=== PATIENT | female | born 1965 | race Caucasian/White ===

== ENCOUNTER 2017-07-26 15:08 | Emergency (ER) | payer MEDICARE, MEDICAID ==
[~2017-07-26] VITALS: Ht 1604.7 cm; Wt 72.7 kg
[~2017-07-26 15:08] MED LIST: BENZ0.5T43 PO; HALO5AMP2 PO; LITH150C8 PO; LITH300C PO; LORA-512 PO; METF500T6 PO; PALI234D IM; PROP10TA10 PO; QUET-1 PO; ZES2.5T PO
[2017-07-26 15:47] LABS: BASOPHILS % (AUTO) 0.3 % (0-1); EOSINOPHILS # (AUTO) 0.3 X10'3 (0-0.9); EOSINOPHILS % (AUTO) 2.3 % (0-6); HEMATOCRIT 39.4 % (35.0-45.0); HEMOGLOBIN 13.5 g/dl (12.0-16.0); LYMPHOCYTES # (AUTO) 2.1 X10'3 (1.1-4.8); MEAN CORPUSCULAR HEMOGLOBIN 29.8 PG (27.0-31.0); MEAN CORPUSCULAR HGB CONC 34.2 % (33.0-36.5); MEAN CORPUSCULAR VOLUME 87.1 FL (78-98); MEAN PLATELET VOLUME 6.7 FL (7.4-10.4); MONOCYTES # (AUTO) 0.5 X10'3 (0-0.9); MONOCYTES % (AUTO) 4.4 % (2-12); NEUTROPHILS # (AUTO) 9.2 X10'3 (1.8-7.7); PLATELET COUNT 394 X10'3 (140-440); RED BLOOD COUNT 4.53 X10'6 (4.20-5.60); RED CELL DISTRIBUTION WIDTH 14.6 % (11.5-14.5); WHITE BLOOD COUNT 12.1 X10'3 (4.5-11.0)
[2017-07-26 15:49] LABS: CLARITY,URINE CLOUDY (Clear); COLOR,URINE YELLOW (Yellow); GLUCOSE, URINE NEGATIVE (Neg); KETONES,URINE NEGATIVE (Neg); LEUKOCYTE ESTERASE ,URINE NEGATIVE (Neg); NITRITES, URINE NEGATIVE (Neg); OCCULT BLOOD,URINE NEGATIVE (Neg); PROTEIN,URINE 100 mg/dl (Neg); UROBILINOGEN,URINE 0.2 E.U/dL (0.2-1.0)
[2017-07-26 15:50] LABS: URINE HCG NEGATIVE (NEG)
[2017-07-26 15:57] LABS: UA COLLECTION TYPE CLN CATCH MIDSTREAM
[2017-07-26 15:58] LABS: MUCUS STRANDS FEW /LPF (Neg); SQUAMOUS EPITHELIAL CELL,UR MANY /LPF (FEW)
[2017-07-26 15:59] LABS: BACTERIA,URINE 2+ /HPF (Neg); RBC,URINE 0-2 /HPF (0-2)
[2017-07-26 16:02] LABS: ALANINE AMINOTRANSFERASE 61 U/L (12-78); ALBUMIN 3.9 G/DL (3.4-5.0); ALKALINE PHOSPHATASE 71 IU/L (46-116); ANION GAP 14 (8-16); ASPARTATE AMINO TRANSFERASE 34 U/L (10-37); BILIRUBIN,TOTAL 0.7 MG/DL (0.1-1.0); BLOOD UREA NITROGEN 24 MG/DL (7-18); BUN/CREATININE RATIO 24.7 (6.6-38.0); CHLORIDE 104 MMOL/L (99-107); CREATININE 0.97 MG/DL (0.40-0.90); GLUCOSE 186 MG/DL (70-104); POTASSIUM 4.3 MMOL/L (3.5-5.1); SODIUM 142 MMOL/L (135-145); TOTAL CARBON DIOXIDE 23.6 MMOL/L (24-32); eGFR 61 ML/MIN
[2017-07-26 16:02] LABS: URINE AMPHETAMINE SCREEN NEGATIVE (Neg); URINE BARBITUATE SCREEN NEGATIVE (Neg); URINE BENZODIAZEPINES SCREEN NEGATIVE (Neg); URINE CANNABINOID SCREEN NEGATIVE (Neg); URINE COCAINE SCREEN NEGATIVE (Neg); URINE METHADONE SCREEN NEGATIVE (Neg); URINE OPIATE SCREEN NEGATIVE (Neg); URINE PHENCYCLIDINE SCREEN NEGATIVE (Neg)
[2017-07-26 16:10] LABS: ETHANOL < 0.010 GM/DL (0.0-0.010)
[2017-07-26] MEDS ORDERED: normal saline 1000ML IV soln IVB ONE (16:10)
[2017-07-26] MEDS ORDERED: OLAN5TAB26 PO (16:50)
[2017-07-26] MEDS ORDERED: LOSA25TA96 PO (16:50)
[2017-07-26] MEDS ORDERED: OLAN10TA19 PO (16:50)
[2017-07-26] MEDS ORDERED: ATOR20TA PO (16:50)
[2017-07-26] MEDS ORDERED: LIT300C PO (16:50)
[2017-07-26] MEDS ORDERED: ADV50250 IH (16:50)
[2017-07-26] MEDS: albuterol 2.5 MG/3 ML nebule NEB SCH (20:38)
[2017-07-26] MEDS: BUDESONIDE 0.25 MG/2 ML AMPUL.NEB IH SCH (20:38)
[2017-07-26] MEDS: atorvastatin 20mg tablet PO SCH (20:48)
[2017-07-26] MEDS: olanzapine 10mg tablet PO SCH (20:49)
[2017-07-26] MEDS: sulfamethoxazole/trimethoprim DS (800/160mg) tablet PO SCH (20:49)
[2017-07-26] MEDS: OLANZapine 2.5MG tablet PO SCH (20:49)
[2017-07-26] MEDS: lithium carbonate 300mg SR tablet (LithoBID) PO SCH (20:50)
[2017-07-26] MEDS: benztropine 1mg tablet PO SCH (20:50)
[2017-07-27] MEDS: albuterol 2.5 MG/3 ML nebule NEB SCH ×4 (07:30→20:40)
[2017-07-27] MEDS: BUDESONIDE 0.25 MG/2 ML AMPUL.NEB IH SCH ×2 (07:30→20:40)
[2017-07-27] MEDS: sulfamethoxazole/trimethoprim DS (800/160mg) tablet PO SCH ×2 (08:07→21:40)
[2017-07-27] MEDS: olanzapine 10mg tablet PO SCH ×2 (08:07→21:42)
[2017-07-27] MEDS: benztropine 1mg tablet PO SCH ×2 (08:07→21:42)
[2017-07-27] MEDS: lithium carbonate 300mg SR tablet (LithoBID) PO SCH ×2 (08:07→21:41)
[2017-07-27] MEDS: losartan 25mg tablet PO SCH (08:07)
[2017-07-27] MEDS: metFORMIN 500mg tablet PO SCH (08:11)
[2017-07-27] MEDS: atorvastatin 20mg tablet PO SCH (21:40)
[2017-07-27] MEDS: lactobacillus rhamnosus 10,000 MMU CELLS/CAPSULE PO SCH (21:41)
[2017-07-27] MEDS: OLANZapine 2.5MG tablet PO SCH (21:42)
[2017-07-28] MEDS: albuterol 2.5 MG/3 ML nebule NEB SCH ×4 (07:54→20:25)
[2017-07-28] MEDS: BUDESONIDE 0.25 MG/2 ML AMPUL.NEB IH SCH ×2 (07:54→20:25)
[2017-07-28] MEDS: benztropine 1mg tablet PO SCH ×2 (07:55→20:18)
[2017-07-28] MEDS: lactobacillus rhamnosus 10,000 MMU CELLS/CAPSULE PO SCH ×2 (07:56→20:22)
[2017-07-28] MEDS: metFORMIN 500mg tablet PO SCH (07:56)
[2017-07-28] MEDS: sulfamethoxazole/trimethoprim DS (800/160mg) tablet PO SCH ×2 (07:56→20:22)
[2017-07-28] MEDS: lithium carbonate 300mg SR tablet (LithoBID) PO SCH ×2 (07:56→20:22)
[2017-07-28] MEDS: olanzapine 10mg tablet PO SCH ×2 (07:56→20:47)
[2017-07-28] MEDS: losartan 25mg tablet PO SCH (08:12)
[2017-07-28] MEDS: atorvastatin 20mg tablet PO SCH (20:46)
[2017-07-28] MEDS: OLANZapine 2.5MG tablet PO SCH (20:47)
[2017-07-29] MEDS: BUDESONIDE 0.25 MG/2 ML AMPUL.NEB IH SCH ×2 (07:01→19:00)
[2017-07-29] MEDS: albuterol 2.5 MG/3 ML nebule NEB SCH ×4 (07:01→18:59)
[2017-07-29] MEDS: benztropine 1mg tablet PO SCH (09:03)
[2017-07-29] MEDS: lactobacillus rhamnosus 10,000 MMU CELLS/CAPSULE PO SCH (09:03)
[2017-07-29] MEDS: sulfamethoxazole/trimethoprim DS (800/160mg) tablet PO SCH (09:04)
[2017-07-29] MEDS: lithium carbonate 300mg SR tablet (LithoBID) PO SCH (09:04)
[2017-07-29] MEDS: losartan 25mg tablet PO SCH (09:05)
[2017-07-29] MEDS: olanzapine 10mg tablet PO SCH (09:06)
[2017-07-29] MEDS: metFORMIN 500mg tablet PO SCH (09:06)
[2017-07-29 17:37] VITALS: BP 103/59
== END 2017-07-29 20:13 ==
LOC: ER 15:08
DX: F31.9 Bipolar disorder, unspecified (principal); N39.0 Urinary tract infection, site not specified; F20.9 Schizophrenia, unspecified; Z91.14 Patient's other noncompliance with medication regimen; Z88.0 Allergy status to penicillin; Z88.8 Allergy status to other drugs, medicaments and biological substances; Z79.899 Other long term (current) drug therapy
CPT/HCPCS: 36415; 80053; 80178; 80305; 80320; 81001; 81025; 82948; 84443; 85025; 94640; 94760; 99285; J3490; J7030

== ENCOUNTER 2018-01-24 09:47 | Emergency (ER) | payer MEDICARE, MEDICAID ==
[~2018-01-24] VITALS: Ht 162.6 cm; Wt 90.0 kg
[~2018-01-24 09:47] MED LIST changes: +ADV50250 IH; +ATOR20TA PO; -HALO5AMP2 PO; +LIT300C PO; -LITH150C8 PO; -LITH300C PO; -LORA-512 PO; +LOSA25TA96 PO; +METF-950 PO; -METF500T6 PO; +OLAN10TA19 PO; +OLAN5TAB26 PO; -PALI234D IM; -PROP10TA10 PO; -QUET-1 PO; -ZES2.5T PO
[2018-01-24 10:33] LABS: BASOPHILS # (AUTO) 0.1 X10'3 (0-0.2); BASOPHILS % (AUTO) 0.6 % (0-1); EOSINOPHILS # (AUTO) 0.2 X10'3 (0-0.9); HEMATOCRIT 39.8 % (35.0-45.0); HEMOGLOBIN 13.3 g/dl (12.0-16.0); LYMPHOCYTES # (AUTO) 1.8 X10'3 (1.1-4.8); LYMPHOCYTES % (AUTO) 19.6 % (21-51); MEAN CORPUSCULAR HEMOGLOBIN 29.9 PG (27.0-31.0); MEAN CORPUSCULAR HGB CONC 33.4 % (33.0-36.5); MEAN CORPUSCULAR VOLUME 89.3 FL (78-98); MEAN PLATELET VOLUME 6.8 FL (7.4-10.4); MONOCYTES # (AUTO) 0.6 X10'3 (0-0.9); MONOCYTES % (AUTO) 6.2 % (2-12); NEUTROPHILS # (AUTO) 6.4 X10'3 (1.8-7.7); NEUTROPHILS % (AUTO) 71.6 % (42-75); PLATELET COUNT 418 X10'3 (140-440); RED BLOOD COUNT 4.46 X10'6 (4.20-5.60); RED CELL DISTRIBUTION WIDTH 15.1 % (11.5-14.5)
[2018-01-24 10:43] LABS: ALANINE AMINOTRANSFERASE 26 U/L (12-78); ALBUMIN 4.1 G/DL (3.4-5.0); ALBUMIN/GLOBULIN RATIO 1.1 (1.1-1.5); ALKALINE PHOSPHATASE 74 IU/L (46-116); ANION GAP 18 (8-16); ASPARTATE AMINO TRANSFERASE 19 U/L (10-37); BILIRUBIN,TOTAL 0.4 MG/DL (0.1-1.0); BLOOD UREA NITROGEN 15 MG/DL (7-18); CALCIUM 9.5 MG/DL (8.5-10.1); CHLORIDE 101 MMOL/L (99-107); CREATININE 0.94 MG/DL (0.40-0.90); ETHANOL < 0.010 GM/DL (0.0-0.010); GLUCOSE 177 MG/DL (70-104); POTASSIUM 3.1 MMOL/L (3.5-5.1); SODIUM 139 MMOL/L (135-145); TOTAL CARBON DIOXIDE 20.4 MMOL/L (24-32); TOTAL PROTEIN 7.8 G/DL (6.4-8.2); eGFR 63 ML/MIN
[2018-01-24] MEDS ORDERED: LORazepam 2 mg/ml vial IM ONE (12:50)
[2018-01-24 13:21] LABS: CLARITY,URINE CLOUDY (Clear); COLOR,URINE YELLOW (Yellow); GLUCOSE, URINE NEGATIVE (Neg); KETONES,URINE TRACE mg/dl (Neg); LEUKOCYTE ESTERASE ,URINE TRACE (Neg); NITRITES, URINE NEGATIVE (Neg); OCCULT BLOOD,URINE NEGATIVE (Neg); PROTEIN,URINE 100 mg/dl (Neg)
[2018-01-24 13:22] LABS: UA COLLECTION TYPE STRAIGHT CATH; URINE HCG NEGATIVE (NEG)
[2018-01-24 13:27] LABS: MUCUS STRANDS MANY /LPF (Neg); SQUAMOUS EPITHELIAL CELL,UR MANY /LPF (FEW)
[2018-01-24 13:29] LABS: BACTERIA,URINE 1+ /HPF (Neg); CAL OXALATE CRYSTALS 2+ /HPF (NEGATIVE); RBC,URINE 0-2 /HPF (0-2)
[2018-01-24 13:31] LABS: URINE AMPHETAMINE SCREEN NEGATIVE (Neg); URINE BARBITUATE SCREEN NEGATIVE (Neg); URINE BENZODIAZEPINES SCREEN NEGATIVE (Neg); URINE CANNABINOID SCREEN NEGATIVE (Neg); URINE COCAINE SCREEN NEGATIVE (Neg); URINE METHADONE SCREEN NEGATIVE (Neg); URINE OPIATE SCREEN NEGATIVE (Neg); URINE PHENCYCLIDINE SCREEN NEGATIVE (Neg)
[2018-01-24] MEDS: benztropine 1mg tablet PO SCH (20:00)
[2018-01-24] MEDS: lithium carbonate 150mg capsule PO SCH (20:00)
[2018-01-24] MEDS ORDERED: OLANZapine 5mg rapidly disint. tablet PO SCH (21:00)
[2018-01-24] MEDS ORDERED: BUDESONIDE 0.25 MG/2 ML AMPUL.NEB IH SCH (21:00)
[2018-01-24] MEDS ORDERED: atorvastatin 20mg tablet PO SCH (21:00)
[2018-01-25] MEDS ORDERED: albuterol 2.5 MG/3 ML nebule NEB SCH (07:00)
[2018-01-25] MEDS ORDERED: losartan 25mg tablet PO SCH (08:00)
[2018-01-25] MEDS ORDERED: metFORMIN 500mg tablet PO SCH (08:00)
[2018-01-25] MEDS: benztropine 1mg tablet PO SCH (08:00)
[2018-01-25] MEDS: lithium carbonate 150mg capsule PO SCH (08:00)
[2018-01-25] MEDS ORDERED: olanzapine 10mg tablet PO SCH (08:00)
[2018-01-25 09:23] VITALS: BP 141/71
== END 2018-01-25 09:24 ==
LOC: ER 09:48
DX: F29 Unspecified psychosis not due to a substance or known physiological condition (principal); F20.9 Schizophrenia, unspecified; F17.210 Nicotine dependence, cigarettes, uncomplicated; Z88.0 Allergy status to penicillin; Z88.6 Allergy status to analgesic agent; Z88.5 Allergy status to narcotic agent; Z88.8 Allergy status to other drugs, medicaments and biological substances; Z79.84 Long term (current) use of oral hypoglycemic drugs; Z79.899 Other long term (current) drug therapy
CPT/HCPCS: 36415; 80053; 80305; 80320; 81001; 81025; 84443; 85025; 96372; 99285; J2060; P9612

== ENCOUNTER 2018-02-15 02:12 | Inpatient (IN) | payer MEDICARE, MEDICAID ==
[~2018-02-15] VITALS: Ht 162.6 cm; Wt 58.4 kg
[2018-02-15 02:59] LABS: ALANINE AMINOTRANSFERASE 33 U/L (12-78); ALBUMIN 2.3 G/DL (3.4-5.0); ALBUMIN/GLOBULIN RATIO 0.7 (1.1-1.5); ALKALINE PHOSPHATASE 94 IU/L (46-116); ANION GAP 14 (8-16); ASPARTATE AMINO TRANSFERASE 38 U/L (10-37); BILIRUBIN,TOTAL 0.6 MG/DL (0.1-1.0); BLOOD UREA NITROGEN 32 MG/DL (7-18); BUN/CREATININE RATIO 9.1 (6.6-38.0); CHLORIDE 90 MMOL/L (99-107); CREATININE 3.51 MG/DL (0.40-0.90); GLUCOSE 170 MG/DL (70-104); MAGNESIUM 1.3 MG/DL (1.5-2.4); POTASSIUM 5.6 MMOL/L (3.5-5.1); SODIUM 124 MMOL/L (135-145); TOTAL CARBON DIOXIDE 20.4 MMOL/L (24-32); TOTAL PROTEIN 5.6 G/DL (6.4-8.2); eGFR 14 ML/MIN
[2018-02-15 03:08] LABS: BASOPHILS % (AUTO) 0 % (0-1); EOSINOPHILS # (AUTO) 0.2 X10'3 (0-0.9); EOSINOPHILS % (AUTO) 2.5 % (0-6); HEMATOCRIT 33.6 % (35.0-45.0); HEMOGLOBIN 11.5 g/dl (12.0-16.0); LYMPHOCYTES # (AUTO) 0.3 X10'3 (1.1-4.8); LYMPHOCYTES % (AUTO) 4.5 % (21-51); MEAN CORPUSCULAR HEMOGLOBIN 30.4 PG (27.0-31.0); MEAN CORPUSCULAR HGB CONC 34.2 % (33.0-36.5); MEAN CORPUSCULAR VOLUME 88.9 FL (78-98); MEAN PLATELET VOLUME 7.1 FL (7.4-10.4); MONOCYTES # (AUTO) 0.4 X10'3 (0-0.9); MONOCYTES % (AUTO) 5.7 % (2-12); NEUTROPHILS # (AUTO) 6.3 X10'3 (1.8-7.7); NEUTROPHILS % (AUTO) 87.3 % (42-75); PLATELET COUNT 188 X10'3 (140-440); RED BLOOD COUNT 3.78 X10'6 (4.20-5.60); RED CELL DISTRIBUTION WIDTH 12.9 % (11.5-14.5); WHITE BLOOD COUNT 7.2 X10'3 (4.5-11.0)
[2018-02-15] MEDS ORDERED: normal saline 1000ml 1,000 ML IV ONE (03:20)
[2018-02-15] MEDS ORDERED: PALI6TAB PO (03:28)
[2018-02-15] MEDS ORDERED: HYDR-3686 PO (03:28)
[2018-02-15] MEDS ORDERED: TEMA15CA5 PO (03:28)
[2018-02-15] MEDS ORDERED: HALO10TA13 PO ×2 (03:28→03:30)
[2018-02-15] MEDS ORDERED: LORA1TAB PO (03:28)
[2018-02-15] MEDS ORDERED: MAG355OR18 PO (03:28)
[2018-02-15] MEDS ORDERED: METF500T PO (03:28)
[2018-02-15] MEDS ORDERED: ONDA4TAB12 PO (03:28)
[2018-02-15] MEDS ORDERED: SENN-162 PO (03:28)
[2018-02-15] MEDS ORDERED: PALI234D IM (03:28)
[2018-02-15] MEDS ORDERED: LORA-269 PO (03:28)
[2018-02-15] MEDS ORDERED: CHOL10002 PO (03:28)
[2018-02-15] MEDS ORDERED: HALO5TAB PO (03:28)
[2018-02-15] MEDS ORDERED: OXYB5TAB11 PO (03:28)
[2018-02-15] MEDS ORDERED: NAPR-56 PO (03:28)
[2018-02-15 03:52] LABS: CLARITY,URINE CLOUDY (Clear); COLOR,URINE YELLOW (Yellow); GLUCOSE, URINE NEGATIVE (Neg); KETONES,URINE NEGATIVE (Neg); LEUKOCYTE ESTERASE ,URINE MODERATE (Neg); NITRITES, URINE NEGATIVE (Neg); OCCULT BLOOD,URINE LARGE (Neg); PROTEIN,URINE >=300 mg/dl (Neg); UROBILINOGEN,URINE 0.2 E.U/dL (0.2-1.0)
[2018-02-15 03:58] LABS: TOTAL CELLS COUNTED 100
[2018-02-15 03:59] LABS: PLATELET ESTIMATE NORMAL; TOXIC GRANULATION 1+
[2018-02-15] MEDS ORDERED: diphenhydrAMINE 25mg capsule PO PRN (04:25)
[2018-02-15] MEDS ORDERED: bisacodyl 10mg suppository rectal RC PRN (04:25)
[2018-02-15] MEDS ORDERED: diphenhydrAMINE 50 mg/ml inj IV PRN (04:25)
[2018-02-15] MEDS ORDERED: magnesium hydroxide 30ml (MOM) UD suspension PO PRN (04:25)
[2018-02-15] MEDS ORDERED: metoclopramide 5 mg/ml inj IV PRN (04:25)
[2018-02-15] MEDS ORDERED: mag hydrox/Alum hydrox/simeth 30ml oral suspension PO PRN ×2 (04:25→13:50)
[2018-02-15] MEDS ORDERED: morphine 4 MG/ML inj SYRINge IV PRN (04:25)
[2018-02-15] MEDS ORDERED: levoFLOXACIN-Levaquin 750MG/D5 150 ML IV STA (04:28)
[2018-02-15 04:35] LABS: UA COLLECTION TYPE STRAIGHT CATH
[2018-02-15 04:36] LABS: WBC,URINE TNTC /HPF (0-4)
[2018-02-15 04:37] LABS: BACTERIA,URINE 4+ /HPF (Neg); RBC,URINE TNTC /HPF (0-2); SQUAMOUS EPITHELIAL CELL,UR MODERATE /LPF (FEW); WBC CLUMPS,URINE FEW /HPF (NEGATIVE)
[2018-02-15] MEDS ORDERED: glucagon, human recombinant 1mg kit SUBCUT PRN (04:45)
[2018-02-15] MEDS ORDERED: dextrose 50%-water 50ml dispensing syringe IV PRN ×2 (04:45)
[2018-02-15] MEDS ORDERED: magnesium 4gm in 100ml NS 100 ML IV PRN (04:45)
[2018-02-15] MEDS ORDERED: MESSAGE TO PHARMACY PO ONE (04:45)
[2018-02-15] MEDS ORDERED: dextrose ORAL solution 15 GM/59 ML bottle PO PRN (04:45)
[2018-02-15] MEDS ORDERED: magnesium Cl slow-release 64mg tablet PO PRN (04:45)
[2018-02-15] MEDS: normal saline 1000ml 1,000 ML IV SCH ×3 (04:55→22:19)
[2018-02-15] MEDS ORDERED: CefTRIAXone 2gm/D5W 50ml 50 ML IV ONE (05:10)
[2018-02-15] MEDS ORDERED: albuterol 2.5 MG/3 ML nebule ONE (05:38)
[2018-02-15] MEDS ORDERED: albuterol 2.5 MG/3 ML nebule NEB ONE ×2 (05:40→13:45)
[2018-02-15 05:45] LABS: HEMOGLOBIN A1C 6.1 % (4.5-6.2)
[2018-02-15 05:50] LABS: PHOSPHORUS 2.9 MG/DL (2.3-4.5)
[2018-02-15] MEDS ORDERED: dextrose 50%-water 50ml dispensing syringe IV ONE ×2 (06:00→13:45)
[2018-02-15] MEDS ORDERED: sodium bicarbonate (8.4%) 1 mEq/ml syringe ONE (06:00)
[2018-02-15] MEDS ORDERED: calcium chloride 100 MG/1 ML inj IV ONE (06:00)
[2018-02-15 07:49] LABS: CARBAMAZEPINE (TEGRETOL) 10.3 UG/ML (4.0-12.0)
[2018-02-15] MEDS ORDERED: heparin, porcine 5000 units/ml vial SQ SCH (08:00)
[2018-02-15] MEDS: docusate sod 100mg capsule PO SCH ×2 (08:00→21:55)
[2018-02-15] MEDS: LORazepam 0.5 MG tablet PO PRN (09:05)
--- NOTE | 2018-02-15 10:11 | NUR ---
PHOTOGRAPHIC PLATEMAKER AT BEDSIDE.
[2018-02-15 11:20] VITALS: BP 132/69
--- NOTE | 2018-02-15 11:35 | NUR ---
I let Dr. Conroy know patient HR 130, he said he will be up to see patient soon and he ordered to redraw potassium.
[2018-02-15 12:38] LABS: ALBUMIN 2.3 G/DL (3.4-5.0); ANION GAP 16 (8-16); BLOOD UREA NITROGEN 38 MG/DL (7-18); BUN/CREATININE RATIO 9.8 (6.6-38.0); CALCIUM 8.2 MG/DL (8.5-10.1); CHLORIDE 88 MMOL/L (99-107); CREATININE 3.86 MG/DL (0.40-0.90); GLUCOSE 159 MG/DL (70-104); POTASSIUM 5.6 MMOL/L (3.5-5.1); SODIUM 122 MMOL/L (135-145); TOTAL CARBON DIOXIDE 17.8 MMOL/L (24-32); eGFR 12 ML/MIN
--- NOTE | 2018-02-15 12:51 | NUR ---
I bladder scanned patient retaining 275ml, then we put her on bedpan
[2018-02-15] MEDS ORDERED: insulin regular, human 10 units/0.1 ml syringe IV ONE (13:45)
[2018-02-15] MEDS ORDERED: sodium polystyrene sulfonate 15gm/60ml oral suspension PO ONE (13:45)
[2018-02-15] MEDS ORDERED: sodium bicarbonate inj. 44.6 MEQ in sodium chloride 0.45% 1,000.4444 ML IV SCH (13:45)
[2018-02-15] MEDS ORDERED: LORazepam 1 MG tablet PO PRN (13:50)
[2018-02-15] MEDS ORDERED: haloperidol 5mg tablet PO PRN (14:00)
[2018-02-15] MEDS ORDERED: sodium bicarbonate (8.4%) inj. 50 MEQ in sodium chloride 0.45% 1,000 ML IV SCH (14:02)
[2018-02-15] MEDS: CefTRIAXone/D5W-Rocephin 1gm 50 ML IV SCH (14:58)
--- NOTE | 2018-02-15 16:30 | NUR ---
Dr. Conroy notified of patient desating to 88on 4L NC, put up to 7L. Dr conroy ordered albuterol and atrovent q4hr scheduled.
[2018-02-15] MEDS ORDERED: heparin 10,000 units/1 ML INJ IV PRN (17:25)
[2018-02-15] MEDS ORDERED: heparin 10,000 units/1 ML INJ IV ONE (17:25)
[2018-02-15 17:41] LABS: ALBUMIN 2.3 G/DL (3.4-5.0); ANION GAP 15 (8-16); BLOOD UREA NITROGEN 40 MG/DL (7-18); CALCIUM 8.2 MG/DL (8.5-10.1); CHLORIDE 85 MMOL/L (99-107); GLUCOSE 254 MG/DL (70-104); TOTAL CARBON DIOXIDE 16.9 MMOL/L (24-32); eGFR 12 ML/MIN
[2018-02-15] MEDS: oxybutynin 5mg tablet PO SCH ×2 (17:44→21:55)
[2018-02-15 17:46] LABS: POTASSIUM 6.4 MMOL/L (3.5-5.1); SODIUM 117 MMOL/L (135-145)
--- NOTE | 2018-02-15 17:50 | NUR ---
PAGER ID: [phone] MESSAGE: Dr. Conroy, patient Eduarda Costa has critical lab of 117 sodium, and potassium 6.4. Leyda [id number]
--- NOTE | 2018-02-15 18:00 | NUR ---
Patient continued to desaturate and was put on 10L high flow 02, we called a rapid response patients 02 sat was 85 to 88% at this time. Heparin drip started. Yumiko FREIRE ICU and Dr. Conroy came to bedside as well as respiratory and lab. Dr. Herron came as well. Addendum: 02/15/18 at 1929 by Darlene Hartman RN Late entry, the rapid response called at approximately 1800. Yumiko and I took patient down to ICU and I gave report to RN there.
[2018-02-15] MEDS: heparin 25,000 UNIT/250ml bag 250 ML IV SCH (18:12)
[2018-02-15] MEDS ORDERED: albuterol 2.5 MG/3 ML nebule NEB PRN ×2 (18:15→18:20)
[2018-02-15 18:16] LABS: ABG BASE EXCESS -11.7 mmol/L (-2.0-3.0); ABG HCO3 14.4 mmol/L (22.0-26.0); ABG OXYGEN SATURATION 96.2 % (95-98); ABG PCO2 (T) 33.6 mmHg (32.0-45.0); ABG PH (T) 7.251 (7.350-7.450); FCOHb 0.5 % (0.5-1.5); FLOW 16 L/min; FMetHb 0.2 % (0.3-1.12); FO2Hb 95.5 % (94-100); PATIENT TEMPERATURE 37.2; TOTAL HEMOGLOBIN 12.1 G/dl (12.0-16.0)
[2018-02-15 18:16] LABS: PARTIAL THROMBOPLASTIN TIME 41 SECONDS (22-32)
[2018-02-15 18:48] LABS: CLARITY,URINE CLOUDY (Clear); COLOR,URINE YELLOW (Yellow); GLUCOSE, URINE NEGATIVE (Neg); KETONES,URINE NEGATIVE (Neg); LEUKOCYTE ESTERASE ,URINE MODERATE (Neg); NITRITES, URINE POSITIVE (Neg); OCCULT BLOOD,URINE LARGE (Neg); PH,URINE 6.5 (4.8-8.0); PROTEIN,URINE >=300 mg/dl (Neg); UROBILINOGEN,URINE 0.2 E.U/dL (0.2-1.0)
[2018-02-15 18:50] LABS: UA COLLECTION TYPE FOLEY CATH
[2018-02-15 19:00] VITALS: BP 150/61
--- NOTE | 2018-02-15 19:02 | NUR ---
Patient report given to Susi FREIRE ICU
[2018-02-15 19:14] LABS: RBC,URINE 20-50 /HPF (0-2); WBC,URINE 50-100 /HPF (0-4)
[2018-02-15 19:15] LABS: BACTERIA,URINE 2+ /HPF (Neg); MUCUS STRANDS NONE SEEN /LPF (Neg); SQUAMOUS EPITHELIAL CELL,UR NONE SEEN /LPF (FEW); TRANSITIONAL EPI CELLS,URINE FEW /HPF
--- NOTE | 2018-02-15 19:30 | NUR ---
1845- Pt to room 2016, appearing SOB on Non-Rebreather mask. Leyda RN at bedside for report after Rapid response. Critical lab values treated previous to arrival. Pt follows commands but speaks in whispers/mumbles difficult to understand. She is restless and pulling at mask and wires. She has and is aware of her hallucinations. Reorientation and reassurance is continuous. Pt given call light and is watching tv, but yells out and tries to crawl out of bed as soon as she is left alone in the room. Bed alarm is on.
--- NOTE | 2018-02-15 19:32 | NUR ---
Late note ,patient on non rebreather mask at 1800 during rapid response.
[2018-02-15 20:00] VITALS: BP 119/46
[2018-02-15 21:00] VITALS: BP 117/51
[2018-02-15 21:40] LABS: ALBUMIN 2.3 G/DL (3.4-5.0); ANION GAP 21 (8-16); BLOOD UREA NITROGEN 40 MG/DL (7-18); BUN/CREATININE RATIO 9.8 (6.6-38.0); CALCIUM 8.9 MG/DL (8.5-10.1); CHLORIDE 83 MMOL/L (99-107); CREATININE 4.07 MG/DL (0.40-0.90); GLUCOSE 266 MG/DL (70-104); TOTAL CARBON DIOXIDE 15.4 MMOL/L (24-32); eGFR 12 ML/MIN
[2018-02-15 21:42] LABS: POTASSIUM 5.3 MMOL/L (3.5-5.1)
[2018-02-15 21:44] LABS: SODIUM 119 MMOL/L (135-145)
[2018-02-15] MEDS: sennosides 8.6mg tablet PO SCH (21:54)
[2018-02-15] MEDS: LORazepam 1 MG tablet PO PRN (21:55)
[2018-02-15] MEDS: temazepam 15mg capsule PO SCH (21:55)
[2018-02-15 22:00] VITALS: BP 109/53
[2018-02-15] MEDS ORDERED: sodium chloride 3% IV.soln 500 ML IV ONE (22:00)
[2018-02-15] MEDS: ondansetron/PF 4mg/2ml inj IV PRN (22:16)
[2018-02-15] MEDS: PALIPERIDONE 3 MG TAB.ER.24 PO SCH (22:36)
[2018-02-15] MEDS: insulin Lispro (HumaLOG) vial - multi-dose SQ SCH (22:53)
[2018-02-15] MEDS: insulin glargine (Lantus) pen - multi-dose SQ SCH (22:54)
[2018-02-15 23:00] VITALS: BP 115/54
[2018-02-15 23:23] LABS: UA EOSINOPHILS NO EOS /HPF
[2018-02-16] VITALS (23 sets, daily range): BP systolic 103–141; BP diastolic 53–67
[2018-02-16 03:19] LABS: ALANINE AMINOTRANSFERASE 43 U/L (12-78); ALBUMIN 2.2 G/DL (3.4-5.0); ALBUMIN/GLOBULIN RATIO 0.6 (1.1-1.5); ALKALINE PHOSPHATASE 182 IU/L (46-116); ANION GAP 16 (8-16); ASPARTATE AMINO TRANSFERASE 38 U/L (10-37); BILIRUBIN,TOTAL 1.7 MG/DL (0.1-1.0); BLOOD UREA NITROGEN 42 MG/DL (7-18); BUN/CREATININE RATIO 10.2 (6.6-38.0); CALCIUM 8.7 MG/DL (8.5-10.1); CHLORIDE 86 MMOL/L (99-107); CREATININE 4.11 MG/DL (0.40-0.90); GLUCOSE 203 MG/DL (70-104); MAGNESIUM 2.2 MG/DL (1.5-2.4); POTASSIUM 5.5 MMOL/L (3.5-5.1); TOTAL CARBON DIOXIDE 18.4 MMOL/L (24-32); eGFR 11 ML/MIN
[2018-02-16 03:21] LABS: BASOPHILS # (AUTO) 0.1 X10'3 (0-0.2); BASOPHILS % (AUTO) 1.3 % (0-1); EOSINOPHILS % (AUTO) 0.2 % (0-6); HEMATOCRIT 34.1 % (35.0-45.0); HEMOGLOBIN 11.5 g/dl (12.0-16.0); LYMPHOCYTES # (AUTO) 0.2 X10'3 (1.1-4.8); LYMPHOCYTES % (AUTO) 1.4 % (21-51); MEAN CORPUSCULAR HEMOGLOBIN 29.3 PG (27.0-31.0); MEAN CORPUSCULAR HGB CONC 33.7 % (33.0-36.5); MEAN CORPUSCULAR VOLUME 87.2 FL (78-98); MEAN PLATELET VOLUME 6.8 FL (7.4-10.4); MONOCYTES # (AUTO) 0.6 X10'3 (0-0.9); MONOCYTES % (AUTO) 4.9 % (2-12); NEUTROPHILS # (AUTO) 10.4 X10'3 (1.8-7.7); NEUTROPHILS % (AUTO) 92.2 % (42-75); RED BLOOD COUNT 3.91 X10'6 (4.20-5.60); RED CELL DISTRIBUTION WIDTH 13.8 % (11.5-14.5); WHITE BLOOD COUNT 11.3 X10'3 (4.5-11.0)
[2018-02-16 03:24] LABS: SODIUM 120 MMOL/L (135-145)
--- NOTE | 2018-02-16 03:38 | NUR ---
Na value 120 after 100ml of 3% saline soln given, additional 100ml ordered. PTT unable to give value. Gtt turned off per protocol and lab reordered for 2hrs.
[2018-02-16 05:12] LABS: PLATELET COUNT 92 X10'3 (140-440)
[2018-02-16 06:21] LABS: ALBUMIN 1.9 G/DL (3.4-5.0); ANION GAP 14 (8-16); BLOOD UREA NITROGEN 43 MG/DL (7-18); BUN/CREATININE RATIO 10.4 (6.6-38.0); CALCIUM 8.1 MG/DL (8.5-10.1); CHLORIDE 88 MMOL/L (99-107); CREATINE KINASE 15 U/L (26-192); CREATININE 4.14 MG/DL (0.40-0.90); GLUCOSE 145 MG/DL (70-104); POTASSIUM 5.5 MMOL/L (3.5-5.1); SODIUM 121 MMOL/L (135-145); TOTAL CARBON DIOXIDE 18.8 MMOL/L (24-32); eGFR 11 ML/MIN
--- NOTE | 2018-02-16 06:34 | NUR ---
Labs drawn at 0540, waiting for results, Heparin gtt still off.
--- NOTE | 2018-02-16 06:35 | NUR ---
Patient in room CICU 2016. I have received report from TANI LOWERY and had the opportunity to ask questions and assume patient care.
--- NOTE | 2018-02-16 06:35 | NUR ---
Problems reprioritized. Patient report given, questions answered & plan of care reviewed with Gloria FREIRE.
[2018-02-16] MEDS: vitamin D (cholecalciferol) 1,000 unit tablet PO SCH (08:00)
[2018-02-16 08:19] LABS: TOTAL CELLS COUNTED 100
[2018-02-16 08:21] LABS: BURR CELLS 1+; PLATELET ESTIMATE DECREASED; ROULEAUX 1+; TOXIC GRANULATION 3+; TOXIC VACUOLATION 1+
--- NOTE | 2018-02-16 08:35 | NUR ---
PTT 87, HEPARIN GTT CURRENTLY OFF. NO ACTION NEEDED AT THIS TIME. Addendum: 02/16/18 at 0845 by Jaylin Falcon RN PLEASE DISREGARD LAST NOTE. 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 HEPARIN GTT RESTARTED AND DECREASED TO 1400 UNITS PER HR., WAS AT 1500 U/HR. WILL REPEAT APTT IN 6 HRS PER PROTOCOL.
[2018-02-16] MEDS: heparin 25,000 UNIT/250ml bag 250 ML IV SCH (08:45)
[2018-02-16] MEDS: docusate sod 100mg capsule PO SCH ×2 (08:58→20:00)
[2018-02-16] MEDS: sennosides 8.6mg tablet PO SCH ×2 (08:58→20:00)
[2018-02-16] MEDS: oxybutynin 5mg tablet PO SCH ×4 (08:58→21:00)
[2018-02-16] MEDS: CefTRIAXone/D5W-Rocephin 1gm 50 ML IV SCH (08:58)
[2018-02-16] MEDS: normal saline 1000ml 1,000 ML IV SCH (11:50)
[2018-02-16 11:57] LABS: ALBUMIN 1.9 G/DL (3.4-5.0); ANION GAP 15 (8-16); BLOOD UREA NITROGEN 46 MG/DL (7-18); BUN/CREATININE RATIO 10.9 (6.6-38.0); CALCIUM 8.2 MG/DL (8.5-10.1); CHLORIDE 88 MMOL/L (99-107); CREATININE 4.21 MG/DL (0.40-0.90); GLUCOSE 106 MG/DL (70-104); SODIUM 121 MMOL/L (135-145); TOTAL CARBON DIOXIDE 18.5 MMOL/L (24-32); eGFR 11 ML/MIN
--- NOTE | 2018-02-16 12:05 | NUR ---
DM consult: Patient's A1c is 6.1, DM ed not warranted at this time. [place] consult re: Pt reported wt loss. Patient's current wt is greater than documented wt from previous visits. Pt with no documented significant decrease in muscle strength or edema. Per physical assessment pt A/O x1. Reported wt loss likely inaccurate. Pt currently does not meet criteria for malnutrition. Will continue to follow. Addendum: 02/16/18 at [address] Amended: Links added.
--- NOTE | 2018-02-16 12:34 | NUR ---
INFORMED DR. DALLAS OF CRITICAL POTASSIUM 6.0 AND SODIUM 121. NO CHANGES MADE AT THIS TIME.
[2018-02-16] MEDS: LORazepam 1 MG tablet PO PRN (12:55)
--- NOTE | 2018-02-16 14:59 | NUR ---
PER DR. DALLAS, WILL D/C HEPARIN GTT.
[2018-02-16 17:59] LABS: ALBUMIN 1.9 G/DL (3.4-5.0); ANION GAP 10 (8-16); BLOOD UREA NITROGEN 48 MG/DL (7-18); BUN/CREATININE RATIO 10.8 (6.6-38.0); CALCIUM 8.3 MG/DL (8.5-10.1); CHLORIDE 89 MMOL/L (99-107); CREATININE 4.43 MG/DL (0.40-0.90); GLUCOSE 105 MG/DL (70-104); TOTAL CARBON DIOXIDE 20.7 MMOL/L (24-32); eGFR 11 ML/MIN
[2018-02-16 18:01] LABS: POTASSIUM 6.5 MMOL/L (3.5-5.1); SODIUM 120 MMOL/L (135-145)
--- NOTE | 2018-02-16 18:11 | NUR ---
INFORMED DR. DALLAS ON CRITICAL LAB RESULTS, POTASSIUM 6.5, SODIUM 120. WILL ORDER 60 GMS KAYEXALATE, PO NOW, ONCE. AND REGULAR DIET WITH 2 LITER H20 RESTRICTION.
[2018-02-16] MEDS ORDERED: sodium polystyrene sulfonate 15gm/60ml oral suspension PO ONE (18:20)
--- NOTE | 2018-02-16 18:27 | NUR ---
Problems reprioritized. Patient report given, questions answered & plan of care reviewed with TANI BRIGGS.
[2018-02-16 19:50] LABS: ABG BASE EXCESS -3.3 mmol/L (-2.0-3.0); ABG HCO3 22.1 mmol/L (22.0-26.0); ABG OXYGEN SATURATION 91.5 % (95-98); ABG PCO2 (T) 41.2 mmHg (32.0-45.0); ABG PH (T) 7.348 (7.350-7.450); ABG PO2 (T) 61.1 mmHg (83-108); ALLEN'S TEST Positive; FCOHb 0.3 % (0.5-1.5); FLOW 10 L/min; FMetHb 0.1 % (0.3-1.12); FO2Hb 91.1 % (94-100); PATIENT TEMPERATURE 37.1; TOTAL HEMOGLOBIN 11.4 G/dl (12.0-16.0)
[2018-02-16] MEDS: PALIPERIDONE 3 MG TAB.ER.24 PO SCH (21:00)
[2018-02-16] MEDS: temazepam 15mg capsule PO SCH (21:00)
[2018-02-17] VITALS (23 sets, daily range): BP systolic 83–147; BP diastolic 56–78
[2018-02-17 03:09] LABS: BASOPHILS % (AUTO) 0 % (0-1); EOSINOPHILS # (AUTO) 0.2 X10'3 (0-0.9); HEMATOCRIT 31.6 % (35.0-45.0); HEMOGLOBIN 10.7 g/dl (12.0-16.0); LYMPHOCYTES # (AUTO) 0.5 X10'3 (1.1-4.8); LYMPHOCYTES % (AUTO) 4.8 % (21-51); MEAN CORPUSCULAR HEMOGLOBIN 29.5 PG (27.0-31.0); MEAN CORPUSCULAR VOLUME 86.8 FL (78-98); MEAN PLATELET VOLUME 6.7 FL (7.4-10.4); MONOCYTES # (AUTO) 0.2 X10'3 (0-0.9); MONOCYTES % (AUTO) 2.2 % (2-12); NEUTROPHILS # (AUTO) 9.5 X10'3 (1.8-7.7); PLATELET COUNT 79 X10'3 (140-440); RED BLOOD COUNT 3.64 X10'6 (4.20-5.60); RED CELL DISTRIBUTION WIDTH 14.4 % (11.5-14.5); WHITE BLOOD COUNT 10.4 X10'3 (4.5-11.0)
[2018-02-17 03:11] LABS: ALANINE AMINOTRANSFERASE 54 U/L (12-78); ALBUMIN 1.8 G/DL (3.4-5.0); ALBUMIN/GLOBULIN RATIO 0.5 (1.1-1.5); ALKALINE PHOSPHATASE 165 IU/L (46-116); ANION GAP 15 (8-16); ASPARTATE AMINO TRANSFERASE 59 U/L (10-37); BILIRUBIN,TOTAL 4.2 MG/DL (0.1-1.0); BLOOD UREA NITROGEN 51 MG/DL (7-18); BUN/CREATININE RATIO 11.1 (6.6-38.0); CALCIUM 8.4 MG/DL (8.5-10.1); CHLORIDE 90 MMOL/L (99-107); GLUCOSE 104 MG/DL (70-104); MAGNESIUM 2.3 MG/DL (1.5-2.4); POTASSIUM 5.3 MMOL/L (3.5-5.1); SODIUM 125 MMOL/L (135-145); TOTAL CARBON DIOXIDE 19.8 MMOL/L (24-32); TOTAL PROTEIN 5.5 G/DL (6.4-8.2); eGFR 10 ML/MIN
[2018-02-17 07:25] LABS: TOTAL CELLS COUNTED 100
[2018-02-17 07:26] LABS: PLATELET ESTIMATE DECREASED; ROULEAUX 1+; TOXIC GRANULATION 3+; TOXIC VACUOLATION FEW
[2018-02-17 07:27] LABS: SPHEROCYTES FEW
[2018-02-17] MEDS: sennosides 8.6mg tablet PO SCH ×2 (07:32→20:05)
[2018-02-17] MEDS: CefTRIAXone/D5W-Rocephin 1gm 50 ML IV SCH (07:33)
[2018-02-17] MEDS: oxybutynin 5mg tablet PO SCH ×4 (07:33→20:05)
[2018-02-17] MEDS: docusate sod 100mg capsule PO SCH ×2 (07:33→20:05)
[2018-02-17] MEDS: vitamin D (cholecalciferol) 1,000 unit tablet PO SCH (07:33)
[2018-02-17] MEDS ORDERED: levoFLOXACIN-Levaquin 750MG/D5 150 ML IV SCH (08:00)
[2018-02-17 10:58] LABS: ALBUMIN 1.7 G/DL (3.4-5.0); ANION GAP 13 (8-16); BLOOD UREA NITROGEN 53 MG/DL (7-18); BUN/CREATININE RATIO 11.4 (6.6-38.0); CALCIUM 8.2 MG/DL (8.5-10.1); CHLORIDE 91 MMOL/L (99-107); CREATININE 4.65 MG/DL (0.40-0.90); GLUCOSE 98 MG/DL (70-104); POTASSIUM 4.6 MMOL/L (3.5-5.1); SODIUM 125 MMOL/L (135-145); TOTAL CARBON DIOXIDE 20.7 MMOL/L (24-32); eGFR 10 ML/MIN
[2018-02-17] MEDS: normal saline 1000ml 1,000 ML IV SCH ×2 (11:57→13:49)
[2018-02-17 15:33] LABS: ALBUMIN 1.6 G/DL (3.4-5.0); ANION GAP 13 (8-16); BLOOD UREA NITROGEN 55 MG/DL (7-18); BUN/CREATININE RATIO 11.7 (6.6-38.0); CHLORIDE 90 MMOL/L (99-107); CREATININE 4.72 MG/DL (0.40-0.90); GLUCOSE 109 MG/DL (70-104); POTASSIUM 4.5 MMOL/L (3.5-5.1); SODIUM 124 MMOL/L (135-145); TOTAL CARBON DIOXIDE 21.5 MMOL/L (24-32); eGFR 10 ML/MIN
--- NOTE | 2018-02-17 18:21 | NUR ---
Problems reprioritized. Patient report given, questions answered & plan of care reviewed.
--- NOTE | 2018-02-17 18:30 | NUR ---
Patient in room CICU 2016. I have received report from Gustavo FREIRE and had the opportunity to ask questions and assume patient care.
[2018-02-17] MEDS: lactobacillus rhamnosus 10,000 MMU CELLS/CAPSULE PO SCH (20:05)
[2018-02-17] MEDS: PALIPERIDONE 3 MG TAB.ER.24 PO SCH (20:05)
[2018-02-17] MEDS: insulin glargine (Lantus) pen - multi-dose SQ SCH (21:00)
[2018-02-17] MEDS: temazepam 15mg capsule PO SCH (21:00)
[2018-02-17 21:50] LABS: ALBUMIN 1.6 G/DL (3.4-5.0); ANION GAP 14 (8-16); BLOOD UREA NITROGEN 58 MG/DL (7-18); BUN/CREATININE RATIO 12.1 (6.6-38.0); CALCIUM 7.9 MG/DL (8.5-10.1); CHLORIDE 88 MMOL/L (99-107); GLUCOSE 93 MG/DL (70-104); POTASSIUM 4.3 MMOL/L (3.5-5.1); SODIUM 122 MMOL/L (135-145); TOTAL CARBON DIOXIDE 20.1 MMOL/L (24-32); eGFR 10 ML/MIN
[2018-02-17] MEDS ORDERED: sodium chloride 3% IV.soln 500 ML IV SCH (22:50)
--- NOTE | 2018-02-17 22:55 | NUR ---
Mynor notified of current Na, orders received
[2018-02-17] MEDS ORDERED: sodium chloride 3% IV.soln 100 ML IV SCH (23:05)
[2018-02-18] VITALS (19 sets, daily range): BP systolic 114–147; BP diastolic 59–73
[2018-02-18] MEDS: normal saline 1000ml 1,000 ML IV SCH ×2 (01:17→03:08)
--- NOTE | 2018-02-18 03:31 | NUR ---
Pt awake, occasionally speaks clearly but is mostly making unintelligible noises. Sitter at bedside.
--- NOTE | 2018-02-18 06:22 | NUR ---
Patient in room CICU 2016. I have received report from TANI Dumont and had the opportunity to ask questions and assume patient care.
--- NOTE | 2018-02-18 06:23 | NUR ---
Problems reprioritized. Patient report given, questions answered & plan of care reviewed with Gustavo FREIRE.
[2018-02-18 07:07] LABS: HEMATOCRIT 28.6 % (35.0-45.0); HEMOGLOBIN 9.8 g/dl (12.0-16.0); MEAN CORPUSCULAR HEMOGLOBIN 29.5 PG (27.0-31.0); MEAN CORPUSCULAR HGB CONC 34.1 % (33.0-36.5); MEAN CORPUSCULAR VOLUME 86.4 FL (78-98); RED BLOOD COUNT 3.31 X10'6 (4.20-5.60); RED CELL DISTRIBUTION WIDTH 14.4 % (11.5-14.5); WHITE BLOOD COUNT 10.9 X10'3 (4.5-11.0)
[2018-02-18 07:26] LABS: ALANINE AMINOTRANSFERASE 54 U/L (12-78); ALBUMIN 1.5 G/DL (3.4-5.0); ALKALINE PHOSPHATASE 172 IU/L (46-116); ANION GAP 15 (8-16); ASPARTATE AMINO TRANSFERASE 54 U/L (10-37); BILIRUBIN,TOTAL 6.1 MG/DL (0.1-1.0); BLOOD UREA NITROGEN 60 MG/DL (7-18); BUN/CREATININE RATIO 11.8 (6.6-38.0); CALCIUM 7.8 MG/DL (8.5-10.1); CHLORIDE 92 MMOL/L (99-107); CREATININE 5.07 MG/DL (0.40-0.90); GLUCOSE 71 MG/DL (70-104); MAGNESIUM 2.4 MG/DL (1.5-2.4); SODIUM 126 MMOL/L (135-145); TOTAL CARBON DIOXIDE 18.9 MMOL/L (24-32); eGFR 9 ML/MIN
[2018-02-18 07:29] LABS: ALBUMIN/GLOBULIN RATIO 0.4 (1.1-1.5); POTASSIUM 4.4 MMOL/L (3.5-5.1)
[2018-02-18 07:57] LABS: PLATELET COUNT 48 X10'3 (140-440)
[2018-02-18 08:01] LABS: PLATELET ESTIMATE DECREASED; TOTAL CELLS COUNTED 100
[2018-02-18 08:02] LABS: TOXIC GRANULATION 2+
[2018-02-18] MEDS: CefTRIAXone/D5W-Rocephin 1gm 50 ML IV SCH (08:17)
[2018-02-18] MEDS: vitamin D (cholecalciferol) 1,000 unit tablet PO SCH (08:17)
[2018-02-18] MEDS: oxybutynin 5mg tablet PO SCH ×4 (08:18→21:43)
[2018-02-18] MEDS: sennosides 8.6mg tablet PO SCH ×2 (08:18→21:44)
[2018-02-18] MEDS: lactobacillus rhamnosus 10,000 MMU CELLS/CAPSULE PO SCH ×2 (08:18→21:43)
[2018-02-18] MEDS: docusate sod 100mg capsule PO SCH ×2 (08:18→21:43)
[2018-02-18] MEDS: dextrose ORAL solution 15 GM/59 ML bottle PO PRN ×2 (08:31→08:52)
--- NOTE | 2018-02-18 09:30 | NUR ---
Pt up walking with PT
--- NOTE | 2018-02-18 13:40 | NUR ---
commercial maintenance technician at bedside for abdominal ultrasound.
--- NOTE | 2018-02-18 16:18 | NUR ---
Report given to TANI Donato on PCU
--- NOTE | 2018-02-18 16:30 | NUR ---
Patient in room PCU 3026. I have received report from Slim FREIRE and had the opportunity to ask questions and assume patient care.
--- NOTE | 2018-02-18 16:30 | NUR ---
Spencer catheter discontinued, pt tolerated well.
--- NOTE | 2018-02-18 16:48 | NUR ---
Pt transferred to PCU rm 3026A monitored on telemetry. Met by receiving RN at bedside. Pt transferred with minimal assist. Sitter is at bedside.
--- NOTE | 2018-02-18 16:50 | NUR ---
Patient arrived in wheelchair to U 3026N, accompanied by Slim FREIRE. Patient VS: T: 98.2, HR: 113 RR:22 O2: 93% @ 3L BP: 119/68. Pain 0/10. Patient oriented to room. Call light in reach. Patient has sitter present.
--- NOTE | 2018-02-18 18:10 | NUR ---
Patient in room PCU 3026. I have received report from Kinga FREIRE and had the opportunity to ask questions and assume patient care.
--- NOTE | 2018-02-18 18:30 | NUR ---
Problems reprioritized. Patient report given, questions answered & plan of care reviewed with Caroline FREIRE.
[2018-02-18] MEDS: insulin glargine (Lantus) pen - multi-dose SQ SCH (21:00)
[2018-02-18] MEDS: PALIPERIDONE 3 MG TAB.ER.24 PO SCH (21:44)
[2018-02-18] MEDS: morphine 4 MG/ML inj SYRINge IV PRN (22:01)
[2018-02-18] MEDS: LORazepam 1 MG tablet PO PRN (23:06)
[2018-02-19] MEDS: temazepam 15mg capsule PO PRN (00:39)
[2018-02-19 02:00] VITALS: BP 137/69
--- NOTE | 2018-02-19 03:30 | NUR ---
Called repeater operator to advice that patient has had only 2 x very small episodes of urinary incontinence and that when bladder scanned at 03:04, residual showed 293. New orders to bladder scan q 6hr for no void a,d straight cath if over 300cc.
[2018-02-19] MEDS: normal saline 1000ml 1,000 ML IV SCH ×2 (04:08→17:14)
--- NOTE | 2018-02-19 05:00 | NUR ---
VICE PRESIDENT QUALITY ASSURANCE reported that patient voided 1 x sm since bladder scan and 1 x medium.
[2018-02-19 05:32] LABS: BASOPHILS % (AUTO) 0 % (0-1); EOSINOPHILS # (AUTO) 0.5 X10'3 (0-0.9); HEMATOCRIT 29.2 % (35.0-45.0); LYMPHOCYTES # (AUTO) 0.6 X10'3 (1.1-4.8); LYMPHOCYTES % (AUTO) 4.7 % (21-51); MEAN CORPUSCULAR HEMOGLOBIN 29.2 PG (27.0-31.0); MEAN CORPUSCULAR HGB CONC 34.3 % (33.0-36.5); MEAN CORPUSCULAR VOLUME 85.1 FL (78-98); MEAN PLATELET VOLUME 8.2 FL (7.4-10.4); MONOCYTES # (AUTO) 0.8 X10'3 (0-0.9); MONOCYTES % (AUTO) 5.6 % (2-12); NEUTROPHILS # (AUTO) 11.5 X10'3 (1.8-7.7); NEUTROPHILS % (AUTO) 85.7 % (42-75); RED BLOOD COUNT 3.43 X10'6 (4.20-5.60); RED CELL DISTRIBUTION WIDTH 14.9 % (11.5-14.5); WHITE BLOOD COUNT 13.5 X10'3 (4.5-11.0)
[2018-02-19 05:46] LABS: ALANINE AMINOTRANSFERASE 75 U/L (12-78); ALBUMIN 1.5 G/DL (3.4-5.0); ALKALINE PHOSPHATASE 251 IU/L (46-116); ANION GAP 16 (8-16); ASPARTATE AMINO TRANSFERASE 89 U/L (10-37); BILIRUBIN,TOTAL 8.3 MG/DL (0.1-1.0); BLOOD UREA NITROGEN 74 MG/DL (7-18); BUN/CREATININE RATIO 14.1 (6.6-38.0); CHLORIDE 90 MMOL/L (99-107); CREATININE 5.25 MG/DL (0.40-0.90); GLUCOSE 87 MG/DL (70-104); MAGNESIUM 2.5 MG/DL (1.5-2.4); SODIUM 123 MMOL/L (135-145); TOTAL CARBON DIOXIDE 17.2 MMOL/L (24-32); eGFR 9 ML/MIN
[2018-02-19 05:49] LABS: ALBUMIN/GLOBULIN RATIO 0.4 (1.1-1.5); BILIRUBIN,DIRECT 7.5 MG/DL (0-0.3); POTASSIUM 4.1 MMOL/L (3.5-5.1); TOTAL PROTEIN 5.2 G/DL (6.4-8.2)
[2018-02-19 06:00] VITALS: BP 129/66
[2018-02-19 06:26] LABS: PLATELET COUNT 38 X10'3 (140-440)
--- NOTE | 2018-02-19 06:30 | NUR ---
Critical lab: Platelets 38. Called Dr. Lamas to notify.
--- NOTE | 2018-02-19 06:30 | NUR ---
Patient in room PCU 3026. I have received report from Caroline FREIRE and had the opportunity to ask questions and assume patient care. Patient resting comfortably in bed. In no acute distress. Will continue to monitor.
[2018-02-19] MEDS: vitamin D (cholecalciferol) 1,000 unit tablet PO SCH (07:44)
[2018-02-19] MEDS: oxybutynin 5mg tablet PO SCH ×4 (07:44→20:03)
[2018-02-19] MEDS: sennosides 8.6mg tablet PO SCH ×2 (07:44→20:03)
[2018-02-19] MEDS: lactobacillus rhamnosus 10,000 MMU CELLS/CAPSULE PO SCH ×2 (07:44→20:03)
[2018-02-19] MEDS: docusate sod 100mg capsule PO SCH ×2 (07:44→20:04)
[2018-02-19] MEDS: CefTRIAXone/D5W-Rocephin 1gm 50 ML IV SCH (07:45)
[2018-02-19 11:00] VITALS: BP 132/77
--- NOTE | 2018-02-19 12:49 | NUR ---
[facility] informed SS that since pt's been admitted to the hospital, [facility] and [facility] prior to [facility]c if pt continues to be impaired due to her MH conditions. SS will continue to monitor and re-assess pt's MH status to facilitate a safe dcp.
--- NOTE | 2018-02-19 14:52 | NUR ---
SS reviewed pt's chart, noted pt's Medi-Medi status. Contacted [facility] to get info re referral process. Per discussion, a referral packet is being requested. Currently there are no female beds. SS will f/u with attending RN to coordinate compilation of referral packet to [facility].
[2018-02-19 15:00] VITALS: BP 127/74
[2018-02-19 19:00] VITALS: BP 134/71
--- NOTE | 2018-02-19 20:45 | NUR ---
Per miscellaneous nursing order, bladder scanned patient and 700 mL urine retention. Straight cath with 650 mL dark russ urine output. Patient tolerated procedure well.
[2018-02-19] MEDS: insulin glargine (Lantus) pen - multi-dose SQ SCH (21:00)
[2018-02-19] MEDS: PALIPERIDONE 3 MG TAB.ER.24 PO SCH (21:21)
[2018-02-19 22:00] VITALS: BP 131/69
[2018-02-20 03:00] VITALS: BP 129/69
--- NOTE | 2018-02-20 04:00 | NUR ---
Per miscellaneous nursing orders, bladder scan 500 mL urine retention. Straight cath patient with 600 mL dark russ urine. Patient tolerated procedure well.
[2018-02-20 05:27] LABS: BASOPHILS # (AUTO) 0.1 X10'3 (0-0.2); BASOPHILS % (AUTO) 0.5 % (0-1); EOSINOPHILS # (AUTO) 0.4 X10'3 (0-0.9); HEMATOCRIT 27.7 % (35.0-45.0); HEMOGLOBIN 9.5 g/dl (12.0-16.0); LYMPHOCYTES # (AUTO) 2.4 X10'3 (1.1-4.8); LYMPHOCYTES % (AUTO) 13.4 % (21-51); MEAN CORPUSCULAR HEMOGLOBIN 29.5 PG (27.0-31.0); MEAN CORPUSCULAR HGB CONC 34.5 % (33.0-36.5); MEAN CORPUSCULAR VOLUME 85.8 FL (78-98); MONOCYTES # (AUTO) 0.8 X10'3 (0-0.9); MONOCYTES % (AUTO) 4.5 % (2-12); NEUTROPHILS # (AUTO) 14.2 X10'3 (1.8-7.7); NEUTROPHILS % (AUTO) 79.6 % (42-75); RED BLOOD COUNT 3.23 X10'6 (4.20-5.60); RED CELL DISTRIBUTION WIDTH 13.8 % (11.5-14.5); WHITE BLOOD COUNT 17.9 X10'3 (4.5-11.0)
[2018-02-20 05:32] LABS: ALANINE AMINOTRANSFERASE 82 U/L (12-78); ALBUMIN 1.3 G/DL (3.4-5.0); ALKALINE PHOSPHATASE 265 IU/L (46-116); ANION GAP 18 (8-16); ASPARTATE AMINO TRANSFERASE 83 U/L (10-37); BILIRUBIN,TOTAL 9.1 MG/DL (0.1-1.0); BLOOD UREA NITROGEN 82 MG/DL (7-18); BUN/CREATININE RATIO 15.4 (6.6-38.0); CALCIUM 7.5 MG/DL (8.5-10.1); CHLORIDE 86 MMOL/L (99-107); CREATININE 5.32 MG/DL (0.40-0.90); GLUCOSE 78 MG/DL (70-104); MAGNESIUM 2.3 MG/DL (1.5-2.4); eGFR 8 ML/MIN
[2018-02-20 05:33] LABS: POTASSIUM 4.3 MMOL/L (3.5-5.1); TOTAL PROTEIN 4.7 G/DL (6.4-8.2)
[2018-02-20 05:34] LABS: ALBUMIN/GLOBULIN RATIO 0.4 (1.1-1.5); SODIUM 118 MMOL/L (135-145); TOTAL CARBON DIOXIDE 14.2 MMOL/L (24-32)
--- NOTE | 2018-02-20 05:42 | NUR ---
Critical labs called to Meliton Whitfield. Na 118. CO2 14.2. New orders: 100cc 3% saline one time dose.
[2018-02-20] MEDS ORDERED: sodium chloride 3% IV.soln 100 ML IV ONE (05:50)
[2018-02-20 06:00] VITALS: BP 128/64
[2018-02-20 06:21] LABS: PLATELET COUNT 31 X10'3 (140-440)
[2018-02-20 06:24] LABS: TOTAL CELLS COUNTED 100
[2018-02-20 06:25] LABS: PLATELET ESTIMATE DECREASED; TOXIC GRANULATION 1+
[2018-02-20] MEDS: normal saline 1000ml 1,000 ML IV SCH ×2 (06:37→23:07)
--- NOTE | 2018-02-20 06:45 | NUR ---
Problems reprioritized. Patient report given, questions answered & plan of care reviewed with Du FREIRE.
--- NOTE | 2018-02-20 07:02 | NUR ---
Patient in room PCU 3026. I have received report from Kinga FREIRE and had the opportunity to ask questions and assume patient care.
[2018-02-20] MEDS: sennosides 8.6mg tablet PO SCH ×2 (08:27→22:09)
[2018-02-20] MEDS: lactobacillus rhamnosus 10,000 MMU CELLS/CAPSULE PO SCH ×2 (08:29→22:09)
[2018-02-20] MEDS: oxybutynin 5mg tablet PO SCH ×4 (08:29→22:10)
[2018-02-20] MEDS: docusate sod 100mg capsule PO SCH ×2 (08:29→22:09)
[2018-02-20] MEDS: vitamin D (cholecalciferol) 1,000 unit tablet PO SCH (08:30)
[2018-02-20 10:00] VITALS: BP 135/64
[2018-02-20] MEDS: sodium bicarbonate 650mg tablet PO SCH ×3 (10:03→22:09)
--- NOTE | 2018-02-20 10:18 | NUR ---
Initial: Pt admitted with dizziness, sepsis, hyponatremia, and СЕРГЕЙ. Per MD progress notes pt with SIADH, needs fluid restriction, and pt doesn't need dialysis at this time. Pt currently on a renal diet with poor PO intake, noted that patient's fluid restriction order was completed. Recommend Nepro TID to provide adequate nutrition as pt with low PO intake, d/w RN who states pt could benefit from that and that she swallows really well, MD okayed. RN states she will d/w the MD if the fluid restriction is to be reactivated. LBM 02/15, pt now with routine Colace. Will continue to follow. Recommendations: 1) Continue with renal diet 2) Nepro TID 3) Monitor need for additional bowel care 4) Wt per rx Addendum: 02/20/18 at [address] Amended: Links added.
[2018-02-20] MEDS: CefTRIAXone/D5W-Rocephin 1gm 50 ML IV SCH (10:42)
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
[2018-02-20] MEDS ORDERED: NUT.TX.IMP.RENAL FXN,LAC-REDUC (Nepro) 237 ML VANILLA PO SCH (13:00)
--- NOTE | 2018-02-20 13:02 | NUR ---
Bladder scanned patient and showed 630ml, patient straight cathed and 600 out
[2018-02-20 13:29] LABS: SODIUM,URINE RANDOM 26 MEQ/L
[2018-02-20 13:47] LABS: OSMOLALITY UA 235 MOSM/K (50-1400)
[2018-02-20 15:28] LABS: ALBUMIN 1.3 G/DL (3.4-5.0); ANION GAP 16 (8-16); BLOOD UREA NITROGEN 89 MG/DL (7-18); CALCIUM 7.7 MG/DL (8.5-10.1); CHLORIDE 87 MMOL/L (99-107); CREATININE 5.55 MG/DL (0.40-0.90); GLUCOSE 103 MG/DL (70-104); POTASSIUM 4.3 MMOL/L (3.5-5.1); TOTAL CARBON DIOXIDE 16.8 MMOL/L (24-32); eGFR 8 ML/MIN
[2018-02-20 15:29] LABS: SODIUM 120 MMOL/L (135-145)
--- NOTE | 2018-02-20 15:33 | NUR ---
Critical lab sodium level of 120, Dr. Herron notified, no new orders, will continue to monitor
[2018-02-20 18:00] VITALS: BP 115/67
--- NOTE | 2018-02-20 18:26 | NUR ---
Problems reprioritized. Patient report given, questions answered & plan of care reviewed with Stephanie FREIRE.
[2018-02-20 20:51] LABS: ALBUMIN 1.3 G/DL (3.4-5.0); ANION GAP 16 (8-16); BLOOD UREA NITROGEN 83 MG/DL (7-18); BUN/CREATININE RATIO 15.1 (6.6-38.0); CALCIUM 7.6 MG/DL (8.5-10.1); CHLORIDE 87 MMOL/L (99-107); CREATININE 5.49 MG/DL (0.40-0.90); GLUCOSE 129 MG/DL (70-104); TOTAL CARBON DIOXIDE 15.2 MMOL/L (24-32); eGFR 8 ML/MIN
[2018-02-20 20:58] LABS: POTASSIUM 4.4 MMOL/L (3.5-5.1)
[2018-02-20 21:00] LABS: SODIUM 118 MMOL/L (135-145)
[2018-02-20] MEDS ORDERED: sodium chloride 3% IV.soln 500 ML IV SCH (21:15)
[2018-02-20] MEDS ORDERED: sodium chloride 3% IV.soln 100 ML IV SCH (21:17)
[2018-02-20] MEDS ORDERED: normal saline 1000ml 1,000 ML IV ONE (21:25)
[2018-02-20 22:00] VITALS: BP 112/64
[2018-02-20] MEDS: PALIPERIDONE 3 MG TAB.ER.24 PO SCH (22:09)
[2018-02-20] MEDS: insulin glargine (Lantus) pen - multi-dose SQ SCH (22:21)
[2018-02-20] MEDS: ondansetron/PF 4mg/2ml inj IV PRN (23:00)
[2018-02-21 02:00] VITALS: BP 119/66
--- NOTE | 2018-02-21 04:24 | NUR ---
2 RN attempted to draw BMP with 3 attempts, lab arrived at the last attempt. Will continue to monitor.
[2018-02-21 05:21] LABS: ALBUMIN 1.3 G/DL (3.4-5.0); ANION GAP 16 (8-16); BLOOD UREA NITROGEN 84 MG/DL (7-18); BUN/CREATININE RATIO 15.6 (6.6-38.0); CALCIUM 7.8 MG/DL (8.5-10.1); CHLORIDE 87 MMOL/L (99-107); GLUCOSE 121 MG/DL (70-104); MAGNESIUM 2.5 MG/DL (1.5-2.4); TOTAL CARBON DIOXIDE 15.7 MMOL/L (24-32); eGFR 8 ML/MIN
[2018-02-21 06:00] VITALS: BP 125/66
[2018-02-21 06:13] LABS: POTASSIUM 4.2 MMOL/L (3.5-5.1)
--- NOTE | 2018-02-21 06:30 | NUR ---
Patient in room PCU 3023. I have received report from TANI Davenport and had the opportunity to ask questions and assume patient care.
[2018-02-21 06:37] LABS: SODIUM 119 MMOL/L (135-145)
--- NOTE | 2018-02-21 07:11 | NUR ---
Problems reprioritized. Patient report given, questions answered & plan of care reviewed with Ryan FREIRE. Patient resting on back, respirations even.
[2018-02-21] MEDS: sennosides 8.6mg tablet PO SCH ×2 (08:00→20:54)
[2018-02-21 08:43] LABS: ALBUMIN 1.3 G/DL (3.4-5.0); ANION GAP 15 (8-16); BLOOD UREA NITROGEN 84 MG/DL (7-18); BUN/CREATININE RATIO 15.6 (6.6-38.0); CALCIUM 7.7 MG/DL (8.5-10.1); CHLORIDE 87 MMOL/L (99-107); GLUCOSE 103 MG/DL (70-104); TOTAL CARBON DIOXIDE 16.9 MMOL/L (24-32); eGFR 8 ML/MIN
[2018-02-21 08:45] LABS: POTASSIUM 4.2 MMOL/L (3.5-5.1)
[2018-02-21 08:46] LABS: SODIUM 119 MMOL/L (135-145)
[2018-02-21] MEDS: normal saline 1000ml 1,000 ML IV SCH ×2 (09:19→16:11)
[2018-02-21] MEDS: lactobacillus rhamnosus 10,000 MMU CELLS/CAPSULE PO SCH ×2 (09:20→20:54)
[2018-02-21] MEDS: docusate sod 100mg capsule PO SCH ×2 (09:20→20:53)
[2018-02-21] MEDS: oxybutynin 5mg tablet PO SCH ×4 (09:20→20:53)
[2018-02-21] MEDS: vitamin D (cholecalciferol) 1,000 unit tablet PO SCH (09:20)
[2018-02-21] MEDS: CefTRIAXone/D5W-Rocephin 1gm 50 ML IV SCH (09:20)
[2018-02-21] MEDS: sodium bicarbonate 650mg tablet PO SCH ×3 (09:20→20:53)
[2018-02-21] MEDS: LORazepam 1 MG tablet PO PRN ×2 (09:24→13:32)
[2018-02-21 11:00] VITALS: BP 116/59
[2018-02-21 11:48] LABS: SODIUM,URINE RANDOM 19 MEQ/L
[2018-02-21 12:03] LABS: OSMOLALITY UA 210 MOSM/K (50-1400)
--- NOTE | 2018-02-21 14:34 | NUR ---
SS met w/pt's mother & provided update on plan for MH referral to [facility] when pt's medically stabled to d/c from [facility].
[2018-02-21 14:59] LABS: ALBUMIN 1.2 G/DL (3.4-5.0); ANION GAP 15 (8-16); BLOOD UREA NITROGEN 87 MG/DL (7-18); BUN/CREATININE RATIO 16.1 (6.6-38.0); CALCIUM 7.6 MG/DL (8.5-10.1); CHLORIDE 89 MMOL/L (99-107); CREATININE 5.39 MG/DL (0.40-0.90); GLUCOSE 142 MG/DL (70-104); SODIUM 121 MMOL/L (135-145); TOTAL CARBON DIOXIDE 17.5 MMOL/L (24-32); eGFR 8 ML/MIN
[2018-02-21 15:29] LABS: BASOPHILS # (AUTO) 0.1 X10'3 (0-0.2); BASOPHILS % (AUTO) 0.4 % (0-1); EOSINOPHILS # (AUTO) 0.3 X10'3 (0-0.9); EOSINOPHILS % (AUTO) 1.4 % (0-6); HEMATOCRIT 25.1 % (35.0-45.0); HEMOGLOBIN 8.8 g/dl (12.0-16.0); LYMPHOCYTES # (AUTO) 2.5 X10'3 (1.1-4.8); LYMPHOCYTES % (AUTO) 10.3 % (21-51); MEAN CORPUSCULAR HEMOGLOBIN 29.7 PG (27.0-31.0); MEAN PLATELET VOLUME 7.9 FL (7.4-10.4); MONOCYTES # (AUTO) 0.8 X10'3 (0-0.9); MONOCYTES % (AUTO) 3.3 % (2-12); NEUTROPHILS # (AUTO) 20.7 X10'3 (1.8-7.7); NEUTROPHILS % (AUTO) 84.6 % (42-75); PLATELET COUNT 78 X10'3 (140-440); RED BLOOD COUNT 2.95 X10'6 (4.20-5.60); WHITE BLOOD COUNT 24.4 X10'3 (4.5-11.0)
[2018-02-21] MEDS: TOLVAPTAN 30 MG TABLET PO SCH (16:06)
[2018-02-21 16:23] LABS: TOTAL CELLS COUNTED 100
[2018-02-21 16:24] LABS: ANISOCYTOSIS FEW; PLATELET ESTIMATE DECREASED
[2018-02-21 16:30] VITALS: BP 125/63
[2018-02-21 16:33] LABS: TOXIC GRANULATION 3+
--- NOTE | 2018-02-21 18:15 | NUR ---
Patient in room PCU 3023. I have received report from TANI Davis and had the opportunity to ask questions and assume patient care.
--- NOTE | 2018-02-21 18:26 | NUR ---
Problems reprioritized. Patient report given, questions answered & plan of care reviewed with TANI Crabtree.
[2018-02-21 19:00] VITALS: BP 119/51
[2018-02-21 20:36] LABS: ALBUMIN 1.3 G/DL (3.4-5.0); ANION GAP 13 (8-16); BLOOD UREA NITROGEN 94 MG/DL (7-18); BUN/CREATININE RATIO 17.3 (6.6-38.0); CALCIUM 7.7 MG/DL (8.5-10.1); CHLORIDE 89 MMOL/L (99-107); CREATININE 5.43 MG/DL (0.40-0.90); GLUCOSE 117 MG/DL (70-104); SODIUM 122 MMOL/L (135-145); TOTAL CARBON DIOXIDE 19.7 MMOL/L (24-32); eGFR 8 ML/MIN
[2018-02-21] MEDS: PALIPERIDONE 3 MG TAB.ER.24 PO SCH (20:53)
[2018-02-21] MEDS: insulin glargine (Lantus) pen - multi-dose SQ SCH (21:00)
[2018-02-21] MEDS: LORazepam 0.5 MG tablet PO PRN (21:04)
[2018-02-21 23:00] VITALS: BP 122/63
[2018-02-22 03:00] VITALS: BP 116/60
[2018-02-22] MEDS: normal saline 1000ml 1,000 ML IV SCH ×3 (04:18→22:19)
[2018-02-22 05:13] LABS: ALBUMIN 1.3 G/DL (3.4-5.0); ANION GAP 15 (8-16); BLOOD UREA NITROGEN 96 MG/DL (7-18); BUN/CREATININE RATIO 17.6 (6.6-38.0); CALCIUM 7.8 MG/DL (8.5-10.1); CHLORIDE 91 MMOL/L (99-107); CREATININE 5.46 MG/DL (0.40-0.90); GLUCOSE 117 MG/DL (70-104); MAGNESIUM 2.3 MG/DL (1.5-2.4); POTASSIUM 4.1 MMOL/L (3.5-5.1); SODIUM 124 MMOL/L (135-145); TOTAL CARBON DIOXIDE 18.1 MMOL/L (24-32); eGFR 8 ML/MIN
[2018-02-22 05:16] LABS: BASOPHILS # (AUTO) 0.1 X10'3 (0-0.2); BASOPHILS % (AUTO) 0.2 % (0-1); EOSINOPHILS # (AUTO) 0.2 X10'3 (0-0.9); EOSINOPHILS % (AUTO) 0.8 % (0-6); HEMOGLOBIN 8.9 g/dl (12.0-16.0); LYMPHOCYTES # (AUTO) 3.8 X10'3 (1.1-4.8); LYMPHOCYTES % (AUTO) 13.8 % (21-51); MEAN CORPUSCULAR HGB CONC 35.4 % (33.0-36.5); MEAN CORPUSCULAR VOLUME 84.9 FL (78-98); MEAN PLATELET VOLUME 7.6 FL (7.4-10.4); MONOCYTES # (AUTO) 1.8 X10'3 (0-0.9); MONOCYTES % (AUTO) 6.4 % (2-12); NEUTROPHILS # (AUTO) 21.9 X10'3 (1.8-7.7); NEUTROPHILS % (AUTO) 78.8 % (42-75); PLATELET COUNT 123 X10'3 (140-440); RED BLOOD COUNT 2.95 X10'6 (4.20-5.60); RED CELL DISTRIBUTION WIDTH 13.7 % (11.5-14.5)
[2018-02-22 06:15] LABS: ANISOCYTOSIS 1+; MICROCYTOSIS 1+; PLATELET ESTIMATE DECREASED; TOTAL CELLS COUNTED 100
[2018-02-22 06:16] LABS: TOXIC GRANULATION 1+
[2018-02-22 06:19] LABS: WHITE BLOOD COUNT 27.8 X10'3 (4.5-11.0)
--- NOTE | 2018-02-22 06:20 | NUR ---
Problems reprioritized. Patient report given, questions answered & plan of care reviewed with TANI Mason.
--- NOTE | 2018-02-22 06:20 | NUR ---
Patient in room PCU 3023. I have received report from Leyda FREIRE and had the opportunity to ask questions and assume patient care.
[2018-02-22 07:00] VITALS: BP 113/64
[2018-02-22] MEDS: vitamin D (cholecalciferol) 1,000 unit tablet PO SCH (08:12)
[2018-02-22] MEDS: docusate sod 100mg capsule PO SCH ×2 (08:13→20:58)
[2018-02-22] MEDS: sennosides 8.6mg tablet PO SCH ×2 (08:13→20:59)
[2018-02-22] MEDS: sodium bicarbonate 650mg tablet PO SCH ×3 (08:13→20:59)
[2018-02-22] MEDS: allopurinol 100mg tablet PO SCH (08:14)
[2018-02-22] MEDS: lactobacillus rhamnosus 10,000 MMU CELLS/CAPSULE PO SCH ×2 (08:14→20:58)
[2018-02-22] MEDS: oxybutynin 5mg tablet PO SCH ×4 (08:14→20:59)
[2018-02-22] MEDS: TOLVAPTAN 30 MG TABLET PO SCH (08:20)
[2018-02-22 10:01] LABS: ALBUMIN 1.3 G/DL (3.4-5.0); ANION GAP 15 (8-16); BLOOD UREA NITROGEN 95 MG/DL (7-18); BUN/CREATININE RATIO 17.6 (6.6-38.0); CALCIUM 7.7 MG/DL (8.5-10.1); CHLORIDE 92 MMOL/L (99-107); CREATININE 5.41 MG/DL (0.40-0.90); GLUCOSE 143 MG/DL (70-104); POTASSIUM 3.9 MMOL/L (3.5-5.1); SODIUM 124 MMOL/L (135-145); TOTAL CARBON DIOXIDE 17.5 MMOL/L (24-32); eGFR 8 ML/MIN
[2018-02-22 10:55] LABS: ALANINE AMINOTRANSFERASE 70 U/L (12-78); ALBUMIN/GLOBULIN RATIO 0.4 (1.1-1.5); ALKALINE PHOSPHATASE 285 IU/L (46-116); ASPARTATE AMINO TRANSFERASE 33 U/L (10-37); BILIRUBIN,DIRECT 2.3 MG/DL (0-0.3); BILIRUBIN,TOTAL 2.7 MG/DL (0.1-1.0); TOTAL PROTEIN 4.9 G/DL (6.4-8.2)
[2018-02-22 11:00] VITALS: BP 116/56
[2018-02-22 14:05] LABS: ABSOLUTE RETICS # 5.3 X10'3 uL (32.5-133.0); RETICULOCYTE % (AUTO) 0.2 % (0.5-2.3)
[2018-02-22 14:46] LABS: ALBUMIN 1.4 G/DL (3.4-5.0); ANION GAP 14 (8-16); BLOOD UREA NITROGEN 97 MG/DL (7-18); BUN/CREATININE RATIO 18.2 (6.6-38.0); CALCIUM 7.7 MG/DL (8.5-10.1); CHLORIDE 93 MMOL/L (99-107); CREATININE 5.34 MG/DL (0.40-0.90); GLUCOSE 185 MG/DL (70-104); SODIUM 125 MMOL/L (135-145); TOTAL CARBON DIOXIDE 18.3 MMOL/L (24-32); eGFR 8 ML/MIN
--- NOTE | 2018-02-22 18:10 | NUR ---
Problems reprioritized. Patient report given, questions answered & plan of care reviewed with Leyda FREIRE.
[2018-02-22] MEDS: ondansetron/PF 4mg/2ml inj IV PRN (18:25)
[2018-02-22 19:00] VITALS: BP 133/60
[2018-02-22] MEDS: chlorhexidine gluconate 15ml Cup****oral rinse MM SCH (20:00)
[2018-02-22] MEDS: PALIPERIDONE 3 MG TAB.ER.24 PO SCH (20:59)
[2018-02-22] MEDS: insulin glargine (Lantus) pen - multi-dose SQ SCH (21:00)
[2018-02-22] MEDS: temazepam 15mg capsule PO PRN (21:07)
[2018-02-22 21:19] LABS: ALBUMIN 1.4 G/DL (3.4-5.0); ANION GAP 13 (8-16); BLOOD UREA NITROGEN 98 MG/DL (7-18); BUN/CREATININE RATIO 18.4 (6.6-38.0); CALCIUM 7.6 MG/DL (8.5-10.1); CHLORIDE 94 MMOL/L (99-107); CREATININE 5.32 MG/DL (0.40-0.90); GLUCOSE 171 MG/DL (70-104); SODIUM 126 MMOL/L (135-145); eGFR 8 ML/MIN
[2018-02-22 23:00] VITALS: BP 116/55
[2018-02-23 03:00] VITALS: BP 104/58
[2018-02-23 06:00] VITALS: BP 115/53
--- NOTE | 2018-02-23 06:40 | NUR ---
Problems reprioritized. Patient report given, questions answered & plan of care reviewed with TANI Atwood.
--- NOTE | 2018-02-23 06:45 | NUR ---
Patient in room PCU 3023. I have received report from TANI Crabtree and had the opportunity to ask questions and assume patient care.
[2018-02-23 06:54] LABS: ALBUMIN 1.4 G/DL (3.4-5.0); ANION GAP 13 (8-16); BLOOD UREA NITROGEN 98 MG/DL (7-18); CALCIUM 7.7 MG/DL (8.5-10.1); CHLORIDE 96 MMOL/L (99-107); CREATININE 5.17 MG/DL (0.40-0.90); GLUCOSE 123 MG/DL (70-104); HEMATOCRIT 23.9 % (35.0-45.0); HEMOGLOBIN 8.2 g/dl (12.0-16.0); MEAN CORPUSCULAR HEMOGLOBIN 29.5 PG (27.0-31.0); MEAN CORPUSCULAR HGB CONC 34.1 % (33.0-36.5); MEAN CORPUSCULAR VOLUME 86.5 FL (78-98); MEAN PLATELET VOLUME 7.2 FL (7.4-10.4); RED BLOOD COUNT 2.77 X10'6 (4.20-5.60); RED CELL DISTRIBUTION WIDTH 13.9 % (11.5-14.5); SODIUM 128 MMOL/L (135-145); TOTAL CARBON DIOXIDE 19.1 MMOL/L (24-32); eGFR 9 ML/MIN
[2018-02-23 07:25] LABS: PLATELET COUNT 266 X10'3 (140-440)
[2018-02-23 07:28] LABS: WHITE BLOOD COUNT 30.4 X10'3 (4.5-11.0)
[2018-02-23 08:13] LABS: HYPOCHROMASIA 1+; PLATELET ESTIMATE NORMAL; POLYCHROMASIA 1+; STOMATOCYTES 1+; TOTAL CELLS COUNTED 100; TOXIC GRANULATION 2+
[2018-02-23] MEDS: normal saline 1000ml 1,000 ML IV SCH ×2 (08:19→17:17)
[2018-02-23] MEDS: TOLVAPTAN 30 MG TABLET PO SCH (10:06)
[2018-02-23] MEDS: oxybutynin 5mg tablet PO SCH ×4 (10:07→20:57)
[2018-02-23] MEDS: lactobacillus rhamnosus 10,000 MMU CELLS/CAPSULE PO SCH ×2 (10:08→20:57)
[2018-02-23] MEDS: allopurinol 100mg tablet PO SCH (10:08)
[2018-02-23] MEDS: docusate sod 100mg capsule PO SCH ×2 (10:08→20:57)
[2018-02-23] MEDS: sodium bicarbonate 650mg tablet PO SCH ×3 (10:08→20:57)
[2018-02-23] MEDS: vitamin D (cholecalciferol) 1,000 unit tablet PO SCH (10:09)
[2018-02-23] MEDS: sennosides 8.6mg tablet PO SCH ×2 (10:09→20:57)
[2018-02-23] MEDS: vancomycin 125mg/5ml ORAL solution 5ml UD bottle PO SCH ×3 (11:16→20:57)
[2018-02-23] MEDS: chlorhexidine gluconate 15ml Cup****oral rinse MM SCH ×2 (11:16→21:58)
[2018-02-23 11:44] LABS: ALBUMIN 1.4 G/DL (3.4-5.0); ANION GAP 13 (8-16); BLOOD UREA NITROGEN 99 MG/DL (7-18); BUN/CREATININE RATIO 19.5 (6.6-38.0); CALCIUM 7.6 MG/DL (8.5-10.1); CHLORIDE 97 MMOL/L (99-107); CREATININE 5.07 MG/DL (0.40-0.90); GLUCOSE 192 MG/DL (70-104); POTASSIUM 4.1 MMOL/L (3.5-5.1); SODIUM 128 MMOL/L (135-145); TOTAL CARBON DIOXIDE 18.4 MMOL/L (24-32); eGFR 9 ML/MIN
[2018-02-23 12:00] VITALS: BP 120/54
[2018-02-23 14:49] LABS: ALBUMIN 1.5 G/DL (3.4-5.0); ANION GAP 13 (8-16); BLOOD UREA NITROGEN 98 MG/DL (7-18); CALCIUM 7.8 MG/DL (8.5-10.1); CHLORIDE 99 MMOL/L (99-107); CREATININE 4.91 MG/DL (0.40-0.90); GLUCOSE 165 MG/DL (70-104); POTASSIUM 4.2 MMOL/L (3.5-5.1); SODIUM 132 MMOL/L (135-145); eGFR 9 ML/MIN
[2018-02-23 15:00] VITALS: BP 119/64
--- NOTE | 2018-02-23 16:49 | NUR ---
Hermelinda Fernandez notified of Na+ increased by 4meq/l in 6h period as ordered. No orders received. Hermelinda states she will look at it.
[2018-02-23 16:50] LABS: COLOR,URINE STRAW (Yellow); GLUCOSE, URINE NEGATIVE (Neg); KETONES,URINE NEGATIVE (Neg); LEUKOCYTE ESTERASE ,URINE SMALL (Neg); NITRITES, URINE NEGATIVE (Neg); OCCULT BLOOD,URINE MODERATE (Neg); PROTEIN,URINE TRACE mg/dl (Neg); UROBILINOGEN,URINE 0.2 E.U/dL (0.2-1.0)
[2018-02-23 16:52] LABS: CLARITY,URINE SLIGHTLY CLOUDY (Clear); UA COLLECTION TYPE NON-SPECIFIED
[2018-02-23 17:01] LABS: BACTERIA,URINE FEW /HPF (Neg); SQUAMOUS EPITHELIAL CELL,UR FEW /LPF (FEW); WBC CLUMPS,URINE MODERATE /HPF (NEGATIVE); WBC,URINE 20-30 /HPF (0-4)
--- NOTE | 2018-02-23 18:30 | NUR ---
Problems reprioritized. Patient report given, questions answered & plan of care reviewed with TANI Crabtree.
[2018-02-23 19:00] VITALS: BP 135/64
[2018-02-23] MEDS: PALIPERIDONE 3 MG TAB.ER.24 PO SCH (20:57)
[2018-02-23] MEDS: insulin glargine (Lantus) pen - multi-dose SQ SCH (21:00)
[2018-02-23] MEDS: temazepam 15mg capsule PO PRN (21:02)
[2018-02-23 23:00] VITALS: BP 124/59
[2018-02-24] MEDS: vancomycin 125mg/5ml ORAL solution 5ml UD bottle PO SCH ×4 (01:55→20:59)
[2018-02-24 03:00] VITALS: BP 126/58
[2018-02-24] MEDS: normal saline 1000ml 1,000 ML IV SCH ×2 (03:39→17:19)
--- NOTE | 2018-02-24 06:16 | NUR ---
Problems reprioritized. Patient report given, questions answered & plan of care reviewed with TANI Walton.
--- NOTE | 2018-02-24 06:20 | NUR ---
Patient in room PCU 3023. I have received report from Leyda FREIRE and had the opportunity to ask questions and assume patient care.
[2018-02-24 07:15] LABS: HEMATOCRIT 22.1 % (35.0-45.0); HEMOGLOBIN 7.6 g/dl (12.0-16.0); MEAN CORPUSCULAR HEMOGLOBIN 29.4 PG (27.0-31.0); MEAN CORPUSCULAR HGB CONC 34.3 % (33.0-36.5); MEAN CORPUSCULAR VOLUME 85.9 FL (78-98); MEAN PLATELET VOLUME 6.8 FL (7.4-10.4); PLATELET COUNT 426 X10'3 (140-440); RED BLOOD COUNT 2.57 X10'6 (4.20-5.60); RED CELL DISTRIBUTION WIDTH 13.8 % (11.5-14.5)
[2018-02-24 07:18] LABS: ALANINE AMINOTRANSFERASE 34 U/L (12-78); ALBUMIN 1.5 G/DL (3.4-5.0); ALBUMIN/GLOBULIN RATIO 0.4 (1.1-1.5); ALKALINE PHOSPHATASE 177 IU/L (46-116); ANION GAP 15 (8-16); ASPARTATE AMINO TRANSFERASE 11 U/L (10-37); BILIRUBIN,TOTAL 1.2 MG/DL (0.1-1.0); BLOOD UREA NITROGEN 95 MG/DL (7-18); BUN/CREATININE RATIO 21.9 (6.6-38.0); CALCIUM 7.9 MG/DL (8.5-10.1); CHLORIDE 102 MMOL/L (99-107); CREATININE 4.34 MG/DL (0.40-0.90); GLUCOSE 136 MG/DL (70-104); SODIUM 136 MMOL/L (135-145); TOTAL PROTEIN 5.2 G/DL (6.4-8.2); eGFR 11 ML/MIN
[2018-02-24 07:24] LABS: WHITE BLOOD COUNT 31.4 X10'3 (4.5-11.0)
[2018-02-24 07:42] LABS: ANISOCYTOSIS 1+; MICROCYTOSIS 1+; PLATELET ESTIMATE NORMAL; POLYCHROMASIA FEW; TOTAL CELLS COUNTED 100
[2018-02-24] MEDS: lactobacillus rhamnosus 10,000 MMU CELLS/CAPSULE PO SCH ×2 (08:00→20:59)
[2018-02-24] MEDS: docusate sod 100mg capsule PO SCH ×2 (08:00→20:59)
[2018-02-24] MEDS: sennosides 8.6mg tablet PO SCH ×2 (08:00→20:59)
[2018-02-24] MEDS: vitamin D (cholecalciferol) 1,000 unit tablet PO SCH (08:00)
[2018-02-24] MEDS: chlorhexidine gluconate 15ml Cup****oral rinse MM SCH ×2 (08:00→20:59)
[2018-02-24] MEDS: TOLVAPTAN 30 MG TABLET PO SCH (08:00)
[2018-02-24] MEDS: oxybutynin 5mg tablet PO SCH ×4 (08:00→20:59)
[2018-02-24] MEDS: sodium bicarbonate 650mg tablet PO SCH ×3 (08:00→20:59)
--- NOTE | 2018-02-24 08:04 | NUR ---
PAGER ID: [phone] MESSAGE: [id number]/Eduarda Costa crticial WBC 31.4. Also reported she drinks 4-5 gallons/day. Educated pt. Thank you. Isabelle [phone]
[2018-02-24] MEDS: allopurinol 100mg tablet PO SCH (08:30)
[2018-02-24 10:19] VITALS: BP 115/55
[2018-02-24 11:00] VITALS: BP 125/49
[2018-02-24] MEDS ORDERED: levoFLOXACIN-Levaquin 750MG/D5 150 ML IV ONE (12:00)
[2018-02-24] MEDS ORDERED: vancomycin/NS 1 GM ADD-VANTAGE 250 ML IV ONE (12:25)
[2018-02-24 19:00] VITALS: BP 132/48
[2018-02-24] MEDS: PALIPERIDONE 3 MG TAB.ER.24 PO SCH (20:59)
[2018-02-24] MEDS: insulin glargine (Lantus) pen - multi-dose SQ SCH (21:00)
[2018-02-24] MEDS: morphine 4 MG/ML inj SYRINge IV PRN (22:15)
[2018-02-24 23:00] VITALS: BP 133/69
[2018-02-25] MEDS: vancomycin 125mg/5ml ORAL solution 5ml UD bottle PO SCH ×4 (02:32→21:03)
[2018-02-25] MEDS: normal saline 1000ml 1,000 ML IV SCH ×4 (02:40→21:12)
[2018-02-25 03:00] VITALS: BP 145/74
[2018-02-25] MEDS: VANCOMYCIN LEVEL IV SCH (03:00)
[2018-02-25] MEDS ORDERED: vancomycin inj 1,250 MG in normal saline 250ml IV soln 250 ML IV PRN (06:00)
[2018-02-25 06:09] LABS: ALANINE AMINOTRANSFERASE 28 U/L (12-78); ALBUMIN 1.6 G/DL (3.4-5.0); ALBUMIN/GLOBULIN RATIO 0.4 (1.1-1.5); ALKALINE PHOSPHATASE 148 IU/L (46-116); ANION GAP 12 (8-16); ASPARTATE AMINO TRANSFERASE 12 U/L (10-37); BASOPHILS % (AUTO) 0.1 % (0-1); BILIRUBIN,TOTAL 1.1 MG/DL (0.1-1.0); BLOOD UREA NITROGEN 77 MG/DL (7-18); BUN/CREATININE RATIO 22.4 (6.6-38.0); CALCIUM 7.9 MG/DL (8.5-10.1); CHLORIDE 104 MMOL/L (99-107); CREATININE 3.44 MG/DL (0.40-0.90); EOSINOPHILS # (AUTO) 0.2 X10'3 (0-0.9); EOSINOPHILS % (AUTO) 0.9 % (0-6); GLUCOSE 131 MG/DL (70-104); HEMOGLOBIN 7.5 g/dl (12.0-16.0); LYMPHOCYTES # (AUTO) 1.1 X10'3 (1.1-4.8); LYMPHOCYTES % (AUTO) 4.1 % (21-51); MEAN CORPUSCULAR HGB CONC 34.7 % (33.0-36.5); MEAN CORPUSCULAR VOLUME 86.6 FL (78-98); MEAN PLATELET VOLUME 6.7 FL (7.4-10.4); MONOCYTES # (AUTO) 0.5 X10'3 (0-0.9); NEUTROPHILS # (AUTO) 25.6 X10'3 (1.8-7.7); NEUTROPHILS % (AUTO) 92.9 % (42-75); PLATELET COUNT 547 X10'3 (140-440); POTASSIUM 3.9 MMOL/L (3.5-5.1); RED BLOOD COUNT 2.48 X10'6 (4.20-5.60); RED CELL DISTRIBUTION WIDTH 13.7 % (11.5-14.5); SODIUM 138 MMOL/L (135-145); TOTAL CARBON DIOXIDE 22.3 MMOL/L (24-32); TOTAL PROTEIN 5.4 G/DL (6.4-8.2); eGFR 14 ML/MIN
[2018-02-25 06:16] LABS: HEMATOCRIT 21.5 % (35.0-45.0); WHITE BLOOD COUNT 27.4 X10'3 (4.5-11.0)
--- NOTE | 2018-02-25 06:44 | NUR ---
Problems reprioritized. Patient report given, questions answered & plan of care reviewed with JAMA.
[2018-02-25] MEDS: vancomycin inj 1,250 MG in normal saline 250ml IV soln 250 ML IV ONE ×2 (06:55→09:23)
--- NOTE | 2018-02-25 07:09 | NUR ---
Patient in room PCU 3022. I have received report from Whitney FREIRE and had the opportunity to ask questions and assume patient care.
[2018-02-25] MEDS: chlorhexidine gluconate 15ml Cup****oral rinse MM SCH ×2 (07:41→21:03)
[2018-02-25] MEDS: sodium bicarbonate 650mg tablet PO SCH ×3 (07:42→21:02)
[2018-02-25] MEDS: vitamin D (cholecalciferol) 1,000 unit tablet PO SCH (07:42)
[2018-02-25] MEDS: TOLVAPTAN 30 MG TABLET PO SCH (07:42)
[2018-02-25] MEDS: oxybutynin 5mg tablet PO SCH ×4 (07:43→21:03)
[2018-02-25] MEDS: docusate sod 100mg capsule PO SCH ×2 (07:43→21:03)
[2018-02-25] MEDS: lactobacillus rhamnosus 10,000 MMU CELLS/CAPSULE PO SCH ×2 (07:43→21:02)
[2018-02-25] MEDS: sennosides 8.6mg tablet PO SCH ×2 (07:48→21:03)
[2018-02-25] MEDS: allopurinol 100mg tablet PO SCH (09:22)
[2018-02-25 09:50] LABS: TOTAL CELLS COUNTED 100
[2018-02-25 09:51] LABS: PLATELET ESTIMATE INCREASED; STOMATOCYTES FEW; TOXIC GRANULATION 2+
[2018-02-25 11:00] VITALS: BP 115/51
--- NOTE | 2018-02-25 13:16 | NUR ---
reassessment: Pt PO increased to 100% renal diet w/ Nepro. LBM 02/23. No additional nutrition concerns at this time. Will continue to monitor. Recommendations: 1) Continue with renal diet 2) Nepro TID 3) routine bowel care 4) Wt per rx Addendum: 02/25/18 at [address] Amended: Links added.
[2018-02-25 15:42] VITALS: BP 124/60
[2018-02-25 18:00] VITALS: BP 138/62
--- NOTE | 2018-02-25 18:30 | NUR ---
Problems reprioritized. Patient report given, questions answered & plan of care reviewed with Galilea FREIRE.
--- NOTE | 2018-02-25 19:19 | NUR ---
Patient in room PCU 3023. I have received report from Isabelle FREIRE and had the opportunity to ask questions and assume patient care.
[2018-02-25] MEDS: insulin glargine (Lantus) pen - multi-dose SQ SCH (21:00)
[2018-02-25] MEDS: PALIPERIDONE 3 MG TAB.ER.24 PO SCH (21:08)
[2018-02-25 22:00] VITALS: BP 140/71
[2018-02-26] MEDS: vancomycin 125mg/5ml ORAL solution 5ml UD bottle PO SCH ×3 (01:28→13:28)
[2018-02-26 02:00] VITALS: BP 133/73
[2018-02-26] MEDS: VANCOMYCIN LEVEL IV SCH (03:00)
[2018-02-26 05:16] LABS: BASOPHILS % (AUTO) 0.2 % (0-1); EOSINOPHILS # (AUTO) 0.3 X10'3 (0-0.9); EOSINOPHILS % (AUTO) 1.5 % (0-6); HEMOGLOBIN 7.1 g/dl (12.0-16.0); LYMPHOCYTES # (AUTO) 1.2 X10'3 (1.1-4.8); LYMPHOCYTES % (AUTO) 5.6 % (21-51); MEAN CORPUSCULAR HEMOGLOBIN 30.2 PG (27.0-31.0); MEAN CORPUSCULAR HGB CONC 35.1 % (33.0-36.5); MEAN CORPUSCULAR VOLUME 85.9 FL (78-98); MEAN PLATELET VOLUME 6.5 FL (7.4-10.4); MONOCYTES # (AUTO) 0.6 X10'3 (0-0.9); NEUTROPHILS % (AUTO) 89.7 % (42-75); PLATELET COUNT 632 X10'3 (140-440); RED BLOOD COUNT 2.36 X10'6 (4.20-5.60); RED CELL DISTRIBUTION WIDTH 13.6 % (11.5-14.5); WHITE BLOOD COUNT 21.1 X10'3 (4.5-11.0)
[2018-02-26 05:31] LABS: ALANINE AMINOTRANSFERASE 25 U/L (12-78); ALBUMIN 1.7 G/DL (3.4-5.0); ALBUMIN/GLOBULIN RATIO 0.4 (1.1-1.5); ALKALINE PHOSPHATASE 129 IU/L (46-116); ANION GAP 11 (8-16); ASPARTATE AMINO TRANSFERASE 13 U/L (10-37); BLOOD UREA NITROGEN 65 MG/DL (7-18); BUN/CREATININE RATIO 23.8 (6.6-38.0); CALCIUM 8.2 MG/DL (8.5-10.1); CHLORIDE 105 MMOL/L (99-107); CREATININE 2.73 MG/DL (0.40-0.90); GLUCOSE 140 MG/DL (70-104); POTASSIUM 3.7 MMOL/L (3.5-5.1); SODIUM 140 MMOL/L (135-145); TOTAL CARBON DIOXIDE 23.6 MMOL/L (24-32); TOTAL PROTEIN 5.6 G/DL (6.4-8.2); VANCOMYCIN,RANDOM 9.1 UG/ML; eGFR 18 ML/MIN
--- NOTE | 2018-02-26 05:47 | NUR ---
received critical lab value, Galilea FREIRE notified.
[2018-02-26 06:00] VITALS: BP 125/66
[2018-02-26 06:00] LABS: HEMATOCRIT 20.3 % (35.0-45.0)
--- NOTE | 2018-02-26 06:10 | NUR ---
Problems reprioritized. Patient report given, questions answered & plan of care reviewed with Kinga FREIRE.
--- NOTE | 2018-02-26 06:19 | NUR ---
Patient in room PCU 3023. I have received report from Galilea FREIRE and had the opportunity to ask questions and assume patient care. Patient sitting on edge of bed having VS taken. in no acute distress at this time.
[2018-02-26 06:31] LABS: TOTAL CELLS COUNTED 100
[2018-02-26 06:32] LABS: PLATELET ESTIMATE INCREASED; TOXIC GRANULATION 2+
[2018-02-26] MEDS: normal saline 1000ml 1,000 ML IV SCH ×2 (07:00→20:45)
[2018-02-26] MEDS ORDERED: levoFLOXACIN-Levaquin 500mg/D5 100 ML IV SCH (08:00)
[2018-02-26] MEDS: allopurinol 100mg tablet PO SCH (08:41)
[2018-02-26] MEDS: sennosides 8.6mg tablet PO SCH ×2 (08:41→20:00)
[2018-02-26] MEDS: vitamin D (cholecalciferol) 1,000 unit tablet PO SCH (08:41)
[2018-02-26] MEDS: oxybutynin 5mg tablet PO SCH ×4 (08:41→20:45)
[2018-02-26] MEDS: lactobacillus rhamnosus 10,000 MMU CELLS/CAPSULE PO SCH ×2 (08:41→20:45)
[2018-02-26] MEDS: docusate sod 100mg capsule PO SCH ×2 (08:41→20:00)
[2018-02-26] MEDS: sodium bicarbonate 650mg tablet PO SCH ×3 (08:41→20:45)
[2018-02-26] MEDS: TOLVAPTAN 30 MG TABLET PO SCH (08:47)
[2018-02-26] MEDS: chlorhexidine gluconate 15ml Cup****oral rinse MM SCH ×2 (08:54→20:46)
[2018-02-26] MEDS ORDERED: vancomycin inj 1,250 MG in normal saline 250ml IV soln 250 ML IV SCH (09:00)
[2018-02-26 11:00] VITALS: BP 118/52
[2018-02-26] MEDS: morphine 4 MG/ML inj SYRINge IV PRN (14:25)
[2018-02-26 15:00] VITALS: BP 125/58
[2018-02-26 18:00] VITALS: BP 138/66
--- NOTE | 2018-02-26 18:23 | NUR ---
Patient in room PCU 3023. I have received report from Kinga FREIRE and had the opportunity to ask questions and assume patient care.
--- NOTE | 2018-02-26 18:25 | NUR ---
Problems reprioritized. Patient report given, questions answered & plan of care reviewed with Galilea FREIRE.
[2018-02-26] MEDS: PALIPERIDONE 3 MG TAB.ER.24 PO SCH (20:46)
[2018-02-26] MEDS: insulin glargine (Lantus) pen - multi-dose SQ SCH (21:00)
[2018-02-26 22:00] VITALS: BP_SYST 126; BP_DIAS 7; BP_DIAS 70
[2018-02-27 02:00] VITALS: BP 129/64
[2018-02-27] MEDS: normal saline 1000ml 1,000 ML IV SCH (02:19)
[2018-02-27 04:59] LABS: BASOPHILS % (AUTO) 0.2 % (0-1); EOSINOPHILS # (AUTO) 0.4 X10'3 (0-0.9); EOSINOPHILS % (AUTO) 2.7 % (0-6); LYMPHOCYTES % (AUTO) 6.1 % (21-51); MEAN CORPUSCULAR HEMOGLOBIN 29.1 PG (27.0-31.0); MEAN CORPUSCULAR HGB CONC 33.6 % (33.0-36.5); MEAN CORPUSCULAR VOLUME 86.5 FL (78-98); MEAN PLATELET VOLUME 6.3 FL (7.4-10.4); MONOCYTES # (AUTO) 0.6 X10'3 (0-0.9); MONOCYTES % (AUTO) 3.8 % (2-12); NEUTROPHILS # (AUTO) 14.6 X10'3 (1.8-7.7); NEUTROPHILS % (AUTO) 87.2 % (42-75); PLATELET COUNT 574 X10'3 (140-440); RED BLOOD COUNT 2.41 X10'6 (4.20-5.60); RED CELL DISTRIBUTION WIDTH 14.6 % (11.5-14.5); WHITE BLOOD COUNT 16.8 X10'3 (4.5-11.0)
[2018-02-27 05:27] LABS: HEMATOCRIT 20.9 % (35.0-45.0)
[2018-02-27 05:31] LABS: ALANINE AMINOTRANSFERASE 23 U/L (12-78); ALBUMIN 1.8 G/DL (3.4-5.0); ALBUMIN/GLOBULIN RATIO 0.5 (1.1-1.5); ALKALINE PHOSPHATASE 110 IU/L (46-116); ANION GAP 10 (8-16); ASPARTATE AMINO TRANSFERASE 14 U/L (10-37); BLOOD UREA NITROGEN 45 MG/DL (7-18); BUN/CREATININE RATIO 20.7 (6.6-38.0); CALCIUM 8.3 MG/DL (8.5-10.1); CHLORIDE 106 MMOL/L (99-107); CREATININE 2.17 MG/DL (0.40-0.90); GLUCOSE 136 MG/DL (70-104); POTASSIUM 3.8 MMOL/L (3.5-5.1); SODIUM 142 MMOL/L (135-145); TOTAL CARBON DIOXIDE 25.7 MMOL/L (24-32); TOTAL PROTEIN 5.7 G/DL (6.4-8.2); VANCOMYCIN,RANDOM 14.4 UG/ML; eGFR 24 ML/MIN
[2018-02-27 06:00] VITALS: BP 181/73
--- NOTE | 2018-02-27 06:16 | NUR ---
Problems reprioritized. Patient report given, questions answered & plan of care reviewed with Kinga FREIRE.
--- NOTE | 2018-02-27 06:29 | NUR ---
Patient in room PCU 3023. I have received report from Yifan FREIRE and had the opportunity to ask questions and assume patient care. Patient out of bed and up to toilet to void. In no acute distress. Will continue to monitor.
[2018-02-27] MEDS: sennosides 8.6mg tablet PO SCH ×2 (08:00→19:51)
[2018-02-27] MEDS: docusate sod 100mg capsule PO SCH ×2 (08:00→19:50)
[2018-02-27] MEDS: oxybutynin 5mg tablet PO SCH ×4 (08:44→20:03)
[2018-02-27] MEDS: allopurinol 100mg tablet PO SCH (08:44)
[2018-02-27] MEDS: sodium bicarbonate 650mg tablet PO SCH ×3 (08:44→20:03)
[2018-02-27] MEDS: chlorhexidine gluconate 15ml Cup****oral rinse MM SCH ×2 (08:46→20:03)
[2018-02-27] MEDS: lactobacillus rhamnosus 10,000 MMU CELLS/CAPSULE PO SCH ×2 (08:46→20:02)
[2018-02-27] MEDS: vitamin D (cholecalciferol) 1,000 unit tablet PO SCH (08:46)
--- NOTE | 2018-02-27 09:40 | NUR ---
Kymberly from [facility] called to get an update on patient and find out potential discharge date. Let her know that patient medical condition is improving but no discharge date noted in progress notes.
[2018-02-27 11:00] VITALS: BP 138/69
[2018-02-27 15:00] VITALS: BP 128/65
--- NOTE | 2018-02-27 16:37 | NUR ---
Paged Dr. Albrecht: PAGER ID: [phone] MESSAGE: Kinga [facility] [id number] Re: Eduarda Costa [id number]. Patient is tachypnic with RR in mid 30's. Patient had been on 2L O2 NC but is now on 4L with O2 sat of 93. Please advise.
[2018-02-27] MEDS ORDERED: furosemide 40mg/4ml inj IV ONE (17:25)
[2018-02-27] MEDS: cefepime 1GM/NS ADD-VANTAGE 100 ML IV SCH (17:48)
[2018-02-27 18:00] VITALS: BP 157/74
[2018-02-27 18:22] LABS: HEMOGLOBIN 7.3 g/dl (12.0-16.0); MEAN CORPUSCULAR HEMOGLOBIN 28.8 PG (27.0-31.0); MEAN CORPUSCULAR HGB CONC 33.3 % (33.0-36.5); MEAN CORPUSCULAR VOLUME 86.4 FL (78-98); MEAN PLATELET VOLUME 6.1 FL (7.4-10.4); PLATELET COUNT 687 X10'3 (140-440); RED BLOOD COUNT 2.53 X10'6 (4.20-5.60); WHITE BLOOD COUNT 17.5 X10'3 (4.5-11.0)
[2018-02-27 18:25] LABS: HEMATOCRIT 21.8 % (35.0-45.0)
--- NOTE | 2018-02-27 18:25 | NUR ---
Patient in room PCU 3023. I have received report from Kinga FREIRE and had the opportunity to ask questions and assume patient care.
--- NOTE | 2018-02-27 18:30 | NUR ---
Problems reprioritized. Patient report given, questions answered & plan of care reviewed with Galilea FREIRE.
--- NOTE | 2018-02-27 18:30 | NUR ---
[place] documentation: I have reviewed and agree with all interventions, assessments performed and documented by Angeli FREIRE. [place] Medication Administration: For this medication-pass time frame, all medication were reviewed, dispensed, administered and documented per hospital policy by TANI Suh.
--- NOTE | 2018-02-27 18:31 | NUR ---
paged Dr. Albrecht PAGER ID: [phone] MESSAGE: rm [id number]. Carol. CARIN Costa Critical lab value Hct 21.8. Previous value 20.9. thank you Galilea FREIRE ext [phone]
[2018-02-27 19:05] LABS: % IRON SATURATION 8 % (11-46); IRON 16 UG/DL (49-151); TOTAL IRON BINDING CAPACITY 206 UG/DL (259-388)
[2018-02-27] MEDS: ipratropium/albuterol 3ml nebule NEB SCH (19:43)
[2018-02-27] MEDS: vancomycin inj 1,250 MG in normal saline 250ml IV soln 250 ML IV SCH (20:03)
[2018-02-27] MEDS: PALIPERIDONE 3 MG TAB.ER.24 PO SCH (20:03)
[2018-02-27] MEDS: insulin glargine (Lantus) pen - multi-dose SQ SCH (21:00)
[2018-02-27 22:00] VITALS: BP 131/58
--- NOTE | 2018-02-27 22:00 | NUR ---
pt T 101.2. pt has allergy to acetaminophen. packed pt with ice packs. will continue to monitor
[2018-02-28] VITALS (9 sets, daily range): BP systolic 117–143; BP diastolic 54–73
[2018-02-28] MEDS: cefepime 1GM/NS ADD-VANTAGE 100 ML IV SCH ×3 (01:13→16:49)
[2018-02-28] MEDS: ipratropium/albuterol 3ml nebule NEB SCH ×7 (03:00→22:55)
--- NOTE | 2018-02-28 06:22 | NUR ---
Problems reprioritized. Patient report given, questions answered & plan of care reviewed with Aldo FREIRE.
--- NOTE | 2018-02-28 06:50 | NUR ---
Patient in room PCU 3023. I have received report from TANI Vigil and had the opportunity to ask questions and assume patient care.
[2018-02-28 07:17] LABS: BASOPHILS % (AUTO) 0.2 % (0-1); EOSINOPHILS # (AUTO) 0.4 X10'3 (0-0.9); EOSINOPHILS % (AUTO) 3.1 % (0-6); LYMPHOCYTES # (AUTO) 1.1 X10'3 (1.1-4.8); LYMPHOCYTES % (AUTO) 8.5 % (21-51); MEAN CORPUSCULAR HEMOGLOBIN 29.1 PG (27.0-31.0); MEAN CORPUSCULAR HGB CONC 33.6 % (33.0-36.5); MEAN CORPUSCULAR VOLUME 86.4 FL (78-98); MEAN PLATELET VOLUME 6.3 FL (7.4-10.4); MONOCYTES # (AUTO) 0.5 X10'3 (0-0.9); MONOCYTES % (AUTO) 3.7 % (2-12); NEUTROPHILS # (AUTO) 11.3 X10'3 (1.8-7.7); NEUTROPHILS % (AUTO) 84.5 % (42-75); PLATELET COUNT 596 X10'3 (140-440); RED BLOOD COUNT 2.19 X10'6 (4.20-5.60); RED CELL DISTRIBUTION WIDTH 14.6 % (11.5-14.5); WHITE BLOOD COUNT 13.4 X10'3 (4.5-11.0)
[2018-02-28 07:23] LABS: HEMATOCRIT 18.9 % (35.0-45.0); HEMOGLOBIN 6.4 g/dl (12.0-16.0)
[2018-02-28 07:36] LABS: ALANINE AMINOTRANSFERASE 19 U/L (12-78); ALBUMIN 1.8 G/DL (3.4-5.0); ALBUMIN/GLOBULIN RATIO 0.5 (1.1-1.5); ALKALINE PHOSPHATASE 89 IU/L (46-116); ANION GAP 8 (8-16); ASPARTATE AMINO TRANSFERASE 11 U/L (10-37); BILIRUBIN,TOTAL 0.9 MG/DL (0.1-1.0); BLOOD UREA NITROGEN 34 MG/DL (7-18); BUN/CREATININE RATIO 18.6 (6.6-38.0); CALCIUM 7.8 MG/DL (8.5-10.1); CHLORIDE 107 MMOL/L (99-107); CREATININE 1.83 MG/DL (0.40-0.90); GLUCOSE 128 MG/DL (70-104); POTASSIUM 3.5 MMOL/L (3.5-5.1); SODIUM 144 MMOL/L (135-145); TOTAL CARBON DIOXIDE 29.4 MMOL/L (24-32); TOTAL PROTEIN 5.8 G/DL (6.4-8.2); eGFR 29 ML/MIN
[2018-02-28] MEDS: vitamin D (cholecalciferol) 1,000 unit tablet PO SCH (08:09)
[2018-02-28] MEDS: allopurinol 100mg tablet PO SCH (08:09)
[2018-02-28] MEDS: docusate sod 100mg capsule PO SCH ×2 (08:10→20:41)
[2018-02-28] MEDS: sennosides 8.6mg tablet PO SCH ×2 (08:10→20:41)
[2018-02-28] MEDS: oxybutynin 5mg tablet PO SCH ×4 (08:10→20:41)
[2018-02-28] MEDS: sodium bicarbonate 650mg tablet PO SCH ×3 (08:10→20:42)
[2018-02-28] MEDS: lactobacillus rhamnosus 10,000 MMU CELLS/CAPSULE PO SCH ×2 (08:10→20:41)
[2018-02-28] MEDS: chlorhexidine gluconate 15ml Cup****oral rinse MM SCH ×2 (08:10→20:41)
[2018-02-28] MEDS ORDERED: VANCOMYCIN LEVEL IV NR (08:30)
[2018-02-28] MEDS ORDERED: furosemide 40mg/4ml inj IV ONE (09:15)
[2018-02-28] MEDS: potassium Cl 20 mEq SR tablet PO SCH (13:38)
[2018-02-28] MEDS: LORazepam 0.5 MG tablet PO PRN (13:39)
--- NOTE | 2018-02-28 14:01 | NUR ---
pt transferred to iso room for R/O flu, blood transfusion complete no s/s of transfusion reaction pt tolerated well, lasix given after transfusion will continue to monitor
[2018-02-28] MEDS ORDERED: morphine 4 MG/ML inj SYRINge IV PRN (15:40)
--- NOTE | 2018-02-28 18:00 | NUR ---
Patient in room PCU 3008. I have received report from Aldo Murray and had the opportunity to ask questions and assume patient care.
--- NOTE | 2018-02-28 18:08 | NUR ---
Problems reprioritized. Patient report given, questions answered & plan of care reviewed with TANI Nichols.
[2018-02-28 19:08] LABS: HEMATOCRIT 22.4 % (35.0-45.0); HEMOGLOBIN 7.5 g/dl (12.0-16.0); MEAN CORPUSCULAR HEMOGLOBIN 28.3 PG (27.0-31.0); MEAN CORPUSCULAR HGB CONC 33.5 % (33.0-36.5); MEAN CORPUSCULAR VOLUME 84.6 FL (78-98); PLATELET COUNT 582 X10'3 (140-440); RED BLOOD COUNT 2.65 X10'6 (4.20-5.60); RED CELL DISTRIBUTION WIDTH 16.1 % (11.5-14.5); WHITE BLOOD COUNT 15.3 X10'3 (4.5-11.0)
[2018-02-28] MEDS: vancomycin inj 1,250 MG in normal saline 250ml IV soln 250 ML IV SCH (20:00)
[2018-02-28] MEDS: PALIPERIDONE 3 MG TAB.ER.24 PO SCH (20:41)
[2018-02-28] MEDS: insulin glargine (Lantus) pen - multi-dose SQ SCH (21:00)
[2018-03-01] MEDS: cefepime 1GM/NS ADD-VANTAGE 100 ML IV SCH ×4 (00:31→23:30)
[2018-03-01 02:00] VITALS: BP 134/60
[2018-03-01] MEDS: ipratropium/albuterol 3ml nebule NEB SCH ×6 (03:00→23:00)
[2018-03-01 05:00] LABS: BASOPHILS % (AUTO) 0.3 % (0-1); EOSINOPHILS # (AUTO) 0.3 X10'3 (0-0.9); EOSINOPHILS % (AUTO) 2.3 % (0-6); HEMOGLOBIN 7.2 g/dl (12.0-16.0); LYMPHOCYTES % (AUTO) 6.5 % (21-51); MEAN CORPUSCULAR HEMOGLOBIN 28.4 PG (27.0-31.0); MEAN CORPUSCULAR HGB CONC 33.8 % (33.0-36.5); MEAN PLATELET VOLUME 6.3 FL (7.4-10.4); MONOCYTES # (AUTO) 0.6 X10'3 (0-0.9); MONOCYTES % (AUTO) 3.8 % (2-12); NEUTROPHILS # (AUTO) 12.9 X10'3 (1.8-7.7); NEUTROPHILS % (AUTO) 87.1 % (42-75); PLATELET COUNT 600 X10'3 (140-440); RED BLOOD COUNT 2.54 X10'6 (4.20-5.60); RED CELL DISTRIBUTION WIDTH 16.3 % (11.5-14.5); WHITE BLOOD COUNT 14.8 X10'3 (4.5-11.0)
[2018-03-01 05:11] LABS: HEMATOCRIT 21.4 % (35.0-45.0)
[2018-03-01 05:12] LABS: ALANINE AMINOTRANSFERASE 17 U/L (12-78); ALBUMIN 1.9 G/DL (3.4-5.0); ALBUMIN/GLOBULIN RATIO 0.4 (1.1-1.5); ALKALINE PHOSPHATASE 87 IU/L (46-116); ANION GAP 8 (8-16); ASPARTATE AMINO TRANSFERASE 14 U/L (10-37); BILIRUBIN,TOTAL 0.9 MG/DL (0.1-1.0); BLOOD UREA NITROGEN 27 MG/DL (7-18); BUN/CREATININE RATIO 16.4 (6.6-38.0); CHLORIDE 104 MMOL/L (99-107); CREATININE 1.65 MG/DL (0.40-0.90); GLUCOSE 136 MG/DL (70-104); POTASSIUM 3.2 MMOL/L (3.5-5.1); SODIUM 143 MMOL/L (135-145); TOTAL CARBON DIOXIDE 31.2 MMOL/L (24-32); TOTAL PROTEIN 6.2 G/DL (6.4-8.2); eGFR 33 ML/MIN
[2018-03-01 06:00] VITALS: BP 139/64
--- NOTE | 2018-03-01 06:34 | NUR ---
Patient in room PCU 3008. I have received report from Alejandra FREIRE and had the opportunity to ask questions and assume patient care. Will continue to monitor.
[2018-03-01] MEDS: docusate sod 100mg capsule PO SCH ×2 (08:00→20:00)
[2018-03-01] MEDS: sennosides 8.6mg tablet PO SCH ×2 (08:00→20:00)
[2018-03-01] MEDS: sodium bicarbonate 650mg tablet PO SCH ×3 (08:49→20:30)
[2018-03-01] MEDS: allopurinol 100mg tablet PO SCH (08:49)
[2018-03-01] MEDS: vitamin D (cholecalciferol) 1,000 unit tablet PO SCH (08:49)
[2018-03-01] MEDS: lactobacillus rhamnosus 10,000 MMU CELLS/CAPSULE PO SCH ×2 (08:49→20:29)
[2018-03-01] MEDS: furosemide 40mg/4ml inj IV SCH (08:50)
[2018-03-01] MEDS: oxybutynin 5mg tablet PO SCH ×4 (08:50→20:29)
[2018-03-01] MEDS: potassium Cl 20 mEq SR tablet PO SCH (08:50)
[2018-03-01] MEDS: chlorhexidine gluconate 15ml Cup****oral rinse MM SCH ×2 (08:51→20:29)
[2018-03-01 11:00] VITALS: BP 148/69
[2018-03-01 11:53] LABS: HIV ANTIBODY 1&2 RAPID NON-REACTIVE (Neg)
--- NOTE | 2018-03-01 16:43 | NUR ---
Patient in room PCU 3008. I have received report from TANI CAPONE and had the opportunity to ask questions and assume patient care. Awaiting patient's arrival to room 345b.
--- NOTE | 2018-03-01 16:46 | NUR ---
PAGER ID: [phone] MESSAGE: [phone] Eduarda Costa Patient's potassium is 3.2, getting scheduled 20 mEq of Potassium, would you to put pt on K replacement protocol. Thank you, Heidi#[phone]
--- NOTE | 2018-03-01 17:11 | NUR ---
Gave report to Manolo FREIRE. Pt transferred to surgical floor room 345 B
[2018-03-01 18:05] VITALS: BP 128/60
--- NOTE | 2018-03-01 18:20 | NUR ---
Patient in room SADA 345. I have received report from Manolo and had the opportunity to ask questions and assume patient care.
--- NOTE | 2018-03-01 18:38 | NUR ---
Problems reprioritized. Patient report given, questions answered & plan of care reviewed with TANI Marques.
[2018-03-01 19:00] VITALS: BP_SYST 116; BP_SYST 133; BP_DIAS 63; BP_DIAS 74
[2018-03-01] MEDS: vancomycin inj 1,250 MG in normal saline 250ml IV soln 250 ML IV SCH (19:42)
[2018-03-01] MEDS: paliperidone 1.5mg ER tablet PO SCH (20:30)
[2018-03-01] MEDS: insulin glargine (Lantus) pen - multi-dose SQ SCH (21:00)
[2018-03-02] MEDS: ipratropium/albuterol 3ml nebule NEB SCH ×6 (03:00→23:30)
--- NOTE | 2018-03-02 05:49 | NUR ---
found pt trying to get out of bed, reput on tabs alarm, pt stated she was trying to get home I reoriented her to being in the hospital got her back into bed covered her up, pt also refused labs i asked lab to try again when pt was less agitated
--- NOTE | 2018-03-02 06:30 | NUR ---
Gave report to Lucille FREIRE, pt is resting on 6L of O2 via NC, in no apparent distress, call light and items of freq use within reach.
--- NOTE | 2018-03-02 06:30 | NUR ---
Patient in room SADA 346. I have received report from Shelli FREIRE and had the opportunity to ask questions and assume patient care.
[2018-03-02 07:30] VITALS: BP 142/75
[2018-03-02 07:53] LABS: BASOPHILS # (AUTO) 0.1 X10'3 (0-0.2); BASOPHILS % (AUTO) 0.5 % (0-1); EOSINOPHILS # (AUTO) 0.5 X10'3 (0-0.9); EOSINOPHILS % (AUTO) 3.7 % (0-6); HEMOGLOBIN 7.7 g/dl (12.0-16.0); LYMPHOCYTES # (AUTO) 1.3 X10'3 (1.1-4.8); LYMPHOCYTES % (AUTO) 9.8 % (21-51); MEAN CORPUSCULAR HEMOGLOBIN 28.3 PG (27.0-31.0); MEAN CORPUSCULAR HGB CONC 33.4 % (33.0-36.5); MEAN CORPUSCULAR VOLUME 84.7 FL (78-98); MEAN PLATELET VOLUME 6.4 FL (7.4-10.4); MONOCYTES # (AUTO) 0.5 X10'3 (0-0.9); MONOCYTES % (AUTO) 3.9 % (2-12); NEUTROPHILS % (AUTO) 82.1 % (42-75); PLATELET COUNT 582 X10'3 (140-440); RED BLOOD COUNT 2.72 X10'6 (4.20-5.60); RED CELL DISTRIBUTION WIDTH 15.8 % (11.5-14.5); WHITE BLOOD COUNT 13.4 X10'3 (4.5-11.0)
[2018-03-02] MEDS: sennosides 8.6mg tablet PO SCH ×3 (08:00→20:00)
[2018-03-02] MEDS: docusate sod 100mg capsule PO SCH ×3 (08:00→19:25)
[2018-03-02 08:22] LABS: ALANINE AMINOTRANSFERASE 18 U/L (12-78); ALBUMIN/GLOBULIN RATIO 0.4 (1.1-1.5); ALKALINE PHOSPHATASE 78 IU/L (46-116); ANION GAP 9 (8-16); ASPARTATE AMINO TRANSFERASE 13 U/L (10-37); BILIRUBIN,TOTAL 0.9 MG/DL (0.1-1.0); BLOOD UREA NITROGEN 23 MG/DL (7-18); BUN/CREATININE RATIO 15.3 (6.6-38.0); CALCIUM 7.7 MG/DL (8.5-10.1); CHLORIDE 104 MMOL/L (99-107); GLUCOSE 117 MG/DL (70-104); POTASSIUM 3.3 MMOL/L (3.5-5.1); SODIUM 145 MMOL/L (135-145); TOTAL CARBON DIOXIDE 31.9 MMOL/L (24-32); TOTAL PROTEIN 6.6 G/DL (6.4-8.2); eGFR 37 ML/MIN
[2018-03-02] MEDS: vitamin D (cholecalciferol) 1,000 unit tablet PO SCH (08:49)
[2018-03-02] MEDS: lactobacillus rhamnosus 10,000 MMU CELLS/CAPSULE PO SCH ×2 (08:49→19:25)
[2018-03-02] MEDS: pantoprazole 40mg Tablet.DR PO SCH (08:49)
[2018-03-02] MEDS: allopurinol 100mg tablet PO SCH (08:49)
[2018-03-02] MEDS: potassium Cl 20 mEq SR tablet PO SCH (08:49)
[2018-03-02] MEDS: furosemide 40mg/4ml inj IV SCH ×2 (08:50→19:26)
[2018-03-02] MEDS: chlorhexidine gluconate 15ml Cup****oral rinse MM SCH ×2 (08:50→19:26)
[2018-03-02] MEDS: oxybutynin 5mg tablet PO SCH ×4 (08:50→20:09)
[2018-03-02] MEDS: sodium bicarbonate 650mg tablet PO SCH ×3 (08:50→20:09)
[2018-03-02] MEDS: cefepime 1GM/NS ADD-VANTAGE 100 ML IV SCH ×3 (08:50→23:06)
[2018-03-02] MEDS ORDERED: potassium Cl 20 mEq SR tablet PO PRN (11:10)
[2018-03-02] MEDS: K and/or MAG REPLACEMENT MC SCH (11:10)
[2018-03-02] MEDS ORDERED: potassium Cl 40MEQ/NS 500ml 500 ML IV PRN ×2 (11:10)
[2018-03-02 12:03] VITALS: BP 111/56
[2018-03-02] MEDS: potassium Cl 20 mEq SR tablet PO PRN ×3 (12:14→20:09)
--- NOTE | 2018-03-02 12:40 | NUR ---
Reassessment: Documented PO intake fluctuates however recent intake 75-100% meeting nutrient needs on renal diet with Nepro. Creatinine improving and test engineering technician following per MD progress notes. LBM 03/02. Will continue to follow. Recommendations: 1) Continue with renal diet 2) Nepro TID 3) routine bowel care 4) Wt per rx Addendum: 03/02/18 at [address] Amended: Links added.
[2018-03-02] MEDS ORDERED: furosemide 20 MG/2 ML vial IV ONE (12:45)
--- NOTE | 2018-03-02 12:54 | NUR ---
Informed Dr. Espana that pt SaO2-88-91 on 6L and also H&H 7.7. MD ordered chest xray and lasix 20mg IV after xray.
--- NOTE | 2018-03-02 14:55 | NUR ---
MD paged regarding chest xray results, MD aware and input orders.
[2018-03-02] MEDS ORDERED: VANCOMYCIN LEVEL IV NR (17:30)
[2018-03-02 18:00] VITALS: BP 136/75
--- NOTE | 2018-03-02 18:18 | NUR ---
Problems reprioritized. Patient report given, questions answered & plan of care reviewed with Chintan FREIRE. Addendum: 03/02/18 at 1821 by Lucille Canales RN No laboratory secretary available to draw vanco trough at 1730, vanco unable to infuse until lab is drawn. Tech to be available at shift change to draw lab. Oncoming nurse aware.
[2018-03-02] MEDS: vancomycin inj 1,250 MG in normal saline 250ml IV soln 250 ML IV SCH (20:09)
[2018-03-02] MEDS: paliperidone 1.5mg ER tablet PO SCH (20:10)
[2018-03-02] MEDS: insulin glargine (Lantus) pen - multi-dose SQ SCH (21:00)
[2018-03-03] VITALS: BP 122/64
[2018-03-03] MEDS: ipratropium/albuterol 3ml nebule NEB SCH ×6 (03:46→23:20)
[2018-03-03 05:10] LABS: BASOPHILS # (AUTO) 0.2 X10'3 (0-0.2); BASOPHILS % (AUTO) 1.7 % (0-1); EOSINOPHILS # (AUTO) 0.5 X10'3 (0-0.9); EOSINOPHILS % (AUTO) 4.6 % (0-6); HEMATOCRIT 23.4 % (35.0-45.0); HEMOGLOBIN 7.7 g/dl (12.0-16.0); LYMPHOCYTES # (AUTO) 1.2 X10'3 (1.1-4.8); LYMPHOCYTES % (AUTO) 11.7 % (21-51); MEAN CORPUSCULAR HEMOGLOBIN 27.7 PG (27.0-31.0); MEAN CORPUSCULAR HGB CONC 32.7 % (33.0-36.5); MEAN CORPUSCULAR VOLUME 84.7 FL (78-98); MEAN PLATELET VOLUME 6.5 FL (7.4-10.4); MONOCYTES # (AUTO) 0.4 X10'3 (0-0.9); MONOCYTES % (AUTO) 4.4 % (2-12); NEUTROPHILS # (AUTO) 7.8 X10'3 (1.8-7.7); NEUTROPHILS % (AUTO) 77.6 % (42-75); PLATELET COUNT 586 X10'3 (140-440); RED BLOOD COUNT 2.76 X10'6 (4.20-5.60); RED CELL DISTRIBUTION WIDTH 15.7 % (11.5-14.5); WHITE BLOOD COUNT 10.1 X10'3 (4.5-11.0)
[2018-03-03 05:12] LABS: ALANINE AMINOTRANSFERASE 18 U/L (12-78); ALBUMIN 2.1 G/DL (3.4-5.0); ALBUMIN/GLOBULIN RATIO 0.4 (1.1-1.5); ALKALINE PHOSPHATASE 76 IU/L (46-116); ANION GAP 10 (8-16); ASPARTATE AMINO TRANSFERASE 14 U/L (10-37); BLOOD UREA NITROGEN 20 MG/DL (7-18); BUN/CREATININE RATIO 13.5 (6.6-38.0); CALCIUM 7.7 MG/DL (8.5-10.1); CHLORIDE 99 MMOL/L (99-107); CREATININE 1.48 MG/DL (0.40-0.90); GLUCOSE 128 MG/DL (70-104); POTASSIUM 3.4 MMOL/L (3.5-5.1); SODIUM 142 MMOL/L (135-145); TOTAL CARBON DIOXIDE 32.6 MMOL/L (24-32); eGFR 37 ML/MIN
--- NOTE | 2018-03-03 06:27 | NUR ---
Problems reprioritized. Patient report given, questions answered & plan of care reviewed with Kofi RN. Pt in bed, alarm is on.
--- NOTE | 2018-03-03 06:42 | NUR ---
Patient in room SADA 346. I have received report from WINIFRED FREIRE and had the opportunity to ask questions and assume patient care.
[2018-03-03 08:00] VITALS: BP 109/49
[2018-03-03] MEDS: docusate sod 100mg capsule PO SCH ×2 (08:00→19:08)
[2018-03-03] MEDS: sennosides 8.6mg tablet PO SCH ×2 (08:00→19:08)
[2018-03-03] MEDS: K and/or MAG REPLACEMENT MC SCH (08:00)
[2018-03-03] MEDS: oxybutynin 5mg tablet PO SCH ×4 (10:11→21:04)
[2018-03-03] MEDS: pantoprazole 40mg Tablet.DR PO SCH (10:14)
[2018-03-03] MEDS: allopurinol 100mg tablet PO SCH (10:14)
[2018-03-03] MEDS: sodium bicarbonate 650mg tablet PO SCH ×3 (10:15→21:05)
[2018-03-03] MEDS: vitamin D (cholecalciferol) 1,000 unit tablet PO SCH (10:15)
[2018-03-03] MEDS: potassium Cl 20 mEq SR tablet PO SCH (10:15)
[2018-03-03] MEDS: chlorhexidine gluconate 15ml Cup****oral rinse MM SCH ×2 (10:16→19:09)
[2018-03-03] MEDS: cefepime 1GM/NS ADD-VANTAGE 100 ML IV SCH ×3 (10:16→23:31)
[2018-03-03] MEDS: furosemide 40mg/4ml inj IV SCH ×2 (10:16→19:09)
[2018-03-03] MEDS: lactobacillus rhamnosus 10,000 MMU CELLS/CAPSULE PO SCH ×2 (10:17→19:08)
[2018-03-03 12:00] VITALS: BP 133/61
[2018-03-03] MEDS: insulin Lispro (HumaLOG) vial - multi-dose SQ SCH ×2 (13:36→19:07)
[2018-03-03 18:00] VITALS: BP 119/65
--- NOTE | 2018-03-03 18:30 | NUR ---
Problems reprioritized. Patient report given, questions answered & plan of care reviewed with nicolas FREIRE.
--- NOTE | 2018-03-03 18:30 | NUR ---
Patient in room SADA 346. I have received report from Kofi FREIRE and had the opportunity to ask questions and assume patient care.
[2018-03-03] MEDS: vancomycin inj 1,250 MG in normal saline 250ml IV soln 250 ML IV SCH (19:05)
[2018-03-03] MEDS: potassium Cl 20 mEq SR tablet PO PRN ×2 (19:08→23:32)
[2018-03-03] MEDS: insulin glargine (Lantus) pen - multi-dose SQ SCH (21:03)
[2018-03-03] MEDS: PALIPERIDONE 3 MG TAB.ER.24 PO SCH (21:05)
[2018-03-04 00:01] VITALS: BP 137/63
[2018-03-04] MEDS: ipratropium/albuterol 3ml nebule NEB SCH ×6 (02:42→23:35)
[2018-03-04] MEDS: potassium Cl 20 mEq SR tablet PO PRN (03:54)
[2018-03-04 05:37] LABS: ALANINE AMINOTRANSFERASE 17 U/L (12-78); ALBUMIN 2.2 G/DL (3.4-5.0); ALBUMIN/GLOBULIN RATIO 0.4 (1.1-1.5); ALKALINE PHOSPHATASE 72 IU/L (46-116); ANION GAP 11 (8-16); ASPARTATE AMINO TRANSFERASE 19 U/L (10-37); BLOOD UREA NITROGEN 20 MG/DL (7-18); BUN/CREATININE RATIO 13.4 (6.6-38.0); CALCIUM 8.3 MG/DL (8.5-10.1); CHLORIDE 99 MMOL/L (99-107); CREATININE 1.49 MG/DL (0.40-0.90); GLUCOSE 122 MG/DL (70-104); POTASSIUM 4.2 MMOL/L (3.5-5.1); SODIUM 141 MMOL/L (135-145); TOTAL CARBON DIOXIDE 31.5 MMOL/L (24-32); TOTAL PROTEIN 7.2 G/DL (6.4-8.2); eGFR 37 ML/MIN
[2018-03-04 05:45] LABS: BASOPHILS % (AUTO) 0.2 % (0-1); EOSINOPHILS # (AUTO) 0.4 X10'3 (0-0.9); EOSINOPHILS % (AUTO) 3.6 % (0-6); HEMATOCRIT 22.9 % (35.0-45.0); HEMOGLOBIN 7.6 g/dl (12.0-16.0); LYMPHOCYTES # (AUTO) 1.4 X10'3 (1.1-4.8); LYMPHOCYTES % (AUTO) 14.3 % (21-51); MEAN CORPUSCULAR HEMOGLOBIN 28.1 PG (27.0-31.0); MEAN CORPUSCULAR HGB CONC 33.1 % (33.0-36.5); MEAN PLATELET VOLUME 6.9 FL (7.4-10.4); MONOCYTES # (AUTO) 0.5 X10'3 (0-0.9); NEUTROPHILS # (AUTO) 7.5 X10'3 (1.8-7.7); NEUTROPHILS % (AUTO) 76.9 % (42-75); PLATELET COUNT 598 X10'3 (140-440); RED CELL DISTRIBUTION WIDTH 15.3 % (11.5-14.5); WHITE BLOOD COUNT 9.8 X10'3 (4.5-11.0)
--- NOTE | 2018-03-04 06:18 | NUR ---
Problems reprioritized. Patient report given, questions answered & plan of care reviewed with Germania FREIRE.
[2018-03-04 08:00] VITALS: BP 130/74
[2018-03-04] MEDS: K and/or MAG REPLACEMENT MC SCH (08:00)
[2018-03-04] MEDS: insulin Lispro (HumaLOG) vial - multi-dose SQ SCH (09:18)
[2018-03-04] MEDS: sodium bicarbonate 650mg tablet PO SCH ×3 (09:58→20:54)
[2018-03-04] MEDS: lactobacillus rhamnosus 10,000 MMU CELLS/CAPSULE PO SCH ×2 (09:58→20:55)
[2018-03-04] MEDS: pantoprazole 40mg Tablet.DR PO SCH (09:58)
[2018-03-04] MEDS: vitamin D (cholecalciferol) 1,000 unit tablet PO SCH (09:58)
[2018-03-04] MEDS: potassium Cl 20 mEq SR tablet PO SCH (09:59)
[2018-03-04] MEDS: sennosides 8.6mg tablet PO SCH ×2 (09:59→20:55)
[2018-03-04] MEDS: oxybutynin 5mg tablet PO SCH ×4 (09:59→20:55)
[2018-03-04] MEDS: docusate sod 100mg capsule PO SCH ×2 (09:59→20:55)
[2018-03-04] MEDS: allopurinol 100mg tablet PO SCH (09:59)
[2018-03-04] MEDS: furosemide 40mg/4ml inj IV SCH ×2 (09:59→20:55)
[2018-03-04] MEDS: cefepime 1GM/NS ADD-VANTAGE 100 ML IV SCH ×2 (10:00→15:45)
[2018-03-04] MEDS: chlorhexidine gluconate 15ml Cup****oral rinse MM SCH ×2 (10:15→20:55)
[2018-03-04 12:43] VITALS: BP 135/70
--- NOTE | 2018-03-04 15:53 | NUR ---
SS met w/pt and her mother, engaged them in dcp activities. Per session, pt recognized that her MH condition is still impairing her functioning at this time and agreed to allow SS to facilitate pt's access to treatment via CB ([facility]). A review of pt's chart indicates that pt is currently on a [address] granted [facility] temporary conservatorship of pt for the purpose of pscyhiatric treatment, therefore, pt must return [facility] upon d/c. RN informed. SS met w/pt and informed her of 5270 status and that she has to rt to [facility], pt became tearful & fearful, asking that we not send her back to [facility]. Pt will use call light to call RN if she experiences thoughts about [facility] that makes her scared.
[2018-03-04] MEDS: vancomycin inj 1,250 MG in normal saline 250ml IV soln 250 ML IV SCH (17:13)
--- NOTE | 2018-03-04 18:30 | NUR ---
Patient in room SADA 346. I have received report from Germania FREIRE and had the opportunity to ask questions and assume patient care...
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
[2018-03-04] MEDS ORDERED: OLANZapine **IM** 10 mg inj. IM ONE ×2 (19:15→19:25)
--- NOTE | 2018-03-04 19:16 | NUR ---
Patient tried to leave floor down a stairwell, aids directed her back to her bed. Pat RN calling for sitter order, marthae watching patient 1:1 while order being obtained. Pt verbally abusive and some aggression. 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 Pt has been having auditory hallucinations this evening leading up to event. Security back up with administration to put money in safe, somewhere around $100 according to security. Pt will not let us hook her abx back up. I called [facility] regarding belongings that were brought to patients room without notifying nursing/staff, [facility] and that patient is considered discharged from [facility] although in the chart it states patient [facility] after dc'd from hospital. Viridiana, director of social work states that [facility] is legally responsible for pt due to 5270 placed on patient.
--- NOTE | 2018-03-04 19:23 | NUR ---
Problems reprioritized. Patient report given, questions answered & plan of care reviewed with Pat RN.
--- NOTE | 2018-03-04 19:30 | NUR ---
pt becoming more agitated; pt had disconnected her IV ABX fluids that were infusing & is not allowing the IV to be reconnected; pt states "I have my rights"; pt showing indications of becoming combative; security in room; Dr Riley informed; orders received; zyprexa given at this time; pt not allowing initial physical assessments or VS's to be checked at this time
[2018-03-04 20:50] VITALS: BP 108/48
[2018-03-04] MEDS: PALIPERIDONE 3 MG TAB.ER.24 PO SCH (20:54)
[2018-03-04] MEDS: insulin glargine (Lantus) pen - multi-dose SQ SCH (21:35)
[2018-03-05] VITALS: BP 134/66
[2018-03-05] MEDS: cefepime 1GM/NS ADD-VANTAGE 100 ML IV SCH ×3 (01:49→16:59)
[2018-03-05] MEDS: ipratropium/albuterol 3ml nebule NEB SCH ×5 (03:57→20:15)
--- NOTE | 2018-03-05 06:30 | NUR ---
report given to TANI Solo
[2018-03-05 07:00] VITALS: BP 107/54
[2018-03-05] MEDS: K and/or MAG REPLACEMENT MC SCH (08:00)
[2018-03-05] MEDS: chlorhexidine gluconate 15ml Cup****oral rinse MM SCH ×2 (08:01→21:09)
[2018-03-05] MEDS: vitamin D (cholecalciferol) 1,000 unit tablet PO SCH (08:02)
[2018-03-05] MEDS: potassium Cl 20 mEq SR tablet PO SCH (08:02)
[2018-03-05] MEDS: lactobacillus rhamnosus 10,000 MMU CELLS/CAPSULE PO SCH ×2 (08:03→21:06)
[2018-03-05] MEDS: docusate sod 100mg capsule PO SCH ×2 (08:03→20:00)
[2018-03-05] MEDS: LORazepam 0.5 MG tablet PO PRN ×2 (08:03→16:59)
[2018-03-05] MEDS: oxybutynin 5mg tablet PO SCH ×4 (08:03→21:06)
[2018-03-05] MEDS: furosemide 40mg/4ml inj IV SCH ×2 (08:03→20:00)
[2018-03-05] MEDS: sennosides 8.6mg tablet PO SCH ×2 (08:03→21:05)
[2018-03-05] MEDS: sodium bicarbonate 650mg tablet PO SCH ×3 (08:03→21:06)
[2018-03-05] MEDS: pantoprazole 40mg Tablet.DR PO SCH (08:03)
[2018-03-05] MEDS: insulin Lispro (HumaLOG) vial - multi-dose SQ SCH ×2 (08:13→13:35)
[2018-03-05 08:22] LABS: ALANINE AMINOTRANSFERASE 16 U/L (12-78); ALBUMIN 2.6 G/DL (3.4-5.0); ALBUMIN/GLOBULIN RATIO 0.5 (1.1-1.5); ALKALINE PHOSPHATASE 76 IU/L (46-116); ANION GAP 12 (8-16); ASPARTATE AMINO TRANSFERASE 12 U/L (10-37); BLOOD UREA NITROGEN 19 MG/DL (7-18); CALCIUM 9.2 MG/DL (8.5-10.1); CHLORIDE 99 MMOL/L (99-107); CREATININE 1.73 MG/DL (0.40-0.90); GLUCOSE 122 MG/DL (70-104); POTASSIUM 4.2 MMOL/L (3.5-5.1); SODIUM 139 MMOL/L (135-145); eGFR 31 ML/MIN
[2018-03-05] MEDS: allopurinol 100mg tablet PO SCH (08:27)
[2018-03-05 08:44] LABS: BASOPHILS # (AUTO) 0.1 X10'3 (0-0.2); EOSINOPHILS # (AUTO) 0.7 X10'3 (0-0.9); HEMATOCRIT 25.9 % (35.0-45.0); HEMOGLOBIN 8.8 g/dl (12.0-16.0); LYMPHOCYTES # (AUTO) 1.6 X10'3 (1.1-4.8); LYMPHOCYTES % (AUTO) 16.4 % (21-51); MEAN CORPUSCULAR HEMOGLOBIN 28.6 PG (27.0-31.0); MEAN CORPUSCULAR HGB CONC 33.8 % (33.0-36.5); MEAN CORPUSCULAR VOLUME 84.6 FL (78-98); MEAN PLATELET VOLUME 6.6 FL (7.4-10.4); MONOCYTES # (AUTO) 0.6 X10'3 (0-0.9); MONOCYTES % (AUTO) 5.8 % (2-12); NEUTROPHILS # (AUTO) 6.8 X10'3 (1.8-7.7); NEUTROPHILS % (AUTO) 69.8 % (42-75); PLATELET COUNT 549 X10'3 (140-440); RED BLOOD COUNT 3.06 X10'6 (4.20-5.60); RED CELL DISTRIBUTION WIDTH 15.4 % (11.5-14.5); WHITE BLOOD COUNT 9.8 X10'3 (4.5-11.0)
--- NOTE | 2018-03-05 10:26 | NUR ---
SS met w/pt's attending RN to get update re pt's bxs last night. Per consultation, pt became delusional last night, believing that she was an FBI agent who needs to escape from her current location. Pt attempted to leave the hospital via the stairs, in addition RN reports that pt's belongings were sent over from [facility] and pt refused to allow any care team members to sort thru it, hospital security had to come up and went thru her things as well as provide support to ensure pt's safety. Zyprexa was administered and was effective in calming pt down, pt now has a sitter in room. SS met w/pt after consultation w/care team, pt alert & oriented X3 (person, place & timeframe); she has no clarity re what occurred last night, pt was lethargic. While pt has no clarity re last night's episode, she was able to inform SS that the bags of belongings in her room are clothes and her belongings that were @ [facility] and they were brought to her. Pt also disclosed that she heard voices last night one voice told her to behave and another told her that she had to escape because she was in danger. Pt also disclosed that she was afraid that the hospital security were there to harm her. SS normalized her experiences and the voices as part of her mental illness, pt acknowledged that her MH is not where she wants it to be and again asked to go to a F for treatment. SS contacted [facility] as it appears that pt's 5270 may have , per consultation w/[facility], a new referral for a 5150 is needed. RN & CM informed. Pt still has one more day of ABX treatment, doctor agreeable to providing a Medical clearance for discharge once pt completes her ABX treatment. Plan: Once pt is medically cleared for discharge, SS will coordinate pt's access to [facility] for a 5150 eval. SS will continue to monitor.
--- NOTE | 2018-03-05 10:34 | NUR ---
pt refuses SCDs and ambulates ad cheyanen Addendum: 03/05/18 at 1034 by Leyla Palacios RN Amended: Links added.
[2018-03-05 11:00] VITALS: BP 112/66
--- NOTE | 2018-03-05 12:20 | NUR ---
Pt's mom in room, she will take 2 large bags of belongings (green bags) that [facility] brought last night to her home. Pt is agreeable.
--- NOTE | 2018-03-05 15:00 | NUR ---
Pt in room waiting for referral to [facility] for a 5150 eval to facilitate PHF placement for psychiatric treatment. SS paged hospitalist, Dr. Espana and requested for amended note as current note does not state that pt is medically cleared for discharge.
--- NOTE | 2018-03-05 17:40 | NUR ---
Per Dr Fausto reynoso to DC antibiotics due to IV not working properly. Per Dr Espana, new orders to leave IV out. Pt awaiting mental health eval from [facility].
--- NOTE | 2018-03-05 18:30 | NUR ---
Problems reprioritized. Patient report given, questions answered & plan of care reviewed with Alejandra FREIRE.
--- NOTE | 2018-03-05 19:04 | NUR ---
Patient in room [facility] 346. I have received report from Germania RN and Leyla RN and had the opportunity to ask questions and assume patient care. Pt was resting in bed with sitter at bedside and bed alarm on. Currently no signs of distress. Will continue to monitor.
--- NOTE | 2018-03-05 19:05 | NUR ---
[facility] has requested tox screen, tsh and u/a for referral. Dr Espana notified and had me order these.
[2018-03-05 20:00] VITALS: BP 127/100
[2018-03-05] MEDS: insulin glargine (Lantus) pen - multi-dose SQ SCH (21:02)
[2018-03-05] MEDS: PALIPERIDONE 3 MG TAB.ER.24 PO SCH (21:05)
[2018-03-05 21:43] LABS: CLARITY,URINE CLEAR (Clear); COLOR,URINE YELLOW (Yellow); GLUCOSE, URINE NEGATIVE (Neg); KETONES,URINE NEGATIVE (Neg); LEUKOCYTE ESTERASE ,URINE SMALL (Neg); NITRITES, URINE NEGATIVE (Neg); OCCULT BLOOD,URINE TRACE-INTACT (Neg); PH,URINE 7.5 (4.8-8.0); PROTEIN,URINE NEGATIVE (Neg); UROBILINOGEN,URINE 0.2 E.U/dL (0.2-1.0)
[2018-03-05 21:49] LABS: URINE AMPHETAMINE SCREEN NEGATIVE (Neg); URINE BARBITUATE SCREEN NEGATIVE (Neg); URINE BENZODIAZEPINES SCREEN NEGATIVE (Neg); URINE CANNABINOID SCREEN NEGATIVE (Neg); URINE COCAINE SCREEN NEGATIVE (Neg); URINE METHADONE SCREEN NEGATIVE (Neg); URINE OPIATE SCREEN NEGATIVE (Neg); URINE PHENCYCLIDINE SCREEN NEGATIVE (Neg)
[2018-03-05 21:52] LABS: UA COLLECTION TYPE OTHER
[2018-03-05 21:54] LABS: BACTERIA,URINE FEW /HPF (Neg); MUCUS STRANDS NONE SEEN /LPF (Neg); RBC,URINE NONE SEEN /HPF (0-2); SQUAMOUS EPITHELIAL CELL,UR NONE SEEN /LPF (FEW)
[2018-03-06] MEDS: ipratropium/albuterol 3ml nebule NEB SCH ×6 (00:05→20:27)
[2018-03-06] MEDS: LORazepam 0.5 MG tablet PO PRN ×2 (00:28→08:17)
[2018-03-06 00:37] VITALS: BP 110/49
[2018-03-06 05:14] LABS: BASOPHILS % (AUTO) 0.3 % (0-1); EOSINOPHILS # (AUTO) 0.7 X10'3 (0-0.9); EOSINOPHILS % (AUTO) 7.8 % (0-6); HEMATOCRIT 23.9 % (35.0-45.0); LYMPHOCYTES # (AUTO) 1.8 X10'3 (1.1-4.8); LYMPHOCYTES % (AUTO) 20.1 % (21-51); MEAN CORPUSCULAR HEMOGLOBIN 28.2 PG (27.0-31.0); MEAN CORPUSCULAR HGB CONC 33.3 % (33.0-36.5); MEAN CORPUSCULAR VOLUME 84.7 FL (78-98); MEAN PLATELET VOLUME 6.7 FL (7.4-10.4); MONOCYTES # (AUTO) 0.7 X10'3 (0-0.9); MONOCYTES % (AUTO) 7.6 % (2-12); NEUTROPHILS # (AUTO) 5.8 X10'3 (1.8-7.7); NEUTROPHILS % (AUTO) 64.2 % (42-75); PLATELET COUNT 473 X10'3 (140-440); RED BLOOD COUNT 2.83 X10'6 (4.20-5.60); RED CELL DISTRIBUTION WIDTH 15.4 % (11.5-14.5); WHITE BLOOD COUNT 9.1 X10'3 (4.5-11.0)
[2018-03-06 05:17] LABS: ALANINE AMINOTRANSFERASE 17 U/L (12-78); ALBUMIN 2.4 G/DL (3.4-5.0); ALBUMIN/GLOBULIN RATIO 0.5 (1.1-1.5); ALKALINE PHOSPHATASE 70 IU/L (46-116); ANION GAP 11 (8-16); ASPARTATE AMINO TRANSFERASE 11 U/L (10-37); BILIRUBIN,TOTAL 0.8 MG/DL (0.1-1.0); BLOOD UREA NITROGEN 27 MG/DL (7-18); BUN/CREATININE RATIO 13.8 (6.6-38.0); CALCIUM 9.1 MG/DL (8.5-10.1); CHLORIDE 98 MMOL/L (99-107); CREATININE 1.95 MG/DL (0.40-0.90); GLUCOSE 141 MG/DL (70-104); POTASSIUM 4.2 MMOL/L (3.5-5.1); SODIUM 137 MMOL/L (135-145); TOTAL CARBON DIOXIDE 28.4 MMOL/L (24-32); TOTAL PROTEIN 7.5 G/DL (6.4-8.2); eGFR 27 ML/MIN
--- NOTE | 2018-03-06 06:23 | NUR ---
Problems reprioritized. Patient report given, questions answered & plan of care reviewed with Shala FREIRE. Pt was sleeping soundly during report with no signs of distress.
[2018-03-06 07:40] VITALS: BP 126/64
[2018-03-06] MEDS: docusate sod 100mg capsule PO SCH ×2 (08:00→22:20)
[2018-03-06] MEDS: sennosides 8.6mg tablet PO SCH ×2 (08:00→22:20)
[2018-03-06] MEDS: furosemide 40mg/4ml inj IV SCH (08:00)
[2018-03-06] MEDS: K and/or MAG REPLACEMENT MC SCH (08:00)
[2018-03-06] MEDS: insulin Lispro (HumaLOG) vial - multi-dose SQ SCH ×2 (08:15→12:56)
[2018-03-06] MEDS: vitamin D (cholecalciferol) 1,000 unit tablet PO SCH (08:17)
[2018-03-06] MEDS: sodium bicarbonate 650mg tablet PO SCH ×3 (08:18→22:20)
[2018-03-06] MEDS: oxybutynin 5mg tablet PO SCH ×4 (08:18→22:20)
[2018-03-06] MEDS: lactobacillus rhamnosus 10,000 MMU CELLS/CAPSULE PO SCH ×2 (08:18→22:20)
[2018-03-06] MEDS: allopurinol 100mg tablet PO SCH (08:18)
[2018-03-06] MEDS: pantoprazole 40mg Tablet.DR PO SCH (08:18)
[2018-03-06] MEDS: potassium Cl 20 mEq SR tablet PO SCH (08:18)
[2018-03-06] MEDS: chlorhexidine gluconate 15ml Cup****oral rinse MM SCH ×2 (08:20→22:20)
--- NOTE | 2018-03-06 09:54 | NUR ---
Reassessment: Per MD progress notes patient's creatinine is improving as well as her SOB and pt is off oxygen. Documented PO intake continues to fluctuate with 50% and 100% intake and continues with Nepro TID, likely meeting nutrient needs. Wt stable with admit wt. [facility] 03/05. Will continue to follow. Recommendations: 1) Continue with renal diet 2) Nepro TID 3) routine bowel care 4) Wt per rx Addendum: 03/06/18 at [address] Amended: Links added.
[2018-03-06 12:00] VITALS: BP 113/65
[2018-03-06] MEDS ORDERED: ATI0.5T PO (13:12)
[2018-03-06] MEDS ORDERED: ALLO100T25 PO (13:12)
[2018-03-06] MEDS ORDERED: PANT40TA4 PO (13:12)
[2018-03-06] MEDS ORDERED: FURO20TA4 PO (13:12)
--- NOTE | 2018-03-06 14:15 | NUR ---
SS contacted [facility] to f/u on referral for 5150 Eval. Per consultation, pt 5270-Hold is still active and has not yet, so [facility] will resume treatment for pt once pt is medically cleared for discharge. [facility] provided contact for Admission Director @ [facility]- Jaki Angel. SS contacted Jaki Angel and was able to confirm that pt's 5270 is still active, that [facility] will accept her back if they have a bed. SS inquired about a bed for pt as pt is medically cleared and can return there today, per consultation, [facility] does have an open bed. SS contacted [facility] and confirmed that they are aware that pt needs transport back to [facility]. [facility] requesting a fax of Medical Clearance for Discharge. SS will f/u w/care team.
--- NOTE | 2018-03-06 16:40 | NUR ---
SS met w/pt & her mother inform pt that she will be transported back to [facility] this evening to resume her psychiatric treatment. SS also advised pt that she is still on a 5270-Hold and therefore, need to return to the hospital that had been treating her at the beginning of the hold period. Pt verbalized that she did not want to go there, but also was accepting of it. RN informed of possible elopement as pt may begin to feel scared and try to leave the hospital, in which case LE needs to be called due to the 5270 Hold.
--- NOTE | 2018-03-06 17:00 | NUR ---
Patient to discharge back to [facility] when [facility] can provide transportation.
--- NOTE | 2018-03-06 18:30 | NUR ---
Received patient report from Nikole FREIRE. Will assume patient care.
--- NOTE | 2018-03-06 18:34 | NUR ---
Problems reprioritized. Patient report given, questions answered & plan of care reviewed with TANI Gordon.
[2018-03-06 20:00] VITALS: BP 131/91
--- NOTE | 2018-03-06 21:30 | NUR ---
According to the report from previous nurse. Patient to be transport back to [facility] tonight. [facility] oncoming shift is after 1800 tonight. Patient was told she was transferring back, and has been waiting. Approximately @2000 Charge nurse called [facility] and nurse there had inform her that they were not taking the patient back because of her H/H level needs to be stabilized first. Marlon FREIRE from [facility] in ER over flow called by nurse jacob FREIRE and ask if he knew any information about patient being transported to [facility] by [facility]. Marlon called the on license of [facility] transporter and they had told him that they were waiting for the patient to be medically clear and discharge to transport her to [facility]. Inform Marlon that patient has been medically clear and has discharge orders written and patient to waiting to return to [facility]. Marlon FREIRE said he will notified the [facility] transported and called nurse jacob FREIRE back. Marlon never called back. Patient inform she will be staying the night here tonight. No conflict or attempted elopments. Sitter at bedside.
[2018-03-06] MEDS: insulin glargine (Lantus) pen - multi-dose SQ SCH (22:18)
[2018-03-06] MEDS: PALIPERIDONE 3 MG TAB.ER.24 PO SCH (22:20)
[2018-03-07] VITALS: BP 143/85
[2018-03-07] MEDS: ipratropium/albuterol 3ml nebule NEB SCH ×7 (00:13→23:34)
[2018-03-07 05:19] LABS: BASOPHILS % (AUTO) 0.5 % (0-1); EOSINOPHILS # (AUTO) 0.6 X10'3 (0-0.9); EOSINOPHILS % (AUTO) 7.5 % (0-6); HEMATOCRIT 24.4 % (35.0-45.0); HEMOGLOBIN 8.1 g/dl (12.0-16.0); LYMPHOCYTES # (AUTO) 1.5 X10'3 (1.1-4.8); LYMPHOCYTES % (AUTO) 19.2 % (21-51); MEAN CORPUSCULAR HGB CONC 33.1 % (33.0-36.5); MEAN CORPUSCULAR VOLUME 84.5 FL (78-98); MONOCYTES # (AUTO) 0.6 X10'3 (0-0.9); MONOCYTES % (AUTO) 7.7 % (2-12); NEUTROPHILS # (AUTO) 5.2 X10'3 (1.8-7.7); NEUTROPHILS % (AUTO) 65.1 % (42-75); PLATELET COUNT 478 X10'3 (140-440); RED BLOOD COUNT 2.89 X10'6 (4.20-5.60); RED CELL DISTRIBUTION WIDTH 15.2 % (11.5-14.5); WHITE BLOOD COUNT 7.9 X10'3 (4.5-11.0)
[2018-03-07 05:28] LABS: ALANINE AMINOTRANSFERASE 17 U/L (12-78); ALBUMIN 2.6 G/DL (3.4-5.0); ALBUMIN/GLOBULIN RATIO 0.5 (1.1-1.5); ALKALINE PHOSPHATASE 76 IU/L (46-116); ANION GAP 13 (8-16); ASPARTATE AMINO TRANSFERASE 13 U/L (10-37); BILIRUBIN,TOTAL 0.8 MG/DL (0.1-1.0); BLOOD UREA NITROGEN 27 MG/DL (7-18); BUN/CREATININE RATIO 16.6 (6.6-38.0); CALCIUM 9.4 MG/DL (8.5-10.1); CHLORIDE 97 MMOL/L (99-107); CREATININE 1.63 MG/DL (0.40-0.90); GLUCOSE 133 MG/DL (70-104); POTASSIUM 4.5 MMOL/L (3.5-5.1); SODIUM 135 MMOL/L (135-145); TOTAL CARBON DIOXIDE 25.3 MMOL/L (24-32); TOTAL PROTEIN 7.9 G/DL (6.4-8.2); eGFR 33 ML/MIN
--- NOTE | 2018-03-07 07:00 | NUR ---
Patient in room SADA 346. I have received report from Heidi FREIRE and had the opportunity to ask questions and assume patient care.
[2018-03-07] MEDS: K and/or MAG REPLACEMENT MC SCH (07:18)
[2018-03-07 08:00] VITALS: BP 117/63
[2018-03-07] MEDS: sennosides 8.6mg tablet PO SCH ×2 (08:00→21:36)
[2018-03-07] MEDS: docusate sod 100mg capsule PO SCH ×2 (08:00→21:36)
[2018-03-07] MEDS: vitamin D (cholecalciferol) 1,000 unit tablet PO SCH (08:32)
[2018-03-07] MEDS: furosemide 20MG tablet PO SCH (08:33)
[2018-03-07] MEDS: allopurinol 100mg tablet PO SCH (08:33)
[2018-03-07] MEDS: lactobacillus rhamnosus 10,000 MMU CELLS/CAPSULE PO SCH ×2 (08:33→21:36)
[2018-03-07] MEDS: sodium bicarbonate 650mg tablet PO SCH ×3 (08:33→21:36)
[2018-03-07] MEDS: chlorhexidine gluconate 15ml Cup****oral rinse MM SCH ×2 (08:33→21:36)
[2018-03-07] MEDS: pantoprazole 40mg Tablet.DR PO SCH (08:33)
[2018-03-07] MEDS: potassium Cl 20 mEq SR tablet PO SCH (08:33)
[2018-03-07] MEDS: oxybutynin 5mg tablet PO SCH ×4 (08:33→21:36)
[2018-03-07] MEDS: insulin Lispro (HumaLOG) vial - multi-dose SQ SCH ×2 (08:40→13:02)
[2018-03-07 12:00] VITALS: BP 122/55
--- NOTE | 2018-03-07 12:36 | NUR ---
SS consulted w/care team (FABIAN, RN & hospitalist) re pt's 'medical clearance for discharge'. Per consultation, care team concurred that pt is medically stable for discharge as there are no acute medical conditions needing hospitalization any longer. SS received rt p/c from Matthew RN, and had him speak w/hospitalist as Matthew RN had questions re pt's lab results. Per hospitalist, [facility] questioning lab results that are more due to pt's current psych meds than any acute medical condition, hospitalist was firm in reiterrating to Matthew that pt is medically stable and clear for discharge. SS contacted [facility] Director, natasha warren requesting his assistance in working w/Matthew on this issue. Pt is still on a legal Hold-8042, this hold expires at the end of the month. SS will continue to monitor and support dcp.
--- NOTE | 2018-03-07 16:29 | NUR ---
Pt requested assistance to file formal grievances w/[facility] as she believes that she is being denied access to MH treatment. SS printed out [facility] grievance form and provided it to pt. SS contacted [facility] to request for one of their physician to see pt as pt is willing to go to their facility if they have an open bed, however she is on a 5270 and [facility] is willing to resume care/treatment for her once they anum satisfied w/her labs.
--- NOTE | 2018-03-07 18:32 | NUR ---
Problems reprioritized. Patient report given, questions answered & plan of care reviewed with Heidi FREIRE.
--- NOTE | 2018-03-07 19:40 | NUR ---
Patient has medications in [employer] in a bag with her name labeled on it. To be given to patient upon discharge.
[2018-03-07 20:00] VITALS: BP 127/59
[2018-03-07] MEDS: PALIPERIDONE 3 MG TAB.ER.24 PO SCH (21:36)
[2018-03-07] MEDS: insulin glargine (Lantus) pen - multi-dose SQ SCH (21:42)
--- NOTE | 2018-03-08 01:00 | NUR ---
Patient refused midnight vitals to be taken. Patient does not appear to be in any respiratory or cardiac distress.
[2018-03-08] MEDS: ipratropium/albuterol 3ml nebule NEB SCH ×6 (03:10→22:55)
[2018-03-08 05:16] LABS: BASOPHILS % (AUTO) 0.3 % (0-1); EOSINOPHILS # (AUTO) 0.6 X10'3 (0-0.9); EOSINOPHILS % (AUTO) 9.4 % (0-6); HEMATOCRIT 23.7 % (35.0-45.0); LYMPHOCYTES # (AUTO) 1.2 X10'3 (1.1-4.8); LYMPHOCYTES % (AUTO) 17.6 % (21-51); MEAN CORPUSCULAR HEMOGLOBIN 28.1 PG (27.0-31.0); MEAN CORPUSCULAR HGB CONC 33.7 % (33.0-36.5); MEAN CORPUSCULAR VOLUME 83.5 FL (78-98); MEAN PLATELET VOLUME 7.2 FL (7.4-10.4); MONOCYTES # (AUTO) 0.6 X10'3 (0-0.9); MONOCYTES % (AUTO) 8.8 % (2-12); NEUTROPHILS # (AUTO) 4.4 X10'3 (1.8-7.7); NEUTROPHILS % (AUTO) 63.9 % (42-75); PLATELET COUNT 467 X10'3 (140-440); RED BLOOD COUNT 2.84 X10'6 (4.20-5.60); RED CELL DISTRIBUTION WIDTH 14.9 % (11.5-14.5); WHITE BLOOD COUNT 6.8 X10'3 (4.5-11.0)
[2018-03-08 05:44] LABS: ALANINE AMINOTRANSFERASE 15 U/L (12-78); ALBUMIN 2.6 G/DL (3.4-5.0); ALBUMIN/GLOBULIN RATIO 0.5 (1.1-1.5); ALKALINE PHOSPHATASE 71 IU/L (46-116); ANION GAP 11 (8-16); ASPARTATE AMINO TRANSFERASE 11 U/L (10-37); BILIRUBIN,TOTAL 0.8 MG/DL (0.1-1.0); BLOOD UREA NITROGEN 28 MG/DL (7-18); BUN/CREATININE RATIO 18.2 (6.6-38.0); CALCIUM 9.4 MG/DL (8.5-10.1); CHLORIDE 95 MMOL/L (99-107); CREATININE 1.54 MG/DL (0.40-0.90); GLUCOSE 135 MG/DL (70-104); POTASSIUM 4.3 MMOL/L (3.5-5.1); SODIUM 132 MMOL/L (135-145); TOTAL PROTEIN 7.8 G/DL (6.4-8.2); eGFR 36 ML/MIN
--- NOTE | 2018-03-08 06:53 | NUR ---
Patient in room SADA 346. I have received report from Heidi FREIRE and had the opportunity to ask questions and assume patient care.
[2018-03-08 07:16] VITALS: BP 110/56
[2018-03-08] MEDS: K and/or MAG REPLACEMENT MC SCH (08:00)
[2018-03-08] MEDS: docusate sod 100mg capsule PO SCH ×2 (08:00→19:45)
[2018-03-08] MEDS: furosemide 20MG tablet PO SCH (09:01)
[2018-03-08] MEDS: chlorhexidine gluconate 15ml Cup****oral rinse MM SCH ×2 (09:02→19:40)
[2018-03-08] MEDS: vitamin D (cholecalciferol) 1,000 unit tablet PO SCH (09:02)
[2018-03-08] MEDS: allopurinol 100mg tablet PO SCH (09:02)
[2018-03-08] MEDS: sennosides 8.6mg tablet PO SCH ×2 (09:02→19:40)
[2018-03-08] MEDS: oxybutynin 5mg tablet PO SCH ×4 (09:02→21:31)
[2018-03-08] MEDS: pantoprazole 40mg Tablet.DR PO SCH (09:02)
[2018-03-08] MEDS: lactobacillus rhamnosus 10,000 MMU CELLS/CAPSULE PO SCH ×2 (09:02→19:40)
[2018-03-08] MEDS: sodium bicarbonate 650mg tablet PO SCH ×3 (09:02→21:31)
[2018-03-08] MEDS: potassium Cl 20 mEq SR tablet PO SCH (09:02)
[2018-03-08] MEDS: insulin Lispro (HumaLOG) vial - multi-dose SQ SCH ×2 (09:07→13:31)
[2018-03-08 11:23] VITALS: BP 111/59
[2018-03-08 18:00] VITALS: BP 132/80
--- NOTE | 2018-03-08 18:03 | NUR ---
Problems reprioritized. Patient report given, questions answered & plan of care reviewed with Stephanie FREIRE.
--- NOTE | 2018-03-08 18:05 | NUR ---
Patient in room SADA 346. I have received report from Lucille FREIRE and had the opportunity to ask questions and assume patient care. Patient has sitter at bedside with sleeping bag covering her, appears in no distress. Will continue to monitor.
[2018-03-08] MEDS: NUT.TX.IMP.RENAL FXN,LAC-REDUC (Nepro) 237 ML VANILLA PO SCH (19:34)
[2018-03-08] MEDS: insulin glargine (Lantus) pen - multi-dose SQ SCH (21:29)
--- NOTE | 2018-03-08 21:30 | NUR ---
Received call from Estee at [facility] stating that they need labs drawn in the morning to assess if patient can return to their facility. State that they are concerned about accepting the patient back due to her being ill and are not sure if she is medically stable enough to return. Explain that she was medically cleared and can return. Estee states that they cannot start an IV there and the [facility] will decide if the patient is stable to transfer. Called Dr. Rojo who agreed to draw AM CBC and CMP. Will continue to monitor. Will fax labs in morning or pass on to dayshift if results not available on my shift. [facility] fax # [phone] [facility] fax #[phone] Attn: Charge Nurse
[2018-03-08] MEDS: PALIPERIDONE 3 MG TAB.ER.24 PO SCH (21:31)
[2018-03-09] VITALS: BP 132/72
[2018-03-09] MEDS: ipratropium/albuterol 3ml nebule NEB SCH ×6 (02:52→23:10)
[2018-03-09 05:34] LABS: BASOPHILS % (AUTO) 0.4 % (0-1); EOSINOPHILS # (AUTO) 0.6 X10'3 (0-0.9); HEMATOCRIT 22.3 % (35.0-45.0); HEMOGLOBIN 7.7 g/dl (12.0-16.0); LYMPHOCYTES # (AUTO) 1.4 X10'3 (1.1-4.8); MEAN CORPUSCULAR HEMOGLOBIN 28.6 PG (27.0-31.0); MEAN CORPUSCULAR HGB CONC 34.6 % (33.0-36.5); MEAN CORPUSCULAR VOLUME 82.6 FL (78-98); MEAN PLATELET VOLUME 7.3 FL (7.4-10.4); MONOCYTES # (AUTO) 0.6 X10'3 (0-0.9); MONOCYTES % (AUTO) 8.7 % (2-12); NEUTROPHILS # (AUTO) 4.3 X10'3 (1.8-7.7); NEUTROPHILS % (AUTO) 61.9 % (42-75); PLATELET COUNT 492 X10'3 (140-440); RED CELL DISTRIBUTION WIDTH 14.4 % (11.5-14.5)
[2018-03-09 06:11] LABS: ALANINE AMINOTRANSFERASE 17 U/L (12-78); ALBUMIN 2.7 G/DL (3.4-5.0); ALBUMIN/GLOBULIN RATIO 0.5 (1.1-1.5); ALKALINE PHOSPHATASE 70 IU/L (46-116); ANION GAP 12 (8-16); ASPARTATE AMINO TRANSFERASE 14 U/L (10-37); BILIRUBIN,TOTAL 0.8 MG/DL (0.1-1.0); BLOOD UREA NITROGEN 31 MG/DL (7-18); BUN/CREATININE RATIO 18.8 (6.6-38.0); CALCIUM 9.5 MG/DL (8.5-10.1); CHLORIDE 91 MMOL/L (99-107); CREATININE 1.65 MG/DL (0.40-0.90); GLUCOSE 125 MG/DL (70-104); POTASSIUM 4.4 MMOL/L (3.5-5.1); SODIUM 128 MMOL/L (135-145); TOTAL CARBON DIOXIDE 25.3 MMOL/L (24-32); TOTAL PROTEIN 7.8 G/DL (6.4-8.2); eGFR 33 ML/MIN
--- NOTE | 2018-03-09 06:40 | NUR ---
Patient in room SADA 346. I have received report from Stephanie FREIRE and had the opportunity to ask questions and assume patient care.
--- NOTE | 2018-03-09 06:41 | NUR ---
Problems reprioritized. Patient report given, questions answered & plan of care reviewed with Lucille FREIRE.
[2018-03-09] MEDS: K and/or MAG REPLACEMENT MC SCH (07:21)
[2018-03-09] MEDS: docusate sod 100mg capsule PO SCH ×2 (07:22→18:56)
[2018-03-09] MEDS: sennosides 8.6mg tablet PO SCH ×2 (07:25→18:56)
[2018-03-09] MEDS: potassium Cl 20 mEq SR tablet PO SCH (07:25)
[2018-03-09] MEDS: furosemide 20MG tablet PO SCH (07:25)
[2018-03-09] MEDS: sodium bicarbonate 650mg tablet PO SCH ×3 (07:26→22:07)
[2018-03-09] MEDS: oxybutynin 5mg tablet PO SCH ×4 (07:26→22:07)
[2018-03-09] MEDS: lactobacillus rhamnosus 10,000 MMU CELLS/CAPSULE PO SCH ×2 (07:26→18:57)
[2018-03-09] MEDS: chlorhexidine gluconate 15ml Cup****oral rinse MM SCH ×2 (07:26→18:57)
[2018-03-09] MEDS: vitamin D (cholecalciferol) 1,000 unit tablet PO SCH (07:26)
[2018-03-09] MEDS: pantoprazole 40mg Tablet.DR PO SCH (07:26)
[2018-03-09] MEDS: allopurinol 100mg tablet PO SCH (07:33)
[2018-03-09 07:34] VITALS: BP 131/81
[2018-03-09] MEDS: NUT.TX.IMP.RENAL FXN,LAC-REDUC (Nepro) 237 ML VANILLA PO SCH ×3 (08:00→18:00)
[2018-03-09] MEDS: insulin Lispro (HumaLOG) vial - multi-dose SQ SCH ×3 (09:21→18:51)
--- NOTE | 2018-03-09 11:01 | NUR ---
Dr. Albrecht stated pt is established w/ Dr. Eduarda MD, but was unable to contact him via CB yet.
[2018-03-09 11:48] VITALS: BP 125/53
--- NOTE | 2018-03-09 15:05 | NUR ---
paged regarding Na of 128. Awaiting call back.
--- NOTE | 2018-03-09 18:30 | NUR ---
Patient in room SADA 346. I have received report from Lucille FREIRE and had the opportunity to ask questions and assume patient care. Patient has sitter at bedside, has sleeping bag over her. Will continue to monitor.
--- NOTE | 2018-03-09 18:39 | NUR ---
Problems reprioritized. Patient report given, questions answered & plan of care reviewed with Stephanie FREIRE.
[2018-03-09 19:00] VITALS: BP 125/78
[2018-03-09] MEDS: insulin glargine (Lantus) pen - multi-dose SQ SCH (22:06)
[2018-03-09] MEDS: PALIPERIDONE 3 MG TAB.ER.24 PO SCH (22:06)
[2018-03-10] VITALS: BP 111/61
[2018-03-10] MEDS: ipratropium/albuterol 3ml nebule NEB SCH ×6 (02:29→22:31)
[2018-03-10 05:57] LABS: ALANINE AMINOTRANSFERASE 18 U/L (12-78); ALBUMIN 2.9 G/DL (3.4-5.0); ALBUMIN/GLOBULIN RATIO 0.5 (1.1-1.5); ALKALINE PHOSPHATASE 73 IU/L (46-116); ANION GAP 12 (8-16); ASPARTATE AMINO TRANSFERASE 13 U/L (10-37); BILIRUBIN,TOTAL 0.8 MG/DL (0.1-1.0); BLOOD UREA NITROGEN 29 MG/DL (7-18); CALCIUM 9.4 MG/DL (8.5-10.1); CHLORIDE 91 MMOL/L (99-107); CREATININE 1.53 MG/DL (0.40-0.90); GLUCOSE 118 MG/DL (70-104); POTASSIUM 4.8 MMOL/L (3.5-5.1); SODIUM 129 MMOL/L (135-145); TOTAL CARBON DIOXIDE 25.8 MMOL/L (24-32); TOTAL PROTEIN 8.4 G/DL (6.4-8.2); eGFR 36 ML/MIN
--- NOTE | 2018-03-10 06:36 | NUR ---
Problems reprioritized. Patient report given, questions answered & plan of care reviewed with Lucille FREIRE. Patient has bedside sitter.
--- NOTE | 2018-03-10 06:52 | NUR ---
Patient in room SADA 346. I have received report from Stephanie FREIRE and had the opportunity to ask questions and assume patient care.
[2018-03-10] MEDS: K and/or MAG REPLACEMENT MC SCH (07:22)
[2018-03-10] MEDS: docusate sod 100mg capsule PO SCH ×2 (07:23→19:00)
[2018-03-10] MEDS: lactobacillus rhamnosus 10,000 MMU CELLS/CAPSULE PO SCH ×2 (07:28→18:56)
[2018-03-10] MEDS: pantoprazole 40mg Tablet.DR PO SCH (07:28)
[2018-03-10] MEDS: potassium Cl 20 mEq SR tablet PO SCH (07:28)
[2018-03-10] MEDS: chlorhexidine gluconate 15ml Cup****oral rinse MM SCH ×2 (07:29→18:58)
[2018-03-10] MEDS: sennosides 8.6mg tablet PO SCH ×2 (07:29→18:56)
[2018-03-10] MEDS: vitamin D (cholecalciferol) 1,000 unit tablet PO SCH (07:29)
[2018-03-10] MEDS: sodium bicarbonate 650mg tablet PO SCH ×3 (07:29→20:59)
[2018-03-10] MEDS: oxybutynin 5mg tablet PO SCH ×4 (07:29→20:59)
[2018-03-10 07:30] VITALS: BP 115/71
[2018-03-10] MEDS: allopurinol 100mg tablet PO SCH (07:31)
[2018-03-10] MEDS: NUT.TX.IMP.RENAL FXN,LAC-REDUC (Nepro) 237 ML VANILLA PO SCH ×3 (08:00→17:50)
[2018-03-10] MEDS: insulin Lispro (HumaLOG) vial - multi-dose SQ SCH ×3 (09:08→18:54)
[2018-03-10 11:29] LABS: BASOPHILS % (AUTO) 0.2 % (0-1); EOSINOPHILS # (AUTO) 0.5 X10'3 (0-0.9); EOSINOPHILS % (AUTO) 7.7 % (0-6); HEMATOCRIT 25.8 % (35.0-45.0); HEMOGLOBIN 8.9 g/dl (12.0-16.0); LYMPHOCYTES # (AUTO) 1.1 X10'3 (1.1-4.8); LYMPHOCYTES % (AUTO) 17.9 % (21-51); MEAN CORPUSCULAR HEMOGLOBIN 28.4 PG (27.0-31.0); MEAN CORPUSCULAR HGB CONC 34.4 % (33.0-36.5); MEAN CORPUSCULAR VOLUME 82.5 FL (78-98); MONOCYTES # (AUTO) 0.5 X10'3 (0-0.9); MONOCYTES % (AUTO) 8.4 % (2-12); NEUTROPHILS % (AUTO) 65.8 % (42-75); PLATELET COUNT 601 X10'3 (140-440); RED BLOOD COUNT 3.13 X10'6 (4.20-5.60); RED CELL DISTRIBUTION WIDTH 14.8 % (11.5-14.5); WHITE BLOOD COUNT 6.1 X10'3 (4.5-11.0)
[2018-03-10 11:38] VITALS: BP 105/54
--- NOTE | 2018-03-10 18:27 | NUR ---
Problems reprioritized. Patient report given, questions answered & plan of care reviewed with Alejandra FREIRE.
--- NOTE | 2018-03-10 18:32 | NUR ---
Patient in room SADA 346. I have received report from Lucille FREIRE and had the opportunity to ask questions and assume patient care. Pt was laying in bed covered by her sleeping bag with eyes colsed. No signs of distress. Will continue to monitor.
[2018-03-10 20:29] VITALS: BP 120/76
[2018-03-10] MEDS: PALIPERIDONE 3 MG TAB.ER.24 PO SCH (20:58)
[2018-03-10] MEDS: insulin glargine (Lantus) pen - multi-dose SQ SCH (21:05)
[2018-03-11 00:17] VITALS: BP 104/42
[2018-03-11] MEDS: ipratropium/albuterol 3ml nebule NEB SCH ×6 (02:14→23:04)
[2018-03-11 05:25] LABS: ALANINE AMINOTRANSFERASE 16 U/L (12-78); ALBUMIN 2.9 G/DL (3.4-5.0); ALBUMIN/GLOBULIN RATIO 0.5 (1.1-1.5); ALKALINE PHOSPHATASE 74 IU/L (46-116); ANION GAP 11 (8-16); ASPARTATE AMINO TRANSFERASE 12 U/L (10-37); BILIRUBIN,TOTAL 0.7 MG/DL (0.1-1.0); BLOOD UREA NITROGEN 30 MG/DL (7-18); BUN/CREATININE RATIO 19.9 (6.6-38.0); CALCIUM 9.7 MG/DL (8.5-10.1); CHLORIDE 91 MMOL/L (99-107); CREATININE 1.51 MG/DL (0.40-0.90); GLUCOSE 136 MG/DL (70-104); POTASSIUM 4.5 MMOL/L (3.5-5.1); SODIUM 128 MMOL/L (135-145); TOTAL CARBON DIOXIDE 25.9 MMOL/L (24-32); TOTAL PROTEIN 8.3 G/DL (6.4-8.2); eGFR 36 ML/MIN
--- NOTE | 2018-03-11 06:36 | NUR ---
Problems reprioritized. Patient report given, questions answered & plan of care reviewed with Ely FREIRE.
[2018-03-11] MEDS: K and/or MAG REPLACEMENT MC SCH (07:27)
[2018-03-11 08:00] VITALS: BP 100/56
[2018-03-11] MEDS: docusate sod 100mg capsule PO SCH ×2 (08:00→20:00)
[2018-03-11] MEDS: sennosides 8.6mg tablet PO SCH ×2 (08:10→18:57)
[2018-03-11] MEDS: oxybutynin 5mg tablet PO SCH ×4 (08:10→20:42)
[2018-03-11] MEDS: sodium bicarbonate 650mg tablet PO SCH ×3 (08:10→20:43)
[2018-03-11] MEDS: lactobacillus rhamnosus 10,000 MMU CELLS/CAPSULE PO SCH ×2 (08:10→18:57)
[2018-03-11] MEDS: vitamin D (cholecalciferol) 1,000 unit tablet PO SCH (08:10)
[2018-03-11] MEDS: potassium Cl 20 mEq SR tablet PO SCH (08:10)
[2018-03-11] MEDS: pantoprazole 40mg Tablet.DR PO SCH (08:10)
[2018-03-11] MEDS: allopurinol 100mg tablet PO SCH (08:10)
[2018-03-11] MEDS: chlorhexidine gluconate 15ml Cup****oral rinse MM SCH ×2 (08:11→18:58)
[2018-03-11] MEDS: NUT.TX.IMP.RENAL FXN,LAC-REDUC (Nepro) 237 ML VANILLA PO SCH ×3 (08:13→18:17)
[2018-03-11] MEDS: insulin Lispro (HumaLOG) vial - multi-dose SQ SCH ×3 (09:00→18:56)
--- NOTE | 2018-03-11 15:32 | NUR ---
SS met w/pt and updated psychosocial assessment in anticipation of dcp services. In addition SS also utilized DE & CBT strategies to support pt in identifying & ranking her stressors and developing a plan for how to maintain her MH stability following discharge from acute hospital. Per session, pt is now able to acknowledge that she struggles to maintain her MH stability as she has difficulties remembering to take her meds, has not been able to connect w/an outpatient MH provider since her LPS conservatorship ended in July 2017. SS provided psychoeducation re [facility] funded support services (supportive housing services, integrated health & behavioral health services) pt agreed and gave verbal consent for SS to provide referrals to [facility] (supportive housing). SS consulted w/hospitalist-Dr. Albrecht re dcp for pt. Per discussion, SS will contact [facility] to f/u re Dr. Albrecht's consultation w/[facility] Dr. Lerner about placement for pt in the [facility] program. SS contacted [facility], awaiting rt p/c from Francie Robbins re [facility] assessment of pt. Plan: SS will provide linkages to [facility] & [facility] so pt can access outpt PMD & MH providers & supportive housing services @ [facility].
[2018-03-11] MEDS: sodium chloride 1gm tablet PO SCH ×2 (17:29→20:43)
--- NOTE | 2018-03-11 18:39 | NUR ---
Patient in room SADA 346. I have received report from Ely FREIRE and had the opportunity to ask questions and assume patient care. Pt was resting in bed with no signs of distress. Will continue to monitor.
--- NOTE | 2018-03-11 18:40 | NUR ---
Problems reprioritized. Patient report given, questions answered & plan of care reviewed with Alejandra FREIRE.
[2018-03-11 20:02] VITALS: BP 120/74
[2018-03-11] MEDS: insulin glargine (Lantus) pen - multi-dose SQ SCH (20:41)
[2018-03-11] MEDS: PALIPERIDONE 3 MG TAB.ER.24 PO SCH (20:43)
[2018-03-12] MEDS: LORazepam 0.5 MG tablet PO PRN (02:06)
[2018-03-12] MEDS: ipratropium/albuterol 3ml nebule NEB SCH ×6 (02:43→23:20)
[2018-03-12 04:47] LABS: ALANINE AMINOTRANSFERASE 17 U/L (12-78); ALBUMIN/GLOBULIN RATIO 0.6 (1.1-1.5); ALKALINE PHOSPHATASE 74 IU/L (46-116); ANION GAP 10 (8-16); ASPARTATE AMINO TRANSFERASE 12 U/L (10-37); BILIRUBIN,TOTAL 0.7 MG/DL (0.1-1.0); BLOOD UREA NITROGEN 31 MG/DL (7-18); BUN/CREATININE RATIO 19.7 (6.6-38.0); CALCIUM 10.2 MG/DL (8.5-10.1); CHLORIDE 94 MMOL/L (99-107); CREATININE 1.57 MG/DL (0.40-0.90); GLUCOSE 142 MG/DL (70-104); POTASSIUM 4.5 MMOL/L (3.5-5.1); SODIUM 131 MMOL/L (135-145); TOTAL CARBON DIOXIDE 26.7 MMOL/L (24-32); TOTAL PROTEIN 8.2 G/DL (6.4-8.2); eGFR 35 ML/MIN
--- NOTE | 2018-03-12 06:15 | NUR ---
Problems reprioritized. Patient report given, questions answered & plan of care reviewed with Ely FREIRE.
[2018-03-12] MEDS: K and/or MAG REPLACEMENT MC SCH (07:04)
[2018-03-12 08:00] VITALS: BP 129/59
[2018-03-12] MEDS: docusate sod 100mg capsule PO SCH ×2 (08:00→20:00)
[2018-03-12] MEDS: potassium Cl 20 mEq SR tablet PO SCH (08:01)
[2018-03-12] MEDS: lactobacillus rhamnosus 10,000 MMU CELLS/CAPSULE PO SCH ×2 (08:01→20:13)
[2018-03-12] MEDS: oxybutynin 5mg tablet PO SCH ×4 (08:01→20:14)
[2018-03-12] MEDS: sennosides 8.6mg tablet PO SCH ×2 (08:01→20:14)
[2018-03-12] MEDS: vitamin D (cholecalciferol) 1,000 unit tablet PO SCH (08:01)
[2018-03-12] MEDS: pantoprazole 40mg Tablet.DR PO SCH (08:02)
[2018-03-12] MEDS: sodium chloride 1gm tablet PO SCH (08:02)
[2018-03-12] MEDS: chlorhexidine gluconate 15ml Cup****oral rinse MM SCH ×2 (08:02→20:16)
[2018-03-12] MEDS: sodium bicarbonate 650mg tablet PO SCH ×3 (08:02→20:15)
[2018-03-12] MEDS: allopurinol 100mg tablet PO SCH (08:02)
[2018-03-12] MEDS: NUT.TX.IMP.RENAL FXN,LAC-REDUC (Nepro) 237 ML VANILLA PO SCH ×3 (08:03→17:53)
[2018-03-12] MEDS: insulin Lispro (HumaLOG) vial - multi-dose SQ SCH ×3 (08:34→18:54)
--- NOTE | 2018-03-12 10:46 | NUR ---
Reassessment: Patient's СЕРГЕЙ much improved with creatinine stable per MD progress note. Pt is cleared from medical standpoint for d/c, waiting transfer to mental health unit awaiting eval from per MD progress notes. Pt on regular diet with fluid restriction of 1500 mL. Documented PO intake continues to fluctuate with 100% and 25-50% of meals however documented intake of 100% of Nepro TID, pt likely meeting nutrient needs. [facility] 03/11. Will continue to follow. Recommendations: 1) Continue with regular diet with fluid restrict per MD 2) Nepro TID 3) routine bowel care 4) Wt per rx Addendum: 03/12/18 at [address] Amended: Links added.
[2018-03-12 12:00] VITALS: BP 135/67
--- NOTE | 2018-03-12 18:36 | NUR ---
Problems reprioritized. Patient report given, questions answered & plan of care reviewed with Alejandra FREIRE.
--- NOTE | 2018-03-12 18:37 | NUR ---
Patient in room SADA 346. I have received report from walter FREIRE and had the opportunity to ask questions and assume patient care.
[2018-03-12 20:00] VITALS: BP 115/70
[2018-03-12] MEDS ORDERED: sodium chloride 1gm tablet PO SCH (20:00)
[2018-03-12] MEDS: PALIPERIDONE 3 MG TAB.ER.24 PO SCH (20:14)
[2018-03-12] MEDS: insulin glargine (Lantus) pen - multi-dose SQ SCH (21:16)
[2018-03-13 00:01] VITALS: BP 128/70
[2018-03-13] MEDS: ipratropium/albuterol 3ml nebule NEB SCH ×3 (02:43→11:00)
[2018-03-13] MEDS: LORazepam 0.5 MG tablet PO PRN (03:27)
[2018-03-13 05:41] LABS: ALANINE AMINOTRANSFERASE 15 U/L (12-78); ALBUMIN/GLOBULIN RATIO 0.6 (1.1-1.5); ALKALINE PHOSPHATASE 73 IU/L (46-116); ANION GAP 12 (8-16); ASPARTATE AMINO TRANSFERASE 10 U/L (10-37); BILIRUBIN,TOTAL 0.6 MG/DL (0.1-1.0); BLOOD UREA NITROGEN 34 MG/DL (7-18); BUN/CREATININE RATIO 21.9 (6.6-38.0); CALCIUM 9.9 MG/DL (8.5-10.1); CHLORIDE 98 MMOL/L (99-107); CREATININE 1.55 MG/DL (0.40-0.90); GLUCOSE 139 MG/DL (70-104); POTASSIUM 4.2 MMOL/L (3.5-5.1); SODIUM 135 MMOL/L (135-145); TOTAL CARBON DIOXIDE 25.4 MMOL/L (24-32); TOTAL PROTEIN 8.2 G/DL (6.4-8.2); eGFR 35 ML/MIN
--- NOTE | 2018-03-13 06:42 | NUR ---
Problems reprioritized. Patient report given, questions answered & plan of care reviewed with Sharla FREIRE.
[2018-03-13 07:21] VITALS: BP 125/57
[2018-03-13] MEDS: K and/or MAG REPLACEMENT MC SCH (08:00)
[2018-03-13] MEDS: docusate sod 100mg capsule PO SCH (08:00)
[2018-03-13] MEDS: vitamin D (cholecalciferol) 1,000 unit tablet PO SCH (08:26)
[2018-03-13] MEDS: sennosides 8.6mg tablet PO SCH (08:26)
[2018-03-13] MEDS: potassium Cl 20 mEq SR tablet PO SCH (08:26)
[2018-03-13] MEDS: allopurinol 100mg tablet PO SCH (08:27)
[2018-03-13] MEDS: lactobacillus rhamnosus 10,000 MMU CELLS/CAPSULE PO SCH (08:27)
[2018-03-13] MEDS: pantoprazole 40mg Tablet.DR PO SCH (08:27)
[2018-03-13] MEDS: oxybutynin 5mg tablet PO SCH ×2 (08:27→13:00)
[2018-03-13] MEDS: NUT.TX.IMP.RENAL FXN,LAC-REDUC (Nepro) 237 ML VANILLA PO SCH ×2 (08:31→13:00)
[2018-03-13] MEDS: insulin Lispro (HumaLOG) vial - multi-dose SQ SCH (09:51)
--- NOTE | 2018-03-13 10:56 | NUR ---
SS consulted w/CM and [facility], per consultation, pt is now on a 5150 Hold from [facility] and awaiting placement in a PHF to resume MH treatment. SS will monitor.
[2018-03-13 11:00] VITALS: BP 107/51
== END 2018-03-13 15:37 | DRG 871 ==
LOC: ER 02:13 → ED HOLD 04:22 → ORTHO 4S 10:47 → CICU 2S 18:30 → PCU 3S 02-18 16:41 → SUR 3N 03-01 17:14
PROVIDERS: ADMIT Family Medicine; ATTEND Internal Medicine
PROC: 30233N1 Transfusion of Nonautologous Red Blood Cells into Peripheral Vein, Percutaneous Approach (ICD-10-PCS; principal; 2018-02-28)
DX: A41.9 Sepsis, unspecified organism (principal); N17.0 Acute kidney failure with tubular necrosis; J18.1 Lobar pneumonia, unspecified organism; G92 Toxic encephalopathy; J96.01 Acute respiratory failure with hypoxia; E87.1 Hypo-osmolality and hyponatremia; D62 Acute posthemorrhagic anemia; N39.0 Urinary tract infection, site not specified; E87.4 Mixed disorder of acid-base balance; J98.11 Atelectasis; N17.9 Acute kidney failure, unspecified; E83.42 Hypomagnesemia; F20.9 Schizophrenia, unspecified; E87.5 Hyperkalemia; E86.0 Dehydration; L40.9 Psoriasis, unspecified; E80.6 Other disorders of bilirubin metabolism; B96.20 Unspecified Escherichia coli [E. coli] as the cause of diseases classified elsewhere; D63.8 Anemia in other chronic diseases classified elsewhere; E86.1 Hypovolemia; F17.210 Nicotine dependence, cigarettes, uncomplicated; F41.9 Anxiety disorder, unspecified; G40.909 Epilepsy, unspecified, not intractable, without status epilepticus; K31.9 Disease of stomach and duodenum, unspecified; R32 Unspecified urinary incontinence; Z79.84 Long term (current) use of oral hypoglycemic drugs; Z88.1 Allergy status to other antibiotic agents; K30 Functional dyspepsia; E79.0 Hyperuricemia without signs of inflammatory arthritis and tophaceous disease; E11.65 Type 2 diabetes mellitus with hyperglycemia
CPT/HCPCS: 36415; 36600; 71045; 71250; 74176; 76700; 76775; 78582; 80048; 80053; 80076; 80156; 80178; 80202; 80305; 81001; 82140; 82248; 82550; 82570; 82728; 82803; 82948; 83010; 83036; 83540; 83550; 83615; 83735; 83935; 84100; 84145; 84156; 84300; 84443; 84484; 84550; 85018; 85025; 85027; 85730; 86703; 86885; 86900; 86901; 86920; 87040; 87070; 87077; 87088; 87186; 87207; 87502; 87503; 93005; 93306; 94640; 94760; 96360; 97110; 97116; 97162; 97530; 99285; A9539; A9540; G0378; J0692; J0696; J1644; J1815; J1940; J1956; J2270; J2405; J3370; J3475; J3490; J7030; P9016

== ENCOUNTER 2018-03-13 14:30 | Inpatient (IN) | payer MEDICARE, MEDICAID | END 2018-04-17 07:30 | disposition still patient (30) | LOC: ADULT MH 14:30 | DX: F20.9 Schizophrenia, unspecified (principal) ==

== ENCOUNTER → 2021-08-29 | Emergency (ER) | payer MEDICARE, MEDICAID ==
[~2021-08-29] VITALS: Ht 162.6 cm; Wt 87.7 kg
[~2021-08-29] MED LIST changes: -ADV50250 IH; +ALLO100T25 PO; -ATOR20TA PO; -BENZ0.5T43 PO; +CARV3.122 PO; +CHOL10002 PO; +HALO5TAB PO; -LIT300C PO; +LORA0.5T PO; -LOSA25TA96 PO; -METF-950 PO; -OLAN10TA19 PO; -OLAN5TAB26 PO; +OXYB5TAB16 PO; +PALI6TAB PO; +PANT40TA54 PO; +SENN-263 PO; +TRAZ-251 PO; +bacitracin 15gm ointment TP ONE
[2021-08-29 15:31] VITALS: BP 106/61
== END | disposition home or self-care (01) ==
LOC: ER 14:35
DX: S80.211A Abrasion, right knee, initial encounter (principal); S50.311A Abrasion of right elbow, initial encounter; E11.9 Type 2 diabetes mellitus without complications; F20.9 Schizophrenia, unspecified; Z88.0 Allergy status to penicillin; Z88.6 Allergy status to analgesic agent; Z88.8 Allergy status to other drugs, medicaments and biological substances; Z79.899 Other long term (current) drug therapy; W18.39XA Other fall on same level, initial encounter; Y93.89 Activity, other specified; Y92.89 Other specified places as the place of occurrence of the external cause; Y99.8 Other external cause status
CPT/HCPCS: 99282

== ENCOUNTER 2022-06-14 16:19 | Emergency (ER) | payer MEDICARE, MEDICAID ==
[~2022-06-14] VITALS: Ht 163.2 cm; Wt 76.8 kg
[~2022-06-14 16:19] MED LIST changes: -ALLO100T25 PO; +ATOR10TA70 PO; +BENZ1TAB78 PO; -CARV3.122 PO; -CHOL10002 PO; +CLON0.123 PO; +CLOZ100T13 PO; +CLOZ100T21 PO; +CLOZ25TA12 PO; +GABA300C PO; +LEVE500T PO; -LORA0.5T PO; +LOSA25TA41 PO; -PALI6TAB PO; -PANT40TA54 PO; +PIOG15TA67 PO; -SENN-263 PO; -TRAZ-251 PO; -bacitracin 15gm ointment TP ONE
[2022-06-14 17:03] VITALS: BP 122/76
== END 2022-06-14 17:20 | disposition home or self-care (01) ==
LOC: ER 16:20
DX: F31.89 Other bipolar disorder (principal); E11.9 Type 2 diabetes mellitus without complications; F20.9 Schizophrenia, unspecified; Z86.69 Personal history of other diseases of the nervous system and sense organs; Z88.0 Allergy status to penicillin; Z88.6 Allergy status to analgesic agent; Z88.8 Allergy status to other drugs, medicaments and biological substances; Z79.899 Other long term (current) drug therapy
CPT/HCPCS: 99284

== ENCOUNTER 2022-07-21 16:07 | Inpatient (IN) | payer MEDICARE, MEDICAID ==
[~2022-07-21] VITALS: Ht 162.6 cm; Wt 79.2 kg
[2022-07-21 16:51] LABS: CLARITY,URINE SLIGHTLY CLOUDY (Clear); COLOR,URINE STRAW (Yellow); GLUCOSE, URINE NEGATIVE (Neg); KETONES,URINE NEGATIVE (Neg); LEUKOCYTE ESTERASE ,URINE LARGE (Neg); NITRITES, URINE NEGATIVE (Neg); OCCULT BLOOD,URINE NEGATIVE (Neg); PROTEIN,URINE NEGATIVE (Neg); URINE HCG NEGATIVE (NEG); UROBILINOGEN,URINE 0.2 E.U/dL (0.2-1.0)
[2022-07-21 16:54] LABS: UA COLLECTION TYPE CLN CATCH MIDSTREAM
[2022-07-21 16:59] LABS: BACTERIA,URINE 1+ /HPF (Neg); RBC,URINE NONE SEEN /HPF (0-2); SQUAMOUS EPITHELIAL CELL,UR FEW /LPF (FEW); WBC,URINE TNTC /HPF (0-4)
[2022-07-21 17:00] LABS: MUCUS STRANDS NONE SEEN /LPF (Neg); TRANSITIONAL EPI CELLS,URINE FEW /HPF; WBC CLUMPS,URINE MODERATE /HPF (NEGATIVE)
[2022-07-21 17:04] LABS: URINE AMPHETAMINE SCREEN NEGATIVE (Neg); URINE BARBITUATE SCREEN NEGATIVE (Neg); URINE BENZODIAZEPINES SCREEN NEGATIVE (Neg); URINE CANNABINOID SCREEN NEGATIVE (Neg); URINE COCAINE SCREEN NEGATIVE (Neg); URINE METHADONE SCREEN NEGATIVE (Neg); URINE OPIATE SCREEN NEGATIVE (Neg); URINE PHENCYCLIDINE SCREEN NEGATIVE (Neg)
[2022-07-21 17:05] LABS: BASOPHILS # (AUTO) 0.1 X10'3 (0-0.2); BASOPHILS % (AUTO) 0.5 % (0-1); EOSINOPHILS # (AUTO) 0.1 X10'3 (0-0.9); HEMATOCRIT 39.5 % (35.0-45.0); HEMOGLOBIN 13.1 g/dl (12.0-16.0); LYMPHOCYTES # (AUTO) 1.9 X10'3 (1.1-4.8); LYMPHOCYTES % (AUTO) 19.6 % (21-51); MEAN CORPUSCULAR HEMOGLOBIN 29.9 PG (27.0-31.0); MEAN CORPUSCULAR HGB CONC 33.3 g/dL (33.0-36.5); MEAN CORPUSCULAR VOLUME 89.8 FL (78-98); MEAN PLATELET VOLUME 7.3 FL (7.4-10.4); MONOCYTES # (AUTO) 0.5 X10'3 (0-0.9); MONOCYTES % (AUTO) 5.6 % (2-12); NEUTROPHILS # (AUTO) 7.1 X10'3 (1.8-7.7); NEUTROPHILS % (AUTO) 73.3 % (42-75); PLATELET COUNT 278 X10'3 (140-440); RED CELL DISTRIBUTION WIDTH 14.1 % (11.5-14.5); WHITE BLOOD COUNT 9.7 X10'3 (4.5-11.0)
[2022-07-21 17:09] LABS: ALANINE AMINOTRANSFERASE 44 U/L (12-78); ALBUMIN 4.7 G/DL (3.4-5.0); ALBUMIN/GLOBULIN RATIO 1.5 (1.1-1.5); ALKALINE PHOSPHATASE 97 IU/L (46-116); ANION GAP 10 (8-16); ASPARTATE AMINO TRANSFERASE 22 U/L (10-37); BILIRUBIN,TOTAL 0.5 MG/DL (0.1-1.0); BLOOD UREA NITROGEN 12 MG/DL (7-18); BUN/CREATININE RATIO 11.1 (10.0-20.0); CALCIUM 9.7 MG/DL (8.5-10.1); CHLORIDE 99 MMOL/L (99-107); CREATININE 1.08 MG/DL (0.40-0.90); GLUCOSE 127 MG/DL (70-104); POTASSIUM 3.6 MMOL/L (3.5-5.1); SODIUM 132 MMOL/L (135-145); TOTAL CARBON DIOXIDE 23.5 MMOL/L (24-32); TOTAL PROTEIN 7.8 G/DL (6.4-8.2); eGFR 53 ML/MIN
[2022-07-21 17:19] LABS: ETHANOL < 0.010 GM/DL (0.0-0.010)
--- NOTE | 2022-07-21 17:20 | NUR ---
Pt. arrived on the unit with several bags and a box of personal belongings. Pt. refused to disrobe; security was called, pt. did then change into scrubs, she began vaping from an Ecig. square cartridge, and her cell phone was removed from her bra. Cardona in the amopunt of 76$ was sent with registration as well.
--- NOTE | 2022-07-21 18:30 | NUR ---
Patient talking non-stop, intrusive with other patient's and staff. Continue to monitor.
--- NOTE | 2022-07-21 19:05 | NUR ---
Patient's mother returned patient's call. RN transferred the call to the mobile phone and patient took it looked at it and threw it out of her room and on the floor. RN advised patient that she lost her phone privileges for the evening. "Don't I get a warning." RN advised patient she can't break equipment and expect to have priviliges. Patient calm. Continue to monitor.
--- NOTE | 2022-07-21 20:32 | NUR ---
Patient is talking loudly to the 33 yo male patient 2 beds over. They are talking back and forth and calling each other girlfriend and boyfriend. Patient Eduarda is very inappropriate in the things she is saying to male patient. "I will suck your d but you don't have to eat my p. RN advised patient to stop speaking inappropriately. Patient does not respond to RN's directions. Continue to monitor.
[2022-07-21] MEDS ORDERED: CLON-527 PO (20:47)
[2022-07-21] MEDS ORDERED: clonazePAM 1mg tablet PO SCH (21:19)
[2022-07-21] MEDS: cephalexin 250mg capsule PO SCH (21:44)
[2022-07-21] MEDS: oxybutynin 5mg tablet PO SCH (21:44)
[2022-07-21] MEDS: clozapine 100mg tablet PO SCH (21:44)
[2022-07-21] MEDS: levetiracetam 250mg tablet PO SCH (21:45)
[2022-07-21] MEDS: gabapentin 300mg capsule PO SCH (21:45)
[2022-07-21] MEDS: haloperidol 5mg tablet PO SCH (21:46)
[2022-07-21] MEDS: benztropine 1mg tablet PO SCH (21:48)
--- NOTE | 2022-07-21 22:03 | NUR ---
Patient is interjecting herself in conversation between the male patient and the RN. Patient will not follow directions. Continue to monitor.
[2022-07-21] MEDS ORDERED: CLON0.122 PO (22:54)
[2022-07-21] MEDS ORDERED: PALI3TAB PO (22:54)
[2022-07-21] MEDS ORDERED: HALO10TA13 PO (22:54)
[2022-07-21] MEDS ORDERED: SITA25TA3 PO (22:54)
--- NOTE | 2022-07-21 23:20 | NUR ---
Patient was singing in her bed. All other patient's are asleep. RN asked patient to please stop. Patient did comply. Continue to monitor.
--- NOTE | 2022-07-22 00:51 | NUR ---
Patient sleeping on her right side. No distress observed. Continue to monitor.
--- NOTE | 2022-07-22 02:22 | NUR ---
Patient sleeping. No distress observed. Continue to monitor.
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
--- NOTE | 2022-07-22 04:47 | NUR ---
Patient awake and crying about her dog that . RN asked patient to keep it low. Patient is not good at following instructions. Continue to monitor.
--- NOTE | 2022-07-22 05:40 | NUR ---
Patient intrusive again. Patient has difficulty following directions. Continue to monitor.
[2022-07-22] MEDS: clozapine 25mg tablet PO SCH ×2 (07:30→13:24)
--- NOTE | 2022-07-22 07:30 | NUR ---
Patient awake and laughing this morning - talking loudly with roommate. Button Puncher instructed pt to use quiet voice so that others could sleep. PT compliant.
[2022-07-22] MEDS: linagliptin 5mg tablet PO SCH (08:00)
[2022-07-22] MEDS ORDERED: CLONAZEPAM 0.25 MG oral disentigrating tablet (ODT) PO SCH (08:00)
[2022-07-22] MEDS: oxybutynin 5mg tablet PO SCH ×4 (08:00→21:02)
[2022-07-22] MEDS: atorvastatin 10mg tablet PO SCH (09:11)
[2022-07-22] MEDS: cephalexin 250mg capsule PO SCH ×3 (09:12→21:02)
[2022-07-22] MEDS: levetiracetam 250mg tablet PO SCH ×2 (09:12→19:52)
[2022-07-22] MEDS: gabapentin 300mg capsule PO SCH ×3 (09:14→21:02)
[2022-07-22] MEDS: benztropine 1mg tablet PO SCH ×2 (09:14→19:52)
[2022-07-22] MEDS: PALIPERIDONE 3 MG TAB.ER.24 PO SCH ×2 (09:14→13:25)
[2022-07-22] MEDS: losartan 25mg tablet PO SCH (09:14)
[2022-07-22] MEDS: haloperidol 5mg tablet PO SCH ×3 (09:15→21:02)
--- NOTE | 2022-07-22 09:16 | NUR ---
Pt sleeping quietly in bed. No signs of distress, RR 16. Patient sat up and ate >75% of morning tray before going back to sleep.
[2022-07-22] MEDS ORDERED: LORazepam 2 mg/ml vial IM ONE (11:00)
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
--- NOTE | 2022-07-22 13:15 | NUR ---
Patient requesting toothbrush/toothpaste, and hairbrush to clean up. Patient up and walking around to bathroom ind.
--- NOTE | 2022-07-22 13:18 | NUR ---
Note tariroxana in ED - 07/22/22 at 1521 by [email or web address] Pt had incontinent episode in bed. This is second episode of urine incontinance today - green PJs and bedding changed again. Pt requiring assistance for transfers due to unsteadiness and very wobbly gate.
--- NOTE | 2022-07-22 13:49 | NUR ---
pt's mother came to visit, pt began to yell at mother and state "you've turned my life upside down". Mother left after giving tech and RN more information about pt as well as her number. Pt's mom is Sree, her phone number is . Mother stated she would like to know more information about pt care and what we planned to do with the pt.
--- NOTE | 2022-07-22 15:24 | NUR ---
Pt requesting hot coffee and sweeteners. PT seeming much more calm after mother left. RR 18 and resting in bed. No signs of distress.
--- NOTE | 2022-07-22 17:40 | NUR ---
Pt requesting nicotine patch and jese crackers before evening meal. Sitting quietly in bed. No signs of distress.
--- NOTE | 2022-07-22 18:30 | NUR ---
Received report from primary care nurse Dena FREIRE. Assumed patient care. Patient resting with relaxed and unlabored respirations on room air. In no apparend distress. Bed low and locked.
[2022-07-22] MEDS: CLONAZEPAM 0.25 MG oral disentigrating tablet (ODT) PO SCH (19:52)
--- NOTE | 2022-07-22 20:30 | NUR ---
Patient is awake and alert on room air. No distress. Patient has been coming up to the nurses station making multiple requests for cake and other foods. Became agitated when this nurse was on the phone with another family member yelling, "dont tell her anything! I didnt sign anything! You cant tell her about me" referring to her mother. Reassured patient it was not someone regarding her. Was able to deescalate. Patient is currently laying in bed talking to another patient in bed 20 asking him if he loves her and multiple other personal but appropriate questions. Will continue to monitor.
[2022-07-22] MEDS: clozapine 100mg tablet PO SCH (21:02)
--- NOTE | 2022-07-22 22:30 | NUR ---
Laying in bed talking to herself about her mom being a "controlling bitch" and saying, "I have a CCW I can have a gun, I can drive, they cant tell me what to do." Patient has asked for many different snack items and has offered staff money to go buy her a soda and some ice cream. Will continue to monitor.
--- NOTE | 2022-07-23 00:30 | NUR ---
Patient continues to speak loudly to herself and on occasion sings loudly. Patient verbalizing "I am pissed off" and continues to attempt to bribe staff to get her out of here. Attempts made to orient and calm. Patient quiets down and lays down after a short period of time but continues to speak about nonsensical things. Will continue to monitor for changes.
--- NOTE | 2022-07-23 02:14 | NUR ---
Patient yelling out loudly and singing intentionally trying to disrupt other patients. Obtained order for Ativan from MD. Will administer and monitor.
[2022-07-23] MEDS ORDERED: LORazepam 1 MG tablet PO ONE (02:15)
--- NOTE | 2022-07-23 03:28 | NUR ---
Patient is finally resting without talking. Relaxed and unlabored respirations on room air.
--- NOTE | 2022-07-23 04:32 | NUR ---
Patient resting on her left side with even and relaxed respirations on room air. In no apparent distress. Will continue to monitor for changes.
--- NOTE | 2022-07-23 05:17 | NUR ---
Patient resting on her left side with even and relaxed respirations on room air. In no apparent distress. Will continue to monitor for changes.
--- NOTE | 2022-07-23 05:55 | NUR ---
Patient is still resting at this time. Vitals can be obtained at a later time as she was yelling out, singing loudly and disrupting other patients for a large portion of the night. Will continue to monitor for changes.
--- NOTE | 2022-07-23 06:50 | NUR ---
Patient sleeping supine. No distress observed. Continue to monitor.
[2022-07-23] MEDS: CLONAZEPAM 0.25 MG oral disentigrating tablet (ODT) PO SCH ×2 (08:00→20:00)
--- NOTE | 2022-07-23 08:46 | NUR ---
Patient continues to sleep. No distress observed. Continue to monitor.
--- NOTE | 2022-07-23 10:40 | NUR ---
Patient sleeping prone. Patient snoring lightly. No distress observed. Continue to monitor.
[2022-07-23] MEDS: clozapine 25mg tablet PO SCH ×3 (12:30→13:12)
--- NOTE | 2022-07-23 12:35 | NUR ---
RN held the afternoon dose of 25 mg Clozaril. RN giving patient the morning dose.
--- NOTE | 2022-07-23 12:35 | NUR ---
Patient sleeping on her left side. No distress observed. Continue to monitor.
[2022-07-23] MEDS: oxybutynin 5mg tablet PO SCH ×4 (12:41→21:00)
[2022-07-23] MEDS: haloperidol 5mg tablet PO SCH ×3 (12:41→22:00)
[2022-07-23] MEDS: atorvastatin 10mg tablet PO SCH (12:41)
[2022-07-23] MEDS: benztropine 1mg tablet PO SCH ×2 (12:42→20:00)
[2022-07-23] MEDS: gabapentin 300mg capsule PO SCH ×3 (12:42→21:00)
[2022-07-23] MEDS: cephalexin 250mg capsule PO SCH ×3 (12:42→21:49)
[2022-07-23] MEDS: levetiracetam 250mg tablet PO SCH ×2 (12:42→20:00)
[2022-07-23] MEDS: losartan 25mg tablet PO SCH (12:48)
[2022-07-23] MEDS: PALIPERIDONE 3 MG TAB.ER.24 PO SCH ×2 (13:11→13:18)
[2022-07-23] MEDS: linagliptin 5mg tablet PO SCH (13:12)
--- NOTE | 2022-07-23 14:18 | NUR ---
Patient awake and up eating. No distress observed. Continue to monitor.
--- NOTE | 2022-07-23 16:35 | NUR ---
Patient sleeping again. No distress observed. Continue to monitor.
--- NOTE | 2022-07-23 18:47 | NUR ---
Patient sleeping. Patient's dinner tray at bedside. No distress observed. Continue to monitor.
--- NOTE | 2022-07-23 20:27 | NUR ---
Patient sleeping. No distress observed. Continue to monitor.
[2022-07-23] MEDS: clozapine 100mg tablet PO SCH (21:49)
--- NOTE | 2022-07-23 22:11 | NUR ---
It took a couple of minutes of talking to patient and nudging her for her to awake up enough to take her Clozaril and her antibiotic. Patient did not have the ability to take a large amount of meds. Continue to monitor.
--- NOTE | 2022-07-24 00:20 | NUR ---
Patient is sleeping prone and lightly snoring. No distress observed at this time. Continue to monitor.
--- NOTE | 2022-07-24 01:49 | NUR ---
Patient sleeping on her right side. No distress observed. Continue to monitor.
--- NOTE | 2022-07-24 03:38 | NUR ---
Patient sleeping prone. No distress observed. Continue to monitor.
--- NOTE | 2022-07-24 05:23 | NUR ---
Patient sleeping on her right side. No distress observed. Continue to monitor.
--- NOTE | 2022-07-24 07:00 | NUR ---
Received Pt in bed sleeping w/o distress. will continue to monitor.
[2022-07-24] MEDS: clozapine 25mg tablet PO SCH ×2 (07:30→12:48)
[2022-07-24] MEDS: PALIPERIDONE 3 MG TAB.ER.24 PO SCH ×2 (08:42→12:48)
[2022-07-24] MEDS: benztropine 1mg tablet PO SCH ×2 (08:42→21:06)
[2022-07-24] MEDS: gabapentin 300mg capsule PO SCH ×3 (08:43→21:07)
[2022-07-24] MEDS: losartan 25mg tablet PO SCH (08:43)
[2022-07-24] MEDS: atorvastatin 10mg tablet PO SCH (08:43)
[2022-07-24] MEDS: levetiracetam 250mg tablet PO SCH ×2 (08:44→21:07)
[2022-07-24] MEDS: linagliptin 5mg tablet PO SCH (08:44)
[2022-07-24] MEDS: cephalexin 250mg capsule PO SCH ×3 (08:44→21:07)
[2022-07-24] MEDS: haloperidol 5mg tablet PO SCH ×3 (08:44→22:00)
[2022-07-24] MEDS: oxybutynin 5mg tablet PO SCH ×4 (08:44→21:07)
[2022-07-24] MEDS: CLONAZEPAM 0.25 MG oral disentigrating tablet (ODT) PO SCH ×2 (09:35→21:31)
--- NOTE | 2022-07-24 10:23 | NUR ---
Sent RN on break. Pt lying in bed awake. Pt calm.
[2022-07-24 16:14] VITALS: BP 119/67
--- NOTE | 2022-07-24 16:20 | NUR ---
Admit note: Pt admitted to [facility] today from our ER at 1556 on 5150 for DTS. Pt appears guarded with responses. She appears slightly energetic and then agitated. She cannot identify viable plan for housing reporting "I dont know." Pt has history of Diabetes, Bipolar, Schizophrenia, seizures.
[2022-07-24] MEDS ORDERED: mag hydrox/Alum hydrox/simeth 30ml oral suspension PO PRN (17:00)
[2022-07-24] MEDS ORDERED: loperamide 2mg capsule PO PRN (17:00)
[2022-07-24] MEDS ORDERED: acetaminophen 325mg tablet PO PRN ×2 (17:00)
[2022-07-24] MEDS: magnesium hydroxide 30ml (MOM) UD suspension PO PRN (17:20)
[2022-07-24 20:00] VITALS: BP 110/68
[2022-07-24] MEDS: clozapine 100mg tablet PO SCH (21:07)
--- NOTE | 2022-07-25 04:33 | NUR ---
NURSING PROGRESS NOTE Problem: Pt admitted to [facility] today from our ER at 1556 on 5150 for DTS. Pt appears guarded with responses. She appears slightly energetic and then agitated. She cannot identify viable plan for housing reporting "I dont know." Pt has history of Diabetes, Bipolar, Schizophrenia, seizures. Response: Received pt. ambulating the unit with the assistance of her walker. Pt. is pleasant and cooperative. Pt. was observed huddling in the shook with others listening as a peer played guitar and sang songs. Pt. is medication compliant . She denies SI/HI/AH/VH. However, pt. was noted to be talking to herself while in her room. Pt. has been utilizing the headphones [employer]. Pt. appeared to have difficulty falling asleep; she was in and out of her room. At 0330 pt. finally in bed and appears to be sleeping.
[2022-07-25] MEDS: levetiracetam 250mg tablet PO SCH ×2 (07:47→19:07)
[2022-07-25] MEDS: gabapentin 300mg capsule PO SCH ×3 (07:47→19:09)
[2022-07-25] MEDS: oxybutynin 5mg tablet PO SCH ×4 (07:47→19:09)
[2022-07-25] MEDS: PALIPERIDONE 3 MG TAB.ER.24 PO SCH ×2 (07:47→13:33)
[2022-07-25] MEDS: linagliptin 5mg tablet PO SCH (07:47)
[2022-07-25] MEDS: atorvastatin 10mg tablet PO SCH (07:48)
[2022-07-25] MEDS: clozapine 25mg tablet PO SCH ×2 (07:48→13:33)
[2022-07-25] MEDS: benztropine 1mg tablet PO SCH ×2 (07:48→19:06)
[2022-07-25] MEDS: haloperidol 5mg tablet PO SCH ×3 (07:48→19:09)
[2022-07-25] MEDS: cephalexin 250mg capsule PO SCH ×3 (07:48→19:09)
[2022-07-25] MEDS: losartan 25mg tablet PO SCH (07:49)
[2022-07-25] MEDS: nicotine 21mg patch - 24 hr TD SCH (07:49)
[2022-07-25 08:00] VITALS: BP 113/73
[2022-07-25] MEDS ORDERED: clonazePAM 0.5mg tablet PO SCH (08:27)
[2022-07-25] MEDS: clonazePAM 0.5mg tablet PO SCH ×2 (08:56→19:08)
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
--- NOTE | 2022-07-25 17:38 | NUR ---
Nursing Progress Note: Eduarda Problem: Pt admitted to [facility] today from our ER at 1556 on 5150 for DTS. Pt appears guarded with responses. She appears slightly energetic and then agitated. She cannot identify viable plan for housing reporting "I dont know." Pt has history of Diabetes, Bipolar, Schizophrenia, seizures. Response: Received patient resting in bed with eyes closed, respirations even and unlabored. Patient was compliant with scheduled medication and cooperative for daily assessment this morning. When this fiction writer inquired about SI/HI and AVH patient stated, I dont need to discuss that with you. She was very short in conversation, is selective while responding but will glare at you. She is noted walking the halls with her walker on the unit. Patient became hyper fixated on Slick and the devil, she was accusing staff of being dirty whores, you took my 4 yr old son! she also stated, you are not a believer in Slick. How many husbands do you have now? She tore up a paper with an animal and a character on it and stated, Im flushing this down the toilet that is me and the devil! Patient was difficult to redirect. She was observed shoulder checking, attempting to push staff and the door to the nurses station. She seems to believe that we are demonic. Attempted to administer afternoon medication and patient spit one out but then then decided she would like it. Later she was observed sitting in a chair in her room and walking on the unit. Plan: Patient requires medication adjustments and a safe environment with redirection for behavior
[2022-07-25] MEDS: clozapine 100mg tablet PO SCH (19:09)
[2022-07-25 20:24] VITALS: BP 115/60
--- NOTE | 2022-07-26 03:47 | NUR ---
Nursing Progress Note: Eduarda Problem: Pt admitted to [facility] today from our ER at 1556 on 5150 for DTS. Pt appears guarded with responses. She appears slightly energetic and then agitated. She cannot identify viable plan for housing reporting "I dont know." Pt has history of Diabetes, Bipolar, Schizophrenia, seizures. Response: Received pt. sleeping at the start of shift. Pt. was later noted in room wanting to speak with a school coordinator. Pt. was tearful and emotional asking if she was going to make it through the night. Pt. given night medications early. When this marine underwriter handed her the pill cup, she looked at her pills with tears in her eyes and stated "why are there so many, are you trying to kill me, your not trying to kill me are you". After taking medication, Pt. was observed walking the shook with bible in hand, socializing with staff. She sat in the community room and colored. Pt. read a bible verse to this marine underwriter. Pt. awaken in the night d/t an incontinence episode. Pt. provided clean green scrubs and bedding was changed. Observed and appears to be sleeping without difficulty. Plan: Patient requires medication adjustments and a safe environment with redirection for behavior Addendum: 07/26/22 at 0409 by Keren Altman LVN No aggressive behavior or attempt to elope this shift
--- NOTE | 2022-07-26 05:11 | NUR ---
SALESPERSON SHEET MUSIC documentation: I have reviewed and agree with all interventions, assessments performed and documented by Keren Altman LVN.
[2022-07-26 08:00] VITALS: BP 114/59
[2022-07-26] MEDS: clonazePAM 0.5mg tablet PO SCH ×2 (08:19→19:38)
[2022-07-26] MEDS: benztropine 1mg tablet PO SCH ×2 (08:20→20:11)
[2022-07-26] MEDS: nicotine 21mg patch - 24 hr TD SCH (08:20)
[2022-07-26] MEDS: clozapine 25mg tablet PO SCH ×2 (08:20→12:24)
[2022-07-26] MEDS: haloperidol 5mg tablet PO SCH ×3 (08:21→22:11)
[2022-07-26] MEDS: losartan 25mg tablet PO SCH (08:21)
[2022-07-26] MEDS: levetiracetam 250mg tablet PO SCH ×2 (08:21→20:11)
[2022-07-26] MEDS: cephalexin 250mg capsule PO SCH ×3 (08:21→20:11)
[2022-07-26] MEDS: PALIPERIDONE 3 MG TAB.ER.24 PO SCH ×2 (08:21→12:24)
[2022-07-26] MEDS: atorvastatin 10mg tablet PO SCH (08:21)
[2022-07-26] MEDS: linagliptin 5mg tablet PO SCH (08:21)
[2022-07-26] MEDS: gabapentin 300mg capsule PO SCH ×3 (08:21→20:11)
[2022-07-26] MEDS: oxybutynin 5mg tablet PO SCH ×4 (08:22→20:11)
--- NOTE | 2022-07-26 09:31 | NUR ---
CASE MANAGEMENT Received information today from Deepthi at the [facility] team that they will be putting in a referral to [facility] for Pt. to be conserved again as her mother is no longer able to care for her in the community any longer. Ely Landa, PLASTIC TOOL MAKER
--- NOTE | 2022-07-26 17:39 | NUR ---
Nursing Progress Note: Eduarda Problem: Pt admitted to [facility] today from our ER at 1556 on 5150 for DTS. Pt appears guarded with responses. She appears slightly energetic and then agitated. She cannot identify viable plan for housing reporting "I dont know." Pt has history of Diabetes, Bipolar, Schizophrenia, seizures. Response: Patient was very pleasant and cooperative this shift; compliant with scheduled medication and daily assessment. She is observed smiling and socializing with staff and peers this shift. Patient was up for all meals, snacks, and group. She utilizes the FWW for ambulation and has a steady gait. When scheduled medication was administered this afternoon she stated, Is it going to kill me? She was reassured but appeared paranoid, after education of medication she accepted them. Patient denies SI/HI and AVH this shift. Plan: Patient requires medication adjustments and a safe environment with redirection for behavior
[2022-07-26] MEDS ORDERED: ibuprofen tablet 400 MG TABLET PO PRN (19:15)
[2022-07-26 20:00] VITALS: BP 109/58
[2022-07-26] MEDS: clozapine 100mg tablet PO SCH (20:11)
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
--- NOTE | 2022-07-27 05:31 | NUR ---
PATTERN WHEEL MAKER documentation: I have reviewed and agree with all interventions, assessments performed and documented by Otilio Keita LVN.
[2022-07-27] MEDS: atorvastatin 10mg tablet PO SCH (07:09)
[2022-07-27] MEDS: gabapentin 300mg capsule PO SCH ×3 (07:09→20:49)
[2022-07-27] MEDS: levetiracetam 250mg tablet PO SCH ×2 (07:09→20:49)
[2022-07-27] MEDS: PALIPERIDONE 3 MG TAB.ER.24 PO SCH ×2 (07:09→12:16)
[2022-07-27] MEDS: oxybutynin 5mg tablet PO SCH ×4 (07:09→20:49)
[2022-07-27] MEDS: haloperidol 5mg tablet PO SCH ×2 (07:09→20:49)
[2022-07-27] MEDS: benztropine 1mg tablet PO SCH ×2 (07:09→20:49)
[2022-07-27] MEDS: clozapine 25mg tablet PO SCH ×2 (07:09→12:16)
[2022-07-27] MEDS: cephalexin 250mg capsule PO SCH ×3 (07:09→20:49)
[2022-07-27] MEDS: linagliptin 5mg tablet PO SCH (07:09)
[2022-07-27] MEDS: nicotine 21mg patch - 24 hr TD SCH (07:10)
[2022-07-27] MEDS: losartan 25mg tablet PO SCH (07:51)
[2022-07-27 08:00] VITALS: BP 105/57
[2022-07-27] MEDS: clonazePAM 0.5mg tablet PO SCH (08:28)
--- NOTE | 2022-07-27 11:48 | NUR ---
Pt was placed on a 5250. Pt refused to sign the notice. Pt was given a copy of the hold and notified of her hearing on Sunday07/31/22.
[2022-07-27] MEDS: magnesium hydroxide 30ml (MOM) UD suspension PO PRN (12:16)
--- NOTE | 2022-07-27 17:25 | NUR ---
Nursing Progress Note: Eduarda Problem: Pt admitted to [facility] today from our ER at 1556 on 5150 for DTS. Pt appears guarded with responses. She appears slightly energetic and then agitated. She cannot identify viable plan for housing reporting "I dont know." Pt has history of Diabetes, Bipolar, Schizophrenia, seizures. Interventions: 1:1 assessment, therapeutic conversation, active listening, maintained a safe and supportive environment, medication administration/education/monitoring, pain management, encouragement to drink adequate water intake daily, encouraged performance of ADLs and participation on the unit, provided reality orientation, distraction, direction, positive reinforcement, and maintained Q15 min safety checks. Response: Patient was cooperative this shift, she remains compliant with scheduled medication and assessment. She demanded a shower first thing this morning and became agitated/anxious when staff advised her that it needed to be set up first. Her mood fluctuates very quickly at times; she was angry and then apologized shortly after for being agitated. Patient is noted up for meals and snacks utilizing FWW and often retreats back to her bed to rest. Patient continues to deny SI/HI and AVH. No apparent delusions observed this shift. She reports that she is constipated and requested MOM, PRN administered- she states she had a small one. Plan: Patient requires medication adjustments and a safe environment with redirection for behavior
[2022-07-27 20:00] VITALS: BP 117/63
[2022-07-27] MEDS: LORazepam 0.5 MG tablet PO SCH (20:49)
[2022-07-27] MEDS: clozapine 100mg tablet PO SCH (20:49)
[2022-07-27] MEDS: NICOTINE POLACRILEX 2 MG LOZENGE BC PRN (20:56)
--- NOTE | 2022-07-28 05:24 | NUR ---
Nursing Progress Note: C.V. Problem: Pt admitted to [facility] today from our ER at 1556 on 5150 for DTS. Pt appears guarded with responses. She appears slightly energetic and then agitated. She cannot identify viable plan for housing reporting "I dont know." Pt has history of Diabetes, Bipolar, Schizophrenia, seizures. Interventions: 1:1 assessment, therapeutic conversation, active listening, maintained a safe and supportive environment, medication administration/education/monitoring, pain management, encouragement to drink adequate water intake daily, encouraged performance of ADLs and participation on the unit, provided reality orientation, distraction, direction, positive reinforcement, and maintained Q15 min safety checks. Response: Patient initial interaction was pleasant and cooperative. Pt recalled writers name. Pt denies AH, VH, SI, HI. Pt became defensive and mildly agitated when asked for principal technical writer to remove nicotine patch. After education and explaining availability of nicotine lozenges, pt was willing to remove patch. Fire drill occurred during NOC shift. Pt opened her room door and needed reinforcement to keep closed during drill. Pt was compliant with 2000hr med pass. Pt accessed 1x PRN Nicotene lozenges during shift. Plan: Patient requires medication adjustments and a safe environment with redirection for behavior
[2022-07-28 08:00] VITALS: BP 133/60
[2022-07-28] MEDS: losartan 25mg tablet PO SCH (08:25)
[2022-07-28] MEDS: PALIPERIDONE 3 MG TAB.ER.24 PO SCH ×2 (08:25→12:32)
[2022-07-28] MEDS: benztropine 1mg tablet PO SCH ×2 (08:25→21:06)
[2022-07-28] MEDS: gabapentin 300mg capsule PO SCH ×3 (08:25→21:07)
[2022-07-28] MEDS: LORazepam 0.5 MG tablet PO SCH ×2 (08:25→21:07)
[2022-07-28] MEDS: oxybutynin 5mg tablet PO SCH ×4 (08:25→21:07)
[2022-07-28] MEDS: linagliptin 5mg tablet PO SCH (08:25)
[2022-07-28] MEDS: clozapine 25mg tablet PO SCH ×2 (08:25→12:32)
[2022-07-28] MEDS: cephalexin 250mg capsule PO SCH (08:25)
[2022-07-28] MEDS: haloperidol 5mg tablet PO SCH ×2 (08:25→21:06)
[2022-07-28] MEDS: levetiracetam 250mg tablet PO SCH ×2 (08:25→21:07)
[2022-07-28] MEDS: atorvastatin 10mg tablet PO SCH (08:26)
[2022-07-28] MEDS: nicotine 21mg patch - 24 hr TD SCH (08:31)
--- NOTE | 2022-07-28 11:26 | NUR ---
Initial: Pt admit for schizophrenia. Currently on a CHO controlled diet with fluctuating PO intake, documented with average 74% PO intake since admit meeting 80% estimated energy needs and 100% estimated protein needs. Pt appears to be participating in snacks per RN/EQUITIES TRADER documentation. Noted pt with PMH T2DM, well controlled with A1c 6.3% and only known BG this admit 127 mg/dL 07/21. DM education not warranted at this time. Recommend liberalizing to regular diet for additional nutrition if BG levels are well controlled during admit. Per EMR pt receiving Tradjenta for BG management. LBM 07/28 per EMR. No nutrition intervention implemented at this time. Will continue to follow and make recommendations as appropriate. Recommendations: 1) Continue CHO controlled diet; liberalize to regular diet if BG well controlled, A1c 6.3% with BG 127 mg/dL 07/21 2) Encourage PO intake and offer snacks 3) Bowel care PRN 4) Weekly scaled weights Addendum: 07/28/22 at [address] Amended: Links added.
--- NOTE | 2022-07-28 16:49 | NUR ---
Nursing Progress Note: C.V. Problem: Pt admitted to [facility] today from our ER at 1556 on 5150 for DTS. Pt appears guarded with responses. She appears slightly energetic and then agitated. She cannot identify viable plan for housing reporting "I dont know." Pt has history of Diabetes, Bipolar, Schizophrenia, seizures. Interventions: 1:1 assessment, therapeutic conversation, active listening, maintained a safe and supportive environment, medication administration/education/monitoring, pain management, encouragement to drink adequate water intake daily, encouraged performance of ADLs and participation on the unit, provided reality orientation, distraction, direction, positive reinforcement, and maintained Q15 min safety checks. Response: Patient was found sitting on edge of bed at beginning of shift. Patient was very short with nurse giving abrupt answers. Patient took all medications without issue. Patient spent majority of shift in room seeping except for brief stints in the community room. Patient uses walker to get around but was seen stopping to sit in every chair a long the way to her bedroom. Plan: Patient requires medication adjustments and a safe environment with redirection for behavior
[2022-07-28 19:00] VITALS: BP_SYST 125; BP_SYST 129; BP_DIAS 74; BP_DIAS 77
[2022-07-28] MEDS: clozapine 100mg tablet PO SCH (21:07)
[2022-07-28] MEDS: NICOTINE POLACRILEX 2 MG LOZENGE BC PRN (21:07)
[2022-07-28] MEDS: polyethylene glycol 3350 17gm powd pack PO SCH (21:19)
--- NOTE | 2022-07-29 05:31 | NUR ---
Nursing Progress Note: C.V. Problem: Pt admitted to [facility] today from our ER at 1556 on 5150 for DTS. Pt appears guarded with responses. She appears slightly energetic and then agitated. She cannot identify viable plan for housing reporting "I dont know." Pt has history of Diabetes, Bipolar, Schizophrenia, seizures. Interventions: 1:1 assessment, therapeutic conversation, active listening, maintained a safe and supportive environment, medication administration/education/monitoring, pain management, encouragement to drink adequate water intake daily, encouraged performance of ADLs and participation on the unit, provided reality orientation, distraction, direction, positive reinforcement, and maintained Q15 min safety checks. Response: Pt pleasant during 1:1 assessment. PT denies AH, VH, SI, HI. Balance Wheel Facer observed pt responding to internal stimuli ASB pt having conversation with self. Pt cooperative with removing Nicotine patch. Pt accessed Nicotine lozenges during Hs medication pass. Pt encouraged to use call light system if pt feels unsteady to ambulate to nurses station during night time hours Plan: Patient requires medication adjustments and a safe environment with redirection for behavior
[2022-07-29 08:00] VITALS: BP 112/67
[2022-07-29] MEDS: linagliptin 5mg tablet PO SCH (08:35)
[2022-07-29] MEDS: benztropine 1mg tablet PO SCH ×2 (08:35→20:45)
[2022-07-29] MEDS: nicotine 21mg patch - 24 hr TD SCH (08:35)
[2022-07-29] MEDS: haloperidol 5mg tablet PO SCH ×2 (08:36→20:45)
[2022-07-29] MEDS: multivitamins, therapeutics tablet PO SCH (08:36)
[2022-07-29] MEDS: LORazepam 0.5 MG tablet PO SCH ×2 (08:36→20:45)
[2022-07-29] MEDS: gabapentin 300mg capsule PO SCH ×3 (08:36→20:45)
[2022-07-29] MEDS: atorvastatin 10mg tablet PO SCH (08:37)
[2022-07-29] MEDS: levetiracetam 250mg tablet PO SCH ×2 (08:37→20:45)
[2022-07-29] MEDS: oxybutynin 5mg tablet PO SCH ×4 (08:37→20:45)
[2022-07-29] MEDS: losartan 25mg tablet PO SCH (08:37)
[2022-07-29] MEDS: clozapine 25mg tablet PO SCH ×2 (08:39→12:38)
[2022-07-29] MEDS: PALIPERIDONE 3 MG TAB.ER.24 PO SCH ×2 (08:39→12:38)
--- NOTE | 2022-07-29 15:52 | NUR ---
Nursing Progress Note: Problem: Pt admitted to [facility] today from our on a 5150 for DTS. She cannot identify viable plan for housing reporting "I dont know." Pt has history of Diabetes, Bipolar, Schizophrenia, seizures. Interventions: 1:1 assessment with therapeutic communication with active listening; medication administration/education/monitoring, encouraged performance of ADLs and participation on the unit, provided reality orientation, distraction, positive reinforcement, and maintained Q15 min safety checks. Response: Patient observed sleeping at beginning of shift. Pt up for meals. Compliant with medication pass. Patient is polite and thankful towards this nurse. She spent most of the day in her room listening to music on headphones. Plan: Patient requires medication adjustments and a safe environment with redirection for behavior
[2022-07-29 19:00] VITALS: BP 129/74
[2022-07-29] MEDS: clozapine 100mg tablet PO SCH (20:45)
[2022-07-29] MEDS: polyethylene glycol 3350 17gm powd pack PO SCH (20:45)
[2022-07-29] MEDS: NICOTINE POLACRILEX 2 MG LOZENGE BC PRN (20:56)
--- NOTE | 2022-07-30 05:11 | NUR ---
Nursing Progress Note:Eduarda Problem: Pt admitted to [facility] today from our on a 5150 for DTS. She cannot identify viable plan for housing reporting "I dont know." Pt has history of Diabetes, Bipolar, Schizophrenia, seizures. Interventions: 1:1 assessment with therapeutic communication with active listening; medication administration/education/monitoring, encouraged performance of ADLs and participation on the unit, provided reality orientation, distraction, positive reinforcement, and maintained Q15 min safety checks. Response: Received pt in her room singing to the music on the headphones. Pt is calm and cooperative. Pt denies SI/HI/AVH. Pt denies having any depression or anxiety. Pt uses a FWW to ambulate, has a steady gait, no falls. Pt is medication compliant and took a nicotine lozenge after giving music writer her nicotine patch. Pt is visible on unit, can out to snack and interacts with a few peers. Monitor for safety q15 minutes. Plan: Patient requires medication adjustments and a safe environment with redirection for behavior
[2022-07-30 07:30] VITALS: BP 94/59
[2022-07-30 08:00] VITALS: BP 112/71
[2022-07-30] MEDS: losartan 25mg tablet PO SCH (08:00)
[2022-07-30] MEDS: multivitamins, therapeutics tablet PO SCH (08:08)
[2022-07-30] MEDS: nicotine 21mg patch - 24 hr TD SCH (08:08)
[2022-07-30] MEDS: benztropine 1mg tablet PO SCH ×2 (08:09→20:22)
[2022-07-30] MEDS: atorvastatin 10mg tablet PO SCH (08:09)
[2022-07-30] MEDS: LORazepam 0.5 MG tablet PO SCH ×2 (08:09→20:22)
[2022-07-30] MEDS: gabapentin 300mg capsule PO SCH ×3 (08:09→20:22)
[2022-07-30] MEDS: levetiracetam 250mg tablet PO SCH ×2 (08:09→20:22)
[2022-07-30] MEDS: PALIPERIDONE 3 MG TAB.ER.24 PO SCH (08:09)
[2022-07-30] MEDS: linagliptin 5mg tablet PO SCH (08:09)
[2022-07-30] MEDS: oxybutynin 5mg tablet PO SCH ×4 (08:09→20:22)
[2022-07-30] MEDS: clozapine 25mg tablet PO SCH ×2 (08:15→12:19)
--- NOTE | 2022-07-30 16:22 | NUR ---
Nursing Progress Note: Eduarda Problem: Pt admitted to [facility] today from our on a 5150 for DTS. She cannot identify viable plan for housing reporting "I dont know." Pt has history of Diabetes, Bipolar, Schizophrenia, seizures. Interventions: 1:1 assessment with therapeutic communication with active listening; medication administration/education/monitoring, encouraged performance of ADLs and participation on the unit, provided reality orientation, distraction, positive reinforcement, and maintained Q15 min safety checks. Response: Patient is pleasant and cooperative this shift; she remains med compliant. Shes noted utilizing 4WW to ambulate on unit, shes observed up for meals/snacks and occasionally spends time in the community room, behaviors are appropriate. She often smiles at staff and listens to music on the headphones. Retreats back to her room to rest throughout the day. Patient continues to deny SI/HI and AVH, but noted talking in her sleep requesting that someone feed somebody else. Plan: Patient requires medication adjustments and a safe environment with redirection for behavior
[2022-07-30 20:00] VITALS: BP 129/64
[2022-07-30] MEDS: haloperidol 5mg tablet PO SCH (20:22)
[2022-07-30] MEDS: clozapine 100mg tablet PO SCH (20:22)
[2022-07-30] MEDS: polyethylene glycol 3350 17gm powd pack PO SCH (20:23)
[2022-07-30] MEDS: NICOTINE POLACRILEX 2 MG LOZENGE BC PRN (20:31)
--- NOTE | 2022-07-31 04:18 | NUR ---
Nursing Progress Note: Eduarda Problem: Pt admitted to [facility] today from our on a 5150 for DTS. She cannot identify viable plan for housing reporting "I dont know." Pt has history of Diabetes, Bipolar, Schizophrenia, seizures. Interventions: 1:1 assessment with therapeutic communication with active listening; medication administration/education/monitoring, encouraged performance of ADLs and participation on the unit, provided reality orientation, distraction, positive reinforcement, and maintained Q15 min safety checks. Response: Received pt in her bed, she is talking in her sleep. When travel writer asked her roommate a question she would answer the question. Pt is pleasant and cooperative. Pt uses a FWW to ambulate, she has a steady gait. Pt gave travel writer her nicotine patch and asked for a nicotine lozenge with her meds. Pt is medication compliant tonight. Pt denies side effects from medications. Pt denies SI/HI/AVH. Pt is RIS and uses the headphones when they are available to help her distract from the voices. Monitor for safety q15 minutes. Plan: Patient requires medication adjustments and a safe environment with redirection for behavior
[2022-07-31 07:30] VITALS: BP 97/57
[2022-07-31] MEDS: levetiracetam 250mg tablet PO SCH (07:58)
[2022-07-31] MEDS: linagliptin 5mg tablet PO SCH (07:59)
[2022-07-31] MEDS: LORazepam 0.5 MG tablet PO SCH (07:59)
[2022-07-31] MEDS: clozapine 25mg tablet PO SCH ×2 (07:59→13:11)
[2022-07-31] MEDS: multivitamins, therapeutics tablet PO SCH (07:59)
[2022-07-31] MEDS: gabapentin 300mg capsule PO SCH ×2 (07:59→13:11)
[2022-07-31] MEDS: benztropine 1mg tablet PO SCH (07:59)
[2022-07-31] MEDS: atorvastatin 10mg tablet PO SCH (07:59)
[2022-07-31] MEDS: PALIPERIDONE 3 MG TAB.ER.24 PO SCH (07:59)
[2022-07-31] MEDS: oxybutynin 5mg tablet PO SCH ×2 (07:59→13:11)
[2022-07-31 08:00] VITALS: BP_SYST 97
[2022-07-31] MEDS: losartan 25mg tablet PO SCH (08:00)
[2022-07-31] MEDS: nicotine 21mg patch - 24 hr TD SCH (08:02)
[2022-07-31] MEDS: magnesium hydroxide 30ml (MOM) UD suspension PO PRN (13:47)
--- NOTE | 2022-07-31 13:50 | NUR ---
5250 for GD released
--- NOTE | 2022-07-31 14:54 | NUR ---
Pt refused D/C pictures Addendum: 07/31/22 at 1454 by Julia Gomez RN Amended: Links added.
[2022-07-31] MEDS ORDERED: NICO-687 TD (15:15)
[2022-07-31] MEDS ORDERED: NICO-907 BC (15:15)
--- NOTE | 2022-07-31 15:43 | NUR ---
Nursing Progress Note: Eduarda Problem: Pt admitted to [facility] today from our on a 5150 for DTS. She cannot identify viable plan for housing reporting "I dont know." Pt has history of Diabetes, Bipolar, Schizophrenia, seizures. Interventions: 1:1 assessment with therapeutic communication with active listening; medication administration/education/monitoring, encouraged performance of ADLs and participation on the unit, provided reality orientation, distraction, positive reinforcement, and maintained Q15 min safety checks. Response: Patient is cooperative this shift; remains med compliant. She is pleasant at times, her mood can change quickly. Participated in an enjoyable conversation this morning until interview about AVH and then she became flat and very selective with responses. Continues to deny SI/HI/AVH, though observed possibly responding to internal stimuli. She is observed up on the unit for meals utilizing a 4WW, does not seem to socialize much but appears to enjoy sitting in the community room watching TV. Often retreats back to her room for a nap. Patient showered this shift. She met with patient advocates this shift and participated in her hearing. Discharge education provided, patient states understanding. Paper work reviewed and signed by patient. Plan: Patient requires medication adjustments and a safe environment with redirection for behavior
--- NOTE | 2022-07-31 15:45 | NUR ---
DISCHARGE NOTE Patient met with patient advocates this shift and participated in her hearing. Discharge education provided, patient states understanding. Paper work reviewed and signed by patient. All belongings accounted for and sent with patient. She was assisted out of facility by staff via w/c. Patient independent into [facility] vehicle for transport home.
== END 2022-07-31 15:45 | disposition home or self-care (01) | DRG 885 ==
LOC: ER 16:07 → ED HOLD 07-24 14:00 → ADULT MH 07-24 16:08
PROVIDERS: ADMIT Psychiatry & Neurology Psychiatry; ATTEND Psychiatry & Neurology Psychiatry
DX: F25.0 Schizoaffective disorder, bipolar type (principal); N39.0 Urinary tract infection, site not specified; F31.9 Bipolar disorder, unspecified; E78.00 Pure hypercholesterolemia, unspecified; F17.200 Nicotine dependence, unspecified, uncomplicated; G40.909 Epilepsy, unspecified, not intractable, without status epilepticus; Z20.822 Contact with and (suspected) exposure to COVID-19; I10 Essential (primary) hypertension; E11.40 Type 2 diabetes mellitus with diabetic neuropathy, unspecified; Z79.84 Long term (current) use of oral hypoglycemic drugs; Z87.11 Personal history of peptic ulcer disease; Z88.0 Allergy status to penicillin; Z88.6 Allergy status to analgesic agent; Z90.711 Acquired absence of uterus with remaining cervical stump
CPT/HCPCS: 36415; 80053; 80305; 80320; 81001; 81025; 83036; 84443; 85025; 87081; 87811; 99285; A6258; J2060

== ENCOUNTER 2022-08-04 13:19 | Emergency (ER) | payer MEDICARE, MEDICAID ==
[~2022-08-04] VITALS: Ht 165.1 cm; Wt 84.1 kg
[~2022-08-04 13:19] MED LIST changes: +CLON0.122 PO; -CLON0.123 PO; -CLOZ100T21 PO; +HALO10TA13 PO; +NICO-687 TD; +NICO-907 BC; +PALI3TAB PO; -PIOG15TA67 PO; +SITA25TA3 PO
[2022-08-04] MEDS ORDERED: LORazepam 1 MG tablet PO ONE (14:30)
[2022-08-04 15:01] LABS: BASOPHILS # (AUTO) 0.1 X10'3 (0-0.2); BASOPHILS % (AUTO) 0.8 % (0-1); EOSINOPHILS # (AUTO) 0.1 X10'3 (0-0.9); EOSINOPHILS % (AUTO) 0.9 % (0-6); HEMATOCRIT 38.6 % (35.0-45.0); HEMOGLOBIN 13.1 g/dl (12.0-16.0); LYMPHOCYTES # (AUTO) 1.2 X10'3 (1.1-4.8); LYMPHOCYTES % (AUTO) 18.4 % (21-51); MEAN CORPUSCULAR HEMOGLOBIN 30.2 PG (27.0-31.0); MEAN CORPUSCULAR HGB CONC 33.9 g/dL (33.0-36.5); MEAN PLATELET VOLUME 6.9 FL (7.4-10.4); MONOCYTES # (AUTO) 0.5 X10'3 (0-0.9); MONOCYTES % (AUTO) 7.1 % (2-12); NEUTROPHILS # (AUTO) 4.9 X10'3 (1.8-7.7); NEUTROPHILS % (AUTO) 72.8 % (42-75); PLATELET COUNT 298 X10'3 (140-440); RED BLOOD COUNT 4.34 X10'6 (4.20-5.60); RED CELL DISTRIBUTION WIDTH 13.7 % (11.5-14.5); WHITE BLOOD COUNT 6.7 X10'3 (4.5-11.0)
[2022-08-04 15:13] LABS: GLUCOSE, URINE NEGATIVE (Neg); KETONES,URINE NEGATIVE (Neg); LEUKOCYTE ESTERASE ,URINE MODERATE (Neg); NITRITES, URINE NEGATIVE (Neg); OCCULT BLOOD,URINE NEGATIVE (Neg); PH,URINE 6.5 (4.8-8.0); PROTEIN,URINE NEGATIVE (Neg); UROBILINOGEN,URINE 0.2 E.U/dL (0.2-1.0)
[2022-08-04 15:15] LABS: CLARITY,URINE SLIGHTLY CLOUDY (Clear); COLOR,URINE STRAW (Yellow); UA COLLECTION TYPE NON-SPECIFIED
[2022-08-04 15:18] LABS: ALANINE AMINOTRANSFERASE 69 U/L (12-78); ALBUMIN 4.6 G/DL (3.4-5.0); ALBUMIN/GLOBULIN RATIO 1.4 (1.1-1.5); ALKALINE PHOSPHATASE 99 IU/L (46-116); ANION GAP 14 (8-16); ASPARTATE AMINO TRANSFERASE 27 U/L (10-37); BILIRUBIN,TOTAL 0.5 MG/DL (0.1-1.0); BLOOD UREA NITROGEN 15 MG/DL (7-18); BUN/CREATININE RATIO 12.7 (10.0-20.0); CALCIUM 9.5 MG/DL (8.5-10.1); CHLORIDE 101 MMOL/L (99-107); CREATININE 1.18 MG/DL (0.40-0.90); GLUCOSE 141 MG/DL (70-104); POTASSIUM 3.9 MMOL/L (3.5-5.1); SODIUM 140 MMOL/L (135-145); eGFR 48 ML/MIN
[2022-08-04 15:19] LABS: BACTERIA,URINE FEW /HPF (Neg); MUCUS STRANDS NONE SEEN /LPF (Neg); RBC,URINE 0-2 /HPF (0-2); SQUAMOUS EPITHELIAL CELL,UR NONE SEEN /LPF (FEW); TRANSITIONAL EPI CELLS,URINE FEW /HPF; WBC CLUMPS,URINE FEW /HPF (NEGATIVE)
[2022-08-04 15:29] LABS: URINE AMPHETAMINE SCREEN NEGATIVE (Neg); URINE BARBITUATE SCREEN NEGATIVE (Neg); URINE BENZODIAZEPINES SCREEN NEGATIVE (Neg); URINE CANNABINOID SCREEN NEGATIVE (Neg); URINE COCAINE SCREEN NEGATIVE (Neg); URINE METHADONE SCREEN NEGATIVE (Neg); URINE OPIATE SCREEN NEGATIVE (Neg); URINE PHENCYCLIDINE SCREEN NEGATIVE (Neg)
[2022-08-04] MEDS ORDERED: FOSFOMYCIN TROMETHAMINE 3 GM PACKET PO ONE (15:40)
--- NOTE | 2022-08-04 19:29 | NUR ---
PT IS UNABLE TO PARTICIPATE IN THE GENERAL ASSESSMENT AT THIS TIME. PT DOES NOT APPEAR TO BE IN ANY DISTRESS.
--- NOTE | 2022-08-04 23:01 | NUR ---
pt is asleep on the gurney in er room 15. pt does not appear to be in any distress at this time. rr are equal and unlabored.
[2022-08-05 10:41] VITALS: BP_DIAS 68
[2022-08-05] MEDS: oxybutynin 5mg tablet PO SCH ×2 (17:35→20:47)
--- NOTE | 2022-08-05 18:28 | NUR ---
assumed care of the pt. the patient ate 100% of the dinner tray. pt ambulated to the restroom and is now sitting on the gurney. pt states no needs at this time.
[2022-08-05] MEDS: haloperidol 5mg tablet PO SCH (20:46)
[2022-08-05] MEDS: levetiracetam 250mg tablet PO SCH (20:46)
[2022-08-05] MEDS: benztropine 1mg tablet PO SCH (20:46)
[2022-08-05] MEDS: gabapentin 300mg capsule PO SCH (20:47)
[2022-08-05] MEDS: clonazePAM 0.5mg tablet PO SCH (20:49)
[2022-08-05] MEDS ORDERED: haloperidol 5mg tablet PO SCH (21:00)
--- NOTE | 2022-08-06 03:07 | NUR ---
PT IS AWAKE AND RESPONDING TO INTERNAL STIMULI AT THIS TIME. PT IS TALKING TO HERSELF. PT GIVEN A WARM BLANKET REQUESTED. NO OTHER NEEDS AT THIS TIME.
--- NOTE | 2022-08-06 07:26 | NUR ---
Patient currently asleep at this time, no signs of distress.
[2022-08-06] MEDS ORDERED: PALIPERIDONE 3 MG TAB.ER.24 PO SCH (07:30)
[2022-08-06] MEDS ORDERED: linagliptin 5mg tablet PO SCH (08:00)
[2022-08-06] MEDS ORDERED: atorvastatin 10mg tablet PO SCH (08:00)
[2022-08-06] MEDS ORDERED: losartan 25mg tablet PO SCH (08:00)
--- NOTE | 2022-08-06 09:34 | NUR ---
Report given to TANI Mckoy at [facility]
[2022-08-06] MEDS: benztropine 1mg tablet PO SCH (09:44)
[2022-08-06] MEDS: levetiracetam 250mg tablet PO SCH (09:44)
[2022-08-06] MEDS: gabapentin 300mg capsule PO SCH (09:44)
[2022-08-06] MEDS: oxybutynin 5mg tablet PO SCH (09:44)
[2022-08-06 09:45] VITALS: BP_SYST 116
[2022-08-06] MEDS: haloperidol 5mg tablet PO SCH (09:45)
[2022-08-06] MEDS: clonazePAM 0.5mg tablet PO SCH (09:46)
--- NOTE | 2022-08-06 09:59 | NUR ---
Caught patient talking to herself while I was geting ready to give her morning meds. She also told me "I'm getting to [facility]!"
--- NOTE | 2022-08-06 11:46 | NUR ---
[facility] worker Kymberly called and said that patient has been accepted to [facility] in [place] with chart picker time of 13:30
== END 2022-08-06 14:21 | disposition still patient (30) ==
LOC: ER 13:19
DX: Z73.6 Limitation of activities due to disability (principal); Z20.822 Contact with and (suspected) exposure to COVID-19; N39.0 Urinary tract infection, site not specified; E11.9 Type 2 diabetes mellitus without complications; F31.9 Bipolar disorder, unspecified; Z88.0 Allergy status to penicillin; Z88.5 Allergy status to narcotic agent; Z88.6 Allergy status to analgesic agent
CPT/HCPCS: 36415; 80053; 80305; 81001; 84443; 85025; 87811; 99285

== ENCOUNTER 2023-03-22 16:35 | Inpatient (IN) | payer MEDICARE, MEDICAID ==
[~2023-03-22] VITALS: Ht 162.6 cm; Wt 87.8 kg
[~2023-03-22 16:35] MED LIST changes: -NICO-687 TD; -NICO-907 BC; -OXYB5TAB16 PO; +OXYB5TAB21 PO
[2023-03-22 18:28] LABS: BILIRUBIN,URINE NEGATIVE (Neg); CLARITY,URINE CLEAR (Clear); COLOR,URINE YELLOW (Yellow); GLUCOSE, URINE NEGATIVE (Neg); KETONES,URINE NEGATIVE (Neg); LEUKOCYTE ESTERASE ,URINE NEGATIVE (Neg); NITRITES, URINE NEGATIVE (Neg); OCCULT BLOOD,URINE NEGATIVE (Neg); PROTEIN,URINE NEGATIVE (Neg); UROBILINOGEN,URINE 0.2 E.U/dL (0.2-1.0)
[2023-03-22 18:30] LABS: URINE HCG NEGATIVE (NEG)
[2023-03-22 18:34] LABS: UA COLLECTION TYPE VOIDED
[2023-03-22 18:44] LABS: URINE AMPHETAMINE SCREEN NEGATIVE (Neg); URINE BARBITUATE SCREEN NEGATIVE (Neg); URINE BENZODIAZEPINES SCREEN NEGATIVE (Neg); URINE CANNABINOID SCREEN NEGATIVE (Neg); URINE COCAINE SCREEN NEGATIVE (Neg); URINE METHADONE SCREEN NEGATIVE (Neg); URINE OPIATE SCREEN NEGATIVE (Neg); URINE PHENCYCLIDINE SCREEN NEGATIVE (Neg)
[2023-03-23] MEDS ORDERED: benzocaine/menthol oral lozeng 1 EACH BOX MM PRN
[2023-03-23] MEDS ORDERED: HALLS - SOOTHE MENTHOL 1.8 MG cough drop LOZENGE MM PRN (00:09)
[2023-03-23 00:20] LABS: BASOPHILS % (AUTO) 0.4 % (0-1); EOSINOPHILS # (AUTO) 0.4 X10'3 (0-0.9); EOSINOPHILS % (AUTO) 5.1 % (0-6); HEMATOCRIT 35.3 % (35.0-45.0); HEMOGLOBIN 11.9 g/dl (12.0-16.0); LYMPHOCYTES # (AUTO) 1.8 X10'3 (1.1-4.8); LYMPHOCYTES % (AUTO) 25.8 % (21-51); MEAN CORPUSCULAR HEMOGLOBIN 29.8 PG (27.0-31.0); MEAN CORPUSCULAR HGB CONC 33.8 g/dL (33.0-36.5); MEAN CORPUSCULAR VOLUME 88.1 FL (78-98); MEAN PLATELET VOLUME 7.2 FL (7.4-10.4); MONOCYTES # (AUTO) 0.7 X10'3 (0-0.9); MONOCYTES % (AUTO) 9.8 % (2-12); NEUTROPHILS # (AUTO) 4.1 X10'3 (1.8-7.7); NEUTROPHILS % (AUTO) 58.9 % (42-75); PLATELET COUNT 295 X10'3 (140-440); RED CELL DISTRIBUTION WIDTH 13.7 % (11.5-14.5); WHITE BLOOD COUNT 6.9 X10'3 (4.5-11.0)
[2023-03-23 00:31] LABS: ALBUMIN 2.9 G/DL (3.4-5.0); ANION GAP 6 (8-16); BLOOD UREA NITROGEN 18 MG/DL (7-18); BUN/CREATININE RATIO 18.4 (10.0-20.0); CALCIUM 7.9 MG/DL (8.5-10.1); CHLORIDE 101 MMOL/L (99-107); CREATININE 0.98 MG/DL (0.40-0.90); GLUCOSE 214 MG/DL (70-104); POTASSIUM 4.1 MMOL/L (3.5-5.1); SODIUM 138 MMOL/L (135-145); TOTAL CARBON DIOXIDE 31.5 MMOL/L (24-32); eCRCL 55 ML/MIN; eGFR 59 ML/MIN
[2023-03-23 00:38] LABS: ETHANOL < 10 MG/DL (<10)
[2023-03-23] MEDS ORDERED: ACET-1008 PO (09:25)
[2023-03-23] MEDS ORDERED: CLON0.1T PO (09:38)
[2023-03-23] MEDS ORDERED: diphenhydrAMINE 50 mg/ml inj IM ONE (09:55)
[2023-03-23] MEDS: LORazepam 2 mg/ml vial IM ONE ×2 (10:33→11:50)
[2023-03-23] MEDS: ziprasidone IM 20mg inj **IM only IM ONE ×2 (10:42→23:26)
[2023-03-23] MEDS: diphenhydrAMINE 50 mg/ml inj IM ONE (11:50)
[2023-03-23] MEDS: LORazepam 1 MG tablet PO ONE ×2 (20:00→21:13)
[2023-03-23] MEDS: OLANZapine 5mg rapidly disint. tablet PO ONE (20:00)
[2023-03-23] MEDS: diphenhydrAMINE 25mg capsule PO ONE (20:43)
[2023-03-23] MEDS: OLANZapine 2.5MG tablet PO ONE (20:43)
[2023-03-24] MEDS ORDERED: HYDR50CA5 PO (09:21)
[2023-03-24] MEDS ORDERED: LEVE750T PO (09:21)
[2023-03-24] MEDS ORDERED: LINA5TAB4 PO (09:21)
[2023-03-24] MEDS ORDERED: ATOR20TA66 PO (09:21)
[2023-03-24] MEDS ORDERED: LAMO200T10 PO (09:21)
[2023-03-24] MEDS: LORazepam 2 mg/ml vial IM ONE ×2 (09:22→19:43)
[2023-03-24] MEDS: ziprasidone IM 20mg inj **IM only IM ONE (11:55)
[2023-03-24] MEDS: gabapentin 300mg capsule PO SCH (13:45)
[2023-03-24] MEDS: haloperidol lactate 5mg/ml inj IM ONE ×2 (19:48→20:18)
[2023-03-24] MEDS: levetiracetam 250mg tablet PO SCH (20:19)
[2023-03-25] MEDS: linagliptin 5mg tablet PO SCH (08:00)
[2023-03-25] MEDS: cloNIDine 0.1 mg tablet PO SCH (08:56)
[2023-03-25] MEDS: atorvastatin 20mg tablet PO SCH (08:56)
[2023-03-25] MEDS: lamoTRIgine 100mg tablet PO SCH (08:56)
[2023-03-25] MEDS: hydrOXYzine 25 MG tablet PO PRN (08:56)
[2023-03-25] MEDS: nicotine 21mg patch - 24 hr TD SCH (12:17)
[2023-03-25] MEDS: diphenhydrAMINE 50 mg/ml inj IM ONE ×4 (15:29→22:32)
[2023-03-25] MEDS: haloperidol lactate 5mg/ml inj IM ONE ×2 (15:29→22:37)
[2023-03-25] MEDS: LORazepam 2 mg/ml vial IM ONE ×3 (15:29→22:33)
[2023-03-26] MEDS ORDERED: nicotine 21mg patch - 24 hr TD SCH (11:34)
[2023-03-28] MEDS: OLANZapine **IM** 10 mg inj. IM ONE (10:44)
[2023-03-28] MEDS: diphenhydrAMINE 50 mg/ml inj IM ONE (18:37)
[2023-03-28] MEDS: haloperidol lactate 5mg/ml inj IM ONE (18:38)
[2023-03-28] MEDS: LORazepam 2 mg/ml vial IM ONE (18:38)
[2023-03-28] MEDS: haloperidol lactate 5mg/ml inj ONE (18:38)
[2023-03-29] MEDS: haloperidol lactate 5mg/ml inj IM ONE ×2 (20:05→22:11)
[2023-03-29] MEDS: diazepam inj 5 MG/ML inj. IM ONE (20:05)
[2023-03-29] MEDS: diphenhydrAMINE 50 mg/ml inj IM ONE (20:05)
[2023-03-29] MEDS: gabapentin 300mg capsule PO PRN (21:30)
[2023-03-30] MEDS: haloperidol lactate 5mg/ml inj IM ONE (15:15)
[2023-03-30] MEDS: diphenhydrAMINE 50 mg/ml inj IM ONE (15:15)
[2023-03-30 16:35] VITALS: BP 124/70; PULSE 84; RESP 18; TEMP 97.3; O2SAT 98
[2023-03-30 17:07] VITALS: RESP 18; O2SAT 98
[2023-03-30] MEDS ORDERED: mag hydrox/Alum hydrox/simeth 30ml oral suspension PO PRN (17:35)
[2023-03-30 20:00] VITALS: BP 134/60; PULSE 86; RESP 18; TEMP 97.6; O2SAT 98
[2023-03-31] MEDS: quetiapine 100mg tablet PO PRN (00:03)
[2023-03-31] MEDS: haloperidol lactate 5mg/ml inj IM ONE (02:22)
[2023-03-31] MEDS: diphenhydrAMINE 50 mg/ml inj IM ONE (02:23)
[2023-03-31] MEDS: LORazepam 2 mg/ml vial IM ONE (02:23)
[2023-03-31] MEDS: diphenhydrAMINE 50 mg/ml inj ONE (02:24)
[2023-03-31] MEDS: LORazepam 2 mg/ml vial ONE (02:24)
[2023-03-31 07:00] VITALS: RESP 14
[2023-03-31 08:00] VITALS: RESP 14
[2023-03-31 19:00] VITALS: RESP 15; O2SAT 98
[2023-03-31 20:00] VITALS: BP 118/53; PULSE 86; RESP 15; TEMP 98.7; O2SAT 98
[2023-03-31] MEDS: lamoTRIgine 100mg tablet PO SCH (21:05)
[2023-03-31] MEDS: gabapentin 300mg capsule PO SCH (21:05)
[2023-04-01 07:00] VITALS: RESP 16; O2SAT 93
[2023-04-01] MEDS: haloperidol 5mg tablet PO PRN (07:22)
[2023-04-01 07:30] VITALS: BP 99/43; PULSE 67; RESP 16; TEMP 97.9; O2SAT 93
[2023-04-01 08:40] VITALS: BP 119/70; PULSE 90
[2023-04-01] MEDS: magnesium hydroxide 30ml (MOM) UD suspension PO ONE (15:28)
[2023-04-01 19:00] VITALS: RESP 16; O2SAT 97
[2023-04-01] MEDS ORDERED: ibuprofen tablet 400 MG TABLET PO PRN (19:05)
[2023-04-01] MEDS: ibuprofen 200mg tablet PO PRN (19:23)
[2023-04-01 20:00] VITALS: BP 114/70; PULSE 74; RESP 16; TEMP 97.7; O2SAT 97
[2023-04-01] MEDS: docusate sod 100mg capsule PO SCH (20:10)
[2023-04-02 07:00] VITALS: BP 108/60; PULSE 67; RESP 14; TEMP 97.2; O2SAT 95
[2023-04-02] MEDS: LORazepam 2 mg/ml vial ONE (17:36)
[2023-04-02 19:00] VITALS: BP 142/80; PULSE 83; RESP 18; TEMP 97.7; O2SAT 96
[2023-04-02] MEDS: LORazepam 1 MG tablet PO SCH (20:46)
[2023-04-03 07:00] VITALS: RESP 16; O2SAT 96
[2023-04-03 07:55] VITALS: BP 125/56; PULSE 82; RESP 16; TEMP 97.4; O2SAT 96
[2023-04-03 19:00] VITALS: BP 124/66; PULSE 94; RESP 16; TEMP 97.7; O2SAT 97
[2023-04-04] MEDS: LORazepam 2 mg/ml vial IM ONE (01:20)
[2023-04-04] MEDS: diphenhydrAMINE 50 mg/ml inj IM ONE (01:21)
[2023-04-04] MEDS: haloperidol lactate 5mg/ml inj IM ONE (01:21)
[2023-04-04] MEDS: diphenhydrAMINE 50 mg/ml inj ONE (01:21)
[2023-04-04] MEDS: LORazepam 2 mg/ml vial ONE (01:21)
[2023-04-04] MEDS: haloperidol lactate 5mg/ml inj ONE (01:22)
[2023-04-04 07:59] VITALS: RESP 18; O2SAT 97
[2023-04-04 08:18] LABS: CHOL/HDL RATIO 2.1 (0.00-4.99); CHOLESTEROL 152 MG/DL (0-200); HDL CHOLESTEROL 71 MG/DL (35-60); LDL CHOLESTEROL 71 MG/DL (50-100); TRIGLYCERIDES 80 MG/DL (20-135)
[2023-04-04 08:25] VITALS: BP 115/60; PULSE 79; RESP 18; TEMP 97.9; O2SAT 97
[2023-04-04] MEDS: haloperidol 5mg tablet PO SCH (17:23)
[2023-04-04 20:00] VITALS: BP 130/75; PULSE 92; RESP 16; TEMP 98.5; O2SAT 97
[2023-04-05 08:29] VITALS: BP 110/72; PULSE 76; RESP 16; TEMP 97.5; O2SAT 96
[2023-04-05 20:00] VITALS: BP 120/57; PULSE 85; RESP 18; TEMP 97.4; O2SAT 97
[2023-04-06 07:11] VITALS: RESP 16
[2023-04-06] MEDS: haloperidol decanoate 50mg/ml 1ml**long-acting** injection IM ONE (07:56)
[2023-04-06] MEDS: divalproex sod 125mg sprinkle cap PO SCH (17:59)
[2023-04-06 19:22] VITALS: BP 119/56; PULSE 85; RESP 16; TEMP 98; O2SAT 98
[2023-04-06] MEDS: LORazepam 0.5 MG tablet PO SCH (20:03)
[2023-04-06] MEDS: lamoTRIgine 25mg tablet PO SCH (20:04)
[2023-04-07 08:00] VITALS: BP 133/86; PULSE 68; RESP 16; TEMP 97.6; O2SAT 97
[2023-04-07 20:00] VITALS: RESP 15
[2023-04-07] MEDS: lamoTRIgine 100mg tablet PO SCH (20:41)
[2023-04-08 07:00] VITALS: BP 138/72; PULSE 90; RESP 16; TEMP 97.7; O2SAT 96
[2023-04-08] MEDS ORDERED: haloperidol lactate 5mg/ml inj IM PRN (17:55)
[2023-04-08 19:00] VITALS: RESP 18
[2023-04-08 20:00] VITALS: RESP 18
[2023-04-09 07:30] VITALS: RESP 16
[2023-04-09 07:39] VITALS: RESP 16
[2023-04-09 19:00] VITALS: BP 133/83; PULSE 90; RESP 18; O2SAT 97
[2023-04-09 20:00] VITALS: BP 133/83; PULSE 90; RESP 16; TEMP 97.7; O2SAT 97
[2023-04-10] VITALS (9 sets, daily range): BP systolic 133–164; BP diastolic 86–105; PULSE 88–96; RESP 16; TEMP 97.1–98.3; O2SAT 96
[2023-04-10] MEDS ORDERED: haloperidol decanoate***LONG-ACTING*** 100mg/ml **IM only** inj. IM ONE (14:15)
[2023-04-11 07:00] VITALS: RESP 16
[2023-04-11 08:00] VITALS: RESP 16
[2023-04-11 20:00] VITALS: BP 162/99; PULSE 87; RESP 15; TEMP 97.8; O2SAT 95
[2023-04-12 07:00] VITALS: RESP 16
[2023-04-12 07:40] VITALS: RESP 16
[2023-04-12] MEDS: haloperidol 5mg tablet PO SCH (17:28)
[2023-04-12 19:00] VITALS: RESP 18; O2SAT 98
[2023-04-12 19:42] VITALS: BP 132/72; PULSE 88; RESP 18; TEMP 97.7; O2SAT 98
[2023-04-12] MEDS: ondansetron 4mg rapidly disintigrating tab PO PRN (19:55)
[2023-04-13 07:00] VITALS: RESP 12; O2SAT 93
[2023-04-13 08:00] VITALS: BP 120/64; PULSE 70; RESP 12; TEMP 97.2; O2SAT 93
[2023-04-13] MEDS: haloperidol 5mg tablet PO SCH (17:30)
[2023-04-13 19:00] VITALS: BP 155/80; PULSE 97; RESP 17; TEMP 98.2; O2SAT 96
[2023-04-14 08:00] VITALS: RESP 16
[2023-04-14 19:00] VITALS: RESP 18; O2SAT 96
[2023-04-14 20:00] VITALS: BP 122/68; PULSE 84; RESP 18; TEMP 98.2; O2SAT 96
[2023-04-15 07:40] VITALS: RESP 18
[2023-04-15 08:00] VITALS: BP 130/86; RESP 17; O2SAT 97
[2023-04-15 09:17] LABS: ALANINE AMINOTRANSFERASE 22 U/L (12-78); ALBUMIN 3.8 G/DL (3.4-5.0); ALBUMIN/GLOBULIN RATIO 1.2 (1.1-1.5); ALKALINE PHOSPHATASE 83 IU/L (46-116); ANION GAP 9 (8-16); ASPARTATE AMINO TRANSFERASE 20 U/L (10-37); BILIRUBIN,TOTAL 0.4 MG/DL (0.1-1.0); BLOOD UREA NITROGEN 16 MG/DL (7-18); BUN/CREATININE RATIO 18.6 (10.0-20.0); CALCIUM 9.5 MG/DL (8.5-10.1); CHLORIDE 106 MMOL/L (99-107); CREATININE 0.86 MG/DL (0.40-0.90); GLUCOSE 112 MG/DL (70-104); POTASSIUM 4.4 MMOL/L (3.5-5.1); SODIUM 143 MMOL/L (135-145); TOTAL CARBON DIOXIDE 28.3 MMOL/L (24-32); TOTAL PROTEIN 7.1 G/DL (6.4-8.2); eCRCL 63 ML/MIN; eGFR 68 ML/MIN
[2023-04-15 09:30] LABS: BASOPHILS # (AUTO) 0.1 X10'3 (0-0.2); BASOPHILS % (AUTO) 0.9 % (0-1); EOSINOPHILS # (AUTO) 0.4 X10'3 (0-0.9); EOSINOPHILS % (AUTO) 6.1 % (0-6); HEMATOCRIT 38.5 % (35.0-45.0); HEMOGLOBIN 12.8 g/dl (12.0-16.0); LYMPHOCYTES % (AUTO) 33.1 % (21-51); MEAN CORPUSCULAR HEMOGLOBIN 29.3 PG (27.0-31.0); MEAN CORPUSCULAR HGB CONC 33.2 g/dL (33.0-36.5); MEAN CORPUSCULAR VOLUME 88.3 FL (78-98); MONOCYTES # (AUTO) 0.4 X10'3 (0-0.9); MONOCYTES % (AUTO) 6.9 % (2-12); NEUTROPHILS # (AUTO) 3.3 X10'3 (1.8-7.7); PLATELET COUNT 273 X10'3 (140-440); RED BLOOD COUNT 4.36 X10'6 (4.20-5.60); WHITE BLOOD COUNT 6.2 X10'3 (4.5-11.0)
[2023-04-15 19:00] VITALS: RESP 18; O2SAT 100
[2023-04-15 20:00] VITALS: BP 118/83; PULSE 85; RESP 18; TEMP 97.8; O2SAT 100
[2023-04-16 07:00] VITALS: RESP 17; RESP 18; O2SAT 96
[2023-04-16 19:00] VITALS: BP 109/77; PULSE 86; RESP 16; TEMP 97.2; O2SAT 99
[2023-04-17 07:47] VITALS: BP 113/61; PULSE 75; RESP 16; TEMP 97.6; O2SAT 100
[2023-04-17 08:11] VITALS: RESP 16
[2023-04-17] MEDS: divalproex sod 125mg sprinkle cap PO SCH (12:26)
[2023-04-17 19:00] VITALS: BP 135/74; PULSE 80; RESP 18; TEMP 97.6; O2SAT 95
[2023-04-18 07:30] VITALS: BP 110/60; PULSE 82; RESP 12; TEMP 97.9; O2SAT 98
[2023-04-18 19:30] VITALS: BP 125/76; PULSE 80; RESP 16; TEMP 97.1; O2SAT 96
[2023-04-19 07:45] VITALS: RESP 12; O2SAT 98
[2023-04-19 08:00] VITALS: BP 124/87; PULSE 94; RESP 16; TEMP 97.5; O2SAT 97
[2023-04-19 19:00] VITALS: RESP 15; O2SAT 97
[2023-04-19 20:00] VITALS: BP 133/76; PULSE 80; RESP 15; TEMP 97.8; O2SAT 97
[2023-04-20 07:00] VITALS: RESP 12; O2SAT 98
[2023-04-20 08:00] VITALS: BP 119/62; PULSE 87; RESP 16; TEMP 97.6; O2SAT 97
[2023-04-20 19:00] VITALS: RESP 18; O2SAT 98
[2023-04-20 20:00] VITALS: BP 153/82; PULSE 82; RESP 18; O2SAT 98
[2023-04-21 07:18] VITALS: RESP 12; O2SAT 98
[2023-04-21 08:00] VITALS: RESP 16
[2023-04-21] MEDS: LORazepam 2 mg/ml vial IM ONE (13:34)
[2023-04-21] MEDS: haloperidol 5mg tablet PO SCH (18:29)
[2023-04-21 19:30] VITALS: RESP 18
[2023-04-22 07:00] VITALS: BP 105/53; PULSE 68; RESP 19; TEMP 98.1; O2SAT 97
[2023-04-22 19:30] VITALS: RESP 16
[2023-04-23 07:00] VITALS: RESP 15; O2SAT 99
[2023-04-23 08:00] VITALS: BP 131/70; PULSE 72; RESP 15; TEMP 97.2; O2SAT 99
[2023-04-23] MEDS: nitrofuran monohydrate/nitrofuran macrocrysal 100 MG (MacroBID) capsule PO SCH (18:04)
[2023-04-23 18:23] LABS: BILIRUBIN,URINE NEGATIVE (Neg); CLARITY,URINE CLEAR (Clear); COLOR,URINE YELLOW (Yellow); GLUCOSE, URINE NEGATIVE (Neg); KETONES,URINE NEGATIVE (Neg); LEUKOCYTE ESTERASE ,URINE SMALL (Neg); NITRITES, URINE NEGATIVE (Neg); OCCULT BLOOD,URINE NEGATIVE (Neg); PROTEIN,URINE NEGATIVE (Neg); UROBILINOGEN,URINE 0.2 E.U/dL (0.2-1.0)
[2023-04-23 18:25] LABS: UA COLLECTION TYPE NON-SPECIFIED
[2023-04-23 18:36] LABS: SQUAMOUS EPITHELIAL CELL,UR FEW /LPF (FEW); TRANSITIONAL EPI CELLS,URINE FEW /HPF
[2023-04-23 18:37] LABS: BACTERIA,URINE FEW /HPF (Neg); MUCUS STRANDS FEW /LPF (Neg); RBC,URINE 0-2 /HPF (0-2); WBC,URINE 0-4 /HPF (0-4)
[2023-04-23 19:46] VITALS: RESP 16; O2SAT 96
[2023-04-23 20:44] VITALS: BP 128/68; PULSE 80; RESP 16; TEMP 98.2; O2SAT 96
[2023-04-24 07:30] VITALS: RESP 16
[2023-04-24] MEDS: NICOTINE POLACRILEX 2 MG LOZENGE BC PRN (16:49)
[2023-04-24 19:00] VITALS: RESP 16; O2SAT 96
[2023-04-24 20:00] VITALS: BP 125/57; PULSE 81; RESP 16; TEMP 97.5; O2SAT 96
[2023-04-25 07:00] VITALS: RESP 16; O2SAT 97
[2023-04-25 08:00] VITALS: BP 112/66; PULSE 84; RESP 16; TEMP 96.8; O2SAT 97
[2023-04-25 19:00] VITALS: RESP 16
[2023-04-25 20:22] VITALS: RESP 16
[2023-04-26 07:00] VITALS: RESP 16
[2023-04-26 19:00] VITALS: RESP 17; O2SAT 96
[2023-04-26 20:00] VITALS: BP 108/60; PULSE 76; RESP 17; TEMP 98.3; O2SAT 96
[2023-04-27 07:00] VITALS: RESP 12; O2SAT 97
[2023-04-27 07:43] VITALS: BP 119/86; PULSE 105; RESP 12; TEMP 97.6; O2SAT 97
[2023-04-27 19:00] VITALS: RESP 17; O2SAT 95
[2023-04-27 20:00] VITALS: BP 104/46; PULSE 80; RESP 17; TEMP 98.2; O2SAT 95
[2023-04-28 07:00] VITALS: RESP 16; O2SAT 96
[2023-04-28 07:45] VITALS: BP 105/71; PULSE 102; RESP 16; TEMP 97.5; O2SAT 96
[2023-04-28] MEDS: lactose-reduced food (Ensure Enlive) - 237ml bottle PO SCH (18:44)
[2023-04-28 19:10] VITALS: RESP 16; O2SAT 97
[2023-04-28 20:00] VITALS: BP 138/64; PULSE 82; RESP 16; TEMP 98.2; O2SAT 97
[2023-04-29 08:00] VITALS: BP 118/56; PULSE 81; RESP 16; TEMP 97.7; O2SAT 97
[2023-04-29 19:00] VITALS: RESP 16; O2SAT 98
[2023-04-29 20:00] VITALS: BP 116/72; PULSE 78; RESP 16; TEMP 98.1; O2SAT 96
[2023-04-30 07:30] VITALS: BP 128/65; PULSE 74; RESP 18; TEMP 96.3; O2SAT 18; O2SAT 96
[2023-04-30 19:00] VITALS: RESP 16; O2SAT 95
[2023-04-30 20:00] VITALS: BP 121/57; PULSE 80; RESP 16; TEMP 97.9; O2SAT 95
[2023-05-01 07:30] VITALS: BP 133/66; PULSE 89; RESP 16; TEMP 97.9; O2SAT 95
[2023-05-01 19:30] VITALS: BP 122/72; PULSE 91; RESP 16; TEMP 97.6; O2SAT 95
[2023-05-02 07:00] VITALS: RESP 16
[2023-05-02 08:00] VITALS: RESP 16
[2023-05-02 19:00] VITALS: RESP 14
[2023-05-02 20:00] VITALS: RESP 15
[2023-05-03 07:25] VITALS: RESP 16
[2023-05-03 07:35] VITALS: BP 118/51; PULSE 66; RESP 15; TEMP 97.7; O2SAT 97
[2023-05-03 19:00] VITALS: RESP 20; O2SAT 97
[2023-05-03 20:00] VITALS: TEMP 97.7
[2023-05-03 22:03] VITALS: BP 127/57; PULSE 89; RESP 20; TEMP 97.4; O2SAT 97
[2023-05-04] MEDS: LORazepam 2 mg/ml vial IM STA (02:53)
[2023-05-04] MEDS: LORazepam 2 mg/ml vial ONE (02:54)
[2023-05-04 07:00] VITALS: RESP 16; O2SAT 95
[2023-05-04 07:16] VITALS: BP 114/61; PULSE 76; RESP 16; TEMP 97.8; O2SAT 95
[2023-05-04 19:00] VITALS: RESP 20; O2SAT 95
[2023-05-04 20:01] VITALS: BP 128/71; PULSE 95; RESP 20; TEMP 97.6; O2SAT 95
[2023-05-05 07:16] VITALS: RESP 16; O2SAT 95
[2023-05-05 07:27] VITALS: RESP 14
[2023-05-05 19:26] VITALS: RESP 19; O2SAT 97
[2023-05-05 20:00] VITALS: BP 137/68; PULSE 73; RESP 19; TEMP 97.8; O2SAT 97
[2023-05-06 07:00] VITALS: RESP 16
[2023-05-06 08:00] VITALS: RESP 16
[2023-05-06] MEDS: haloperidol lactate 5mg/ml inj IM PRN (08:47)
[2023-05-06] MEDS: LORazepam 2 mg/ml vial IM ONE (08:47)
[2023-05-06 19:00] VITALS: RESP 16
[2023-05-07 07:00] VITALS: RESP 18; O2SAT 94
[2023-05-07 07:45] VITALS: BP 120/59; PULSE 94; RESP 18; TEMP 97.5; O2SAT 94
[2023-05-07] MEDS: LIDOcaine 5% patch TP SCH (13:50)
[2023-05-07 19:00] VITALS: RESP 20
[2023-05-07 19:30] VITALS: RESP 18
[2023-05-08 07:00] VITALS: BP 125/70; PULSE 73; RESP 16; TEMP 96.7; O2SAT 96; O2SAT 98
[2023-05-08 19:56] VITALS: RESP 16
[2023-05-09 07:00] VITALS: RESP 15; O2SAT 92
[2023-05-09 07:30] VITALS: BP 134/84; PULSE 85; RESP 15; TEMP 97.1; O2SAT 92
[2023-05-09] MEDS: LIDOcaine 5% patch TP SCH (08:20)
[2023-05-09 09:51] LABS: ALANINE AMINOTRANSFERASE 27 U/L (12-78); ALBUMIN 3.5 G/DL (3.4-5.0); ALKALINE PHOSPHATASE 70 IU/L (46-116); ANION GAP 12 (8-16); ASPARTATE AMINO TRANSFERASE 23 U/L (10-37); BILIRUBIN,TOTAL 0.3 MG/DL (0.1-1.0); BLOOD UREA NITROGEN 23 MG/DL (7-18); BUN/CREATININE RATIO 21.3 (10.0-20.0); CALCIUM 9.1 MG/DL (8.5-10.1); CHLORIDE 98 MMOL/L (99-107); CREATININE 1.08 MG/DL (0.40-0.90); GLUCOSE 204 MG/DL (70-104); POTASSIUM 4.5 MMOL/L (3.5-5.1); SODIUM 136 MMOL/L (135-145); TOTAL CARBON DIOXIDE 26.2 MMOL/L (24-32); TOTAL PROTEIN 7.1 G/DL (6.4-8.2); VALPROATE 52 UG/ML (50-100); eCRCL 50 ML/MIN; eGFR 52 ML/MIN
[2023-05-09 19:40] VITALS: RESP 18; O2SAT 94
[2023-05-09 20:00] VITALS: BP 153/87; PULSE 96; RESP 16; TEMP 98; O2SAT 94
[2023-05-10 07:00] VITALS: RESP 16; O2SAT 96
[2023-05-10 08:00] VITALS: BP 122/70; PULSE 86; RESP 16; TEMP 98.1; O2SAT 96
[2023-05-10 19:00] VITALS: RESP 16; O2SAT 96
[2023-05-10 20:00] VITALS: BP 117/61; PULSE 86; RESP 16; TEMP 98.5; O2SAT 96
[2023-05-11 07:00] VITALS: RESP 20; O2SAT 95
[2023-05-11 07:14] VITALS: BP 130/75; PULSE 77; RESP 20; TEMP 97.7; O2SAT 95
[2023-05-11 07:20] VITALS: BP 130/75; PULSE 77; RESP 20; TEMP 97.7; O2SAT 95
[2023-05-11 19:00] VITALS: RESP 16; O2SAT 95
[2023-05-11 20:00] VITALS: BP 121/74; PULSE 88; RESP 16; TEMP 97.8; O2SAT 95
[2023-05-12 07:00] VITALS: RESP 16; O2SAT 95
[2023-05-12 08:00] VITALS: BP 123/69; PULSE 78; RESP 16; TEMP 96; O2SAT 95
[2023-05-12 19:00] VITALS: RESP 17; O2SAT 95
[2023-05-12 20:00] VITALS: BP 118/53; PULSE 80; RESP 17; TEMP 98.1; O2SAT 95
[2023-05-12] MEDS: diphenhydrAMINE 50 mg/ml inj IM ONE (20:23)
[2023-05-12] MEDS: haloperidol lactate 5mg/ml inj IM ONE (20:23)
[2023-05-12] MEDS: LORazepam 2 mg/ml vial IM ONE (20:24)
[2023-05-13 07:00] VITALS: BP 135/65; PULSE 80; RESP 16; TEMP 98; O2SAT 93
[2023-05-13] MEDS: divalproex sod 125mg sprinkle cap PO SCH ×2 (12:30→21:02)
[2023-05-13 19:00] VITALS: RESP 18
[2023-05-13 20:00] VITALS: RESP 16
[2023-05-13] MEDS: lactose-reduced food (Ensure Enlive) - 237ml bottle PO SCH (20:00)
[2023-05-14 07:00] VITALS: RESP 16; O2SAT 96
[2023-05-14 07:50] VITALS: BP 120/59; PULSE 77; RESP 16; TEMP 98.9; O2SAT 97
[2023-05-14] MEDS: divalproex sod 125mg sprinkle cap PO SCH (13:35)
[2023-05-14 19:25] VITALS: RESP 18
[2023-05-15] MEDS: temazepam 15mg capsule PO PRN (03:04)
[2023-05-15 07:00] VITALS: RESP 17; O2SAT 96
[2023-05-15 07:30] VITALS: BP 115/69; PULSE 83; RESP 17; TEMP 97.2; O2SAT 96
[2023-05-15 19:30] VITALS: BP 118/70; PULSE 72; RESP 16; TEMP 97.2; O2SAT 97
[2023-05-16 07:20] VITALS: RESP 16
[2023-05-16 08:49] VITALS: BP 111/62; PULSE 80; RESP 16; TEMP 97.8; O2SAT 96
[2023-05-16] MEDS: LORazepam 0.5 MG tablet PO SCH (13:15)
[2023-05-16 19:00] VITALS: RESP 18
[2023-05-16] MEDS: traZODone 50mg tablet PO SCH (19:50)
[2023-05-17 08:15] VITALS: BP 110/61; PULSE 90; RESP 16; TEMP 98.9; O2SAT 96
[2023-05-17 14:08] VITALS: RESP 16; O2SAT 96
[2023-05-17 18:59] VITALS: BP 119/74; PULSE 78; RESP 16; TEMP 97.6; O2SAT 95
[2023-05-17 19:00] VITALS: RESP 16; O2SAT 95
[2023-05-17 20:21] VITALS: BP 119/74; PULSE 78; RESP 16; TEMP 97.6; O2SAT 95
[2023-05-18 07:06] VITALS: RESP 16; O2SAT 96
[2023-05-18 08:00] VITALS: BP 114/63; PULSE 81; RESP 16; TEMP 97.7; O2SAT 94
[2023-05-18 19:00] VITALS: RESP 14; O2SAT 94
[2023-05-18 20:00] VITALS: BP 97/42; PULSE 69; RESP 14; TEMP 98.1; O2SAT 94
[2023-05-19 07:03] VITALS: RESP 16; O2SAT 96
[2023-05-19 08:00] VITALS: BP 108/51; PULSE 77; RESP 15; TEMP 97.6; O2SAT 100
[2023-05-19 19:00] VITALS: RESP 16; O2SAT 93
[2023-05-19 20:00] VITALS: BP 108/50; PULSE 71; RESP 16; TEMP 97.8; O2SAT 93
[2023-05-20 07:00] VITALS: RESP 18; O2SAT 94
[2023-05-20 08:00] VITALS: BP 118/47; PULSE 85; RESP 18; TEMP 98.9; O2SAT 94
[2023-05-20 19:00] VITALS: RESP 18; O2SAT 94
[2023-05-20 20:00] VITALS: BP 125/58; PULSE 68; RESP 18; TEMP 97.5; O2SAT 94
[2023-05-21 07:15] VITALS: RESP 18; O2SAT 97
[2023-05-21 08:00] VITALS: BP 127/61; PULSE 80; RESP 18; TEMP 97; O2SAT 97
[2023-05-21 19:24] VITALS: BP 138/72; PULSE 80; RESP 16; TEMP 98.2; O2SAT 98
[2023-05-22 07:00] VITALS: RESP 18; O2SAT 94
[2023-05-22 08:00] VITALS: BP 105/49; PULSE 69; RESP 18; TEMP 97.8; O2SAT 94
[2023-05-22 09:12] VITALS: BP 105/49; PULSE 69; RESP 18; TEMP 97.8; O2SAT 94
[2023-05-22 19:00] VITALS: RESP 18
[2023-05-22 19:24] VITALS: BP 132/68; PULSE 88; RESP 18; TEMP 98; O2SAT 94
[2023-05-22] MEDS: LORazepam 0.5 MG tablet PO SCH (21:00)
[2023-05-22] MEDS: LORazepam 2 mg/ml vial IM ONE (21:32)
[2023-05-23 07:00] VITALS: BP 136/89; PULSE 86; RESP 12; TEMP 98; O2SAT 96
[2023-05-23 19:00] VITALS: RESP 12; O2SAT 96
[2023-05-23 19:21] VITALS: BP 115/45; PULSE 72; RESP 16; TEMP 98.1; O2SAT 95
[2023-05-24 07:00] VITALS: BP 116/74; PULSE 67; RESP 16; TEMP 98.9; O2SAT 92
[2023-05-24 19:34] VITALS: RESP 16; O2SAT 92
[2023-05-24 20:00] VITALS: BP 86/45; PULSE 77; RESP 16; TEMP 98.3; O2SAT 92
[2023-05-25 07:23] VITALS: RESP 16; O2SAT 92
[2023-05-25 08:00] VITALS: BP 100/64; PULSE 91; RESP 14; TEMP 97.5; O2SAT 96
[2023-05-25] MEDS: haloperidol decanoate 50mg/ml 1ml**long-acting** injection IM ONE (17:00)
[2023-05-25 19:00] VITALS: RESP 16; O2SAT 96
[2023-05-25 20:00] VITALS: BP 126/70; PULSE 71; RESP 15; TEMP 97.3; O2SAT 96
[2023-05-26 06:56] VITALS: RESP 16
[2023-05-26 07:10] VITALS: RESP 16; O2SAT 92
[2023-05-26 08:04] VITALS: RESP 16
[2023-05-26 19:14] VITALS: BP 120/83; PULSE 75; RESP 20; TEMP 96.9; O2SAT 96
[2023-05-26] MEDS: temazepam 15mg capsule PO PRN (20:09)
[2023-05-27 07:00] VITALS: RESP 17
[2023-05-27 08:00] VITALS: RESP 16
[2023-05-27] MEDS: OLANZapine 5mg rapidly disint. tablet PO ONE (09:12)
[2023-05-27] MEDS: OLANZapine 5mg rapidly disint. tablet PO PRN (18:27)
[2023-05-27 19:26] VITALS: BP 123/68; PULSE 76; RESP 20; TEMP 97; O2SAT 96
[2023-05-27 20:35] LABS: BILIRUBIN,URINE NEGATIVE (Neg); CLARITY,URINE CLEAR (Clear); COLOR,URINE STRAW (Yellow); GLUCOSE, URINE NEGATIVE (Neg); KETONES,URINE NEGATIVE (Neg); LEUKOCYTE ESTERASE ,URINE SMALL (Neg); NITRITES, URINE NEGATIVE (Neg); OCCULT BLOOD,URINE NEGATIVE (Neg); PROTEIN,URINE NEGATIVE (Neg); UROBILINOGEN,URINE 0.2 E.U/dL (0.2-1.0)
[2023-05-27] MEDS: OLANZapine 5mg rapidly disint. tablet PO SCH (20:35)
[2023-05-27 20:40] LABS: UA COLLECTION TYPE VOIDED
[2023-05-27 20:41] LABS: SQUAMOUS EPITHELIAL CELL,UR FEW /LPF (FEW)
[2023-05-27 20:42] LABS: BACTERIA,URINE 1+ /HPF (Neg); RBC,URINE 0-2 /HPF (0-2); WBC,URINE 0-4 /HPF (0-4)
[2023-05-28 07:00] VITALS: RESP 16; O2SAT 96
[2023-05-28 08:00] VITALS: BP 107/63; PULSE 73; RESP 16; TEMP 98.1; O2SAT 96
[2023-05-28 19:00] VITALS: RESP 19; O2SAT 95
[2023-05-28 19:26] VITALS: BP 113/55; PULSE 81; RESP 19; TEMP 97.2; O2SAT 95
[2023-05-28] MEDS: divalproex sod 125mg sprinkle cap PO SCH (20:51)
[2023-05-29 07:00] VITALS: RESP 14; O2SAT 95
[2023-05-29 08:00] VITALS: BP 108/64; PULSE 68; RESP 14; TEMP 98.3; O2SAT 95
[2023-05-29 19:00] VITALS: RESP 20; O2SAT 95
[2023-05-29 20:18] VITALS: BP 123/74; PULSE 92; RESP 20; TEMP 96.7; O2SAT 95
[2023-05-30 07:00] VITALS: RESP 16; O2SAT 95
[2023-05-30 08:00] VITALS: BP 122/83; PULSE 100; RESP 16; TEMP 97.8; O2SAT 95
[2023-05-30 08:39] LABS: BASOPHILS % (AUTO) 0.8 % (0-1); EOSINOPHILS # (AUTO) 0.3 X10'3 (0-0.9); EOSINOPHILS % (AUTO) 6.2 % (0-6); HEMATOCRIT 41.5 % (35.0-45.0); HEMOGLOBIN 13.9 g/dl (12.0-16.0); LYMPHOCYTES # (AUTO) 1.7 X10'3 (1.1-4.8); LYMPHOCYTES % (AUTO) 35.9 % (21-51); MEAN CORPUSCULAR HEMOGLOBIN 29.4 PG (27.0-31.0); MEAN CORPUSCULAR HGB CONC 33.5 g/dL (33.0-36.5); MEAN CORPUSCULAR VOLUME 87.7 FL (78-98); MEAN PLATELET VOLUME 7.4 FL (7.4-10.4); MONOCYTES # (AUTO) 0.4 X10'3 (0-0.9); MONOCYTES % (AUTO) 9.3 % (2-12); NEUTROPHILS # (AUTO) 2.3 X10'3 (1.8-7.7); NEUTROPHILS % (AUTO) 47.8 % (42-75); PLATELET COUNT 202 X10'3 (140-440); RED BLOOD COUNT 4.73 X10'6 (4.20-5.60); RED CELL DISTRIBUTION WIDTH 13.5 % (11.5-14.5); WHITE BLOOD COUNT 4.7 X10'3 (4.5-11.0)
[2023-05-30 09:00] LABS: ALANINE AMINOTRANSFERASE 12 U/L (12-78); ALBUMIN 3.3 G/DL (3.4-5.0); ALBUMIN/GLOBULIN RATIO 0.8 (1.1-1.5); ALKALINE PHOSPHATASE 60 IU/L (46-116); ANION GAP 7 (8-16); ASPARTATE AMINO TRANSFERASE 10 U/L (10-37); BILIRUBIN,TOTAL 0.4 MG/DL (0.1-1.0); BLOOD UREA NITROGEN 22 MG/DL (7-18); BUN/CREATININE RATIO 22.2 (10.0-20.0); CALCIUM 9.3 MG/DL (8.5-10.1); CHLORIDE 103 MMOL/L (99-107); CREATININE 0.99 MG/DL (0.40-0.90); GLUCOSE 161 MG/DL (70-104); POTASSIUM 4.4 MMOL/L (3.5-5.1); SODIUM 141 MMOL/L (135-145); TOTAL CARBON DIOXIDE 30.8 MMOL/L (24-32); TOTAL PROTEIN 7.2 G/DL (6.4-8.2); eCRCL 55 ML/MIN; eGFR 58 ML/MIN
[2023-05-30 19:00] VITALS: BP 121/60; PULSE 91; RESP 16; TEMP 98.5; O2SAT 97
[2023-05-31 07:00] VITALS: RESP 16; O2SAT 94
[2023-05-31 08:00] VITALS: BP 106/65; PULSE 91; RESP 16; TEMP 96.9; O2SAT 97
[2023-05-31 19:00] VITALS: RESP 16; O2SAT 95
[2023-05-31 19:38] VITALS: BP 118/57; PULSE 84; RESP 16; TEMP 98; O2SAT 95
[2023-06-01 07:00] VITALS: BP 108/72; PULSE 86; RESP 12; TEMP 97.3; O2SAT 96
[2023-06-01] MEDS: OLANZAPINE 5 MG TABLET PO SCH (08:00)
[2023-06-01 19:15] VITALS: BP 129/93; PULSE 88; RESP 16; TEMP 97.3; O2SAT 98
[2023-06-02 07:00] VITALS: BP 122/57; PULSE 79; RESP 16; TEMP 98; O2SAT 95
[2023-06-02 19:00] VITALS: RESP 16; O2SAT 96
[2023-06-02 20:00] VITALS: BP 120/60; PULSE 65; RESP 16; TEMP 97.8; O2SAT 96
[2023-06-03 07:00] VITALS: RESP 18; O2SAT 97
[2023-06-03 08:00] VITALS: BP 103/57; PULSE 69; RESP 18; TEMP 98.6; O2SAT 97
[2023-06-04 07:00] VITALS: RESP 14; O2SAT 94
[2023-06-04 08:00] VITALS: BP 108/54; PULSE 60; RESP 14; TEMP 98.2; O2SAT 94
[2023-06-04 20:00] VITALS: BP 123/69; PULSE 77; RESP 14; TEMP 97.9; O2SAT 96
[2023-06-05 07:00] VITALS: BP 99/53; PULSE 55; RESP 16; TEMP 98.3; O2SAT 96
[2023-06-05 20:35] VITALS: BP 132/60; PULSE 85; RESP 16; TEMP 97; O2SAT 94
[2023-06-06 07:00] VITALS: BP 122/61; PULSE 61; RESP 18; TEMP 97.8; O2SAT 93
[2023-06-06 19:28] VITALS: BP 133/69; PULSE 65; RESP 18; TEMP 97.6; O2SAT 95
[2023-06-07 07:00] VITALS: RESP 16; O2SAT 95
[2023-06-07 08:44] VITALS: BP 95/52; PULSE 71; RESP 12; TEMP 98.2; O2SAT 95
[2023-06-07 19:37] VITALS: RESP 16; O2SAT 95
[2023-06-07 19:38] VITALS: BP 122/73; PULSE 88; RESP 14; TEMP 97.6; O2SAT 93
[2023-06-08 07:00] VITALS: RESP 16; O2SAT 95
[2023-06-08 08:00] VITALS: BP 103/57; PULSE 79; RESP 16; TEMP 97; O2SAT 95
[2023-06-08] MEDS ORDERED: haloperidol decanoate***LONG-ACTING*** 100mg/ml **IM only** inj. IM SCH (10:45)
[2023-06-08] MEDS ORDERED: haloperidol decanoate 50mg/ml 1ml**long-acting** injection IM SCH (11:15)
[2023-06-08] MEDS: haloperidol decanoate 50mg/ml 1ml**long-acting** injection IM SCH (14:10)
[2023-06-08 19:00] VITALS: RESP 16; O2SAT 95
[2023-06-08 20:00] VITALS: BP 103/71; PULSE 72; RESP 14; TEMP 98.8; O2SAT 94
[2023-06-09 07:00] VITALS: RESP 16; O2SAT 95
[2023-06-09 08:00] VITALS: BP 118/83; PULSE 72; RESP 12; TEMP 97.6; O2SAT 98
[2023-06-09 19:00] VITALS: RESP 20; O2SAT 94
[2023-06-09 20:00] VITALS: BP 117/64; PULSE 65; RESP 20; TEMP 97.3; O2SAT 94
[2023-06-10 07:35] VITALS: RESP 18; O2SAT 93
[2023-06-10 08:00] VITALS: BP 109/68; PULSE 50; RESP 18; TEMP 97.9; O2SAT 93
[2023-06-10 19:00] VITALS: BP 117/68; PULSE 77; RESP 18; TEMP 96.9; O2SAT 95
[2023-06-10 20:00] VITALS: BP 117/58; PULSE 77; RESP 18; TEMP 96.9; O2SAT 95
[2023-06-11 07:16] VITALS: RESP 16; O2SAT 94
[2023-06-11 08:14] VITALS: BP 116/67; PULSE 78; RESP 16; TEMP 97.6; O2SAT 94
[2023-06-11 19:50] VITALS: BP 122/60; PULSE 75; RESP 18; TEMP 98.1; O2SAT 97
[2023-06-12 07:00] VITALS: BP 109/66; PULSE 68; RESP 16; TEMP 98; O2SAT 94
[2023-06-12] MEDS: ondansetron 4mg rapidly disintigrating tab PO PRN (15:26)
[2023-06-12 19:00] VITALS: RESP 16; O2SAT 93
[2023-06-12 19:58] VITALS: BP 122/64; PULSE 70; RESP 16; TEMP 97.6; O2SAT 93
[2023-06-13 07:00] VITALS: RESP 16; O2SAT 95
[2023-06-13 08:00] VITALS: PULSE 100; RESP 16; TEMP 97.1; O2SAT 95
[2023-06-13 19:32] VITALS: RESP 17; O2SAT 93
[2023-06-13 19:47] VITALS: BP 130/71; PULSE 77; RESP 17; TEMP 97.5; O2SAT 93
[2023-06-14 07:00] VITALS: RESP 16
[2023-06-14 08:00] VITALS: RESP 16
[2023-06-14 19:00] VITALS: BP 122/84; PULSE 66; RESP 15; TEMP 98.3; O2SAT 93
[2023-06-15 07:00] VITALS: RESP 16; O2SAT 95
[2023-06-15 08:00] VITALS: BP 108/60; PULSE 60; RESP 16; TEMP 97.9; O2SAT 95
[2023-06-15 19:00] VITALS: BP 117/75; PULSE 85; RESP 16; TEMP 97.4; O2SAT 96
[2023-06-16 07:00] VITALS: RESP 16; O2SAT 98
[2023-06-16 08:00] VITALS: BP 111/63; PULSE 68; RESP 16; TEMP 98.4; O2SAT 98
[2023-06-16 19:00] VITALS: BP 116/65; PULSE 70; RESP 15; TEMP 98.2; O2SAT 95
[2023-06-17 07:00] VITALS: BP 96/46; PULSE 57; RESP 12; TEMP 98.3; O2SAT 91
[2023-06-17 19:00] VITALS: RESP 18; O2SAT 95
[2023-06-17 20:00] VITALS: BP 131/69; PULSE 69; RESP 18; TEMP 97.2; O2SAT 95
[2023-06-18 07:00] VITALS: RESP 16; O2SAT 93
[2023-06-18 08:00] VITALS: BP 112/53; PULSE 60; RESP 16; TEMP 97.5; O2SAT 93
[2023-06-18 19:00] VITALS: RESP 16; O2SAT 97
[2023-06-18 19:43] VITALS: BP 116/69; PULSE 62; RESP 16; TEMP 97; O2SAT 97
[2023-06-19 07:47] VITALS: BP 97/59; PULSE 66; RESP 16; TEMP 98.5; O2SAT 95
[2023-06-19 09:19] VITALS: RESP 16; O2SAT 95
[2023-06-19 19:00] VITALS: RESP 16; O2SAT 96
[2023-06-19 20:36] VITALS: BP 107/60; PULSE 71; RESP 16; TEMP 97.6; O2SAT 96
[2023-06-20 07:17] VITALS: BP 97/49; PULSE 65; RESP 16; TEMP 98; O2SAT 93
[2023-06-20 07:43] VITALS: RESP 16; O2SAT 93
[2023-06-20 19:00] VITALS: RESP 20; O2SAT 97
[2023-06-20 20:00] VITALS: BP 123/69; PULSE 77; RESP 20; TEMP 97.2; O2SAT 97
[2023-06-21 07:00] VITALS: RESP 16; O2SAT 93
[2023-06-21 08:00] VITALS: BP 99/43; PULSE 61; RESP 16; TEMP 97.7; O2SAT 93
[2023-06-21 19:00] VITALS: RESP 18; O2SAT 96
[2023-06-21 20:00] VITALS: BP 120/72; PULSE 66; RESP 18; TEMP 97; O2SAT 96
[2023-06-22 07:45] VITALS: RESP 12; O2SAT 94
[2023-06-22 08:00] VITALS: BP 112/66; PULSE 65; RESP 12; TEMP 98; O2SAT 94
[2023-06-22 19:00] VITALS: RESP 16
[2023-06-22 19:32] VITALS: RESP 16
[2023-06-23 06:54] VITALS: RESP 12; O2SAT 94
[2023-06-23 08:00] VITALS: BP 116/56; PULSE 63; RESP 16; TEMP 97; O2SAT 95
[2023-06-23 19:00] VITALS: RESP 16; O2SAT 97
[2023-06-23 20:00] VITALS: BP 130/91; PULSE 76; RESP 16; TEMP 98.1; O2SAT 97
[2023-06-24] MEDS: LORazepam 0.5 MG tablet PO PRN (02:26)
[2023-06-24 07:00] VITALS: RESP 15; O2SAT 96
[2023-06-24 07:30] VITALS: BP 136/67; PULSE 66; RESP 15; TEMP 97.7; O2SAT 96
[2023-06-24] MEDS: triamcinolone acetonide 0.1% ointment 15gm TP SCH (16:01)
[2023-06-24 19:00] VITALS: RESP 16
[2023-06-24] MEDS ORDERED: triamcinolone acetonide 0.1% ointment 15gm TP SCH (20:00)
[2023-06-24 20:23] VITALS: BP 128/62; PULSE 72; RESP 16; TEMP 98.2; O2SAT 96
[2023-06-25 07:30] VITALS: RESP 18; O2SAT 94
[2023-06-25 08:45] VITALS: BP 117/64; PULSE 63; RESP 18; TEMP 97.3; O2SAT 94
[2023-06-25 19:00] VITALS: RESP 16; O2SAT 96
[2023-06-25 20:03] VITALS: BP 111/56; PULSE 69; RESP 16; TEMP 97.8; O2SAT 96
[2023-06-25] MEDS: divalproex sod 125mg sprinkle cap PO SCH (21:19)
[2023-06-26 07:30] VITALS: BP 131/60; PULSE 62; RESP 12; TEMP 98.6; O2SAT 97
[2023-06-26 08:54] VITALS: RESP 12; O2SAT 97
[2023-06-26 19:00] VITALS: RESP 18; O2SAT 90
[2023-06-26 20:28] VITALS: BP 115/53; PULSE 65; RESP 18; TEMP 96.8; O2SAT 97
[2023-06-27 07:00] VITALS: RESP 16
[2023-06-27] MEDS: OLANZAPINE 5 MG TABLET PO SCH (07:34)
[2023-06-27 08:00] VITALS: RESP 16
[2023-06-27 19:00] VITALS: RESP 18; O2SAT 90
[2023-06-27 20:00] VITALS: RESP 16
[2023-06-28 07:15] VITALS: RESP 16; O2SAT 93
[2023-06-28 08:00] VITALS: BP 94/52; PULSE 63; RESP 16; TEMP 97.1; O2SAT 93
[2023-06-28 19:00] VITALS: RESP 16; O2SAT 93
[2023-06-28 20:00] VITALS: BP 129/74; PULSE 70; RESP 16; TEMP 98.2; O2SAT 93
[2023-06-28] MEDS: ketoconazole 2% cream 15gm TP SCH (20:00)
[2023-06-29 07:00] VITALS: RESP 14; O2SAT 94
[2023-06-29 07:30] VITALS: BP 103/60; PULSE 80; RESP 14; TEMP 96.8; O2SAT 94
[2023-06-29 19:00] VITALS: RESP 14; O2SAT 92
[2023-06-29 20:00] VITALS: BP 107/53; PULSE 69; RESP 14; TEMP 98.2; O2SAT 92
[2023-06-30 07:00] VITALS: RESP 15; O2SAT 97
[2023-06-30 07:30] VITALS: BP 131/74; PULSE 71; RESP 15; TEMP 97; O2SAT 97
[2023-06-30 19:48] VITALS: RESP 20; O2SAT 95
[2023-06-30 20:00] VITALS: BP 118/67; PULSE 68; RESP 20; TEMP 98.1; O2SAT 95
[2023-07-01 07:00] VITALS: BP 126/76; PULSE 76; RESP 14; TEMP 97.7; O2SAT 96
[2023-07-01 20:44] VITALS: BP 148/70; PULSE 68; RESP 18; TEMP 97.4; O2SAT 96
[2023-07-01] MEDS: triamcinolone acetonide 0.5% cream 15gm TP PRN (21:10)
[2023-07-02 07:00] VITALS: BP 115/58; PULSE 66; RESP 14; TEMP 98.1; O2SAT 93
[2023-07-02 19:00] VITALS: BP 97/48; PULSE 76; RESP 20; TEMP 97.9; O2SAT 93
[2023-07-02 19:10] VITALS: RESP 18; O2SAT 94
[2023-07-03 07:00] VITALS: BP 103/68; PULSE 71; RESP 14; RESP 16; TEMP 97.9; O2SAT 93; O2SAT 96
[2023-07-03 19:00] VITALS: RESP 16; O2SAT 94
[2023-07-03 20:04] VITALS: BP 120/67; PULSE 72; RESP 16; TEMP 97.4; O2SAT 94
[2023-07-04 07:00] VITALS: RESP 16; O2SAT 93
[2023-07-04 08:00] VITALS: BP 101/52; PULSE 69; RESP 16; TEMP 97.8; O2SAT 93
[2023-07-04 19:30] VITALS: RESP 18; O2SAT 93
[2023-07-04 20:00] VITALS: BP 116/67; PULSE 62; RESP 18; TEMP 97.5; O2SAT 93
[2023-07-05 07:26] VITALS: RESP 16; O2SAT 93
[2023-07-05 08:00] VITALS: BP 110/60; PULSE 93; RESP 16; TEMP 97.6; O2SAT 91
[2023-07-05 19:00] VITALS: RESP 15; O2SAT 97
[2023-07-05 20:00] VITALS: BP 135/87; PULSE 88; RESP 15; TEMP 97.8; O2SAT 97
[2023-07-06 07:00] VITALS: RESP 16; O2SAT 96
[2023-07-06 08:00] VITALS: BP 88/43; PULSE 67; RESP 16; TEMP 97.8; O2SAT 90
[2023-07-06 08:30] VITALS: BP 98/50; PULSE 78; RESP 16; O2SAT 96
[2023-07-06 19:00] VITALS: RESP 19; O2SAT 97
[2023-07-06 20:00] VITALS: BP 115/70; PULSE 60; RESP 19; TEMP 97.5; O2SAT 97
[2023-07-07 07:00] VITALS: RESP 16; O2SAT 95
[2023-07-07 08:00] VITALS: BP 107/57; PULSE 62; RESP 16; TEMP 97.4; O2SAT 95
[2023-07-07] MEDS: OLANZAPINE 5 MG TABLET PO SCH (12:47)
[2023-07-07 19:00] VITALS: RESP 15; O2SAT 95
[2023-07-07 19:38] VITALS: BP 130/70; PULSE 73; RESP 15; TEMP 98.7; O2SAT 95
[2023-07-08 07:00] VITALS: RESP 17; O2SAT 93
[2023-07-08 08:00] VITALS: BP 90/50; PULSE 68; RESP 19; TEMP 98; O2SAT 93
[2023-07-08 20:00] VITALS: BP 140/61; PULSE 84; RESP 16; TEMP 97.7; O2SAT 95
[2023-07-09 07:20] VITALS: BP 123/86; PULSE 76; RESP 16; TEMP 98; O2SAT 95
[2023-07-09 07:59] VITALS: RESP 16; O2SAT 95
[2023-07-09 20:13] VITALS: BP 118/50; PULSE 68; RESP 14; TEMP 98.3; O2SAT 94
[2023-07-10 07:00] VITALS: RESP 15; O2SAT 92
[2023-07-10 07:30] VITALS: BP 115/61; PULSE 60; RESP 15; TEMP 97.7; O2SAT 92
[2023-07-10 19:00] VITALS: RESP 16
[2023-07-11 07:00] VITALS: RESP 16; O2SAT 98
[2023-07-11 08:00] VITALS: BP 120/65; PULSE 68; RESP 16; TEMP 97.2; O2SAT 98
[2023-07-11 19:00] VITALS: BP 127/71; PULSE 100; RESP 16; TEMP 97.6; O2SAT 95
[2023-07-12 08:00] VITALS: BP 109/61; PULSE 90; RESP 14; TEMP 96.6; O2SAT 100
[2023-07-12 19:13] VITALS: BP 115/66; PULSE 78; RESP 16; TEMP 98; O2SAT 95
[2023-07-13 07:00] VITALS: RESP 16; O2SAT 94
[2023-07-13 08:00] VITALS: PULSE 97; RESP 16; TEMP 98.5; O2SAT 94
[2023-07-13 19:27] VITALS: BP 134/66; PULSE 70; RESP 16; TEMP 98.3; O2SAT 96
[2023-07-14 08:50] VITALS: BP 111/65; PULSE 83; RESP 16; TEMP 98.4; O2SAT 92
[2023-07-14 19:40] VITALS: RESP 18; O2SAT 98
[2023-07-14 20:00] VITALS: BP 144/63; PULSE 72; RESP 18; TEMP 97.8; O2SAT 98
[2023-07-15 07:00] VITALS: RESP 18; O2SAT 98
[2023-07-15 08:34] VITALS: BP 114/62; PULSE 65; RESP 18; TEMP 97.8; O2SAT 98
[2023-07-15 19:39] VITALS: BP 145/82; PULSE 68; RESP 16; TEMP 97.5; O2SAT 97
[2023-07-16 07:00] VITALS: RESP 14; O2SAT 94
[2023-07-16 08:00] VITALS: BP 99/57; PULSE 61; RESP 14; TEMP 98.5; O2SAT 94
[2023-07-16 19:00] VITALS: RESP 16; O2SAT 93
[2023-07-16 19:25] VITALS: BP 121/66; PULSE 65; RESP 16; TEMP 97.6; O2SAT 16
[2023-07-17 08:00] VITALS: BP 102/52; PULSE 59; RESP 14; RESP 17; TEMP 97.5; O2SAT 94
[2023-07-17 19:09] VITALS: BP 136/66; PULSE 61; RESP 16; RESP 18; TEMP 97.4; O2SAT 96
[2023-07-17 19:40] VITALS: RESP 18; O2SAT 96
[2023-07-18 07:00] VITALS: BP 109/72; PULSE 81; RESP 18; TEMP 98; O2SAT 95
[2023-07-18 19:00] VITALS: BP 114/63; PULSE 96; RESP 18; TEMP 98.4; O2SAT 94
[2023-07-19 07:00] VITALS: BP 97/62; PULSE 53; RESP 16; RESP 18; TEMP 97; O2SAT 94; O2SAT 98
[2023-07-19 19:00] VITALS: BP 127/79; PULSE 63; RESP 18; TEMP 97.7; O2SAT 96
[2023-07-20 07:00] VITALS: RESP 16; O2SAT 92
[2023-07-20 07:30] VITALS: BP 100/58; PULSE 63; RESP 16; TEMP 97.2; O2SAT 92
[2023-07-20 19:27] VITALS: BP 142/91; PULSE 70; RESP 16; TEMP 98.3; O2SAT 96
[2023-07-21 08:49] VITALS: BP 126/71; PULSE 62; RESP 14; TEMP 97; O2SAT 98
[2023-07-21 19:00] VITALS: BP 120/69; PULSE 69; RESP 16; TEMP 97.8; O2SAT 95
[2023-07-22 07:00] VITALS: RESP 16; O2SAT 92
[2023-07-22 08:00] VITALS: BP 99/55; PULSE 64; RESP 18; TEMP 98.5; O2SAT 92
[2023-07-22] MEDS: OLANZAPINE 5 MG TABLET PO SCH (13:08)
[2023-07-22 19:07] VITALS: BP 134/78; PULSE 70; RESP 14; TEMP 97.4; O2SAT 96
[2023-07-23 07:00] VITALS: RESP 16; O2SAT 96
[2023-07-23 08:00] VITALS: BP 128/72; PULSE 70; RESP 16; TEMP 97.1; TEMP 97.7; O2SAT 96
[2023-07-23] MEDS: LORazepam 0.5 MG tablet PO PRN (18:14)
[2023-07-23 19:00] VITALS: RESP 14; O2SAT 97
[2023-07-23 20:00] VITALS: BP 141/80; PULSE 74; RESP 14; TEMP 97.1; O2SAT 97
[2023-07-24 07:00] VITALS: BP 108/55; PULSE 77; RESP 16; TEMP 98.3; O2SAT 92
[2023-07-24 19:00] VITALS: RESP 18; O2SAT 96
[2023-07-24 19:27] VITALS: BP 133/62; PULSE 68; RESP 18; TEMP 97.8; O2SAT 96
[2023-07-25 07:00] VITALS: BP 126/68; PULSE 60; RESP 16; TEMP 98; O2SAT 93
[2023-07-25 19:15] VITALS: BP 158/86; PULSE 77; RESP 16; TEMP 97.9; O2SAT 95
[2023-07-26 07:00] VITALS: RESP 12; O2SAT 95
[2023-07-26 08:00] VITALS: BP 121/69; PULSE 62; RESP 12; TEMP 98.1; O2SAT 95
[2023-07-26 19:00] VITALS: RESP 18; O2SAT 96
[2023-07-26 20:00] VITALS: BP 127/81; PULSE 87; RESP 18; TEMP 97.8; O2SAT 96
[2023-07-27 06:49] VITALS: RESP 12; O2SAT 95
[2023-07-27 06:58] VITALS: BP 100/50; PULSE 67; RESP 12; TEMP 98.1; O2SAT 96
[2023-07-27 07:15] VITALS: BP 100/50; PULSE 67; RESP 12; TEMP 98.1; O2SAT 96
[2023-07-27 19:24] VITALS: BP 138/64; PULSE 66; RESP 18; TEMP 97.8; O2SAT 95
[2023-07-28 06:50] VITALS: RESP 12; O2SAT 95
[2023-07-28 07:18] VITALS: BP 92/51; PULSE 76; RESP 14; TEMP 97; O2SAT 93
[2023-07-28 19:30] VITALS: BP 129/59; PULSE 65; RESP 15; TEMP 97.8; O2SAT 94
[2023-07-29 08:00] VITALS: BP 99/53; PULSE 66; RESP 18; TEMP 97.1; O2SAT 98
[2023-07-29 19:30] VITALS: RESP 16; O2SAT 96
[2023-07-29 20:04] VITALS: BP 103/54; PULSE 73; RESP 16; TEMP 97.7; O2SAT 96
[2023-07-30 07:30] VITALS: BP 105/57; PULSE 60; RESP 16; TEMP 98.6; O2SAT 98
[2023-07-30 19:30] VITALS: RESP 20; O2SAT 93
[2023-07-30 20:19] VITALS: BP 125/62; PULSE 67; RESP 20; TEMP 97.5; O2SAT 93
[2023-07-31 07:30] VITALS: BP 99/59; PULSE 59; RESP 16; TEMP 97.5; O2SAT 92
[2023-07-31 19:00] VITALS: RESP 20; O2SAT 94
[2023-07-31 19:39] VITALS: BP 118/64; PULSE 64; RESP 20; TEMP 98.5; O2SAT 94
[2023-08-01 07:30] VITALS: BP 93/62; PULSE 68; RESP 16; TEMP 98.4; O2SAT 93
[2023-08-01 19:00] VITALS: RESP 16; O2SAT 93
[2023-08-01 20:11] VITALS: BP 121/67; PULSE 74; RESP 16; TEMP 98.2; O2SAT 93
[2023-08-02 07:07] VITALS: BP 96/45; PULSE 63; RESP 14; TEMP 97.6; O2SAT 94
[2023-08-02 07:49] VITALS: RESP 16
[2023-08-02] MEDS: magnesium hydroxide 30ml (MOM) UD suspension PO PRN (08:18)
[2023-08-02 20:00] VITALS: BP 122/57; PULSE 76; RESP 16; TEMP 97.7; O2SAT 92
[2023-08-03 07:00] VITALS: RESP 16; O2SAT 94
[2023-08-03 08:00] VITALS: BP 138/73; PULSE 78; RESP 16; TEMP 97.1; O2SAT 94
[2023-08-03] MEDS: haloperidol decanoate 50mg/ml 1ml**long-acting** injection IM ONE (12:16)
[2023-08-03 20:00] VITALS: BP 153/79; PULSE 85; RESP 16; TEMP 96.7; O2SAT 96
[2023-08-04 08:30] VITALS: RESP 14; O2SAT 95
[2023-08-04 08:35] VITALS: BP 135/75; PULSE 77; RESP 14; TEMP 98.1; O2SAT 95
[2023-08-04 19:37] VITALS: BP 164/88; PULSE 109; RESP 16; TEMP 97.9; O2SAT 94
[2023-08-05 07:33] VITALS: BP 115/60; PULSE 74; RESP 16; TEMP 97.8; O2SAT 94
[2023-08-05 07:38] VITALS: BP 115/60; PULSE 74; RESP 16; TEMP 97.8; O2SAT 94
[2023-08-05 08:35] VITALS: RESP 16; O2SAT 94
[2023-08-05 19:00] VITALS: RESP 18; O2SAT 95
[2023-08-05 19:35] VITALS: BP 111/51; PULSE 82; RESP 18; TEMP 97.2; O2SAT 95
[2023-08-05] MEDS: OLANZapine 5mg rapidly disint. tablet PO SCH (20:59)
[2023-08-05] MEDS ORDERED: valproic acid 250mg capsule PO SCH (21:00)
[2023-08-05] MEDS: divalproex sod 125mg sprinkle cap PO SCH (21:04)
[2023-08-06 07:00] VITALS: RESP 19; O2SAT 97
[2023-08-06] MEDS: divalproex sod 125mg sprinkle cap PO SCH (08:14)
[2023-08-06 08:20] VITALS: BP 124/64; PULSE 99; RESP 19; TEMP 97.8; O2SAT 97
[2023-08-06 20:00] VITALS: RESP 16
[2023-08-07 07:00] VITALS: BP 121/71; PULSE 120; RESP 12; TEMP 97; O2SAT 95
[2023-08-07 19:00] VITALS: BP 114/73; PULSE 101; RESP 16; TEMP 98.2; O2SAT 95
[2023-08-08 07:30] VITALS: BP 120/66; PULSE 119; RESP 12; TEMP 97.1; O2SAT 96
[2023-08-08 08:34] VITALS: RESP 12; O2SAT 96
[2023-08-08] MEDS: loperamide 2mg capsule PO PRN (18:32)
[2023-08-08 19:00] VITALS: BP 138/81; PULSE 61; RESP 15; TEMP 97; O2SAT 93
[2023-08-09 07:30] VITALS: BP 118/67; PULSE 114; RESP 12; TEMP 97.4; O2SAT 95
[2023-08-09 08:24] VITALS: RESP 12; O2SAT 95
[2023-08-09 19:00] VITALS: RESP 15; O2SAT 94
[2023-08-09 19:53] VITALS: BP 125/59; PULSE 72; RESP 15; TEMP 97.9; O2SAT 94
[2023-08-10 07:00] VITALS: RESP 15; O2SAT 93
[2023-08-10 07:30] VITALS: BP 123/50; PULSE 106; RESP 15; TEMP 97.8; O2SAT 93
[2023-08-10 19:30] VITALS: BP 152/82; PULSE 74; RESP 18; TEMP 98; O2SAT 95
[2023-08-11 06:52] VITALS: RESP 15; O2SAT 93
[2023-08-11 08:28] VITALS: BP 91/49; PULSE 108; RESP 16; TEMP 96.2; O2SAT 92
[2023-08-11 19:00] VITALS: BP 146/89; PULSE 85; RESP 16; RESP 18; TEMP 97.8; O2SAT 95
[2023-08-11] MEDS: olanzapine 10mg tablet PO SCH (20:44)
[2023-08-11] MEDS: atorvastatin 20mg tablet PO SCH (21:00)
[2023-08-12 07:00] VITALS: RESP 16; O2SAT 95
[2023-08-12 07:53] VITALS: BP 98/78; PULSE 104; RESP 16; TEMP 97.7; O2SAT 95
[2023-08-12] MEDS: divalproex sod 125mg sprinkle cap PO SCH (08:20)
[2023-08-12] MEDS: haloperidol lactate 5mg/ml inj IM ONE (14:16)
[2023-08-12] MEDS: LORazepam 2 mg/ml vial IM ONE (14:17)
[2023-08-12] MEDS: diphenhydrAMINE 50 mg/ml inj IM STA (14:18)
[2023-08-12 19:00] VITALS: RESP 20; O2SAT 94
[2023-08-12 19:27] VITALS: BP 111/61; PULSE 77; RESP 20; TEMP 98; O2SAT 94
[2023-08-12] MEDS: OLANZapine 2.5MG tablet PO ONE ×2 (21:34→21:35)
[2023-08-13 07:30] VITALS: RESP 16
[2023-08-13 09:10] VITALS: RESP 16
[2023-08-13 19:30] VITALS: RESP 16; O2SAT 96
[2023-08-13 19:34] VITALS: BP 142/59; PULSE 70; RESP 16; TEMP 97.6; O2SAT 96
[2023-08-14 07:05] VITALS: BP 94/43; PULSE 66; RESP 16; TEMP 98.2; O2SAT 94
[2023-08-14 09:26] VITALS: RESP 16; O2SAT 94
[2023-08-14 19:30] VITALS: RESP 18; O2SAT 94
[2023-08-14 20:00] VITALS: BP 134/78; PULSE 85; RESP 18; TEMP 97.8; O2SAT 94
[2023-08-15 07:00] VITALS: RESP 16; O2SAT 96
[2023-08-15 08:00] VITALS: BP 106/69; PULSE 109; RESP 16; TEMP 97.8; O2SAT 96
[2023-08-15 19:30] VITALS: RESP 16; O2SAT 92
[2023-08-15 20:00] VITALS: BP 136/73; PULSE 77; RESP 16; TEMP 98; O2SAT 92
[2023-08-16 07:00] VITALS: RESP 20; O2SAT 93
[2023-08-16 07:30] VITALS: BP 107/71; PULSE 84; RESP 20; TEMP 97.1; O2SAT 93
[2023-08-16 19:00] VITALS: RESP 20; O2SAT 96
[2023-08-16 19:13] VITALS: BP 141/79; PULSE 71; RESP 20; TEMP 98.2; O2SAT 96
[2023-08-17 07:00] VITALS: RESP 16; O2SAT 97
[2023-08-17 08:00] VITALS: BP 110/54; PULSE 59; RESP 15; TEMP 97.6; O2SAT 97
[2023-08-17] MEDS: haloperidol decanoate 50mg/ml 1ml**long-acting** injection IM SCH (08:07)
[2023-08-17 08:10] LABS: ALANINE AMINOTRANSFERASE 23 U/L (12-78); ALBUMIN 3.1 G/DL (3.4-5.0); ALBUMIN/GLOBULIN RATIO 0.9 (1.1-1.5); ALKALINE PHOSPHATASE 45 IU/L (46-116); ANION GAP 9 (8-16); ASPARTATE AMINO TRANSFERASE 9 U/L (10-37); BILIRUBIN,TOTAL 0.3 MG/DL (0.1-1.0); CALCIUM 9.1 MG/DL (8.5-10.1); CHLORIDE 97 MMOL/L (99-107); CREATININE 0.93 MG/DL (0.40-0.90); GLUCOSE 131 MG/DL (70-104); POTASSIUM 4.5 MMOL/L (3.5-5.1); SODIUM 132 MMOL/L (135-145); TOTAL CARBON DIOXIDE 26.5 MMOL/L (24-32); TOTAL PROTEIN 6.5 G/DL (6.4-8.2); eCRCL 58 ML/MIN; eGFR 62 ML/MIN
[2023-08-17 08:23] LABS: BLOOD UREA NITROGEN 13 MG/DL (7-18); VALPROATE 77 UG/ML (50-100)
[2023-08-17] MEDS ORDERED: haloperidol decanoate 50mg/ml 1ml**long-acting** injection IM SCH (13:55)
[2023-08-17 19:00] VITALS: BP 113/57; PULSE 87; RESP 18; TEMP 98.2; O2SAT 93
[2023-08-17 19:19] VITALS: RESP 18; O2SAT 93
[2023-08-18 07:30] VITALS: BP 98/51; PULSE 69; RESP 18; TEMP 97.3; O2SAT 95
[2023-08-18 19:12] VITALS: BP 156/90; PULSE 83; RESP 15; TEMP 97.5; O2SAT 97
[2023-08-19 07:30] VITALS: BP 110/69; PULSE 86; RESP 16; TEMP 97.9; O2SAT 97
[2023-08-19 19:36] VITALS: BP 142/82; PULSE 86; RESP 18; TEMP 97.3; O2SAT 94
[2023-08-20 07:30] VITALS: BP 89/50; PULSE 64; RESP 16; TEMP 97.4; O2SAT 94
[2023-08-20 20:00] VITALS: BP 138/78; PULSE 72; RESP 16; TEMP 97.2; O2SAT 94
[2023-08-21 07:10] VITALS: BP 100/49; PULSE 64; RESP 18; TEMP 97.4; O2SAT 93
[2023-08-21 07:59] VITALS: RESP 18; O2SAT 93
[2023-08-21] MEDS: ringers solution, lacted 1,000 ML IV ONE (11:30)
[2023-08-21 19:00] VITALS: BP 157/83; PULSE 83; RESP 18; TEMP 98.4; O2SAT 95
[2023-08-21] MEDS: haloperidol 5mg tablet PO ONE (21:37)
[2023-08-22 07:00] VITALS: RESP 16; O2SAT 93
[2023-08-22 08:00] VITALS: BP 129/58; PULSE 86; RESP 16; TEMP 97.9; O2SAT 93
[2023-08-22 19:00] VITALS: RESP 18; O2SAT 100
[2023-08-22 19:16] VITALS: BP 106/54; PULSE 77; RESP 18; TEMP 98.4; O2SAT 100
[2023-08-23 07:20] VITALS: PULSE 65; RESP 16; TEMP 98.2; O2SAT 94
[2023-08-23 07:35] VITALS: BP 111/62
[2023-08-23 08:48] VITALS: RESP 16; O2SAT 94
[2023-08-23] MEDS: haloperidol 5mg tablet PO SCH (12:31)
[2023-08-23 19:14] VITALS: BP 144/80; PULSE 79; RESP 18; TEMP 97.9; O2SAT 94
[2023-08-23 19:15] VITALS: RESP 18; O2SAT 94
[2023-08-24 07:00] VITALS: RESP 14; O2SAT 100
[2023-08-24 08:00] VITALS: BP 110/67; PULSE 60; RESP 14; TEMP 97.4; O2SAT 100
[2023-08-24 19:00] VITALS: RESP 22; O2SAT 95
[2023-08-24 19:17] VITALS: BP 134/85; PULSE 112; RESP 22; TEMP 97.8; O2SAT 95
[2023-08-25 08:00] VITALS: BP 117/77; PULSE 98; RESP 16; TEMP 97; O2SAT 95
[2023-08-25 19:30] VITALS: BP 122/83; PULSE 81; RESP 20; TEMP 97.9; O2SAT 94
[2023-08-26 07:00] VITALS: RESP 14; O2SAT 94
[2023-08-26 08:00] VITALS: BP 118/67; PULSE 68; RESP 14; TEMP 98.6; O2SAT 94
[2023-08-26 19:30] VITALS: RESP 16; O2SAT 94
[2023-08-26 19:57] VITALS: PULSE 87
[2023-08-27 07:00] VITALS: RESP 18; O2SAT 95
[2023-08-27 08:00] VITALS: BP 96/48; PULSE 110; RESP 18; TEMP 97.5; O2SAT 95
[2023-08-27 19:59] VITALS: RESP 18
[2023-08-28 07:00] VITALS: RESP 16; O2SAT 94
[2023-08-28 08:00] VITALS: BP 104/55; PULSE 60; RESP 16; TEMP 97.3; O2SAT 94
[2023-08-28 13:03] LABS: ALANINE AMINOTRANSFERASE 25 U/L (12-78); ALBUMIN 3.2 G/DL (3.4-5.0); ALBUMIN/GLOBULIN RATIO 0.9 (1.1-1.5); ALKALINE PHOSPHATASE 41 IU/L (46-116); ANION GAP 8 (8-16); ASPARTATE AMINO TRANSFERASE 17 U/L (10-37); BASOPHILS % (AUTO) 0.4 % (0-1); BILIRUBIN,TOTAL 0.4 MG/DL (0.1-1.0); BLOOD UREA NITROGEN 10 MG/DL (7-18); BUN/CREATININE RATIO 9.4 (10.0-20.0); CALCIUM 9.4 MG/DL (8.5-10.1); CHLORIDE 99 MMOL/L (99-107); CREATININE 1.06 MG/DL (0.40-0.90); EOSINOPHILS # (AUTO) 0.1 X10'3 (0-0.9); EOSINOPHILS % (AUTO) 3.4 % (0-6); GLUCOSE 172 MG/DL (70-104); HEMATOCRIT 40.5 % (35.0-45.0); HEMOGLOBIN 13.4 g/dl (12.0-16.0); LYMPHOCYTES # (AUTO) 1.3 X10'3 (1.1-4.8); LYMPHOCYTES % (AUTO) 33.4 % (21-51); MEAN CORPUSCULAR HEMOGLOBIN 29.3 PG (27.0-31.0); MEAN CORPUSCULAR HGB CONC 32.9 g/dL (33.0-36.5); MEAN PLATELET VOLUME 7.4 FL (7.4-10.4); MONOCYTES # (AUTO) 0.4 X10'3 (0-0.9); MONOCYTES % (AUTO) 10.5 % (2-12); NEUTROPHILS % (AUTO) 52.3 % (42-75); PLATELET COUNT 162 X10'3 (140-440); POTASSIUM 4.3 MMOL/L (3.5-5.1); RED BLOOD COUNT 4.56 X10'6 (4.20-5.60); RED CELL DISTRIBUTION WIDTH 14.7 % (11.5-14.5); SODIUM 134 MMOL/L (135-145); TOTAL CARBON DIOXIDE 26.7 MMOL/L (24-32); TOTAL PROTEIN 6.6 G/DL (6.4-8.2); WHITE BLOOD COUNT 3.9 X10'3 (4.5-11.0); eCRCL 51 ML/MIN; eGFR 54 ML/MIN
[2023-08-28 16:14] VITALS: BP 131/72; PULSE 81; RESP 16; TEMP 98; O2SAT 93
[2023-08-28 17:10] VITALS: PULSE 86; RESP 14; O2SAT 94
[2023-08-28 19:59] VITALS: RESP 16
[2023-08-29 07:30] VITALS: BP 130/74; PULSE 68; RESP 12; TEMP 97.7; O2SAT 90
[2023-08-29] MEDS: haloperidol 5mg tablet PO SCH (12:30)
[2023-08-29 19:00] VITALS: RESP 12; O2SAT 90
[2023-08-29 20:00] VITALS: BP 128/68; PULSE 76; RESP 16; TEMP 97.9; O2SAT 92
[2023-08-30 07:50] VITALS: RESP 15; O2SAT 93
[2023-08-30 08:00] VITALS: RESP 15
[2023-08-30 13:11] LABS: BILIRUBIN,URINE NEGATIVE (Neg); CLARITY,URINE CLEAR (Clear); COLOR,URINE YELLOW (Yellow); GLUCOSE, URINE NEGATIVE (Neg); KETONES,URINE NEGATIVE (Neg); LEUKOCYTE ESTERASE ,URINE SMALL (Neg); NITRITES, URINE NEGATIVE (Neg); OCCULT BLOOD,URINE NEGATIVE (Neg); PH,URINE 7.5 (4.8-8.0); PROTEIN,URINE NEGATIVE (Neg); UROBILINOGEN,URINE 0.2 E.U/dL (0.2-1.0)
[2023-08-30 13:13] LABS: UA COLLECTION TYPE CLN CATCH MIDSTREAM
[2023-08-30 13:16] LABS: SQUAMOUS EPITHELIAL CELL,UR FEW /LPF (FEW)
[2023-08-30 13:17] LABS: BACTERIA,URINE 1+ /HPF (Neg); RBC,URINE NONE SEEN /HPF (0-2); WBC,URINE 0-4 /HPF (0-4)
[2023-08-30 19:00] VITALS: RESP 16; O2SAT 94
[2023-08-30 19:17] VITALS: BP 123/65; PULSE 88; RESP 16; TEMP 98.2; O2SAT 94
[2023-08-31 07:00] VITALS: RESP 15; O2SAT 94
[2023-08-31 08:00] VITALS: BP 115/76; PULSE 81; RESP 15; TEMP 97.5; O2SAT 94
[2023-08-31 15:41] LABS: ALANINE AMINOTRANSFERASE 24 U/L (12-78); ALBUMIN 3.4 G/DL (3.4-5.0); ALKALINE PHOSPHATASE 40 IU/L (46-116); ANION GAP 8 (8-16); ASPARTATE AMINO TRANSFERASE 19 U/L (10-37); BILIRUBIN,TOTAL 0.4 MG/DL (0.1-1.0); BLOOD UREA NITROGEN 11 MG/DL (7-18); BUN/CREATININE RATIO 12.6 (10.0-20.0); CALCIUM 9.4 MG/DL (8.5-10.1); CHLORIDE 100 MMOL/L (99-107); CREATININE 0.87 MG/DL (0.40-0.90); GLUCOSE 86 MG/DL (70-104); POTASSIUM 4.5 MMOL/L (3.5-5.1); SODIUM 137 MMOL/L (135-145); TOTAL CARBON DIOXIDE 29.5 MMOL/L (24-32); TOTAL PROTEIN 6.8 G/DL (6.4-8.2); eCRCL 62 ML/MIN; eGFR 67 ML/MIN
[2023-08-31 19:00] VITALS: RESP 16; O2SAT 95
[2023-08-31 20:00] VITALS: PULSE 64; RESP 16; TEMP 97.2; O2SAT 93
[2023-09-01 07:00] VITALS: RESP 15; O2SAT 92
[2023-09-01 07:30] VITALS: BP 99/58; PULSE 67; RESP 15; TEMP 98.9; O2SAT 92
[2023-09-01] MEDS: haloperidol 5mg tablet PO SCH (13:01)
[2023-09-01] MEDS: lactose-reduced food (Ensure Enlive) - 237ml bottle PO SCH (14:00)
[2023-09-01 19:00] VITALS: RESP 16; O2SAT 94
[2023-09-01 19:28] VITALS: BP 114/64; PULSE 90; RESP 16; TEMP 97.9; O2SAT 94
[2023-09-02 07:37] VITALS: BP 110/68; PULSE 84; RESP 14; TEMP 97.4; O2SAT 91
[2023-09-02 19:39] VITALS: RESP 16
[2023-09-02] MEDS: olanzapine 10mg tablet PO SCH (21:15)
[2023-09-03 07:00] VITALS: RESP 16; O2SAT 93
[2023-09-03 07:30] VITALS: BP 103/46; PULSE 65; RESP 16; TEMP 97.1; O2SAT 93
[2023-09-03] MEDS: OLANZAPINE 5 MG TABLET PO SCH ×2 (08:57→11:56)
[2023-09-03 19:00] VITALS: RESP 16; TEMP 97.8
[2023-09-04 07:00] VITALS: RESP 18; O2SAT 92
[2023-09-04 08:00] VITALS: BP 112/50; PULSE 68; RESP 18; TEMP 97.8; O2SAT 92
[2023-09-04 19:00] VITALS: BP 137/75; PULSE 94; RESP 18; TEMP 97.8; O2SAT 96
[2023-09-04] MEDS: OLANZapine **IM** 10 mg inj. IM ONE (21:19)
[2023-09-05 07:30] VITALS: BP 129/72; PULSE 89; RESP 12; TEMP 97.3; O2SAT 96
[2023-09-06 07:30] VITALS: BP 98/58; PULSE 91; RESP 15; TEMP 97.1; O2SAT 97
[2023-09-06] MEDS: OLANZapine 5mg rapidly disint. tablet PO ONE (08:24)
[2023-09-06] MEDS: OLANZapine 5mg rapidly disint. tablet PO SCH ×3 (08:27→20:55)
[2023-09-06 19:00] VITALS: RESP 18; O2SAT 96
[2023-09-06 20:00] VITALS: BP 111/69; PULSE 82; RESP 18; TEMP 97.8; O2SAT 96
[2023-09-07 07:30] VITALS: BP 130/76; PULSE 116; RESP 16; TEMP 97.5; O2SAT 97
[2023-09-07 19:00] VITALS: RESP 16; O2SAT 97
[2023-09-07 20:00] VITALS: BP 119/68; PULSE 85; RESP 18; TEMP 97; O2SAT 95
[2023-09-08 08:18] VITALS: BP 112/70; PULSE 78; RESP 16; TEMP 97.8; O2SAT 95
[2023-09-08 08:22] VITALS: RESP 16; O2SAT 95
[2023-09-08 19:00] VITALS: RESP 18; O2SAT 96
[2023-09-08 19:13] VITALS: BP 142/72; PULSE 70; RESP 18; TEMP 97.3; O2SAT 96
[2023-09-09 07:00] VITALS: RESP 14; O2SAT 95
[2023-09-09 08:00] VITALS: BP 105/56; PULSE 69; TEMP 98.2; O2SAT 95
[2023-09-09 19:00] VITALS: BP 126/58; PULSE 111; RESP 16; TEMP 97.2; O2SAT 95; O2SAT 96
[2023-09-10] MEDS: diphenhydrAMINE 50 mg/ml inj IM ONE (03:45)
[2023-09-10] MEDS: haloperidol lactate 5mg/ml inj ONE (03:47)
[2023-09-10] MEDS: diphenhydrAMINE 50 mg/ml inj ONE (03:47)
[2023-09-10] MEDS: haloperidol lactate 5mg/ml inj IM ONE (03:48)
[2023-09-10 07:00] VITALS: BP 116/64; PULSE 68; RESP 14; TEMP 97.2; O2SAT 95
[2023-09-10 19:37] VITALS: RESP 14; O2SAT 95
[2023-09-10 19:41] VITALS: BP 99/58; PULSE 99; RESP 14; TEMP 98; O2SAT 95
[2023-09-11 07:30] VITALS: BP 121/67; PULSE 81; RESP 16; TEMP 97.6; O2SAT 91
[2023-09-11 19:27] VITALS: BP 98/80; PULSE 101; RESP 22; TEMP 97.9; O2SAT 94
[2023-09-11 19:28] VITALS: BP 98/80; PULSE 101; RESP 22; TEMP 97.9; O2SAT 94
[2023-09-12 07:30] VITALS: BP 141/74; PULSE 86; RESP 12; TEMP 97.6; O2SAT 98
[2023-09-12 19:00] VITALS: RESP 14; O2SAT 96
[2023-09-12 20:00] VITALS: BP 151/88; PULSE 81; RESP 16; TEMP 98.3; O2SAT 95
[2023-09-13 07:30] VITALS: BP 115/64; PULSE 63; RESP 16; TEMP 97.2; O2SAT 96
[2023-09-13 19:00] VITALS: RESP 18; O2SAT 95
[2023-09-13 19:30] VITALS: BP 117/56; PULSE 62; RESP 20; TEMP 98.8; O2SAT 91
[2023-09-14 08:00] VITALS: BP 96/52; PULSE 76; RESP 18; TEMP 98.3; O2SAT 94
[2023-09-14] MEDS: haloperidol decanoate***LONG-ACTING*** 100mg/ml **IM only** inj. IM ONE ×2 (11:35→14:56)
[2023-09-14 19:00] VITALS: RESP 12; O2SAT 94
[2023-09-14 19:34] VITALS: BP 111/63; PULSE 88; RESP 16; TEMP 98.9; O2SAT 94
[2023-09-15 08:58] VITALS: BP 128/64; PULSE 64; RESP 20; TEMP 97.2; O2SAT 95
[2023-09-15 08:59] VITALS: BP 128/64; PULSE 64; RESP 20; TEMP 97.2; O2SAT 95
[2023-09-15 19:00] VITALS: BP 102/58; PULSE 66; RESP 18; TEMP 98.4; O2SAT 94
[2023-09-16 07:00] VITALS: BP 125/72; PULSE 89; RESP 14; TEMP 98.5; O2SAT 98
[2023-09-16 19:00] VITALS: RESP 16; O2SAT 98
[2023-09-16] MEDS ORDERED: bisacodyl 10mg suppository rectal RC PRN (19:30)
[2023-09-16] MEDS: haloperidol 5mg tablet PO ONE (19:42)
[2023-09-16 20:00] VITALS: BP 106/65; PULSE 94; RESP 16; TEMP 99.4; O2SAT 98
[2023-09-16] MEDS: magnesium citrate 296ml oral solution PO PRN (20:54)
[2023-09-16 21:00] VITALS: TEMP 97.4
[2023-09-16] MEDS ORDERED: magnesium citrate 296ml oral solution PO PRN (21:00)
[2023-09-17 07:00] VITALS: BP 125/64; PULSE 68; RESP 14; TEMP 98.6; O2SAT 96
[2023-09-17 19:00] VITALS: RESP 18; O2SAT 94
[2023-09-17 20:00] VITALS: BP 107/90; PULSE 102; RESP 18; TEMP 97.6; O2SAT 94
[2023-09-18 07:00] VITALS: BP 119/58; PULSE 80; RESP 16; TEMP 98; O2SAT 96
[2023-09-18 19:20] VITALS: RESP 15; O2SAT 93
[2023-09-18 20:00] VITALS: RESP 18
[2023-09-18] MEDS: magnesium citrate 296ml oral solution PO ONE (20:15)
[2023-09-18] MEDS: LORazepam 2 mg/ml vial IM ONE (21:25)
[2023-09-19 08:00] VITALS: BP 121/76; PULSE 97; RESP 17; TEMP 97.4; O2SAT 95
[2023-09-19 19:00] VITALS: RESP 18; O2SAT 94
[2023-09-19 20:00] VITALS: BP 125/71; PULSE 120; RESP 18; TEMP 97.9; O2SAT 94
[2023-09-20 07:00] VITALS: RESP 18; O2SAT 94
[2023-09-20 08:00] VITALS: O2SAT 16
[2023-09-20 19:40] VITALS: RESP 16; O2SAT 93
[2023-09-20] MEDS: temazepam 15mg capsule PO PRN (20:33)
[2023-09-20 20:57] VITALS: RESP 16; O2SAT 93
[2023-09-21 07:00] VITALS: RESP 16; O2SAT 92
[2023-09-21 07:30] VITALS: BP 110/63; PULSE 76; RESP 16; TEMP 97.3; O2SAT 92
[2023-09-21 19:00] VITALS: RESP 18; O2SAT 95
[2023-09-22 07:09] VITALS: RESP 16; O2SAT 92
[2023-09-22 08:00] VITALS: BP 131/84; PULSE 110; RESP 16; TEMP 97.4; O2SAT 95
[2023-09-22] MEDS: nicotine 14mg patch - 24hr TD SCH (11:13)
[2023-09-22 14:15] VITALS: BP 131/84; PULSE 110; RESP 16; TEMP 97.4; O2SAT 95
[2023-09-22 19:00] VITALS: BP 117/70; PULSE 87; RESP 22; TEMP 97.3; O2SAT 94
[2023-09-22 20:00] VITALS: RESP 22; O2SAT 94
[2023-09-23 07:00] VITALS: RESP 14; O2SAT 99
[2023-09-23 08:00] VITALS: BP 101/55; PULSE 71; RESP 14; TEMP 98.6; O2SAT 99
[2023-09-23 19:00] VITALS: RESP 16
[2023-09-23] MEDS: Melatonin 3mg tablet PO SCH (21:00)
[2023-09-24] MEDS: OLANZapine **IM** 10 mg inj. IM PRN (00:37)
[2023-09-24 07:00] VITALS: RESP 16; O2SAT 95
[2023-09-24 08:09] VITALS: BP 143/77; PULSE 83; RESP 16; TEMP 97.6; O2SAT 95
[2023-09-24 20:00] VITALS: RESP 20
[2023-09-24] MEDS: LORazepam 2 mg/ml vial IM SCH (21:15)
[2023-09-25 07:00] VITALS: RESP 16; O2SAT 95
[2023-09-25 08:00] VITALS: BP 154/74; PULSE 94; RESP 16; TEMP 97.1; O2SAT 95
[2023-09-25 19:00] VITALS: RESP 19; O2SAT 96
[2023-09-25 20:00] VITALS: RESP 20
[2023-09-26 08:00] VITALS: BP 126/66; PULSE 79; RESP 16; TEMP 98; O2SAT 97
[2023-09-26 08:55] VITALS: RESP 16; O2SAT 97
[2023-09-26] MEDS ORDERED: temazepam 15mg capsule PO PRN (10:00)
[2023-09-26 19:00] VITALS: RESP 18; O2SAT 98
[2023-09-26 20:00] VITALS: BP 144/78; PULSE 101; RESP 18; TEMP 97.3; O2SAT 95
[2023-09-27 07:11] VITALS: RESP 16; O2SAT 97
[2023-09-27 07:30] VITALS: BP 127/75; PULSE 128; RESP 16; TEMP 97.1; O2SAT 92
[2023-09-27 19:00] VITALS: RESP 18; O2SAT 95
[2023-09-27 20:00] VITALS: BP 126/85; PULSE 98; RESP 18; TEMP 97.3; O2SAT 95
[2023-09-27] MEDS: temazepam 15mg capsule PO SCH (21:00)
[2023-09-28 07:00] VITALS: BP 126/89; PULSE 86; RESP 16; TEMP 97.8; O2SAT 93
[2023-09-28] MEDS ORDERED: haloperidol decanoate***LONG-ACTING*** 100mg/ml **IM only** inj. IM SCH (13:05)
[2023-09-28] MEDS: haloperidol decanoate 50mg/ml 1ml**long-acting** injection IM SCH (13:39)
[2023-09-28] MEDS: haloperidol decanoate***LONG-ACTING*** 100mg/ml **IM only** inj. IM SCH (13:39)
[2023-09-28] MEDS: OLANZapine **IM** 10 mg inj. IM ONE (16:07)
[2023-09-28 17:37] VITALS: BP 124/82; PULSE 91; RESP 18; TEMP 97.7; O2SAT 97
[2023-09-28 19:00] VITALS: RESP 16; O2SAT 97
[2023-09-28 20:00] VITALS: BP 130/79; PULSE 106; RESP 16; TEMP 98.3; O2SAT 97
[2023-09-29 07:00] VITALS: RESP 18; O2SAT 97
[2023-09-29 08:00] VITALS: BP 113/71; PULSE 98; RESP 18; TEMP 97; O2SAT 97
[2023-09-29] MEDS ORDERED: OLANZapine **IM** 10 mg inj. IM PRN (13:55)
[2023-09-29 19:00] VITALS: BP 158/68; PULSE 112; RESP 18; TEMP 98; O2SAT 95
[2023-09-30] VITALS (9 sets, daily range): BP systolic 88–126; BP diastolic 45–72; PULSE 94–112; RESP 17–20; TEMP 98.3–98.9; O2SAT 87–98
[2023-09-30] MEDS: normal saline 1000ml 1,000 ML IV ONE ×3 (10:00→18:23)
[2023-09-30 10:22] LABS: BASOPHILS # (AUTO) 0.1 X10'3 (0-0.2); BASOPHILS % (AUTO) 0.8 % (0-1); EOSINOPHILS # (AUTO) 0.3 X10'3 (0-0.9); EOSINOPHILS % (AUTO) 3.4 % (0-6); HEMATOCRIT 44.1 % (35.0-45.0); HEMOGLOBIN 14.5 g/dl (12.0-16.0); LYMPHOCYTES # (AUTO) 1.9 X10'3 (1.1-4.8); LYMPHOCYTES % (AUTO) 23.1 % (21-51); MEAN CORPUSCULAR HEMOGLOBIN 29.6 PG (27.0-31.0); MEAN CORPUSCULAR HGB CONC 32.9 g/dL (33.0-36.5); MEAN CORPUSCULAR VOLUME 89.9 FL (78-98); MEAN PLATELET VOLUME 7.1 FL (7.4-10.4); MONOCYTES # (AUTO) 0.7 X10'3 (0-0.9); MONOCYTES % (AUTO) 8.4 % (2-12); NEUTROPHILS # (AUTO) 5.4 X10'3 (1.8-7.7); NEUTROPHILS % (AUTO) 64.3 % (42-75); PLATELET COUNT 235 X10'3 (140-440); RED BLOOD COUNT 4.91 X10'6 (4.20-5.60); RED CELL DISTRIBUTION WIDTH 14.8 % (11.5-14.5); WHITE BLOOD COUNT 8.4 X10'3 (4.5-11.0)
[2023-09-30 10:22] LABS: BILIRUBIN,URINE NEGATIVE (Neg); CLARITY,URINE SLIGHTLY CLOUDY (Clear); COLOR,URINE YELLOW (Yellow); GLUCOSE, URINE NEGATIVE (Neg); KETONES,URINE TRACE mg/dl (Neg); LEUKOCYTE ESTERASE ,URINE LARGE (Neg); NITRITES, URINE NEGATIVE (Neg); OCCULT BLOOD,URINE NEGATIVE (Neg); PROTEIN,URINE 100 mg/dl (Neg); UROBILINOGEN,URINE 0.2 E.U/dL (0.2-1.0)
[2023-09-30 10:29] LABS: ALBUMIN 3.6 G/DL (3.4-5.0); ANION GAP 13 (8-16); BLOOD UREA NITROGEN 26 MG/DL (7-18); CALCIUM 10.1 MG/DL (8.5-10.1); CHLORIDE 97 MMOL/L (99-107); CREATININE 1.63 MG/DL (0.40-0.90); GLUCOSE 216 MG/DL (70-104); POTASSIUM 4.6 MMOL/L (3.5-5.1); SODIUM 137 MMOL/L (135-145); TOTAL CARBON DIOXIDE 26.8 MMOL/L (24-32); eCRCL 33 ML/MIN; eGFR 33 ML/MIN
[2023-09-30 10:31] LABS: UA COLLECTION TYPE NON-SPECIFIED
[2023-09-30 10:32] LABS: RBC,URINE 0-2 /HPF (0-2)
[2023-09-30 10:33] LABS: BACTERIA,URINE 1+ /HPF (Neg); COARSE GRANULAR CAST 0-3 /LPF (NEGATIVE); HYALINE CASTS 0-3 /LPF (NEGATIVE); MUCUS STRANDS MODERATE /LPF (Neg); SQUAMOUS EPITHELIAL CELL,UR MANY /LPF (FEW); TRANSITIONAL EPI CELLS,URINE MODERATE /HPF
[2023-09-30] MEDS: normal saline 1000ml 1,000 ML IV SCH (11:33)
[2023-09-30] MEDS: nystatin 15 GM powder TP SCH (12:40)
[2023-09-30] MEDS: miconazole nitrate 28.35 gm derm cream TP SCH (12:40)
[2023-09-30] MEDS: NYSTATIN CREAM - 30GM TUBE TP SCH (13:00)
[2023-09-30] MEDS: CefTRIAXone/D5W-Rocephin 1gm 50 ML IV SCH (14:25)
[2023-09-30] MEDS ORDERED: LOPE2CAP PO (15:33)
[2023-09-30] MEDS ORDERED: MAG30ORA PO (15:33)
[2023-09-30] MEDS ORDERED: BISA10SU11 RC (15:33)
[2023-09-30] MEDS ORDERED: TRAZ-251 PO (15:33)
[2023-09-30] MEDS ORDERED: NICO-631 TD (15:33)
[2023-09-30] MEDS ORDERED: OLAN10VI2 IM (15:33)
[2023-09-30] MEDS ORDERED: MAGN400O6 PO (15:33)
[2023-09-30] MEDS ORDERED: MELA3TAB39 PO (15:33)
[2023-09-30] MEDS ORDERED: IBUP-1594 PO (15:33)
[2023-09-30] MEDS ORDERED: LACT-237 PO (15:33)
[2023-09-30] MEDS ORDERED: TRIA15CR61 TP (15:33)
[2023-09-30] MEDS ORDERED: MICONAZOLE NITRATE TP (15:33)
[2023-09-30] MEDS ORDERED: ATOR20TA66 PO (15:33)
[2023-09-30] MEDS ORDERED: Lorazepam PO (15:33)
[2023-09-30] MEDS ORDERED: HALO100A3 IM (15:33)
[2023-09-30] MEDS ORDERED: gabapentin capsule PO (15:33)
[2023-09-30] MEDS ORDERED: HALO50AM6 IM (15:33)
[2023-09-30] MEDS ORDERED: HALO5TAB PO (15:33)
[2023-09-30] MEDS ORDERED: NYSPWD TP (15:33)
[2023-09-30] MEDS ORDERED: DOCU100C40 PO (15:33)
[2023-09-30] MEDS ORDERED: DIVA125C2 PO ×2 (15:33)
[2023-09-30] MEDS ORDERED: MAGN296S89 PO (15:33)
[2023-09-30] MEDS ORDERED: OLAN5TAB29 PO ×4 (15:33)
[2023-09-30] MEDS ORDERED: normal saline 1000ml 1,000 ML IV SCH ×2 (17:40→19:00)
[2023-09-30] MEDS ORDERED: sulfamethoxazole/trimethoprim DS (800/160mg) tablet PO SCH (19:00)
[2023-09-30] MEDS ORDERED: TEMA30CA5 PO (21:08)
[2023-09-30] MEDS ORDERED: TEMA15CA5 PO (21:08)
[2023-09-30] MEDS ORDERED: SALI1KIT9 (21:15)
[2023-09-30] MEDS ORDERED: MICO45CR15 VG (21:15)
== END 2023-09-30 18:45 | disposition short-term general hospital (02) | DRG 885 ==
LOC: ER 16:36 → ADULT MH 03-30 15:30
PROVIDERS: ADMIT Psychiatry & Neurology Psychiatry; ATTEND Psychiatry & Neurology Psychiatry
PROC: GZHZZZZ Group Psychotherapy (ICD-10-PCS; principal; 2023-03-31)
PROC: GZ51ZZZ Individual Psychotherapy, Behavioral (ICD-10-PCS; 2023-03-31)
DX: F25.0 Schizoaffective disorder, bipolar type (principal); N17.9 Acute kidney failure, unspecified; N18.30 Chronic kidney disease, stage 3 unspecified; E87.20 Acidosis, unspecified; E87.1 Hypo-osmolality and hyponatremia; E78.00 Pure hypercholesterolemia, unspecified; E11.42 Type 2 diabetes mellitus with diabetic polyneuropathy; F17.200 Nicotine dependence, unspecified, uncomplicated; G40.909 Epilepsy, unspecified, not intractable, without status epilepticus; E88.09 Other disorders of plasma-protein metabolism, not elsewhere classified; E11.22 Type 2 diabetes mellitus with diabetic chronic kidney disease; L40.8 Other psoriasis; E66.01 Morbid (severe) obesity due to excess calories; Z20.822 Contact with and (suspected) exposure to COVID-19; K21.9 Gastro-esophageal reflux disease without esophagitis; M54.9 Dorsalgia, unspecified; R21 Rash and other nonspecific skin eruption; G89.29 Other chronic pain; Z88.6 Allergy status to analgesic agent; Z90.710 Acquired absence of both cervix and uterus; Z88.0 Allergy status to penicillin; Z79.899 Other long term (current) drug therapy; Z68.33 Body mass index [BMI] 33.0-33.9, adult
CPT/HCPCS: 36415; 70450; 71045; 74018; 80048; 80053; 80061; 80164; 80305; 80320; 81001; 81003; 81025; 82140; 82948; 83036; 83605; 84145; 84443; 85025; 85651; 87040; 87077; 87088; 87186; 87502; 87503; 87811; 96372; 99285; A4615; A6250; A6258; J0696; J1200; J1630; J2060; J3486; J3490; J7030; Q0163; Q0177

== ENCOUNTER 2023-09-30 16:05 | Inpatient (IN) | payer MEDICARE, MEDICAID ==
[~2023-09-30] VITALS: Ht 162.6 cm; Wt 93.2 kg
[~2023-09-30 16:05] MED LIST changes: -ATOR10TA70 PO; +ATOR20TA66 PO; -BENZ1TAB78 PO; +BISA10SU11 RC; -CLON0.122 PO; +CLON0.1T PO; -CLOZ100T13 PO; -CLOZ25TA12 PO; +DIVA125C2 PO; +DOCU100C40 PO; +HALO100A3 IM; -HALO10TA13 PO; +HALO50AM6 IM; +HYDR50CA5 PO; +IBUP-1594 PO; +LACT-237 PO; +LAMO200T10 PO; -LEVE500T PO; +LEVE750T PO; +LINA5TAB4 PO; +LOPE2CAP PO; -LOSA25TA41 PO; +Lorazepam PO; +MAG30ORA PO; +MAGN296S89 PO; +MAGN400O6 PO; +MELA3TAB39 PO; +MICONAZOLE NITRATE TP; +NICO-631 TD; +NYSPWD TP; +OLAN10VI2 IM; +OLAN5TAB29 PO; -OXYB5TAB21 PO; -PALI3TAB PO; -SITA25TA3 PO; +TRAZ-251 PO; +TRIA15CR61 TP; +gabapentin capsule PO
[2023-09-30] MEDS ORDERED: potassium Cl 20 mEq SR tablet PO PRN ×2 (16:15)
[2023-09-30] MEDS ORDERED: magnesium Cl slow-release 64mg tablet PO PRN (16:15)
[2023-09-30] MEDS ORDERED: ondansetron/PF 4mg/2ml inj IV PRN (16:15)
[2023-09-30] MEDS ORDERED: magnesium sulf-water 2g/50mL 50 ML IV PRN (16:15)
[2023-09-30] MEDS ORDERED: magnesium sulf-water 4G/100mL 100 ML IV PRN (16:15)
[2023-09-30] MEDS ORDERED: mag hydrox/Alum hydrox/simeth 30ml oral suspension PO PRN (16:15)
[2023-09-30] MEDS ORDERED: magnesium hydroxide 30ml (MOM) UD suspension PO PRN (16:15)
[2023-09-30] MEDS ORDERED: potassium Cl 40MEQ/1/2NS 520ml 520 ML IV PRN (16:15)
[2023-09-30 19:14] VITALS: BP 130/65; PULSE 89; RESP 20; TEMP 97.9; O2SAT 95
[2023-09-30] MEDS ORDERED: TEMA30CA5 PO (21:08)
[2023-09-30] MEDS ORDERED: TEMA15CA5 PO (21:08)
[2023-09-30] MEDS ORDERED: SALI1KIT9 (21:15)
[2023-09-30] MEDS ORDERED: MICO45CR15 VG (21:15)
[2023-09-30] MEDS: K and/or MAG REPLACEMENT MC SCH (22:28)
[2023-09-30] MEDS: gabapentin 300mg capsule PO ONE (22:46)
[2023-09-30] MEDS: Melatonin 3mg tablet PO ONE (22:46)
[2023-09-30] MEDS: normal saline 1000ml 1,000 ML IV SCH (22:47)
[2023-09-30] MEDS: docusate sod 100mg capsule PO SCH (22:52)
[2023-09-30] MEDS: heparin, porcine 5000 units/ml vial SQ SCH (22:52)
[2023-09-30] MEDS: levetiracetam 250mg tablet PO ONE (22:53)
[2023-09-30] MEDS: divalproex sod 125mg sprinkle cap PO ONE (23:47)
[2023-09-30] MEDS: olanzapine 10mg tablet PO ONE (23:50)
[2023-10-01 00:25] VITALS: BP 125/70; PULSE 88; RESP 20; TEMP 97.5; O2SAT 94
[2023-10-01 06:11] LABS: BASOPHILS % (AUTO) 0.7 % (0-1); EOSINOPHILS # (AUTO) 0.3 X10'3 (0-0.9); EOSINOPHILS % (AUTO) 5.6 % (0-6); HEMATOCRIT 34.9 % (35.0-45.0); HEMOGLOBIN 11.7 g/dl (12.0-16.0); LYMPHOCYTES % (AUTO) 38.1 % (21-51); MEAN CORPUSCULAR HEMOGLOBIN 30.1 PG (27.0-31.0); MEAN CORPUSCULAR HGB CONC 33.4 g/dL (33.0-36.5); MEAN PLATELET VOLUME 6.9 FL (7.4-10.4); MONOCYTES # (AUTO) 0.5 X10'3 (0-0.9); MONOCYTES % (AUTO) 10.1 % (2-12); NEUTROPHILS # (AUTO) 2.4 X10'3 (1.8-7.7); NEUTROPHILS % (AUTO) 45.5 % (42-75); PLATELET COUNT 205 X10'3 (140-440); RED BLOOD COUNT 3.88 X10'6 (4.20-5.60); RED CELL DISTRIBUTION WIDTH 14.5 % (11.5-14.5); WHITE BLOOD COUNT 5.4 X10'3 (4.5-11.0)
[2023-10-01 06:16] LABS: ALANINE AMINOTRANSFERASE 22 U/L (12-78); ALBUMIN 2.7 G/DL (3.4-5.0); ALBUMIN/GLOBULIN RATIO 0.9 (1.1-1.5); ALKALINE PHOSPHATASE 38 IU/L (46-116); ANION GAP 6 (8-16); ASPARTATE AMINO TRANSFERASE 13 U/L (10-37); BILIRUBIN,TOTAL 0.2 MG/DL (0.1-1.0); BLOOD UREA NITROGEN 15 MG/DL (7-18); BUN/CREATININE RATIO 17.4 (10.0-20.0); CALCIUM 8.6 MG/DL (8.5-10.1); CHLORIDE 108 MMOL/L (99-107); CREATININE 0.86 MG/DL (0.40-0.90); GLUCOSE 118 MG/DL (70-104); MAGNESIUM 1.7 MG/DL (1.5-2.4); PHOSPHORUS 2.7 MG/DL (2.3-4.5); POTASSIUM 4.7 MMOL/L (3.5-5.1); SODIUM 141 MMOL/L (135-145); TOTAL CARBON DIOXIDE 27.1 MMOL/L (24-32); TOTAL PROTEIN 5.8 G/DL (6.4-8.2); eCRCL 63 ML/MIN; eGFR 68 ML/MIN
[2023-10-01] MEDS: levetiracetam 250mg tablet PO SCH (07:58)
[2023-10-01] MEDS: linagliptin 5mg tablet PO SCH (07:58)
[2023-10-01] MEDS: gabapentin 300mg capsule PO SCH (07:59)
[2023-10-01] MEDS: CefTRIAXone/D5W-Rocephin 1gm 50 ML IV SCH (08:00)
[2023-10-01] MEDS ORDERED: miconazole nitrate 2% 45gm VAG cream VG SCH (08:00)
[2023-10-01 10:00] VITALS: BP 143/81; PULSE 73; RESP 14; TEMP 97; O2SAT 97
[2023-10-01] MEDS: divalproex sod 125mg sprinkle cap PO SCH ×2 (10:04→20:13)
[2023-10-01] MEDS: normal saline 1000ml 1,000 ML IV ONE ×2 (13:00→13:26)
[2023-10-01] MEDS: haloperidol 5mg tablet PO SCH (13:26)
[2023-10-01] MEDS: OLANZapine 5mg rapidly disint. tablet PO PRN (13:26)
[2023-10-01] MEDS: olanzapine 10mg tablet PO SCH ×2 (13:28→20:14)
[2023-10-01] MEDS: vancomycin 1,750 MG in NS 350ml IV soln IV ONE (16:17)
[2023-10-01 18:00] VITALS: BP 132/62; PULSE 75; RESP 17; TEMP 97.8; O2SAT 95
[2023-10-01] MEDS: lactose-reduced food (Ensure Enlive) - 237ml bottle PO SCH (18:00)
[2023-10-01] MEDS: miconazole nitrate 28.35 gm derm cream TP SCH (20:12)
[2023-10-01] MEDS: atorvastatin 20mg tablet PO SCH (20:13)
[2023-10-01] MEDS: Melatonin 3mg tablet PO SCH (20:13)
[2023-10-01] MEDS: normal saline 1000ml 1,000 ML IV SCH (21:00)
[2023-10-01] MEDS: nystatin 15 GM powder TP SCH (21:00)
[2023-10-02] MEDS: VANCOmycin 1250MG/NS 250ml Bag 250 ML IV SCH (02:25)
[2023-10-02 05:15] LABS: BASOPHILS % (AUTO) 0.6 % (0-1); EOSINOPHILS # (AUTO) 0.4 X10'3 (0-0.9); EOSINOPHILS % (AUTO) 8.5 % (0-6); HEMATOCRIT 33.7 % (35.0-45.0); HEMOGLOBIN 11.3 g/dl (12.0-16.0); LYMPHOCYTES # (AUTO) 1.4 X10'3 (1.1-4.8); LYMPHOCYTES % (AUTO) 27.4 % (21-51); MEAN CORPUSCULAR HEMOGLOBIN 30.5 PG (27.0-31.0); MEAN CORPUSCULAR HGB CONC 33.5 g/dL (33.0-36.5); MEAN CORPUSCULAR VOLUME 91.2 FL (78-98); MONOCYTES # (AUTO) 0.6 X10'3 (0-0.9); MONOCYTES % (AUTO) 11.9 % (2-12); NEUTROPHILS # (AUTO) 2.6 X10'3 (1.8-7.7); NEUTROPHILS % (AUTO) 51.6 % (42-75); PLATELET COUNT 210 X10'3 (140-440); RED BLOOD COUNT 3.69 X10'6 (4.20-5.60); RED CELL DISTRIBUTION WIDTH 14.4 % (11.5-14.5); WHITE BLOOD COUNT 5.1 X10'3 (4.5-11.0)
[2023-10-02 05:37] LABS: ALANINE AMINOTRANSFERASE 23 U/L (12-78); ALBUMIN 2.8 G/DL (3.4-5.0); ALBUMIN/GLOBULIN RATIO 0.8 (1.1-1.5); ALKALINE PHOSPHATASE 42 IU/L (46-116); ANION GAP 11 (8-16); ASPARTATE AMINO TRANSFERASE 22 U/L (10-37); BILIRUBIN,TOTAL 0.3 MG/DL (0.1-1.0); BLOOD UREA NITROGEN 10 MG/DL (7-18); BUN/CREATININE RATIO 11.5 (10.0-20.0); CALCIUM 8.7 MG/DL (8.5-10.1); CHLORIDE 104 MMOL/L (99-107); CREATININE 0.87 MG/DL (0.40-0.90); GLUCOSE 136 MG/DL (70-104); MAGNESIUM 1.5 MG/DL (1.5-2.4); PHOSPHORUS 3.4 MG/DL (2.3-4.5); POTASSIUM 4.2 MMOL/L (3.5-5.1); SODIUM 139 MMOL/L (135-145); TOTAL CARBON DIOXIDE 23.8 MMOL/L (24-32); TOTAL PROTEIN 6.2 G/DL (6.4-8.2); eCRCL 62 ML/MIN; eGFR 67 ML/MIN
[2023-10-02 06:00] VITALS: BP 122/70; PULSE 86; RESP 15; TEMP 97.9; O2SAT 94
[2023-10-02 09:24] LABS: VALPROATE 82 UG/ML (50-100)
[2023-10-02] MEDS: triamcinolone acetonide 0.5% cream 15gm TP PRN (09:37)
[2023-10-02 09:50] VITALS: BP 129/66; PULSE 87; RESP 18; TEMP 97.9; O2SAT 93
[2023-10-02] MEDS: normal saline 1000ml 1,000 ML IV SCH (12:45)
[2023-10-02] MEDS: nicotine 14mg patch - 24hr TD SCH (13:26)
[2023-10-02] MEDS: normal saline 1000ml 1,000 ML IV ONE ×2 (13:29→14:24)
[2023-10-02] MEDS ORDERED: OLANZAPINE 5 MG TABLET PO SCH (13:45)
[2023-10-02] MEDS: OLANZAPINE 5 MG TABLET PO SCH (16:09)
[2023-10-02 18:00] VITALS: BP 134/75; PULSE 86; RESP 14; TEMP 97.4; O2SAT 96
[2023-10-02] MEDS: hydrOXYzine 25 MG tablet PO PRN (18:09)
[2023-10-02] MEDS: acetaminophen 325mg tablet PO PRN (18:58)
[2023-10-02] MEDS: temazepam 15mg capsule PO PRN (21:18)
[2023-10-02 22:00] VITALS: BP 125/59; PULSE 78; RESP 14; TEMP 98.1; O2SAT 93
[2023-10-03] MEDS: VANCOMYCIN LEVEL IV ONE (01:50)
[2023-10-03 06:00] VITALS: BP 119/71; PULSE 71; RESP 18; TEMP 96.4; O2SAT 93
[2023-10-03 08:08] LABS: ALANINE AMINOTRANSFERASE 21 U/L (12-78); ALBUMIN 2.8 G/DL (3.4-5.0); ALBUMIN/GLOBULIN RATIO 0.8 (1.1-1.5); ALKALINE PHOSPHATASE 44 IU/L (46-116); ANION GAP 8 (8-16); ASPARTATE AMINO TRANSFERASE 24 U/L (10-37); BILIRUBIN,TOTAL 0.2 MG/DL (0.1-1.0); BLOOD UREA NITROGEN 11 MG/DL (7-18); BUN/CREATININE RATIO 12.8 (10.0-20.0); CALCIUM 9.3 MG/DL (8.5-10.1); CHLORIDE 107 MMOL/L (99-107); CREATININE 0.86 MG/DL (0.40-0.90); GLUCOSE 125 MG/DL (70-104); MAGNESIUM 1.7 MG/DL (1.5-2.4); PHOSPHORUS 3.8 MG/DL (2.3-4.5); POTASSIUM 4.4 MMOL/L (3.5-5.1); SODIUM 139 MMOL/L (135-145); TOTAL CARBON DIOXIDE 23.8 MMOL/L (24-32); TOTAL PROTEIN 6.1 G/DL (6.4-8.2); eCRCL 63 ML/MIN; eGFR 68 ML/MIN
[2023-10-03 09:00] VITALS: RESP 16
[2023-10-03 10:00] VITALS: BP 131/80; PULSE 87; RESP 16; TEMP 97.2; O2SAT 97
[2023-10-03 13:09] LABS: BASOPHILS % (AUTO) 0.5 % (0-1); EOSINOPHILS # (AUTO) 0.4 X10'3 (0-0.9); EOSINOPHILS % (AUTO) 8.1 % (0-6); HEMATOCRIT 39.8 % (35.0-45.0); HEMOGLOBIN 13.2 g/dl (12.0-16.0); LYMPHOCYTES # (AUTO) 1.3 X10'3 (1.1-4.8); LYMPHOCYTES % (AUTO) 27.3 % (21-51); MEAN CORPUSCULAR HGB CONC 33.2 g/dL (33.0-36.5); MEAN CORPUSCULAR VOLUME 90.4 FL (78-98); MEAN PLATELET VOLUME 6.7 FL (7.4-10.4); MONOCYTES # (AUTO) 0.4 X10'3 (0-0.9); MONOCYTES % (AUTO) 8.5 % (2-12); NEUTROPHILS # (AUTO) 2.7 X10'3 (1.8-7.7); NEUTROPHILS % (AUTO) 55.6 % (42-75); PLATELET COUNT 226 X10'3 (140-440); RED BLOOD COUNT 4.41 X10'6 (4.20-5.60); RED CELL DISTRIBUTION WIDTH 14.4 % (11.5-14.5); WHITE BLOOD COUNT 4.8 X10'3 (4.5-11.0)
[2023-10-03 17:55] VITALS: BP 151/84; PULSE 99; RESP 16; TEMP 97.7; O2SAT 96
[2023-10-03 22:00] VITALS: BP 128/61; PULSE 78; RESP 15; TEMP 97.9; O2SAT 96
[2023-10-04 06:00] VITALS: BP 129/67; PULSE 84; RESP 16; TEMP 97.1; O2SAT 96
[2023-10-04 07:53] LABS: BASOPHILS % (AUTO) 0.7 % (0-1); EOSINOPHILS # (AUTO) 0.5 X10'3 (0-0.9); EOSINOPHILS % (AUTO) 8.5 % (0-6); HEMATOCRIT 37.8 % (35.0-45.0); HEMOGLOBIN 12.5 g/dl (12.0-16.0); LYMPHOCYTES # (AUTO) 1.9 X10'3 (1.1-4.8); MEAN CORPUSCULAR HEMOGLOBIN 29.5 PG (27.0-31.0); MEAN CORPUSCULAR VOLUME 89.4 FL (78-98); MONOCYTES # (AUTO) 0.6 X10'3 (0-0.9); NEUTROPHILS # (AUTO) 2.5 X10'3 (1.8-7.7); NEUTROPHILS % (AUTO) 45.8 % (42-75); PLATELET COUNT 219 X10'3 (140-440); RED BLOOD COUNT 4.23 X10'6 (4.20-5.60); RED CELL DISTRIBUTION WIDTH 14.2 % (11.5-14.5); WHITE BLOOD COUNT 5.5 X10'3 (4.5-11.0)
[2023-10-04 08:05] LABS: ALANINE AMINOTRANSFERASE 24 U/L (12-78); ALBUMIN 2.9 G/DL (3.4-5.0); ALBUMIN/GLOBULIN RATIO 0.8 (1.1-1.5); ALKALINE PHOSPHATASE 45 IU/L (46-116); ANION GAP 9 (8-16); ASPARTATE AMINO TRANSFERASE 22 U/L (10-37); BILIRUBIN,TOTAL 0.2 MG/DL (0.1-1.0); BLOOD UREA NITROGEN 13 MG/DL (7-18); BUN/CREATININE RATIO 14.1 (10.0-20.0); CALCIUM 9.3 MG/DL (8.5-10.1); CHLORIDE 102 MMOL/L (99-107); CREATININE 0.92 MG/DL (0.40-0.90); GLUCOSE 128 MG/DL (70-104); MAGNESIUM 1.6 MG/DL (1.5-2.4); PHOSPHORUS 3.8 MG/DL (2.3-4.5); POTASSIUM 4.4 MMOL/L (3.5-5.1); SODIUM 138 MMOL/L (135-145); TOTAL CARBON DIOXIDE 26.7 MMOL/L (24-32); TOTAL PROTEIN 6.4 G/DL (6.4-8.2); eCRCL 59 ML/MIN; eGFR 63 ML/MIN
[2023-10-04 10:00] VITALS: BP 122/67; PULSE 80; RESP 16; TEMP 97.6; O2SAT 95
[2023-10-04] MEDS ORDERED: LACT1CAP26 PO (17:06)
[2023-10-04] MEDS ORDERED: CEFD300C3 PO (17:06)
[2023-10-04 18:00] VITALS: BP 124/63; PULSE 88; RESP 18; TEMP 98; O2SAT 92
[2023-10-04 22:38] VITALS: BP 119/54; PULSE 87; RESP 18; TEMP 98.3; O2SAT 93
[2023-10-05 06:00] VITALS: BP 127/69; PULSE 67; RESP 16; TEMP 98; O2SAT 95
[2023-10-05 07:41] LABS: EOSINOPHILS # (AUTO) 0.4 X10'3 (0-0.9); HEMATOCRIT 41.7 % (35.0-45.0); MONOCYTES # (AUTO) 0.8 X10'3 (0-0.9); PLATELET COUNT 213 X10'3 (140-440)
[2023-10-05 07:44] LABS: BASOPHILS # (AUTO) 0.1 X10'3 (0-0.2); BASOPHILS % (AUTO) 0.8 % (0-1); EOSINOPHILS % (AUTO) 5.5 % (0-6); LYMPHOCYTES # (AUTO) 2.2 X10'3 (1.1-4.8); MEAN CORPUSCULAR HEMOGLOBIN 30.2 PG (27.0-31.0); MEAN CORPUSCULAR HGB CONC 33.5 g/dL (33.0-36.5); MEAN PLATELET VOLUME 7.7 FL (7.4-10.4); MONOCYTES % (AUTO) 9.8 % (2-12); NEUTROPHILS # (AUTO) 4.2 X10'3 (1.8-7.7); NEUTROPHILS % (AUTO) 54.9 % (42-75); RED BLOOD COUNT 4.63 X10'6 (4.20-5.60); RED CELL DISTRIBUTION WIDTH 14.3 % (11.5-14.5); WHITE BLOOD COUNT 7.7 X10'3 (4.5-11.0)
[2023-10-05 08:20] LABS: ALANINE AMINOTRANSFERASE 24 U/L (12-78); ALBUMIN 3.3 G/DL (3.4-5.0); ALBUMIN/GLOBULIN RATIO 0.8 (1.1-1.5); ALKALINE PHOSPHATASE 57 IU/L (46-116); ANION GAP 12 (8-16); BILIRUBIN,TOTAL 0.2 MG/DL (0.1-1.0); BLOOD UREA NITROGEN 18 MG/DL (7-18); BUN/CREATININE RATIO 20.9 (10.0-20.0); CALCIUM 9.8 MG/DL (8.5-10.1); CHLORIDE 101 MMOL/L (99-107); CREATININE 0.86 MG/DL (0.40-0.90); GLUCOSE 220 MG/DL (70-104); MAGNESIUM 1.7 MG/DL (1.5-2.4); SODIUM 137 MMOL/L (135-145); TOTAL CARBON DIOXIDE 24.4 MMOL/L (24-32); TOTAL PROTEIN 7.5 G/DL (6.4-8.2); eCRCL 63 ML/MIN; eGFR 68 ML/MIN
[2023-10-05 08:31] LABS: ASPARTATE AMINO TRANSFERASE 29 U/L (10-37); PHOSPHORUS 3.8 MG/DL (2.3-4.5); POTASSIUM 4.9 MMOL/L (3.5-5.1)
[2023-10-05] MEDS ORDERED: NICO-630 TD (09:22)
[2023-10-05] MEDS ORDERED: HYDR-3686 PO (09:22)
[2023-10-05] MEDS ORDERED: MAGN30OR PO (09:22)
[2023-10-05] MEDS ORDERED: IBUP-49 PO (09:22)
[2023-10-05] MEDS ORDERED: ATOR20TA PO (09:22)
[2023-10-05] MEDS ORDERED: TRAZ-256 PO (09:22)
[2023-10-05] MEDS ORDERED: LOPE2CAP PO (09:22)
[2023-10-05] MEDS ORDERED: HALO50AM2 IM (09:22)
[2023-10-05] MEDS ORDERED: HALO0.5T PO (09:22)
[2023-10-05] MEDS ORDERED: OLAN5TAB5 PO ×3 (09:22)
[2023-10-05] MEDS ORDERED: MELA1TAB52 PO (09:22)
[2023-10-05] MEDS ORDERED: LACT-237 PO (09:22)
[2023-10-05] MEDS ORDERED: GABA-530 PO (09:22)
[2023-10-05] MEDS ORDERED: CEFD300C3 PO (09:22)
[2023-10-05] MEDS ORDERED: MAGN296S68 PO (09:22)
[2023-10-05] MEDS ORDERED: MICO45CR46 VG (09:22)
[2023-10-05] MEDS ORDERED: DOCU-148 PO (09:22)
[2023-10-05] MEDS ORDERED: LACT1CAP26 PO (09:22)
[2023-10-05] MEDS ORDERED: BISA10SU11 RC (09:22)
[2023-10-05] MEDS ORDERED: LORA-268 PO (09:22)
[2023-10-05] MEDS ORDERED: [UNRECOGNIZED DRUG - CODE] PO (09:22)
[2023-10-05] MEDS ORDERED: HALO100A2 IM (09:22)
[2023-10-05] MEDS ORDERED: OLAN-1 PO (09:22)
[2023-10-05] MEDS ORDERED: NYST30CR35 TOP (09:22)
[2023-10-05] MEDS ORDERED: LEVE750T66 PO (09:22)
[2023-10-05] MEDS ORDERED: DIVA125C2 PO (09:22)
== END 2023-10-05 07:35 | DRG 871 ==
LOC: ORTHO 4S 16:11
PROVIDERS: ADMIT Family Medicine; ATTEND Family Medicine
DX: A41.9 Sepsis, unspecified organism (principal); N17.0 Acute kidney failure with tubular necrosis; N39.0 Urinary tract infection, site not specified; E87.1 Hypo-osmolality and hyponatremia; E87.20 Acidosis, unspecified; B37.89 Other sites of candidiasis; N18.30 Chronic kidney disease, stage 3 unspecified; E11.42 Type 2 diabetes mellitus with diabetic polyneuropathy; F25.9 Schizoaffective disorder, unspecified; E11.22 Type 2 diabetes mellitus with diabetic chronic kidney disease; G40.909 Epilepsy, unspecified, not intractable, without status epilepticus; E88.09 Other disorders of plasma-protein metabolism, not elsewhere classified; G89.29 Other chronic pain; M54.59 Other low back pain; K59.00 Constipation, unspecified; L40.8 Other psoriasis; Z88.0 Allergy status to penicillin; Z88.8 Allergy status to other drugs, medicaments and biological substances
CPT/HCPCS: 36415; 80053; 80164; 80202; 83605; 83735; 84100; 84145; 85025; 87040; 87081; 87088; 92508; 92616; 97116; 97161; A6154; A6250; G0378; J0696; J1644; J2405; J3370; J7030; J7040; Q0177

== ENCOUNTER 2023-10-05 07:00 | Inpatient (IN) | payer MEDICARE, MEDICAID ==
[~2023-10-05] VITALS: Ht 162.6 cm; Wt 92.9 kg
[~2023-10-05 07:00] MED LIST changes: +CEFD300C3 PO; -CLON0.1T PO; -GABA300C PO; +LACT1CAP26 PO; -LAMO200T10 PO; +SALI1KIT9; +TEMA15CA5 PO; +TEMA30CA5 PO
[2023-10-05 08:00] VITALS: BP 107/60; RESP 18; TEMP 98.1; O2SAT 94
[2023-10-05] MEDS ORDERED: [UNRECOGNIZED DRUG - CODE] PO (09:22)
[2023-10-05] MEDS ORDERED: HYDR-3686 PO (09:22)
[2023-10-05] MEDS ORDERED: DIVA125C2 PO (09:22)
[2023-10-05] MEDS ORDERED: DOCU-148 PO (09:22)
[2023-10-05] MEDS ORDERED: LOPE2CAP PO (09:22)
[2023-10-05] MEDS ORDERED: CEFD300C3 PO (09:22)
[2023-10-05] MEDS ORDERED: LORA-268 PO (09:22)
[2023-10-05] MEDS ORDERED: LACT1CAP26 PO (09:22)
[2023-10-05] MEDS ORDERED: IBUP-49 PO (09:22)
[2023-10-05] MEDS ORDERED: NYST30CR35 TOP (09:22)
[2023-10-05] MEDS ORDERED: OLAN-1 PO (09:22)
[2023-10-05] MEDS ORDERED: HALO100A2 IM (09:22)
[2023-10-05] MEDS ORDERED: MAGN296S68 PO (09:22)
[2023-10-05] MEDS ORDERED: GABA-530 PO (09:22)
[2023-10-05] MEDS ORDERED: MAGN30OR PO (09:22)
[2023-10-05] MEDS ORDERED: ATOR20TA PO (09:22)
[2023-10-05] MEDS ORDERED: MICO45CR46 VG (09:22)
[2023-10-05] MEDS ORDERED: NICO-630 TD (09:22)
[2023-10-05] MEDS ORDERED: BISA10SU11 RC (09:22)
[2023-10-05] MEDS ORDERED: OLAN5TAB5 PO ×3 (09:22)
[2023-10-05] MEDS ORDERED: LEVE750T66 PO (09:22)
[2023-10-05] MEDS ORDERED: TRAZ-256 PO (09:22)
[2023-10-05] MEDS ORDERED: HALO0.5T PO (09:22)
[2023-10-05] MEDS ORDERED: HALO50AM2 IM (09:22)
[2023-10-05] MEDS ORDERED: LACT-237 PO (09:22)
[2023-10-05] MEDS ORDERED: MELA1TAB52 PO (09:22)
[2023-10-05] MEDS: NICOTINE POLACRILEX 2 MG LOZENGE BC PRN (10:26)
[2023-10-05] MEDS ORDERED: magnesium citrate 296ml oral solution PO PRN (10:35)
[2023-10-05] MEDS ORDERED: MAGNESIUM HYDROXIDE PO PRN (10:35)
[2023-10-05] MEDS ORDERED: mag hydrox/Alum hydrox/simeth 30ml oral suspension PO PRN (10:35)
[2023-10-05] MEDS ORDERED: AL HYDROX PO PRN (10:35)
[2023-10-05] MEDS ORDERED: ibuprofen 200mg tablet PO PRN (10:35)
[2023-10-05] MEDS ORDERED: haloperidol 1mg tablet PO SCH ×2 (12:30)
[2023-10-05] MEDS: OLANZapine 5mg rapidly disint. tablet PO SCH ×2 (13:03→20:52)
[2023-10-05] MEDS: divalproex sod 125mg sprinkle cap PO ONE (13:04)
[2023-10-05] MEDS: nystatin/triamcinolone cream 15gm TP SCH (13:56)
[2023-10-05] MEDS ORDERED: loperamide 2mg capsule PO SCH (14:00)
[2023-10-05] MEDS: docusate sod 100mg capsule PO ONE (15:43)
[2023-10-05] MEDS: FLU VACC TS2024-25(6MOS UP)/PF 45 MCG/0.5 ML SYRINGE IM ONE (17:10)
[2023-10-05 19:00] VITALS: RESP 16; O2SAT 95
[2023-10-05 20:00] VITALS: BP 148/99; PULSE 99; RESP 18; TEMP 97; O2SAT 100
[2023-10-05] MEDS: gabapentin 100mg capsule PO SCH (20:00)
[2023-10-05] MEDS: levetiracetam 250mg tablet PO SCH (20:00)
[2023-10-05] MEDS ORDERED: miconazole nitrate 2% 45gm VAG cream VG SCH (20:00)
[2023-10-05] MEDS: cefdinir 300mg capsule PO SCH (20:00)
[2023-10-05] MEDS: docusate sod 100mg capsule PO SCH (20:00)
[2023-10-05] MEDS: divalproex sod 125mg sprinkle cap PO SCH (20:52)
[2023-10-05] MEDS: atorvastatin 20mg tablet PO SCH (21:00)
[2023-10-05] MEDS: Melatonin 3mg tablet PO SCH (21:00)
[2023-10-05] MEDS ORDERED: temazepam 15mg capsule PO SCH (21:00)
[2023-10-05] MEDS ORDERED: temazepam 15mg capsule PO PRN (21:00)
[2023-10-05] MEDS: traZODone 50mg tablet PO SCH (21:00)
[2023-10-06 07:30] VITALS: BP 97/44; PULSE 74; RESP 18; TEMP 98; O2SAT 94
[2023-10-06] MEDS: linagliptin 5mg tablet PO SCH (08:00)
[2023-10-06] MEDS ORDERED: nicotine 7mg patch - 24hr TD SCH (08:00)
[2023-10-06] MEDS: lactobacillus rhamnosus 10,000 MMU CELLS/CAPSULE PO SCH (08:00)
[2023-10-06] MEDS: nicotine 14mg patch - 24hr TD SCH (08:00)
[2023-10-06] MEDS: OLANZapine 5mg rapidly disint. tablet PO SCH (08:37)
[2023-10-06 19:00] VITALS: RESP 18; O2SAT 96
[2023-10-06 19:18] VITALS: BP 130/61; PULSE 95; RESP 18; TEMP 97.4; O2SAT 96
[2023-10-06] MEDS: OLANZapine **IM** 10 mg inj. IM PRN (21:32)
[2023-10-07 07:00] VITALS: BP 101/53; PULSE 62; RESP 16; TEMP 97; O2SAT 97
[2023-10-07 19:40] VITALS: RESP 18; O2SAT 96
[2023-10-07 19:46] VITALS: RESP 18
[2023-10-07] MEDS: divalproex sod 125mg sprinkle cap PO SCH (20:25)
[2023-10-08 07:00] VITALS: BP 98/62; PULSE 100; RESP 16; TEMP 97.6; O2SAT 96
[2023-10-08 19:00] VITALS: BP 142/59; PULSE 88; RESP 20; TEMP 97.8; O2SAT 97
[2023-10-08] MEDS: temazepam 15mg capsule PO PRN (21:22)
[2023-10-09 07:30] VITALS: BP 120/70; PULSE 74; RESP 18; TEMP 97.1; O2SAT 96
[2023-10-09 09:00] VITALS: RESP 18; O2SAT 96
[2023-10-09 19:00] VITALS: RESP 18; O2SAT 96
[2023-10-09 20:00] VITALS: BP 141/76; PULSE 95; RESP 16; TEMP 96.7; O2SAT 100
[2023-10-10 07:45] VITALS: BP 122/52; PULSE 81; RESP 16; TEMP 97.7; O2SAT 96
[2023-10-10 08:41] VITALS: RESP 16
[2023-10-10] MEDS: NUT.TX.GLUC.INTOLER,LAC-FR,SOY (GLUCERNA) 237 ML PO SCH (18:23)
[2023-10-10 19:00] VITALS: RESP 18; O2SAT 96
[2023-10-10 20:00] VITALS: BP 144/72; PULSE 93; RESP 18; TEMP 98.1; O2SAT 94
[2023-10-11 07:45] VITALS: BP 144/72; PULSE 93; RESP 18; TEMP 98.1; O2SAT 94
[2023-10-11 08:23] VITALS: RESP 18; O2SAT 94
[2023-10-11 19:00] VITALS: RESP 16; O2SAT 95
[2023-10-11 20:00] VITALS: BP 115/70; PULSE 94; RESP 16; TEMP 97.5; O2SAT 95
[2023-10-12 07:30] VITALS: BP 111/73; PULSE 120; RESP 12; TEMP 98.4; O2SAT 96
[2023-10-12] MEDS: haloperidol decanoate***LONG-ACTING*** 100mg/ml **IM only** inj. IM SCH (10:50)
[2023-10-12] MEDS: haloperidol decanoate 50mg/ml 1ml**long-acting** injection IM SCH (10:50)
[2023-10-12 19:00] VITALS: RESP 20; O2SAT 96
[2023-10-12 20:00] VITALS: BP 142/94; PULSE 92; RESP 22; TEMP 97.8; O2SAT 96
[2023-10-12] MEDS: nystatin 15 GM powder TP SCH (21:00)
[2023-10-13 07:30] VITALS: BP 115/72; PULSE 96; RESP 18; TEMP 97.8; O2SAT 97
[2023-10-13] MEDS: lactose-reduced food (Ensure Enlive) - 237ml bottle PO SCH (17:51)
[2023-10-13 19:00] VITALS: BP 120/59; PULSE 97; RESP 15; TEMP 97.1; O2SAT 97
[2023-10-14 07:45] VITALS: BP 110/70; PULSE 88; RESP 16; TEMP 97.8; O2SAT 96
[2023-10-14 19:00] VITALS: RESP 16; O2SAT 95
[2023-10-14 20:00] VITALS: BP 137/83; PULSE 87; RESP 16; TEMP 96.8; O2SAT 95
[2023-10-15 07:30] VITALS: BP 149/86; PULSE 107; RESP 16; TEMP 97.2; O2SAT 95
[2023-10-15 19:00] VITALS: BP 103/73; PULSE 104; RESP 16; TEMP 97.5; O2SAT 96
[2023-10-16 07:00] VITALS: BP 99/44; PULSE 62; RESP 16; TEMP 97; O2SAT 98
[2023-10-16] MEDS: lactose-reduced food (Ensure Enlive) - 237ml bottle PO SCH (09:15)
[2023-10-16 19:00] VITALS: BP 98/67; PULSE 111; RESP 14; TEMP 98.1; O2SAT 98
[2023-10-17 07:00] VITALS: BP 105/66; PULSE 60; RESP 16; TEMP 98.3; O2SAT 97
[2023-10-17 08:00] VITALS: RESP 16; O2SAT 97
[2023-10-17 19:00] VITALS: BP 127/70; PULSE 102; RESP 18; TEMP 98; O2SAT 98
[2023-10-18 07:30] VITALS: BP 115/69; PULSE 86; RESP 16; TEMP 99.1; O2SAT 95
[2023-10-18 19:00] VITALS: RESP 20; O2SAT 96
[2023-10-18 20:00] VITALS: BP 134/72; PULSE 85; RESP 16; TEMP 97.6; O2SAT 96
[2023-10-19 07:00] VITALS: RESP 16; O2SAT 97
[2023-10-19 08:00] VITALS: BP 118/75; PULSE 86; RESP 16; TEMP 97.4; O2SAT 97
[2023-10-19 19:00] VITALS: RESP 16; O2SAT 97
[2023-10-19 20:00] VITALS: BP 114/61; PULSE 73; RESP 16; TEMP 97.5; O2SAT 97
[2023-10-20] MEDS: quetiapine 100mg tablet PO ONE (01:00)
[2023-10-20 02:00] VITALS: BP 114/51; PULSE 73; RESP 16; TEMP 97.5; O2SAT 97
[2023-10-20 07:30] VITALS: BP 118/65; PULSE 95; RESP 16; TEMP 97.4; O2SAT 96
[2023-10-20] MEDS: acetaminophen 325mg tablet PO PRN (08:20)
[2023-10-20 19:00] VITALS: RESP 16; O2SAT 96
[2023-10-20 20:00] VITALS: BP 133/77; PULSE 69; RESP 18; TEMP 97.7; O2SAT 97
[2023-10-21 07:15] VITALS: BP 119/72; PULSE 96; RESP 20; TEMP 98.7; O2SAT 97
[2023-10-21 08:56] VITALS: RESP 20; O2SAT 97
[2023-10-21 20:00] VITALS: BP 93/42; PULSE 81; RESP 18; TEMP 97.6; O2SAT 90
[2023-10-22 07:30] VITALS: BP 99/47; PULSE 71; RESP 12; TEMP 98.7; O2SAT 96
[2023-10-22] MEDS: triamcinolone acet 0.1% cream 15gm TP PRN (08:12)
[2023-10-22 08:24] VITALS: RESP 12; O2SAT 96
[2023-10-22] MEDS: ibuprofen tablet 400 MG TABLET PO ONE (19:00)
[2023-10-22 19:17] LABS: BASOPHILS % (AUTO) 0.8 % (0-1); EOSINOPHILS # (AUTO) 0.2 X10'3 (0-0.9); EOSINOPHILS % (AUTO) 4.1 % (0-6); HEMATOCRIT 39.6 % (35.0-45.0); HEMOGLOBIN 13.2 g/dl (12.0-16.0); LYMPHOCYTES # (AUTO) 1.8 X10'3 (1.1-4.8); LYMPHOCYTES % (AUTO) 32.3 % (21-51); MEAN CORPUSCULAR HEMOGLOBIN 30.1 PG (27.0-31.0); MEAN CORPUSCULAR HGB CONC 33.3 g/dL (33.0-36.5); MEAN CORPUSCULAR VOLUME 90.5 FL (78-98); MEAN PLATELET VOLUME 6.8 FL (7.4-10.4); MONOCYTES # (AUTO) 0.5 X10'3 (0-0.9); MONOCYTES % (AUTO) 9.3 % (2-12); NEUTROPHILS % (AUTO) 53.5 % (42-75); PLATELET COUNT 287 X10'3 (140-440); RED BLOOD COUNT 4.37 X10'6 (4.20-5.60); RED CELL DISTRIBUTION WIDTH 14.4 % (11.5-14.5); WHITE BLOOD COUNT 5.6 X10'3 (4.5-11.0)
[2023-10-22 19:18] LABS: BILIRUBIN,URINE NEGATIVE (Neg); CLARITY,URINE CLEAR (Clear); COLOR,URINE YELLOW (Yellow); GLUCOSE, URINE NEGATIVE (Neg); KETONES,URINE NEGATIVE (Neg); LEUKOCYTE ESTERASE ,URINE TRACE (Neg); NITRITES, URINE NEGATIVE (Neg); OCCULT BLOOD,URINE NEGATIVE (Neg); PROTEIN,URINE NEGATIVE (Neg); UROBILINOGEN,URINE 0.2 E.U/dL (0.2-1.0)
[2023-10-22 19:23] LABS: UA COLLECTION TYPE VOIDED
[2023-10-22 19:30] VITALS: RESP 18; O2SAT 94
[2023-10-22 19:30] LABS: BACTERIA,URINE FEW /HPF (Neg); MUCUS STRANDS NONE SEEN /LPF (Neg); RBC,URINE 0-2 /HPF (0-2); SQUAMOUS EPITHELIAL CELL,UR FEW /LPF (FEW); WBC,URINE 0-4 /HPF (0-4)
[2023-10-22 19:33] VITALS: BP 108/58; PULSE 86; RESP 18; TEMP 97.2; O2SAT 94
[2023-10-22 19:34] LABS: ALANINE AMINOTRANSFERASE 27 U/L (12-78); ALBUMIN 3.3 G/DL (3.4-5.0); ALBUMIN/GLOBULIN RATIO 0.9 (1.1-1.5); ALKALINE PHOSPHATASE 69 IU/L (46-116); ANION GAP 9 (8-16); ASPARTATE AMINO TRANSFERASE 12 U/L (10-37); BILIRUBIN,TOTAL 0.3 MG/DL (0.1-1.0); BLOOD UREA NITROGEN 22 MG/DL (7-18); BUN/CREATININE RATIO 21.6 (10.0-20.0); CALCIUM 9.3 MG/DL (8.5-10.1); CHLORIDE 100 MMOL/L (99-107); CREATININE 1.02 MG/DL (0.40-0.90); GLUCOSE 201 MG/DL (70-104); POTASSIUM 4.5 MMOL/L (3.5-5.1); SODIUM 137 MMOL/L (135-145); TOTAL CARBON DIOXIDE 27.8 MMOL/L (24-32); eCRCL 53 ML/MIN; eGFR 56 ML/MIN
[2023-10-23 07:45] VITALS: BP 112/62; PULSE 79; RESP 16; TEMP 98.6; O2SAT 97
[2023-10-23 09:15] VITALS: RESP 16; O2SAT 97
[2023-10-23 19:23] VITALS: RESP 14; O2SAT 92
[2023-10-23 19:26] VITALS: BP 122/61; PULSE 74; RESP 14; TEMP 97.5; O2SAT 92
[2023-10-24 07:30] VITALS: BP 117/57; PULSE 79; RESP 16; TEMP 97.6; O2SAT 95
[2023-10-24 19:36] VITALS: RESP 18; O2SAT 92
[2023-10-24 19:38] VITALS: BP 116/59; PULSE 70; RESP 18; TEMP 97.4; O2SAT 92
[2023-10-25 07:00] VITALS: RESP 16; O2SAT 95
[2023-10-25 08:00] VITALS: BP 106/55; PULSE 71; RESP 16; TEMP 97.6; O2SAT 95
[2023-10-25 19:00] VITALS: RESP 14; O2SAT 96
[2023-10-25 20:00] VITALS: BP 133/74; PULSE 108; RESP 14; TEMP 96.9; O2SAT 96
[2023-10-26 07:00] VITALS: RESP 15; O2SAT 95
[2023-10-26 08:00] VITALS: BP 122/74; PULSE 64; RESP 15; TEMP 97.1; O2SAT 95
[2023-10-26 19:50] VITALS: RESP 20; O2SAT 93
[2023-10-26 20:00] VITALS: BP 123/75; PULSE 72; RESP 20; TEMP 97.1; O2SAT 93
[2023-10-27 07:04] VITALS: RESP 15; O2SAT 95
[2023-10-27 08:00] VITALS: BP 127/86; PULSE 62; RESP 16; TEMP 97.3; O2SAT 99
[2023-10-27 19:00] VITALS: RESP 12; O2SAT 96
[2023-10-27 19:51] VITALS: BP 148/82; PULSE 99; RESP 12; TEMP 97.1; O2SAT 96
[2023-10-28 08:56] VITALS: BP 99/60; PULSE 66; RESP 16; TEMP 97.9; O2SAT 95
[2023-10-28 09:41] VITALS: RESP 16; O2SAT 95
[2023-10-28 19:09] VITALS: BP 138/72; PULSE 114; RESP 18; TEMP 97.4; O2SAT 94
[2023-10-28 20:27] LABS: ALANINE AMINOTRANSFERASE 22 U/L (12-78); ALBUMIN 3.3 G/DL (3.4-5.0); ALKALINE PHOSPHATASE 60 IU/L (46-116); ANION GAP 8 (8-16); ASPARTATE AMINO TRANSFERASE 14 U/L (10-37); BILIRUBIN,TOTAL 0.2 MG/DL (0.1-1.0); BLOOD UREA NITROGEN 21 MG/DL (7-18); BUN/CREATININE RATIO 21.6 (10.0-20.0); CALCIUM 9.6 MG/DL (8.5-10.1); CHLORIDE 102 MMOL/L (99-107); CREATININE 0.97 MG/DL (0.40-0.90); GLUCOSE 204 MG/DL (70-104); POTASSIUM 4.8 MMOL/L (3.5-5.1); SODIUM 139 MMOL/L (135-145); TOTAL CARBON DIOXIDE 28.9 MMOL/L (24-32); TOTAL PROTEIN 6.7 G/DL (6.4-8.2); VALPROATE 72 UG/ML (50-100); eCRCL 56 ML/MIN; eGFR 59 ML/MIN
[2023-10-29 07:00] VITALS: RESP 13; O2SAT 93
[2023-10-29 08:00] VITALS: BP 116/65; PULSE 67; RESP 13; TEMP 97.7; O2SAT 93
[2023-10-29 19:35] VITALS: RESP 18; O2SAT 94
[2023-10-29 19:37] VITALS: BP 134/73; PULSE 116; RESP 18; TEMP 98.3; O2SAT 94
[2023-10-30 07:30] VITALS: BP 104/51; PULSE 69; RESP 14; TEMP 98.6; O2SAT 94
[2023-10-30 19:00] VITALS: RESP 14; O2SAT 92
[2023-10-30 20:00] VITALS: BP 108/51; PULSE 77; RESP 14; TEMP 97.7; O2SAT 92
[2023-10-31 07:00] VITALS: RESP 16
[2023-10-31 08:00] VITALS: RESP 16
[2023-10-31 19:00] VITALS: RESP 16
[2023-10-31 20:00] VITALS: RESP 14
[2023-11-01 07:00] VITALS: RESP 16; O2SAT 93
[2023-11-01 08:00] VITALS: BP 99/50; PULSE 72; RESP 16; TEMP 97.8
[2023-11-01 19:00] VITALS: RESP 14; O2SAT 95
[2023-11-01 20:00] VITALS: BP 139/66; PULSE 81; RESP 14; TEMP 97.7; O2SAT 95
[2023-11-01] MEDS: triamcinolone acet 0.1% cream 15gm TP SCH (20:00)
[2023-11-02 07:00] VITALS: RESP 16; O2SAT 95
[2023-11-02 08:00] VITALS: BP 114/68; PULSE 62; RESP 16; TEMP 97.2; O2SAT 95
[2023-11-02 19:00] VITALS: RESP 13; O2SAT 94
[2023-11-02 20:00] VITALS: BP 134/76; PULSE 82; RESP 13; TEMP 97.2; O2SAT 94
[2023-11-03 07:00] VITALS: RESP 15; O2SAT 96
[2023-11-03 08:00] VITALS: BP 104/63; PULSE 74; RESP 15; TEMP 97.9; O2SAT 96
[2023-11-03 19:18] VITALS: RESP 16; O2SAT 91
[2023-11-03 19:22] VITALS: BP 113/72; PULSE 75; RESP 16; TEMP 98; O2SAT 91
[2023-11-04 07:00] VITALS: RESP 14; O2SAT 96
[2023-11-04 08:00] VITALS: BP 107/60; PULSE 64; RESP 14; TEMP 97.4; O2SAT 96
[2023-11-04 19:57] VITALS: RESP 18; O2SAT 96
[2023-11-04 19:58] VITALS: BP 138/78; PULSE 91; RESP 18; TEMP 97.5; O2SAT 96
[2023-11-04] MEDS: OLANZapine 5mg rapidly disint. tablet PO SCH (20:45)
[2023-11-05 07:30] VITALS: BP 95/51; PULSE 66; RESP 16; TEMP 97.3; O2SAT 92
[2023-11-05 19:00] VITALS: RESP 16; O2SAT 96
[2023-11-05 20:00] VITALS: BP 144/75; PULSE 78; RESP 16; TEMP 97.5; O2SAT 96
[2023-11-06 07:30] VITALS: BP 102/63; PULSE 66; RESP 18; TEMP 97.8; O2SAT 96
[2023-11-06 19:00] VITALS: RESP 16; O2SAT 95
[2023-11-07 07:30] VITALS: BP 118/66; PULSE 82; RESP 16; TEMP 97.9; O2SAT 97
[2023-11-07 09:00] VITALS: RESP 16; O2SAT 97
[2023-11-07 19:00] VITALS: BP 106/52; PULSE 93; RESP 16; TEMP 97.2; O2SAT 91
[2023-11-08 07:30] VITALS: BP 108/61; PULSE 71; RESP 16; TEMP 97.1; O2SAT 95
[2023-11-08 08:30] VITALS: RESP 16; O2SAT 95
[2023-11-08 19:00] VITALS: RESP 18; O2SAT 97
[2023-11-08 20:00] VITALS: BP 158/86; PULSE 97; RESP 18; TEMP 97; O2SAT 97
[2023-11-09 07:00] VITALS: RESP 16
[2023-11-09 08:00] VITALS: BP 106/51; PULSE 61; RESP 16; TEMP 97.6; O2SAT 94
[2023-11-09] MEDS: lactose-reduced food (Ensure Enlive) - 237ml bottle PO SCH (12:30)
[2023-11-09 19:00] VITALS: RESP 12; O2SAT 94
[2023-11-09 19:43] VITALS: BP 132/82; PULSE 87; RESP 12; TEMP 97.8; O2SAT 94
[2023-11-10 07:00] VITALS: BP 93/48; PULSE 61; RESP 16; TEMP 97.6; O2SAT 95
[2023-11-10 08:57] LABS: CHOL/HDL RATIO 2.1 (0.00-4.99); CHOLESTEROL 126 MG/DL (0-200); HDL CHOLESTEROL 60 MG/DL (35-60); LDL CHOLESTEROL 52 MG/DL (50-100); TRIGLYCERIDES 106 MG/DL (20-135)
[2023-11-10] MEDS: OLANZapine 5mg rapidly disint. tablet PO PRN (14:54)
[2023-11-10] MEDS: LORazepam 0.5 MG tablet PO PRN (14:55)
[2023-11-10] MEDS ORDERED: ondansetron 4mg rapidly disintigrating tab PO PRN (15:35)
[2023-11-10 19:00] VITALS: RESP 16; O2SAT 95
[2023-11-10 20:00] VITALS: BP 93/48; PULSE 61; RESP 16; TEMP 97.6; O2SAT 95
[2023-11-10] MEDS: loperamide 2mg capsule PO PRN (20:37)
[2023-11-11 08:00] VITALS: BP 109/61; PULSE 60; RESP 14; TEMP 97.3; O2SAT 98
[2023-11-12 07:38] VITALS: BP 123/67; PULSE 73; RESP 14; TEMP 97.6; O2SAT 94
[2023-11-13 07:23] VITALS: BP 104/60; PULSE 62; RESP 14; TEMP 98.9; O2SAT 95
[2023-11-13] MEDS: magnesium hydroxide 30ml (MOM) UD suspension PO PRN (10:23)
[2023-11-13 19:00] VITALS: BP 144/88; PULSE 90; RESP 18; TEMP 98; O2SAT 94
[2023-11-13] MEDS: bisacodyl 10mg suppository rectal RC PRN (19:17)
[2023-11-14 07:30] VITALS: BP 125/70; PULSE 77; RESP 16; TEMP 98; O2SAT 95
[2023-11-14 09:21] VITALS: RESP 16; O2SAT 95
[2023-11-14] MEDS: bisacodyl 10mg suppository rectal RC STA (19:00)
[2023-11-14 19:15] VITALS: BP 133/73; PULSE 87; RESP 16; TEMP 97.9; O2SAT 98
[2023-11-14] MEDS: hydrOXYzine 25 MG tablet PO PRN (19:35)
[2023-11-15 07:30] VITALS: BP 102/60; PULSE 80; RESP 16; TEMP 97.4; O2SAT 92
[2023-11-15] MEDS: OLANZapine 5mg rapidly disint. tablet PO SCH (09:18)
[2023-11-15 20:00] VITALS: BP 121/73; PULSE 80; RESP 16; TEMP 97.5; O2SAT 92
[2023-11-15] MEDS ORDERED: OLANZapine 5mg rapidly disint. tablet PO SCH (21:00)
[2023-11-15] MEDS: olanzapine 10mg tablet PO ONE (21:19)
[2023-11-16 08:00] VITALS: BP 111/61; PULSE 76; RESP 14; TEMP 97.1; O2SAT 94
[2023-11-16 19:00] VITALS: BP 107/77; PULSE 108; RESP 16; TEMP 97.6; O2SAT 95
[2023-11-16] MEDS: OLANZapine 5mg rapidly disint. tablet PO SCH (22:51)
[2023-11-17] MEDS: gabapentin 300mg capsule PO ONE (08:29)
[2023-11-17 10:01] VITALS: BP 116/70; PULSE 74; RESP 16; TEMP 97.8; O2SAT 97
[2023-11-17 10:54] VITALS: RESP 16; O2SAT 97
[2023-11-17 19:00] VITALS: RESP 16; O2SAT 97
[2023-11-17 20:54] VITALS: BP 138/62; PULSE 83; RESP 20; TEMP 97.6; O2SAT 96
[2023-11-17] MEDS: gabapentin 300mg capsule PO SCH (21:35)
[2023-11-18 07:00] VITALS: RESP 16; O2SAT 97
[2023-11-18 08:00] VITALS: BP 113/62; PULSE 76; RESP 18; TEMP 97.8; O2SAT 92
[2023-11-18 19:00] VITALS: RESP 14; O2SAT 95
[2023-11-18 20:41] VITALS: BP 130/61; PULSE 88; RESP 14; TEMP 97.9; O2SAT 95
[2023-11-19 07:30] VITALS: RESP 14
[2023-11-19 19:00] VITALS: BP 137/76; PULSE 81; RESP 14; TEMP 96.9; O2SAT 93
[2023-11-20 07:15] VITALS: BP 103/95; PULSE 73; RESP 16; TEMP 97; O2SAT 95
[2023-11-20 09:11] VITALS: RESP 16; O2SAT 95
[2023-11-20 19:00] VITALS: RESP 14; O2SAT 97
[2023-11-20 20:00] VITALS: RESP 16
[2023-11-21 07:15] VITALS: BP 105/50; PULSE 62; RESP 14; TEMP 98.6; O2SAT 91
[2023-11-21 08:59] VITALS: RESP 14; O2SAT 91
[2023-11-21 19:00] VITALS: RESP 16; O2SAT 91
[2023-11-21 20:00] VITALS: BP 120/73; PULSE 97; RESP 18; TEMP 98.1; O2SAT 98
[2023-11-21] MEDS: gabapentin 300mg capsule PO SCH (21:00)
[2023-11-22 07:15] VITALS: BP 118/67; PULSE 71; RESP 18; TEMP 96.9; O2SAT 98
[2023-11-22 08:40] VITALS: RESP 16; O2SAT 97
[2023-11-22 19:00] VITALS: RESP 20; O2SAT 97
[2023-11-22 20:00] VITALS: BP 150/88; PULSE 84; RESP 20; TEMP 97.9; O2SAT 97
[2023-11-23 01:16] VITALS: RESP 20; O2SAT 97
[2023-11-23 07:00] VITALS: RESP 20; O2SAT 97
[2023-11-23] MEDS ORDERED: magnesium hydroxide 30ml (MOM) UD suspension PO PRN (07:40)
[2023-11-23 08:00] VITALS: BP 109/62; PULSE 65; RESP 15; TEMP 97.3; O2SAT 94
[2023-11-23] MEDS ORDERED: gabapentin 300mg capsule PO SCH (08:00)
[2023-11-23] MEDS: lactulose 20gm/30ml cup PO SCH (14:19)
[2023-11-23 19:00] VITALS: RESP 22; O2SAT 93
[2023-11-23 20:00] VITALS: BP 164/77; PULSE 91; RESP 24; TEMP 97.3; O2SAT 93
[2023-11-23] MEDS: docusate sod 100mg capsule PO SCH (20:00)
[2023-11-24 07:04] VITALS: RESP 20; O2SAT 97
[2023-11-24 08:16] VITALS: BP 124/79; PULSE 82; RESP 16; TEMP 97.6; O2SAT 95
[2023-11-24 19:00] VITALS: RESP 22; O2SAT 96
[2023-11-24 20:00] VITALS: BP 103/60; PULSE 105; RESP 22; TEMP 98.3; O2SAT 92
[2023-11-25 07:00] VITALS: RESP 16
[2023-11-25 08:00] VITALS: RESP 16
[2023-11-25] MEDS ORDERED: mineral oil 133ml enema RC PRN (09:25)
[2023-11-25] MEDS ORDERED: bisacodyl 10mg suppository rectal RC PRN (09:25)
[2023-11-25] MEDS ORDERED: lactulose 20gm/30ml cup PO PRN (12:05)
[2023-11-25 19:00] VITALS: BP 140/78; PULSE 85; RESP 18; TEMP 97.5; O2SAT 96
[2023-11-25] MEDS: fluconazole 150mg tablet PO ONE (22:06)
[2023-11-26 07:00] VITALS: RESP 19; O2SAT 94
[2023-11-26 07:30] VITALS: BP 117/64; PULSE 62; RESP 19; TEMP 96.1; O2SAT 94
[2023-11-26 19:00] VITALS: RESP 18; O2SAT 96
[2023-11-26 19:38] VITALS: BP 141/68; PULSE 83; RESP 18; TEMP 97.4; O2SAT 96
[2023-11-27 07:00] VITALS: RESP 16; O2SAT 96
[2023-11-27 08:47] VITALS: BP 114/66; PULSE 77; RESP 16; TEMP 97.6; O2SAT 96
[2023-11-27 19:00] VITALS: RESP 16; O2SAT 90
[2023-11-27 20:00] VITALS: BP 123/69; PULSE 90; RESP 16; TEMP 96.9; O2SAT 97
[2023-11-28 07:30] VITALS: BP 121/66; PULSE 58; RESP 16; TEMP 97.3; O2SAT 94
[2023-11-28 19:00] VITALS: RESP 14; O2SAT 94
[2023-11-28 20:00] VITALS: BP 120/70; PULSE 88; RESP 14; TEMP 98
[2023-11-29 07:30] VITALS: RESP 14; O2SAT 95
[2023-11-29 08:00] VITALS: BP 110/50; PULSE 63; RESP 14; TEMP 97.3; O2SAT 95
[2023-11-29 19:00] VITALS: RESP 17; O2SAT 97
[2023-11-29 20:00] VITALS: BP 158/80; PULSE 86; RESP 17; TEMP 97.1; O2SAT 97
[2023-11-30 04:21] VITALS: RESP 17; O2SAT 97
[2023-11-30 07:50] VITALS: RESP 16; O2SAT 94
[2023-11-30 08:00] VITALS: BP 125/80; PULSE 78; RESP 15; TEMP 97.6; O2SAT 95
[2023-11-30 19:00] VITALS: BP 120/71; PULSE 83; RESP 16; RESP 18; TEMP 97; O2SAT 93; O2SAT 94
[2023-12-01 07:00] VITALS: RESP 16; O2SAT 96
[2023-12-01 08:00] VITALS: BP 122/62; PULSE 72; RESP 16; TEMP 98.5; O2SAT 96
[2023-12-01 20:00] VITALS: BP 143/77; PULSE 87; RESP 18; TEMP 97.6; O2SAT 96
[2023-12-02 06:54] LABS: BASOPHILS % (AUTO) 0.8 % (0-1); EOSINOPHILS # (AUTO) 0.2 X10'3 (0-0.9); HEMATOCRIT 39.2 % (35.0-45.0); LYMPHOCYTES # (AUTO) 2.2 X10'3 (1.1-4.8); LYMPHOCYTES % (AUTO) 39.7 % (21-51); MEAN CORPUSCULAR HEMOGLOBIN 29.8 PG (27.0-31.0); MEAN CORPUSCULAR HGB CONC 33.2 g/dL (33.0-36.5); MEAN CORPUSCULAR VOLUME 89.6 FL (78-98); MEAN PLATELET VOLUME 7.1 FL (7.4-10.4); MONOCYTES # (AUTO) 0.6 X10'3 (0-0.9); MONOCYTES % (AUTO) 10.7 % (2-12); NEUTROPHILS # (AUTO) 2.5 X10'3 (1.8-7.7); NEUTROPHILS % (AUTO) 44.8 % (42-75); PLATELET COUNT 185 X10'3 (140-440); RED BLOOD COUNT 4.37 X10'6 (4.20-5.60); RED CELL DISTRIBUTION WIDTH 13.7 % (11.5-14.5); WHITE BLOOD COUNT 5.5 X10'3 (4.5-11.0)
[2023-12-02 07:15] VITALS: BP 106/54; PULSE 61; RESP 12; TEMP 97.9; O2SAT 94
[2023-12-02 09:10] VITALS: RESP 12; O2SAT 94
[2023-12-02 19:00] VITALS: BP 124/69; PULSE 96; RESP 18; TEMP 97.9; O2SAT 96
[2023-12-02 20:00] VITALS: PULSE 88
[2023-12-03 07:45] VITALS: BP 100/48; PULSE 64; RESP 18; TEMP 98.4; O2SAT 94
[2023-12-03 08:37] VITALS: RESP 18; O2SAT 94
[2023-12-03 19:00] VITALS: RESP 25; O2SAT 94
[2023-12-03 19:27] VITALS: BP 153/58; PULSE 104; RESP 25; TEMP 97.8; O2SAT 94
[2023-12-04 07:32] VITALS: RESP 16
[2023-12-04 08:57] VITALS: RESP 16
[2023-12-04 19:25] VITALS: RESP 15; O2SAT 95
[2023-12-04 19:26] VITALS: BP 161/80; PULSE 83; RESP 15; TEMP 97.9; O2SAT 95
[2023-12-05 07:00] VITALS: BP 123/46; PULSE 73; RESP 16; TEMP 97.9; O2SAT 93
[2023-12-05 19:00] VITALS: BP 132/69; PULSE 83; RESP 16; TEMP 96.5; O2SAT 95
[2023-12-06 07:00] VITALS: RESP 15; O2SAT 94
[2023-12-06 08:00] VITALS: BP 117/65; PULSE 87; RESP 15; TEMP 98.3; O2SAT 94
[2023-12-06 19:00] VITALS: RESP 16; O2SAT 93
[2023-12-06 20:00] VITALS: BP 137/76; PULSE 84; RESP 16; TEMP 97.3; O2SAT 93
[2023-12-07 07:00] VITALS: RESP 16; O2SAT 100
[2023-12-07 08:00] VITALS: BP 102/51; PULSE 70; RESP 16; TEMP 97.6; O2SAT 100
[2023-12-07 19:00] VITALS: RESP 14; O2SAT 95
[2023-12-07 20:00] VITALS: BP 149/88; PULSE 87; RESP 14; TEMP 97.7; O2SAT 95
[2023-12-08 07:00] VITALS: RESP 14; O2SAT 95
[2023-12-08 08:00] VITALS: BP 118/67; PULSE 68; RESP 14; TEMP 97.8; O2SAT 95
[2023-12-08 19:25] VITALS: RESP 20; O2SAT 94
[2023-12-08 19:28] VITALS: BP 145/79; PULSE 108; RESP 20; TEMP 97.7; O2SAT 94
[2023-12-09 07:00] VITALS: RESP 14; O2SAT 97
[2023-12-09 08:00] VITALS: BP 109/70; PULSE 77; RESP 14; TEMP 98.7; O2SAT 97
[2023-12-09 19:00] VITALS: BP 117/81; PULSE 98; RESP 16; TEMP 97.8; O2SAT 96
[2023-12-10 07:56] VITALS: BP 104/63; PULSE 72; RESP 16; TEMP 98.3; O2SAT 90; O2SAT 92
[2023-12-10 20:00] VITALS: BP 140/69; PULSE 99; RESP 20; TEMP 98.2; O2SAT 98
[2023-12-11 07:00] VITALS: RESP 12; O2SAT 97
[2023-12-11 08:00] VITALS: BP 116/48; PULSE 64; RESP 12; TEMP 97.8; O2SAT 97
[2023-12-11 19:00] VITALS: RESP 18; O2SAT 99
[2023-12-11 19:32] VITALS: BP 134/72; PULSE 96; RESP 18; TEMP 97.2; O2SAT 99
[2023-12-12 07:00] VITALS: RESP 12; O2SAT 96
[2023-12-12 08:00] VITALS: BP 126/78; PULSE 74; RESP 12; TEMP 98.7; O2SAT 95
[2023-12-12 19:00] VITALS: RESP 14; O2SAT 96
[2023-12-12 20:00] VITALS: BP 146/85; PULSE 107; RESP 18; TEMP 96.7; O2SAT 98
[2023-12-13 07:00] VITALS: RESP 18; O2SAT 96
[2023-12-13 08:00] VITALS: BP 114/61; PULSE 70; RESP 18; TEMP 97.1; O2SAT 96
[2023-12-13 19:00] VITALS: RESP 16; O2SAT 93
[2023-12-13 20:00] VITALS: BP 143/74; PULSE 70; RESP 18; TEMP 98.3; O2SAT 99
[2023-12-13] MEDS: lactulose 20gm/30ml cup PO SCH (21:06)
[2023-12-14 07:30] VITALS: BP 97/55; PULSE 69; RESP 18; TEMP 97.5; O2SAT 91
[2023-12-14 09:23] VITALS: RESP 18; O2SAT 91
[2023-12-14 19:00] VITALS: RESP 16; O2SAT 94
[2023-12-14 19:36] VITALS: BP 138/70; PULSE 109; RESP 14; TEMP 97.7; O2SAT 94
[2023-12-15 07:30] VITALS: BP 118/76; PULSE 69; RESP 20; TEMP 97.9; O2SAT 94
[2023-12-15 08:58] VITALS: RESP 20; O2SAT 94
[2023-12-15 19:25] VITALS: BP 120/76; PULSE 80; RESP 17; TEMP 97.8; O2SAT 99
[2023-12-15] MEDS: divalproex sod 125mg sprinkle cap PO SCH (21:02)
[2023-12-16 08:00] VITALS: BP 124/75; PULSE 82; RESP 14; TEMP 96.9; O2SAT 92
[2023-12-16] MEDS: divalproex sod 125mg sprinkle cap PO SCH (08:40)
[2023-12-16 19:00] VITALS: RESP 18; O2SAT 95
[2023-12-16 20:00] VITALS: BP 132/83; PULSE 84; RESP 18; TEMP 98.5; O2SAT 95
[2023-12-17 07:30] VITALS: BP 109/62; PULSE 72; RESP 16; TEMP 98.1; O2SAT 93
[2023-12-17 19:00] VITALS: BP 135/77; PULSE 85; RESP 18; TEMP 97.7; O2SAT 98
[2023-12-18 07:00] VITALS: RESP 16; O2SAT 94
[2023-12-18 08:00] VITALS: BP 122/67; PULSE 68; RESP 16; TEMP 98.2; O2SAT 94
[2023-12-18 20:04] VITALS: BP 146/83; PULSE 80; RESP 18; TEMP 97.3; O2SAT 95
[2023-12-19 07:00] VITALS: RESP 16; O2SAT 93
[2023-12-19 08:00] VITALS: BP 110/59; PULSE 70; RESP 16; TEMP 97.7; O2SAT 93
[2023-12-19] MEDS ORDERED: tuberculin, purif. prot. deriv. 5 units/0.1ml ID ONE (10:45)
[2023-12-19] MEDS: tuberculin, purif. prot. deriv. 5 units/0.1ml ID ONE (12:15)
[2023-12-19 22:18] VITALS: RESP 18; O2SAT 96
[2023-12-19 22:25] VITALS: BP 133/77; PULSE 97; RESP 18; TEMP 97.2; O2SAT 96
[2023-12-20 07:00] VITALS: RESP 12; O2SAT 97
[2023-12-20 08:00] VITALS: BP 117/70; PULSE 96; RESP 12; TEMP 97.3; O2SAT 97
[2023-12-20 19:00] VITALS: BP 134/87; PULSE 88; RESP 16; TEMP 97.5; O2SAT 97
[2023-12-21 07:00] VITALS: RESP 16; O2SAT 94
[2023-12-21 08:00] VITALS: BP 90/41; PULSE 65; RESP 16; TEMP 97.4; O2SAT 94
[2023-12-21 19:00] VITALS: BP 146/84; PULSE 83; RESP 16; TEMP 97.6; O2SAT 95
[2023-12-22 08:00] VITALS: BP 100/58; PULSE 74; RESP 15; TEMP 98.6; O2SAT 91
[2023-12-22 20:00] VITALS: BP 146/81; PULSE 91; RESP 14; TEMP 96.7; O2SAT 95
[2023-12-23 07:30] VITALS: RESP 16; O2SAT 93
[2023-12-23 08:00] VITALS: BP 104/58; PULSE 68; RESP 12; TEMP 97.4; O2SAT 93
[2023-12-23 20:00] VITALS: BP 143/80; PULSE 89; RESP 16; TEMP 97.2; O2SAT 95
[2023-12-24 07:00] VITALS: RESP 14; O2SAT 91
[2023-12-24] MEDS ORDERED: LEVE250T PO (07:48)
[2023-12-24] MEDS ORDERED: OLAN5TAB29 PO (07:48)
[2023-12-24] MEDS ORDERED: DOCU100C40 PO (07:48)
[2023-12-24] MEDS ORDERED: gabapentin capsule PO (07:48)
[2023-12-24] MEDS ORDERED: LACT10SO7 PO (07:48)
[2023-12-24] MEDS ORDERED: MELA3TAB39 PO (07:48)
[2023-12-24] MEDS ORDERED: LINA5TAB4 PO (07:48)
[2023-12-24] MEDS ORDERED: HYDR-3686 PO (07:48)
[2023-12-24] MEDS ORDERED: ATOR20TA PO (07:48)
[2023-12-24] MEDS ORDERED: Lorazepam PO (07:48)
[2023-12-24] MEDS ORDERED: DIVA125C2 PO ×2 (07:48→09:24)
[2023-12-24 08:00] VITALS: BP 105/51; PULSE 65; RESP 14; TEMP 97.1; O2SAT 91
[2023-12-24 19:00] VITALS: RESP 18; O2SAT 95
[2023-12-24 20:00] VITALS: BP 153/79; PULSE 108; RESP 18; TEMP 98.4; O2SAT 95
[2023-12-25 07:30] VITALS: BP 118/60; PULSE 71; RESP 14; TEMP 97.9; O2SAT 100
[2023-12-25 08:31] VITALS: RESP 14; O2SAT 100
[2023-12-25 20:00] VITALS: BP 158/75; PULSE 105; RESP 20; TEMP 97.3; O2SAT 98
[2023-12-26 08:00] VITALS: BP 121/79; PULSE 93; RESP 16; TEMP 97.7; O2SAT 93
[2023-12-26 19:00] VITALS: RESP 16; O2SAT 96
[2023-12-26 20:00] VITALS: BP 135/86; PULSE 89; RESP 16; TEMP 98.3; O2SAT 96
[2023-12-27 07:30] VITALS: BP 127/71; PULSE 81; RESP 16; TEMP 97.1; O2SAT 94
[2023-12-27 09:47] VITALS: RESP 16; O2SAT 94
[2023-12-27 19:00] VITALS: RESP 16; O2SAT 96
[2023-12-27 20:00] VITALS: BP 139/74; PULSE 89; RESP 16; TEMP 97.5; O2SAT 96
[2023-12-28 07:00] VITALS: RESP 14; O2SAT 93
[2023-12-28 08:00] VITALS: BP 133/72; PULSE 62; RESP 14; TEMP 97; O2SAT 93
[2023-12-28 19:00] VITALS: RESP 16; O2SAT 93
[2023-12-28 20:00] VITALS: BP 146/85; PULSE 88; RESP 16; TEMP 98; O2SAT 96
[2023-12-29 08:00] VITALS: BP 120/69; PULSE 82; RESP 14; TEMP 97.6; O2SAT 91
[2023-12-29 10:20] VITALS: RESP 14; O2SAT 91
[2023-12-29 19:30] VITALS: BP 164/87; PULSE 83; RESP 25; TEMP 97.3; O2SAT 96
[2023-12-30 07:00] VITALS: RESP 14; O2SAT 93
[2023-12-30 08:00] VITALS: BP 115/65; PULSE 78; RESP 14; TEMP 96.4; O2SAT 93
[2023-12-30 20:00] VITALS: BP 133/82; PULSE 92; RESP 14; TEMP 98.4; O2SAT 96
== END 2023-12-31 06:45 | disposition home or self-care (01) | DRG 885 ==
LOC: ADULT MH 07:00
PROVIDERS: ADMIT Psychiatry & Neurology Psychiatry; ATTEND Psychiatry & Neurology Psychiatry
PROC: GZHZZZZ Group Psychotherapy (ICD-10-PCS; principal; 2023-10-23)
PROC: GZ51ZZZ Individual Psychotherapy, Behavioral (ICD-10-PCS; 2023-10-23)
DX: F25.0 Schizoaffective disorder, bipolar type (principal); N18.30 Chronic kidney disease, stage 3 unspecified; Z20.822 Contact with and (suspected) exposure to COVID-19; F17.200 Nicotine dependence, unspecified, uncomplicated; K59.00 Constipation, unspecified; B37.2 Candidiasis of skin and nail; E11.42 Type 2 diabetes mellitus with diabetic polyneuropathy; E78.00 Pure hypercholesterolemia, unspecified; K21.9 Gastro-esophageal reflux disease without esophagitis; M10.9 Gout, unspecified; G89.29 Other chronic pain; E11.22 Type 2 diabetes mellitus with diabetic chronic kidney disease; I12.9 Hypertensive chronic kidney disease with stage 1 through stage 4 chronic kidney disease, or unspecified chronic kidney disease; G40.909 Epilepsy, unspecified, not intractable, without status epilepticus; F17.210 Nicotine dependence, cigarettes, uncomplicated; L40.0 Psoriasis vulgaris; G47.20 Circadian rhythm sleep disorder, unspecified type; F41.9 Anxiety disorder, unspecified; M54.50 Low back pain, unspecified; Z79.899 Other long term (current) drug therapy; Z88.0 Allergy status to penicillin; Z88.8 Allergy status to other drugs, medicaments and biological substances; Z90.710 Acquired absence of both cervix and uterus; Z81.8 Family history of other mental and behavioral disorders; Z91.148 Patient's other noncompliance with medication regimen for other reason; Z79.84 Long term (current) use of oral hypoglycemic drugs
CPT/HCPCS: 36415; 74018; 80053; 80061; 80164; 81001; 82140; 82948; 83036; 85025; 87081; 87088; 87811; 93005; A6250; J1630; J3490; Q0177